=== PATIENT | male | born 1955 | race Caucasian/White ===

== ENCOUNTER 2016-11-04 12:14 | Inpatient (IN) | payer BC ==
[~2016-11-04] VITALS: Ht 152.4 cm; Wt 125.0 kg
[2016-11-04] VITALS (8 sets, daily range): BP systolic 96–108; BP diastolic 58–69; PULSE 78–89; RESP 14–18; TEMP 98.6–98.8; O2SAT 97–100
[2016-11-04] MEDS ORDERED: SODIUM CHLOR 0.9% 1000 ML INJ 1,000 ML IV SCH ×2 (14:54→18:30)
[2016-11-04] MEDS ORDERED: PANTOPRAZOLE SODIUM 40 MG VIAL IVP ONE (15:00)
[2016-11-04] MEDS ORDERED: SODIUM CHLORIDE 0.9% FLUSH 5 ML FLUSH IVF PRN (15:00)
[2016-11-04] MEDS ORDERED: PEPC10TA PO (15:04)
[2016-11-04] MEDS ORDERED: PROC10TA PO (15:04)
[2016-11-04] MEDS ORDERED: PANT40TA3 PO (15:04)
--- NOTE | 2016-11-04 15:06 | PD ---
HPI Chief Complaint: General Weakness Time Seen by Provider: 14:59 Travel History International Travel<30 days: No Contact w/Intl Traveler<30days: No Traveled to known affect area: No History of Present Illness HPI 61-year-old male presents to the emergency department for evaluation of spitting up/vomiting of blood as well as blood in the stools. He states this occurred Thursday night and Thursday. However, he was on vacation in the [place] and did not want to go the hospital. His is at bedside and states that he had approximate 4-5 syncopal episodes as well. He denies any vomiting or spitting up blood since. He does report dark stools. Patient has a history of esophageal cancer. He sees Dr. Del Angel. He has a feeding tube and pork. They called Dr. Del Angel instruction him to calm to the emergency department. The patient has generalized weakness. He reports chronic shortness of breath. Patient's primary care physician is Dr. Rosado. 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 Ortiz and he is currently on immunotherapy for his esophageal cancer. [facility] Social History Alcohol Use: No Tobacco Use: No Substance Use: No Allergies-Medications (Allergen,Severity, Reaction): Coded Allergies: Penicillin (Verified Allergy, Unknown, 11/04/16) reaction as an ; unsure of reaction Reported Meds & Prescriptions Reported Meds & Active Scripts Active Reported Pepcid AC (Famotidine) 10 Mg Tab 10 Mg PO BID Prochlorperazine Maleate 10 Mg Tab 10 Mg PO Q6H PRN Pantoprazole (Pantoprazole Sodium) 40 Mg Tab 40 Mg PO DAILY Review of Systems Except as stated in HPI: all other systems reviewed are Neg Physical Exam Narrative GENERAL: Well-developed well-nourished male patient, afebrile. SKIN: Warm and dry. HEAD: Normocephalic. Atraumatic. EYES: No scleral icterus. No injection or drainage. NECK: Supple, trachea midline. No JVD or lymphadenopathy. CARDIOVASCULAR: Regular rate and rhythm without murmurs, gallops, or rubs. RESPIRATORY: Breath sounds equal bilaterally. No accessory muscle use. Lungs sounds are clear to auscultation. GASTROINTESTINAL: Abdomen soft, non-tender, nondistended. Feeding tube noted. MUSCULOSKELETAL: No cyanosis, or edema. BACK: Nontender without obvious deformity. No CVA tenderness. RECTAL EXAM: No masses or tenderness, stool is dark red. Hemoccult is grossly positive. Rectal exam was done with the nurse at bedside. Data Data Last Documented VS Vital Signs Date Time Temp Pulse Resp B/P Pulse Ox O2 Delivery O2 Flow Rate FiO2 11/04/16 14:50 89 16 100 Room Air 11/04/16 12:16 98.8 108/66 Orders Complete Blood Count With Diff (11/04/16 14:54) Comprehensive Metabolic Panel (11/04/16 14:54) Lipase (11/04/16 14:54) Prothrombin Time / Inr (Pt) (11/04/16 14:54) Act Partial Throm Time (Ptt) (11/04/16 14:54) Urinalysis - C+S If Indicated (11/04/16 14:54) Ecg Monitoring (11/04/16 14:54) Iv Access Insert/Monitor (11/04/16 14:54) Oximetry (11/04/16 14:54) Pantoprazole Inj (Protonix Inj) (11/04/16 15:00) Sodium Chlor 0.9% 1000 Ml Inj (Ns 1000 M (11/04/16 14:54) Sodium Chloride 0.9% Flush (Ns Flush) (11/04/16 15:00) Type And Screen (11/04/16 14:54) Electrocardiogram (11/04/16 ) Red Blood Cells (Rbc) (11/04/16 16:20) Blood Product Administration .UPON TRANSFUSION (11/04/16 16:20) Sodium Chlor 0.9% 250 Ml Inj (Ns 250 Ml (11/04/16 16:30) Labs Laboratory Tests Test 11/04/16 15:10 White Blood Count 8.9 TH/MM3 Red Blood Count 2.59 MIL/MM3 Hemoglobin 7.0 GM/DL Hematocrit 21.7 % Mean Corpuscular Volume 83.8 FL Mean Corpuscular Hemoglobin 26.9 PG Mean Corpuscular Hemoglobin 32.1 % Concent Red Cell Distribution Width 15.1 % Platelet Count 255 TH/MM3 Mean Platelet Volume 7.4 FL Neutrophils (%) (Auto) 77.6 % Lymphocytes (%) (Auto) 10.4 % Monocytes (%) (Auto) 7.0 % Eosinophils (%) (Auto) 3.8 % Basophils (%) (Auto) 1.2 % Neutrophils # (Auto) 6.9 TH/MM3 Lymphocytes # (Auto) 0.9 TH/MM3 Monocytes # (Auto) 0.6 TH/MM3 Eosinophils # (Auto) 0.3 TH/MM3 Basophils # (Auto) 0.1 TH/MM3 CBC Comment DIFF FINAL Differential Comment Prothrombin Time 11.2 SEC Prothromb Time International 1.0 RATIO Ratio Activated Partial 27.5 SEC Thromboplast Time Sodium Level 138 MEQ/L Potassium Level 4.0 MEQ/L Chloride Level 101 MEQ/L Carbon Dioxide Level 26.6 MEQ/L Anion Gap 10 MEQ/L Blood Urea Nitrogen 30 MG/DL Creatinine 0.62 MG/DL Estimat Glomerular Filtration 131 ML/MIN Rate Random Glucose 85 MG/DL Calcium Level 8.7 MG/DL Total Bilirubin 0.3 MG/DL Aspartate Amino Transf 21 U/L (AST/SGOT) Alanine Aminotransferase 18 U/L (ALT/SGPT) Alkaline Phosphatase 115 U/L Total Protein 7.0 GM/DL Albumin 2.9 GM/DL Lipase 172 U/L Blood Type A POSITIVE Antibody Screen NEGATIVE Blood Bank Comment MDM Medical Decision Making Medical Screen Exam Complete: Yes Emergency Medical Condition: Yes Medical Record Reviewed: Yes Differential Diagnosis Upper GI bleed vs. lower GI bleed vs malignancy vs. ulcer vs. anemia vs. electrolyte abnormality vs. fistula Narrative Course 61-year-old male presents to the emergency department for evaluation of vomiting and spitting up blood as well as multiple syncopal episodes. He states the symptoms have resolved, but still has dark stools. Rectal exam shows maroon, dark red stools that are grossly Hemoccult positive. Patient complains of generalized weakness. EKG CBC, CMP, lipase, PTT, PT/INR, UA, type and screen are ordered and pending. EKG shows sinus rhythm, heart rate 82, no acute ST changes. CBC shows anemia with hemoglobin 7.0, hematocrit 21.7. CMP shows no acute abnormalities. Lipase is 172. Coags are unremarkable. 2 units packed red blood cells were ordered. [facility] is paged for admission. Dr. Raymond accepted admission. [facility] Point of Care Internal Pos. & Neg. Controls: Passed Fecal Specimen Occult Blood: Positive Diagnosis Primary Impression: GI bleed Qualified Code: K92.2 - Gastrointestinal hemorrhage, unspecified gastrointestinal hemorrhage type Additional Impressions: Anemia Qualified Code: D62 - Acute posthemorrhagic anemia Syncopal episodes Qualified Code: R55 - Syncope, unspecified syncope type Admitting Information Admitting Physician Requests: Debbie Coronado Nov 04, 2016 15:05
[2016-11-04 16:11] LABS: AUTOMATED NEUTROPHIL # 6.9 TH/MM3 (1.8-7.7); BASOPHIL # 0.1 TH/MM3 (0-0.2); BASOPHIL % 1.2 % (0.0-2.0); EOSINOPHIL # 0.3 TH/MM3 (0-0.4); EOSINOPHIL % 3.8 % (0.0-4.0); HEMATOCRIT 21.7 % (39.0-51.0); HEMO FLAGS DIFF FINAL; LYMPH % 10.4 % (9.0-44.0); LYMPHOCYTE # 0.9 TH/MM3 (1.0-4.8); MEAN CELL VOLUME 83.8 FL (80.0-100.0); MEAN CORPUSCULAR HEMOGLOBIN 26.9 PG (27.0-34.0); MEAN CORPUSCULAR HGB CONC 32.1 % (32.0-36.0); NEUT % 77.6 % (16.0-70.0); PLATELET COUNT 255 TH/MM3 (150-450); RED BLOOD COUNT 2.59 MIL/MM3 (4.50-5.90); RED CELL DISTRIBUTION WIDTH 15.1 % (11.6-17.2); WHITE BLOOD COUNT 8.9 TH/MM3 (4.0-11.0)
[2016-11-04 16:19] LABS: APTT (PATIENT) 27.5 SEC (24.3-30.1); PROTHROMBIN TIME - PATIENT 11.2 SEC (9.8-11.6)
[2016-11-04 16:30] LABS: ANION GAP 10 MEQ/L (5-15); AST (GOT) 21 U/L (15-37); BICARBONATE 26.6 MEQ/L (21.0-32.0); BLOOD UREA NITROGEN 30 MG/DL (7-18); CHLORIDE 101 MEQ/L (98-107); GLOMERULAR FILTRATION RATE 131 ML/MIN (>89); SODIUM (NA) 138 MEQ/L (136-145)
[2016-11-04] MEDS ORDERED: SODIUM CHLOR 0.9% 250 ML INJ 250 ML IV ONE (16:30)
[2016-11-04 16:33] LABS: ALKALINE PHOSPHATASE 115 U/L (45-117); ALT (GPT) 18 U/L (12-78); TOTAL BILIRUBIN ADULT 0.3 MG/DL (0.2-1.0)
[2016-11-04] MEDS ORDERED: SODIUM CHLORIDE 0.9% FLUSH 5 ML FLUSH IV PRN (18:15)
[2016-11-04] MEDS ORDERED: ONDANSETRON HCL 4 MG/2 ML VIAL IV PRN (18:15)
--- NOTE | 2016-11-04 18:20 | HHI.HP ---
Dr. Phill Rosado [facility] Primary [facility] Physician Shantanu Rosado MD Admission Diagnosis GI bleed, anemia, syncope Diagnoses: Chief Complaint: GI bleed Travel History International Travel<30 Days: No Contact w/Intl Traveler <30 Da: No Traveled to Known Affected Are: No History of Present Illness 61-year-old male with a past history of esophageal cancer and GERD who was sent in by his oncologist for GI bleeding and syncope. The patient was in the [place] last week on vacation for . On Thursday the patient had acute onset of nausea, with possible bloody emesis 1. He states that after that he began feeling lightheaded and dizzy. He states that he had 4 separate episodes of syncope after throwing up. His daughter heard him fall after the first episode. He states into the episodes he only lost consciousness for a few seconds. Because he remained lightheaded and dizzy afterwards he went to bed that night. On Thursday he had 3 episodes of bright red blood per rectum. He' s been feeling weak since that time, however no further symptoms. Today he called his oncologist, 's, office and they recommended he come to the ED. Since that time he denies any lightheadedness, dizziness, vomiting, rectal bleeding. He denies experiencing any chest pain, shortness of breath, abdominal pain. He gets occasional nausea. The patient is currently undergoing immunotherapy at [facility] [place]. He states he last had lab work done on 10/20, denies any past history of anemia. 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 He gets tube feedings with boost, and can tolerate some liquids by mouth. He was Hemoccult positive in the ED. The patient says he has not had any further episodes of hematemesis. He does say that the whole toilet bowl got red with blood. He said he had an endoscopy around Thanksgiving time. He said he had a colonoscopy a few years ago and believes they found diverticulosis. He says he does not take any pain medications at home. He says he was referred to the hospital by his oncologist. He currently continues to have episodes of lightheadedness. Review of Systems Other 10 point review of systems performed and was negative except as stated in history of present illness Past Family Social History Past Medical History Esophageal cancer on immunotherapy GERD Past Surgical History EGD/colonoscopy PEG placement Sep 17 Right chest port placement hernia repair vasectomy Reported Medications Pepcid AC (Famotidine) 10 Mg Tab 10 Mg PO BID Prochlorperazine Maleate 10 Mg Tab 10 Mg PO Q6H PRN Pantoprazole (Pantoprazole Sodium) 40 Mg Tab 40 Mg PO DAILY Allergies: Coded Allergies: Penicillin (Verified Allergy, Unknown, 11/04/16) reaction as an infant; unsure of reaction Active Ordered Medications Current Medications Medications (Trade) Dose Ordered Sig/Andrea Route Start Time Stop Time Status Last Admin IV Flush 2 ml 2 ml UNSCH PRN IVF 11/04/16 15:00 Sodium Chloride 250 ml @ 15 mls/hr ONCE ONCE IV 11/04/16 16:30 11/05/16 09:09 (NS 1000 ml Inj) 1,000 ml @ 125 mls/hr Q8H IV 11/04/16 18:09 UNV (NS Flush) 2 ml UNSCH PRN IV 11/04/16 18:15 UNV (NS Flush) 2 ml BID IV 11/04/16 21:00 UNV (Zofran Inj) 4 mg Q6H PRN IV 11/04/16 18:15 UNV (Protonix Inj) 40 mg DAILY IV 11/05/16 09:00 UNV Family History Father had Alzheimer's and at 73 Mother passed rate 96, no known medical problems Social History Former tobacco use, quit 15 years ago, [id number] history Occasional ocular use Denies any illegal drug use Physical Exam Vital Signs Vital Signs Date Time Temp Pulse Resp B/P Pulse Ox O2 Delivery O2 Flow Rate FiO2 11/04/16 16:00 78 14 96/58 99 Room Air 11/04/16 14:50 89 16 100 Room Air 11/04/16 12:16 98.8 89 14 108/66 100 Room Air Physical Exam GENERAL: Well-developed well-nourished. In no acute distress. SKIN: Warm and dry. Right chest port in place. HEENT: Normocephalic. Pupils equal and round. Mucous membranes pink and moist. CARDIOVASCULAR: Regular rate and rhythm. No murmur appreciated. RESPIRATORY: No accessory muscle use. Clear to auscultation. Breath sounds equal bilaterally. GASTROINTESTINAL: Abdomen soft, non-tender, nondistended. Bowel sounds x4. PEG tube in place in the lower abdomen. MUSCULOSKELETAL: No obvious deformities. No clubbing or cyanosis. No edema. NEUROLOGICAL: Awake and alert. No focal neurological deficits. Moves upper and lower extremities spontaneously. Normal speech. PSYCHIATRIC: Appropriate mood and affect; insight and judgment normal. Laboratory Laboratory Tests Test 11/04/16 11/04/16 15:10 16:20 White Blood Count 8.9 Red Blood Count 2.59 Hemoglobin 7.0 Hematocrit 21.7 Mean Corpuscular Volume 83.8 Mean Corpuscular Hemoglobin 26.9 Mean Corpuscular Hemoglobin 32.1 Concent Red Cell Distribution Width 15.1 Platelet Count 255 Mean Platelet Volume 7.4 Neutrophils (%) (Auto) 77.6 Lymphocytes (%) (Auto) 10.4 Monocytes (%) (Auto) 7.0 Eosinophils (%) (Auto) 3.8 Basophils (%) (Auto) 1.2 Neutrophils # (Auto) 6.9 Lymphocytes # (Auto) 0.9 Monocytes # (Auto) 0.6 Eosinophils # (Auto) 0.3 Basophils # (Auto) 0.1 CBC Comment DIFF FINAL Differential Comment Prothrombin Time 11.2 Prothromb Time International 1.0 Ratio Activated Partial 27.5 Thromboplast Time Sodium Level 138 Potassium Level 4.0 Chloride Level 101 Carbon Dioxide Level 26.6 Anion Gap 10 Blood Urea Nitrogen 30 Creatinine 0.62 Estimat Glomerular Filtration 131 Rate Random Glucose 85 Calcium Level 8.7 Total Bilirubin 0.3 Aspartate Amino Transf 21 (AST/SGOT) Alanine Aminotransferase 18 (ALT/SGPT) Alkaline Phosphatase 115 Total Protein 7.0 Albumin 2.9 Lipase 172 Blood Type A POSITIVE Antibody Screen NEGATIVE Blood Bank Comment Crossmatch Leukocyte-Reduced Red Blood Cells Result Diagram: 11/04/16 1510 11/04/16 1510 Assessment and Plan Problem List: (1) Anemia ICD Code: D64.9 Status: Acute (2) Syncopal episodes ICD Code: R55 Status: Acute (3) GI bleed ICD Code: K92.2 Status: Acute Assessment and Plan 61-year-old male with a past history of esophageal cancer and GERD who was sent in by his oncologist for GI bleeding and syncope GI bleeding: Episode of possible hematemesis 1 and rectal bleeding 3. IV PPI. IVF. Clear liquids. Consult gastroenterology. The patient does have a history of diverticulosis in the past. Also with esophageal cancer. IV PPI twice a day. 2 units of blood have been ordered. Follow-up CBC. Follow up with gastroenterology. IV fluids. Acute anemia: Hemoglobin 7.0, a previous last comparison, patient denies history of anemia. Likely secondary to acute blood loss as above vs immunotherapy. 2 units PRBCs ordered in the ED. Check serial H&H's. Consult patient's oncologist, Dr. Del Angel. Syncope: Secondary to acute blood loss anemia as above. Treatment as above. Esophageal cancer with associated dysphagia: On immunotherapy. Oncology consulted. Resume tube feeds when cleared by GI. Oncology consult pending. The patient believes he is next due for an immunotherapy injection on Thursday. DVT prophylaxis: SCDs Code Status Full Discussed Condition With Patient with at bedside, Dr. Raymond Attending Statement The exam, history, and the medical decision-making described in the above note were completed with the assistance of the mid-level provider. I reviewed and agree with the findings presented. I attest that I had a [id number] encounter with the patient on the same day, and personally performed and documented my assessment and findings in the medical record. Problem Qualifiers (1) Anemia: Qualified Code: D62 - Acute posthemorrhagic anemia (2) Syncopal episodes: Qualified Code: R55 - Syncope, unspecified syncope type (3) GI bleed: Qualified Code: K92.2 - Gastrointestinal hemorrhage, unspecified gastrointestinal hemorrhage type Artur Haynes Nov 04, 2016 18:20 Jairo Raymond DO Nov 04, 2016 19:08
[2016-11-04] MEDS: SODIUM CHLORIDE 0.9% FLUSH 5 ML FLUSH IV SCH (22:56)
[2016-11-04] MEDS: PANTOPRAZOLE SODIUM 40 MG VIAL IV SCH (22:56)
[2016-11-05] VITALS (9 sets, daily range): BP systolic 91–109; BP diastolic 58–63; PULSE 74–99; RESP 16–20; TEMP 96.3–98.6; O2SAT 95–100
[2016-11-05 05:23] LABS: AUTOMATED NEUTROPHIL # 5.6 TH/MM3 (1.8-7.7); BASOPHIL % 0.6 % (0.0-2.0); EOSINOPHIL # 0.2 TH/MM3 (0-0.4); EOSINOPHIL % 2.9 % (0.0-4.0); HEMATOCRIT 22.8 % (39.0-51.0); HEMO FLAGS DIFF FINAL; LYMPH % 20.4 % (9.0-44.0); LYMPHOCYTE # 1.7 TH/MM3 (1.0-4.8); MEAN CORPUSCULAR HEMOGLOBIN 27.6 PG (27.0-34.0); MEAN CORPUSCULAR HGB CONC 34.5 % (32.0-36.0); NEUT % 67.1 % (16.0-70.0); PLATELET COUNT 212 TH/MM3 (150-450); RED BLOOD COUNT 2.85 MIL/MM3 (4.50-5.90); RED CELL DISTRIBUTION WIDTH 16.6 % (11.6-17.2); WHITE BLOOD COUNT 8.3 TH/MM3 (4.0-11.0)
[2016-11-05 05:42] LABS: BICARBONATE 27.8 MEQ/L (21.0-32.0); POTASSIUM 4.2 MEQ/L (3.5-5.1)
[2016-11-05] MEDS: PANTOPRAZOLE SODIUM 40 MG VIAL IV SCH ×2 (08:34→19:30)
[2016-11-05] MEDS: SODIUM CHLORIDE 0.9% FLUSH 5 ML FLUSH IV SCH ×2 (08:34→19:30)
[2016-11-05] MEDS ORDERED: PANTOPRAZOLE SODIUM 40 MG VIAL IV SCH (09:00)
[2016-11-05] MEDS ORDERED: diphenhydrAMINE HCL 25 MG CAP PO PRN (09:15)
[2016-11-05] MEDS ORDERED: ACETAMINOPHEN 325 MG TAB PO PRN (09:15)
[2016-11-05] MEDS ORDERED: SODIUM CHLOR 0.9% 250 ML INJ 250 ML IV ONE (09:15)
--- NOTE | 2016-11-05 09:51 | MB ---
cc: KATHY DAVID M.D. DATE OF CONSULTATION 11/05/[address] Raymond REASON FOR CONSULTATION Oncology consulted to render opinion regarding patient with metastatic esophageal cancer presented with GI bleed. HISTORY OF PRESENT ILLNESS The patient is a very pleasant 61-year-old male with a history of metastatic esophageal cancer who presented with a complaint of hematemesis and bright red blood per rectum. He recently was found to have progression of metastatic esophageal cancer and he went to [facility] and was started on Keytruda. He had three cycles so far and the last cycle about two weeks ago. He went to [place] to spend his holiday and he was doing well and on Thursday he suddenly had nausea and he threw up bright red blood once. After that, he had become very dizzy and had a syncopal episode about three to four times. He then went to bed and the next morning he noticed bright red blood per rectum and he told me he had three episodes. He also had nausea on Thursday, but none since. He became very weak. He was told to come to the emergency room. He was found to have a hemoglobin of 7. He received two units of packed red blood cell transfusion and this morning hemoglobin is up to 7.8. He is feeling a little better. He denies any fever or chills. He denies any headache. Denies visual changes. Denies chest pain. He has chronic dyspnea on exertion. Denies significant cough. He still has dysphagia. He is able to drink fluid slowly. He denies abdominal pain. Denies dysuria or hematuria. Denies any bone pain. PAST MEDICAL HISTORY 1. Metastatic esophageal cancer. He had metastatic disease in the liver and lymph node. He is currently on Keytruda at [facility]. 2. Gastroesophageal reflux disease 3. Dysphagia PAST SURGICAL HISTORY 1. PEG tube placement 2. EGD and colonoscopy 3. Port placement 4. Hernia repair 5. Vasectomy FAMILY HISTORY Noncontributory SOCIAL HISTORY Quit tobacco 15 years ago. He had a 30 pack year smoking history and drinks occasionally. ALLERGIES PENICILLIN CURRENT MEDICATIONS 1. Protonix 2. Ondansetron REVIEW OF SYSTEMS CONSTITUTIONAL: Denies any fevers, chills, or night sweat. He has lost some weight. EYES: Denies any blurry vision or double vision. ENT: No mouth sores or voice changes. CARDIOVASCULAR: No chest pressure or palpitations. RESPIRATORY: No shortness of breath. He has chronic dyspnea on surgeon. GI: As above. : No dysuria or hematuria. MUSCULOSKELETAL: Bone pain, muscle pain. HEMATOLOGY: As above. ENDOCRINE: Negative. DERMATOLOGY: Negative. PSYCHIATRIC: Negative. NEUROLOGIC: Negative. PHYSICAL EXAM VITALS: Temperature 96.3, blood pressure 161, O2 saturation 99%. GENERAL: He is alert and oriented x3 in no acute distress. He is a little pale. HEENT: Atraumatic, normocephalic. Pupils equal, round and reactive to light. Extraocular muscles intact. No scleral icterus. Oropharynx, dry mucosa. No lesion. NECK: No thyromegaly. No palpable masses. LYMPHATICS: No palpable cervical, clavicular, axillary or inguinal lymph nodes. CARDIOVASCULAR: Regular S1-S2. No murmur. LUNGS: Clear to auscultation without wheezing or rhonchi. ABDOMEN: Soft and nontender. I could not palpate the liver or spleen. PEG tube noted. EXTREMITIES: No cyanosis, clubbing or edema. BACK: No paravertebral tenderness. SKIN: No rash or petechiae. NEUROLOGIC: Nonfocal. LABORATORY DATA Reviewed ASSESSMENT 1. Metastatic esophageal cancer. He was found to have adenocarcinoma involving the GE junction invaded the stomach fundus. He also was found to have liver metastasis. A PET scan showed para-aortic small adenopathy. He received three cycles of EOF chemotherapy and had a very good response. He, however, developed side effects and was switched to FOLFOX chemotherapy. He completed 11 cycle of chemotherapy, but unfortunately in September, he was found to have progression of disease in the liver and esophagus. He had upper endoscopy done September 24 which again showed a mass in the GE junction causing some obstruction. He went to [facility] and was started on Keytruda. He has completed three cycle, last cycle two weeks ago. He is supposed to go back to [facility] next Thursday for restaging scan and chemotherapy. 2. Upper GI bleed which I think is due to the esophageal cancer. His EGD at the end of September showed a mass involving about 50% of the esophagus circumferentially. He has had dysphagia, but states it seems to have improved. He started to have hematemesis last Thursday, but has not recurred since. He had bright red blood per rectum on Thursday that also has not recurred since. His hemoglobin was down to 7. He is going to need upper endoscopy for further evaluation. Gastroenterology has been consulted. 3. Anemia due to GI bleed. Hemoglobin trended up to 7.8 from 7 after two units of packed red blood cell transfusion. I am going to give him another unit and try to keep his hemoglobin above 8 due to GI bleeding. 4. Gastroesophageal reflux disease 5. Dysphagia due to esophageal mass. He will continue on tube feeding. RECOMMENDATIONS 1. Arrange for another unit of packed red blood cell transfusion. 2. Await GI evaluation. He needs repeat upper endoscopy. 3. If the GI bleeding has stopped, he can be discharged from the oncology standpoint. He has follow up at [facility] next Thursday for restaging scan and to continue Keytruda. Thank you, Dr. Raymond for asking us to see this patient. MD SHAHZAD Jeter/LUIGI /9:18 AM /9:34 AM SERGIO
--- NOTE | 2016-11-05 11:44 | EKG ---
Date Performed: 11/04/2016 Time Performed: 15:15:43 PTAGE: 61 years EKG: Sinus rhythm WITH SHORT MN INTERVAL BORDERLINE ECG NO PREVIOUS TRACING DOCTOR: Cornelio Morales Interpretating Date/Time 11/05/2016 11:42:22
--- NOTE | 2016-11-05 12:02 | PD.CONS ---
HPI History of Present Illness This is a 61 year old male patient with known metastatic esophageal cancer. He was originally diagnosed and October 2015. He was treated with chemotherapy up until August of this year. He was recently found to have progression of his disease and was started on Keytruda. He is currently being followed at [facility] and has appointment on Thursday for CT scan. Patient last had an upper endoscopy in September 2016 at which time he was found to have an obstructing esophageal mass. He has had some intermittent issues with dysphasia and has lost 60 pounds over the past year. He has a feeding tube in place and is currently taking boost 6 cans daily. He reports that he has been able to maintain his weight with this. He states that he was doing well up until last Thursday. He was actually in [place] for the holidays and states that Thursday night he was sipping on a boost when he had the sudden onset of nausea. He also had a syncopal episode. He went to bed and woke up with nausea and vomiting and brought up a small amount of bright red blood. He reports he then woke up around 1 AM with a sudden urge to move his bowels and passed a moderate amount of bright red blood per rectum. He reports that since that time he is only been taking his boost via his PEG tube and he returned home. He presented to the emergency room for further evaluation. His H&H on admission was 7.0/ 21.7. He received 2 units of packed red blood cells and this is currently 7.8/ 22.8. He is on Protonix IV twice a day. He has not had any further hematemesis. He is not currently having any nausea. He denies any abdominal pain and has not had any further episodes of hematochezia. GI has been consulted for further evaluation. (Fransisca Jeronimo) PFSH Past Medical History Metastatic esophageal cancer with progression of disease to the liver and lymph node, currently on Keytruda at [facility] GERD Dysphagia Past Surgical History EGD/colonoscopy PEG placement Sep 17 Right chest port placement Hernia repair Vasectomy (Fransisca Jeronimo) Coded Allergies: Penicillin (Verified Allergy, Unknown, 11/04/16) reaction as an ; unsure of reaction Medications Allergies Coded Allergies Type Severity Reaction Last Updated Verified Penicillin Allergy Unknown 11/04/16 Yes Active Scripts Medications Dose Route/Sig Days Date Category Pepcid AC (Famotidine) 10 Mg Tab 10 Mg PO BID 11/04/16 Reported Prochlorperazine Maleate 10 Mg Tab 10 Mg PO Q6H PRN 11/04/16 Reported Pantoprazole (Pantoprazole Sodium) 40 Mg Tab 40 Mg PO DAILY 11/04/16 Reported Family History Father had Alzheimer's and at 73 Mother passed at age 96, no known medical problems Social History Former tobacco use, quit 15 years ago, [id number] history Occasional alcohol use Denies any illegal drug use (Fransisca Jeronimo) Review of Systems Constitutional: COMPLAINS OF: Fatigue, Weight loss (60 pound weight loss over the past year), DENIES: Fever, Chills Respiratory: DENIES: Cough, Shortness of breath Cardiovascular: DENIES: Chest pain Gastrointestinal: COMPLAINS OF: Bloody stools, Nausea, Vomiting, Anorexia, Heartburn, Hematemesis, DENIES: Abdominal pain, Black stools, Constipation, Diarrhea, Swelling of Abdomen Musculoskeletal: DENIES: Back pain Integumentary: DENIES: Rash Hematologic/lymphatic: DENIES: Bruising Neurologic: DENIES: Headache Psychiatric: DENIES: Confusion (Fransisca Jeronimo) GI Exam Vitals I&O Vital Signs Date Time Temp Pulse Resp B/P Pulse Ox O2 Delivery O2 Flow Rate FiO2 11/05/16 08:00 96.3 74 17 100/61 99 11/05/16 04:00 98.6 77 18 100/62 96 11/04/16 23:54 98.6 85 18 105/69 99 11/04/16 20:35 98.6 82 16 99/58 97 Room Air 11/04/16 20:00 97 11/04/16 19:35 98.6 86 16 98/62 98 Room Air 11/04/16 19:20 98.7 88 16 97/63 98 Room Air 11/04/16 18:00 84 14 98/61 98 Room Air 11/04/16 16:00 78 14 96/58 99 Room Air 11/04/16 14:50 89 16 100 Room Air 11/04/16 12:16 98.8 89 14 108/66 100 Room Air I/O 1/3/17 1/3/17 11/04/16 11/05/16 11/05/16 11/05/16 07:00 15:00 23:00 07:00 15:00 23:00 Intake Total 240 ml 1357 ml Output Total 300 ml 250 ml Balance -60 ml 1107 ml Intake Oral 240 ml 125 ml IV Total 550 ml Packed Cells 682 ml Output Urine Total 300 ml 250 ml # Bowel Movements 0 0 Laboratory Test 11/04/16 11/04/16 11/04/16 11/05/16 15:10 16:20 18:15 04:45 White Blood Count 8.9 TH/MM3 8.3 TH/MM3 Red Blood Count 2.59 MIL/MM3 2.85 MIL/MM3 Hemoglobin 7.0 GM/DL 7.8 GM/DL Hematocrit 21.7 % 22.8 % Mean Corpuscular Volume 83.8 FL 80.0 FL Mean Corpuscular Hemoglobin 26.9 PG 27.6 PG Mean Corpuscular Hemoglobin 32.1 % 34.5 % Concent Red Cell Distribution Width 15.1 % 16.6 % Platelet Count 255 TH/MM3 212 TH/MM3 Mean Platelet Volume 7.4 FL 7.3 FL Neutrophils (%) (Auto) 77.6 % 67.1 % Lymphocytes (%) (Auto) 10.4 % 20.4 % Monocytes (%) (Auto) 7.0 % 9.0 % Eosinophils (%) (Auto) 3.8 % 2.9 % Basophils (%) (Auto) 1.2 % 0.6 % Neutrophils # (Auto) 6.9 TH/MM3 5.6 TH/MM3 Lymphocytes # (Auto) 0.9 TH/MM3 1.7 TH/MM3 Monocytes # (Auto) 0.6 TH/MM3 0.7 TH/MM3 Eosinophils # (Auto) 0.3 TH/MM3 0.2 TH/MM3 Basophils # (Auto) 0.1 TH/MM3 0.0 TH/MM3 CBC Comment DIFF FINAL DIFF FINAL Differential Comment Prothrombin Time 11.2 SEC Prothromb Time International 1.0 RATIO Ratio Activated Partial 27.5 SEC Thromboplast Time Sodium Level 138 MEQ/L 141 MEQ/L Potassium Level 4.0 MEQ/L 4.2 MEQ/L Chloride Level 101 MEQ/L 106 MEQ/L Carbon Dioxide Level 26.6 MEQ/L 27.8 MEQ/L Anion Gap 10 MEQ/L 7 MEQ/L Blood Urea Nitrogen 30 MG/DL 33 MG/DL Creatinine 0.62 MG/DL 0.75 MG/DL Estimat Glomerular Filtration 131 ML/MIN 105 ML/MIN Rate Random Glucose 85 MG/DL 90 MG/DL Calcium Level 8.7 MG/DL 8.2 MG/DL Total Bilirubin 0.3 MG/DL Aspartate Amino Transf 21 U/L (AST/SGOT) Alanine Aminotransferase 18 U/L (ALT/SGPT) Alkaline Phosphatase 115 U/L Total Protein 7.0 GM/DL Albumin 2.9 GM/DL Lipase 172 U/L Blood Type A POSITIVE A POSITIVE Antibody Screen NEGATIVE Blood Bank Comment Crossmatch Leukocyte-Reduced Red Blood Cells Test 11/05/16 09:19 Blood Type A POSITIVE Crossmatch Leukocyte-Reduced Red Blood Cells Blood Bank Comment Physical Examination HEENT: Normocephalic; atraumatic; no jaundice. CHEST: Chest is clear to auscultation and percussion. CARDIAC: Regular rate and rhythm with no murmur gallop or rubs. ABDOMEN: Soft, nondistended, nontender; no hepatosplenomegaly; bowel sounds are present in all four quadrants. PEG tube clamped EXTREMITIES: No clubbing, cyanosis, or edema. SKIN: Normal; no rash; no jaundice. [employer]: No focal deficits; alert and oriented times three. (Fransisca Jeronimo) Assessment and Plan Plan ASSESSMENT: - Upper GI bleed with hematemesis consisting of bright red blood and one episode of hematochezia with bright red blood. Currently not actively bleeding at this time. Patient with known metastatic esophageal cancer with obstructing mass, last endoscopy was around . He is currently being treated with Keytuda at [facility]. His H&H on admission was 7.0/21.7. He received 2 units of packed red blood cells and this is currently 7.8/22.8. He is on Protonix IV twice a day. Pt states he has not had anything to eat/drink since yesterday. Will schedule for egd today. - Anemia secondary to acute blood loss. Status post 2 units of packed red blood cells. H&H currently 7.8/22.8. PPI - Metastatic esophageal cancer with disease to his liver and lymph nodes. Diagnosed October 2015. Status post chemotherapy up until August. He was found to have progression And was started on Keytruda at [facility]. He has an upcoming appointment on Thursday and is scheduled for CT scan at that time. Oncology is following. - Dysphagia, abnormal weight loss. Patient reports a 60 pound weight loss over the past year or although more recently his weight has been stable. He has PEG tube and is taking boost supplements 6 cans per day. PLAN - Plan for EGD today - Obtain consents - Nothing by mouth - Continue PPI - Monitor H&H - Transfuse as necessary - Oncology following - Supportive care - Pt seen and examined by Dr. Luevano and myself and this note is written on his behalf (Fransisca Jeronimo) Physician Comments patient was seen and examined, agree with above note and plan, EGD today. ( Jimy Luevano MD) Fransisca Jeronimo Nov 05, 2016 12:02 Jimy Luevano MD Nov 05, 2016 17:41
[2016-11-05 12:11] LABS: HEMATOCRIT 22.3 % (39.0-51.0); REVIEW FLAG FINAL
[2016-11-05] MEDS ORDERED: EPINEPHrine HCL (1:10,000) 1 MG/10 ML SYRINGE OTHER ONE (12:47)
[2016-11-05] MEDS ORDERED: PROPOFOL 200 MG/20 ML AMP IV ONE (12:47)
--- NOTE | 2016-11-05 17:11 | HHI.PR ---
Subjective Remarks The patient and are wondering about the results from the endoscopy. The patient said that he felt a little soreness in his throat. He denied abdominal pain. No other acute complaints at this time. Objective Vitals Vital Signs Date Time Temp Pulse Resp B/P Pulse Ox O2 Delivery O2 Flow Rate FiO2 11/05/16 16:25 96.9 87 16 93/63 96 11/05/16 16:12 97.5 99 20 109/58 95 11/05/16 14:23 95 11/05/16 13:34 88 16 96/62 94 11/05/16 13:23 85 16 86/58 96 11/05/16 13:17 86 16 94/63 96 11/05/16 13:12 97.7 85 16 106/67 97 11/05/16 12:00 97.8 86 18 91/60 100 11/05/16 08:00 96.3 74 17 100/61 99 11/05/16 04:00 98.6 77 18 100/62 96 11/04/16 23:54 98.6 85 18 105/69 99 11/04/16 20:35 98.6 82 16 99/58 97 Room Air 11/04/16 20:00 97 11/04/16 19:35 98.6 86 16 98/62 98 Room Air 11/04/16 19:20 98.7 88 16 97/63 98 Room Air 11/04/16 18:00 84 14 98/61 98 Room Air I/O 11/04/16 11/04/16 11/04/16 11/05/16 11/05/16 11/05/16 06:59 14:59 22:59 06:59 14:59 22:59 Intake Total 240 ml 1357 ml 550 ml Output Total 300 ml 250 ml Balance -60 ml 1107 ml 550 ml Intake Oral 240 ml 125 ml IV Total 550 ml 550 ml Packed Cells 682 ml Output Urine Total 300 ml 250 ml # Bowel Movements 0 0 Result Diagram: 11/05/16 1130 11/05/16 0445 Objective Remarks GENERAL: Well-developed well-nourished. In no acute distress. SKIN: Warm and dry. Right chest port in place. HEENT: Normocephalic. Pupils equal and round. Mucous membranes pink and moist. CARDIOVASCULAR: Regular rate and rhythm. No murmur appreciated. RESPIRATORY: No accessory muscle use. Clear to auscultation. Breath sounds equal bilaterally. GASTROINTESTINAL: Abdomen soft, non-tender, nondistended. Bowel sounds x4. PEG tube in place in the lower abdomen. MUSCULOSKELETAL: No obvious deformities. No clubbing or cyanosis. No edema. NEUROLOGICAL: Awake and alert. No focal neurological deficits. Moves upper and lower extremities spontaneously. Normal speech. PSYCHIATRIC: Appropriate mood and affect; insight and judgment normal. Procedures EGD 11/05. Medications and IVs Current Medications Medications (Trade) Dose Ordered Sig/Andrea Route Start Time Stop Time Status Last Admin (NS Flush) 2 ml UNSCH PRN IV 11/04/16 18:15 (NS Flush) 2 ml BID IV 11/04/16 21:00 11/04/16 22:56 (Zofran Inj) 4 mg Q6H PRN IV 11/04/16 18:15 Pantoprazole Sodium 40 mg 40 mg BID IV 11/04/16 21:00 11/05/16 08:34 Sodium Chloride 250 ml @ 15 mls/hr ONCE ONCE IV 11/05/16 09:15 11/06/16 01:54 11/05/16 11:35 (D5W-11/03 NS 1000 ml Inj) 1,000 ml @ 100 mls/hr Q10H IV 11/05/16 17:00 A/P Problem List: (1) Anemia ICD Code: D64.9 Status: Acute (2) Syncopal episodes ICD Code: R55 Status: Acute (3) GI bleed ICD Code: K92.2 Status: Acute Assessment and Plan GI bleeding GI consult appreciated. S/p EGD which revealed bleeding mass at distal esophagus , injected with lidocaine, - transfusion per GI. - follow CBC. - IV PPI. - IVFs. Keep the pt NPO for now. - IR consult for embolization if continues to bleed. Hypotension S/t GIB. - treatment as above. Syncope Secondary to acute blood loss anemia as above. - Treatment as above. Esophageal cancer With associated dysphagia: On immunotherapy. Oncology consult appreciated - Resume tube feeds when cleared by GI. - follow up with oncology as an outpt. DVT prophylaxis: SCDs Discharge Planning Awaiting clinical improvement. Problem Qualifiers (1) Anemia: Qualified Code: D62 - Acute posthemorrhagic anemia (2) Syncopal episodes: Qualified Code: R55 - Syncope, unspecified syncope type (3) GI bleed: Qualified Code: K92.2 - Gastrointestinal hemorrhage, unspecified gastrointestinal hemorrhage type Jairo Raymond DO Nov 05, 2016 17:11
[2016-11-05] MEDS: DEXT 5%-NACL 0.45% 1000 ML INJ 1,000 ML IV SCH (19:32)
[2016-11-06] VITALS (13 sets, daily range): BP systolic 87–113; BP diastolic 57–69; PULSE 72–85; RESP 16–18; TEMP 97.3–98.8; O2SAT 96–99
[2016-11-06 01:13] LABS: HEMATOCRIT 18.6 % (39.0-51.0); REVIEW FLAG FINAL
[2016-11-06] MEDS ORDERED: SODIUM CHLOR 0.9% 250 ML INJ 250 ML IV ONE (02:00)
[2016-11-06] MEDS: DEXT 5%-NACL 0.45% 1000 ML INJ 1,000 ML IV SCH ×3 (03:00→22:24)
[2016-11-06] MEDS: PANTOPRAZOLE SODIUM 40 MG VIAL IV SCH ×2 (08:33→20:24)
[2016-11-06] MEDS: SODIUM CHLORIDE 0.9% FLUSH 5 ML FLUSH IV SCH ×2 (08:34→20:24)
--- NOTE | 2016-11-06 09:16 | PD.ONC.PN ---
Subjective Subjective Remarks Afebrile overnight. Patient denies any hematemesis or BRBPR today. He just completed blood transfusion and post transfusion labs are pending. Objective Data Date Time Temp Pulse Resp B/P Pulse Ox O2 Delivery O2 Flow Rate FiO2 11/06/16 08:24 98.5 73 16 102/63 11/06/16 08:00 98.2 85 16 87/60 98 11/06/16 08:00 98.5 73 16 102/65 98 11/06/16 06:00 98.2 80 18 106/66 98 11/06/16 05:45 97.6 79 18 113/68 99 11/06/16 05:30 97.6 79 18 113/68 99 11/06/16 04:00 97.8 79 18 97/64 97 11/06/16 02:55 98.8 80 18 100/57 98 11/06/16 02:40 98.6 81 17 99/58 98 11/06/16 00:00 98.6 85 18 101/61 96 11/05/16 20:00 98.4 89 18 104/63 96 11/05/16 19:32 98.4 89 18 104/63 96 11/05/16 18:42 21 11/05/16 16:25 96.9 87 16 93/63 96 11/05/16 16:12 97.5 99 20 109/58 95 11/05/16 16:00 97.5 99 20 109/58 95 11/05/16 14:23 95 11/05/16 13:34 88 16 96/62 94 11/05/16 13:23 85 16 86/58 96 11/05/16 13:17 86 16 94/63 96 11/05/16 13:12 97.7 85 16 106/67 97 11/05/16 12:00 97.8 86 18 91/60 100 11/06/16 11/06/16 11/06/16 07:00 15:00 23:00 Intake Total 1008 ml Output Total 1200 ml Balance -192 ml Result Diagram: 11/06/16 0055 11/05/16 0445 Laboratory Results Laboratory Tests Test 11/05/16 11/05/16 11/06/16 11/06/16 09:19 11:30 00:55 01:52 Blood Type A POSITIVE A POSITIVE Crossmatch Leukocyte-Reduced Leukocyte-Reduced Red Blood Red Blood Cells Cells Blood Bank Comment Hemoglobin 7.4 GM/DL 6.3 GM/DL Hematocrit 22.3 % 18.6 % Administered Medications Medications (Trade) Dose Ordered Sig/Andrea Route PRN Reason Start Time Stop Time Status Last Admin Dose Admin IV Flush (NS Flush) 2 ml BID IV 11/04/16 21:00 11/06/16 08:34 Pantoprazole Sodium 40 mg 40 mg BID IV 11/04/16 21:00 11/06/16 08:33 Dextrose/Sodium Chloride 1,000 ml @ 100 mls/hr Q10H IV 11/05/16 17:00 11/05/16 19:32 Sodium Chloride (NS 250 ml Inj) 250 ml @ 15 mls/hr ONCE ONCE IV 11/06/16 02:00 11/06/16 18:39 11/06/16 02:00 Objective Remarks GENERAL: Middle aged male, sitting up in bed in nad. SKIN: Warm and dry. HEAD: Normocephalic. EYES: No scleral icterus. No injection or drainage. NECK: Supple, trachea midline. CARDIOVASCULAR: Regular rate and rhythm RESPIRATORY: Breath sounds equal bilaterally. No accessory muscle use. GASTROINTESTINAL: Abdomen G-tube clamped. blood noted in G-tube EXTREMITIES: No cyanosis MUSCULOSKELETAL: Adequate muscle tone. NEUROLOGICAL: No obvious focal deficit. Awake, alert, and oriented x3. Assessment/Plan Problem List: (1) Primary cancer of esophagus with metastasis to other site Status: Acute Plan: --follow up at [facility] next Thursday for restaging scan and chemotherapy. History/Workup -- found to have adenocarcinoma involving the GE junction invaded the stomach fundus. --found to have liver metastasis. --PET scan showed para-aortic small adenopathy. --received three cycles of EOF chemotherapy and had a very good response. --developed side effects and was switched to FOLFOX chemotherapy. --completed 11 cycle of chemotherapy, but unfortunately in September, he was found to have progression of disease in the liver and esophagus. --upper endoscopy done September 24 which again showed a mass in the GE junction causing some obstruction. --went to [facility] and was started on Keytruda. has completed three cycles, last cycle two weeks ago. (2) GI bleed Status: Acute Plan: --monitor H/H. If continued bleeding s/p epi + cautery in GI lab will need embolization by IR. HistoryWorkup --due to the esophageal cancer. --EGD at he end of September showed a mass involving about 50% of the esophagus circumferentially. -- has had dysphagia, but states it seems to have improved. --started to have hematemesis last Thursday, but has not recurred since. --had bright red blood per rectum on Thursday that also has not recurred since. His hemoglobin was down to 7. --EGD, 11/05/16 showed ulcerated actively bleeding mass in the distal esophagus with multiple bleeding sites--was injected with epi and cauterized. + significant narrowing of the esophagus bc of the tumor. (3) Anemia due to blood loss Status: Acute Plan: 11/06/15: h/h dropped to 6.3 today. pRBC ordered (4) Dysphagia due to mass Status: Acute Plan: --continue tube feeds Assessment 61y/o male with h/o met. esophageal cancer, admitted with GIB Plan 1. agree with pRBC 2. monitor CBC Attending Statement The exam, history, and the medical decision-making described in the above note were completed with the assistance of the mid-level provider. I reviewed and agree with the findings presented. I attest that I had a [id number] encounter with the patient on the same day, and personally performed and documented my assessment and findings in the medical record. EGD showed actively bleeding mass s/p injection of epinephrine. Hgb trended lower and he is receiving transfusion. If the tumor continue to bleed, then he will need embolization per GI. Monitor H&H and transfuse to keep Hgb >8. Problem Qualifiers (1) GI bleed: Qualified Code: K92.2 - Gastrointestinal hemorrhage, unspecified gastrointestinal hemorrhage type Darcy Chatman Nov 06, 2016 09:16 Armando Del Angel MD Nov 06, 2016 13:43
[2016-11-06 09:44] LABS: HEMATOCRIT 25.1 % (39.0-51.0); MEAN CELL VOLUME 81.5 FL (80.0-100.0); MEAN CORPUSCULAR HEMOGLOBIN 28.2 PG (27.0-34.0); MEAN CORPUSCULAR HGB CONC 34.6 % (32.0-36.0); PLATELET COUNT 183 TH/MM3 (150-450); RED BLOOD COUNT 3.08 MIL/MM3 (4.50-5.90); RED CELL DISTRIBUTION WIDTH 15.9 % (11.6-17.2); REVIEW FLAG FINAL; WHITE BLOOD COUNT 9.4 TH/MM3 (4.0-11.0)
[2016-11-06 10:06] LABS: BICARBONATE 27.7 MEQ/L (21.0-32.0); POTASSIUM 3.8 MEQ/L (3.5-5.1)
--- NOTE | 2016-11-06 13:07 | HHI.PR ---
Subjective Remarks The patient did not notice any further bleeding. He mentions he has not had a bowel movement. He was curious as to what the next steps were and when he could be discharged home. Family at bedside. Objective Vitals Vital Signs Date Time Temp Pulse Resp B/P Pulse Ox O2 Delivery O2 Flow Rate FiO2 11/06/16 12:00 97.8 74 16 97/65 98 11/06/16 10:51 98 21 11/06/16 08:24 98.5 73 16 102/63 11/06/16 08:00 98.2 85 16 87/60 98 11/06/16 08:00 98.5 73 16 102/65 98 11/06/16 06:00 98.2 80 18 106/66 98 11/06/16 05:45 97.6 79 18 113/68 99 11/06/16 05:30 97.6 79 18 113/68 99 11/06/16 04:00 97.8 79 18 97/64 97 11/06/16 02:55 98.8 80 18 100/57 98 11/06/16 02:40 98.6 81 17 99/58 98 11/06/16 00:00 98.6 85 18 101/61 96 11/05/16 20:00 98.4 89 18 104/63 96 11/05/16 19:32 98.4 89 18 104/63 96 11/05/16 18:42 21 11/05/16 16:25 96.9 87 16 93/63 96 11/05/16 16:12 97.5 99 20 109/58 95 11/05/16 16:00 97.5 99 20 109/58 95 11/05/16 14:23 95 11/05/16 13:34 88 16 96/62 94 11/05/16 13:23 85 16 86/58 96 11/05/16 13:17 86 16 94/63 96 11/05/16 13:12 97.7 85 16 106/67 97 I/O 11/05/16 11/05/16 11/05/16 11/06/16 11/06/16 11/06/16 07:00 15:00 23:00 07:00 15:00 23:00 Intake Total 1357 ml 1025 ml 280 ml 1008 ml Output Total 250 ml 475 ml 400 ml 1200 ml Balance 1107 ml 550 ml -120 ml -192 ml Intake Oral 125 ml 475 ml 0 ml IV Total 550 ml 550 ml 708 ml Packed Cells 682 ml 280 ml 300 ml Output Urine Total 250 ml 475 ml 400 ml 1200 ml Stool Total 0 ml # Voids 2 # Bowel Movements 0 3 0 Result Diagram: 11/06/1691911/06/16919 Objective Remarks GENERAL: Well-developed well-nourished. In no acute distress. SKIN: Warm and dry. Right chest port in place. Color has returned. HEENT: Normocephalic. Pupils equal and round. Mucous membranes pink and moist. CARDIOVASCULAR: Regular rate and rhythm. No murmur appreciated. RESPIRATORY: No accessory muscle use. Clear to auscultation. Breath sounds equal bilaterally. GASTROINTESTINAL: Abdomen soft, non-tender, nondistended. Bowel sounds x4. PEG tube in place in the lower abdomen. MUSCULOSKELETAL: No obvious deformities. No clubbing or cyanosis. No edema. NEUROLOGICAL: Awake and alert. No focal neurological deficits. Moves upper and lower extremities spontaneously. Normal speech. PSYCHIATRIC: Appropriate mood and affect; insight and judgment normal. Procedures EGD 11/05. Medications and IVs Current Medications Medications (Trade) Dose Ordered Sig/Andrea Route Start Time Stop Time Status Last Admin (NS Flush) 2 ml UNSCH PRN IV 11/04/16 18:15 11/06/16 11:42 (NS Flush) 2 ml BID IV 11/04/16 21:00 11/06/16 08:34 (Zofran Inj) 4 mg Q6H PRN IV 11/04/16 18:15 Pantoprazole Sodium 40 mg 40 mg BID IV 11/04/16 21:00 11/06/16 08:33 Dextrose/Sodium Chloride 1,000 ml @ 100 mls/hr Q10H IV 11/05/16 17:00 11/06/16 11:41 (NS 250 ml Inj) 250 ml @ 15 mls/hr ONCE ONCE IV 11/06/16 02:00 11/06/16 18:39 11/06/16 02:00 A/P Problem List: (1) Anemia ICD Code: D64.9 Status: Acute (2) Syncopal episodes ICD Code: R55 Status: Acute (3) GI bleed ICD Code: K92.2 Status: Acute Assessment and Plan GI bleeding GI consult appreciated. S/p EGD which revealed bleeding mass at distal esophagus , injected with lidocaine. S/p two additional units of blood early 11/06. No further bleeding and with appropriate response. - transfuse as needed. - follow CBC this afternoon. - IV PPI. - IVFs. Keep the pt NPO for now. - IR consult for embolization if continues to bleed or if next hemoglobin check is substantially lower. - follow up with GI. Hypotension S/t GIB. Improved. - treatment as above. Syncope Secondary to acute blood loss anemia as above. - Treatment as above. Esophageal cancer With associated dysphagia: On immunotherapy. Oncology consult appreciated - Resume tube feeds when cleared by GI. - follow up with oncology as an outpt. DVT prophylaxis: SCDs Discharge Planning Awaiting clinical improvement. Problem Qualifiers (1) Anemia: Qualified Code: D62 - Acute posthemorrhagic anemia (2) Syncopal episodes: Qualified Code: R55 - Syncope, unspecified syncope type (3) GI bleed: Qualified Code: K92.2 - Gastrointestinal hemorrhage, unspecified gastrointestinal hemorrhage type Jairo Raymond DO Nov 06, 2016 13:07
--- NOTE | 2016-11-06 13:12 | HHI.GIFU ---
Subjective Remarks Resting in bed. No bleeding- no hematemesis or hematochezia. No n/v. Pt states he does not take po intake at this time, taking 6 cans of boost per day via peg. (Fransisca Jeronimo) Objective Vitals I&O Vital Signs Date Time Temp Pulse Resp B/P Pulse Ox O2 Delivery O2 Flow Rate FiO2 11/06/16 12:00 97.8 74 16 97/65 98 11/06/16 10:51 98 21 11/06/16 08:24 98.5 73 16 102/63 11/06/16 08:00 98.2 85 16 87/60 98 11/06/16 08:00 98.5 73 16 102/65 98 11/06/16 06:00 98.2 80 18 106/66 98 11/06/16 05:45 97.6 79 18 113/68 99 11/06/16 05:30 97.6 79 18 113/68 99 11/06/16 04:00 97.8 79 18 97/64 97 11/06/16 02:55 98.8 80 18 100/57 98 11/06/16 02:40 98.6 81 17 99/58 98 11/06/16 00:00 98.6 85 18 101/61 96 11/05/16 20:00 98.4 89 18 104/63 96 11/05/16 19:32 98.4 89 18 104/63 96 11/05/16 18:42 21 11/05/16 16:25 96.9 87 16 93/63 96 11/05/16 16:12 97.5 99 20 109/58 95 11/05/16 16:00 97.5 99 20 109/58 95 11/05/16 14:23 95 11/05/16 13:34 88 16 96/62 94 11/05/16 13:23 85 16 86/58 96 11/05/16 13:17 86 16 94/63 96 11/05/16 13:12 97.7 85 16 106/67 97 I/O 11/05/16 11/05/16 11/05/16 11/06/16 11/06/16 11/06/16 06:59 14:59 22:59 06:59 14:59 22:59 Intake Total 1357 ml 1025 ml 280 ml 1008 ml Output Total 250 ml 475 ml 400 ml 1200 ml Balance 1107 ml 550 ml -120 ml -192 ml Intake Oral 125 ml 475 ml 0 ml IV Total 550 ml 550 ml 708 ml Packed Cells 682 ml 280 ml 300 ml Output Urine Total 250 ml 475 ml 400 ml 1200 ml Stool Total 0 ml # Voids 2 # Bowel Movements 0 3 0 Laboratory Laboratory Tests Test 11/06/16 11/06/16 11/06/16 00:55 01:52 09:20 Hemoglobin 6.3 8.7 Hematocrit 18.6 25.1 Blood Type A POSITIVE Crossmatch Leukocyte-Reduced Red Blood Cells Blood Bank Comment White Blood Count 9.4 Red Blood Count 3.08 Mean Corpuscular Volume 81.5 Mean Corpuscular Hemoglobin 28.2 Mean Corpuscular Hemoglobin 34.6 Concent Red Cell Distribution Width 15.9 Platelet Count 183 Mean Platelet Volume 7.3 Sodium Level 139 Potassium Level 3.8 Chloride Level 105 Carbon Dioxide Level 27.7 Anion Gap 6 Blood Urea Nitrogen 34 Creatinine 0.68 Estimat Glomerular Filtration 118 Rate Random Glucose 99 Calcium Level 7.7 Magnesium Level 2.0 Physical Exam HEENT: Normocephalic; atraumatic; no jaundice. CHEST: CTA CARDIAC: RRR. ABDOMEN: Soft, nondistended, nontender; no hepatosplenomegaly; bowel sounds are present in all four quadrants. PEG tube EXTREMITIES: No clubbing, cyanosis, or edema. SKIN: Normal; no rash; no jaundice. SPRAYER INSECTICIDE: No focal deficits; alert and oriented times three. (Fransisca Jeronimo) Assessment and Plan Plan ASSESSMENT: - Upper GI bleed with hematemesis consisting of bright red blood and one episode of hematochezia with bright red blood. Currently not actively bleeding at this time. Patient with known metastatic esophageal cancer with obstructing mass, last endoscopy was around . He is currently being treated with Keytuda at [facility]. His H&H on admission was 7.0/21.7. S/P EGD (11/05/16)- --> ulcerated actively bleeding mass in the distal esophagus with multiple bleeding sites, this was injected with 10cc of 1/10,000 epi and cauterized by gold prep, significant narrowing of the esophagus because of the tumor, retroflexed views revealed no abnormalities, but blood clots. S/P 5 units PRBC. HH 8.7/.1. No obvious active bleeding at this time. On serial HH - Anemia secondary to acute blood loss. Status post 2 units of packed red blood cells. H&H currently 8.7.1. PPI - Metastatic esophageal cancer with disease to his liver and lymph nodes. Diagnosed October 2015. Status post chemotherapy up until August. He was found to have progression And was started on Keytruda at [facility]. He has an upcoming appointment on Thursday and is scheduled for CT scan at that time. Oncology is following. - Dysphagia, abnormal weight loss. Patient reports a 60 pound weight loss over the past year or although more recently his weight has been stable. He has PEG tube and is taking boost supplements 6 cans per day. PLAN - NPO- Does not take even clear liquids by mouth at this time. Will ask Dr. Luevano about starting boost via peg - Continue PPI - Monitor H&H - Transfuse as necessary - Oncology following - If he continues to bleed, he will need embolization by IR - [facility] at [facility] at discharge - Pt seen and examined by Dr. Luevano and myself and this note is written on his behalf (Fransisca Jeronimo) Physician Comments Patient was seen and examined, agree with above note and plan, HGB stable now, if stable in am, we can start PEG tube feeding, overall poor prognosis. ( Jimy Luevano MD) Fransisca Jeronimo Nov 06, 2016 13:12 Jimy Luevano MD Nov 06, 2016 20:28
[2016-11-06 14:31] LABS: HEMATOCRIT 24.1 % (39.0-51.0); REVIEW FLAG FINAL
[2016-11-06 23:06] LABS: HEMATOCRIT 23.8 % (39.0-51.0); MEAN CELL VOLUME 81.6 FL (80.0-100.0); MEAN CORPUSCULAR HEMOGLOBIN 28.1 PG (27.0-34.0); MEAN CORPUSCULAR HGB CONC 34.5 % (32.0-36.0); PLATELET COUNT 186 TH/MM3 (150-450); RED BLOOD COUNT 2.92 MIL/MM3 (4.50-5.90); RED CELL DISTRIBUTION WIDTH 15.9 % (11.6-17.2); REVIEW FLAG FINAL
[2016-11-07] VITALS: BP 108/69; PULSE 73; RESP 16; TEMP 97.9; O2SAT 97
[2016-11-07 07:02] LABS: HEMATOCRIT 24.1 % (39.0-51.0); MEAN CELL VOLUME 82.2 FL (80.0-100.0); MEAN CORPUSCULAR HEMOGLOBIN 28.3 PG (27.0-34.0); MEAN CORPUSCULAR HGB CONC 34.4 % (32.0-36.0); PLATELET COUNT 180 TH/MM3 (150-450); RED BLOOD COUNT 2.94 MIL/MM3 (4.50-5.90); RED CELL DISTRIBUTION WIDTH 15.6 % (11.6-17.2); REVIEW FLAG FINAL; WHITE BLOOD COUNT 7.2 TH/MM3 (4.0-11.0)
[2016-11-07 07:28] LABS: BICARBONATE 27.5 MEQ/L (21.0-32.0); MAGNESIUM 1.8 MG/DL (1.5-2.5); POTASSIUM 3.6 MEQ/L (3.5-5.1)
[2016-11-07] MEDS: DEXT 5%-NACL 0.45% 1000 ML INJ 1,000 ML IV SCH (07:35)
[2016-11-07] MEDS: SODIUM CHLORIDE 0.9% FLUSH 5 ML FLUSH IV SCH (07:37)
[2016-11-07] MEDS: PANTOPRAZOLE SODIUM 40 MG VIAL IV SCH (07:37)
--- NOTE | 2016-11-07 07:56 | PD.ONC.PN ---
Subjective Subjective Remarks Afebrile overnight. Patient resting comfortably without complaint. He denies any further bleeding, either BRBPR or hematemesis. He states he has not had a BM in several days. He is still NPO. Objective Data Date Time Temp Pulse Resp B/P Pulse Ox O2 Delivery O2 Flow Rate FiO2 11/07/16 00:00 97.9 73 16 108/69 97 11/06/16 20:00 101/64 11/06/16 20:00 97.3 80 18 101/58 98 11/06/16 16:00 98.1 72 16 101/69 97 11/06/16 12:00 97.8 74 16 97/65 98 11/06/16 10:51 98 21 11/06/16 08:24 98.5 73 16 102/63 11/06/16 08:00 98.2 85 16 87/60 98 11/06/16 08:00 98.5 73 16 102/65 98 Result Diagram: 11/07/16 0628 11/07/16627 Laboratory Results Laboratory Tests Test 11/06/16 11/06/16 11/06/16 11/07/16 09:20 14:00 22:40 06:28 White Blood Count 9.4 TH/MM3 8.0 TH/MM3 7.2 TH/MM3 Red Blood Count 3.08 MIL/MM3 2.92 MIL/MM3 2.94 MIL/MM3 Hemoglobin 8.7 GM/DL 8.4 GM/DL 8.2 GM/DL 8.3 GM/DL Hematocrit 25.1 % 24.1 % 23.8 % 24.1 % Mean Corpuscular Volume 81.5 FL 81.6 FL 82.2 FL Mean Corpuscular Hemoglobin 28.2 PG 28.1 PG 28.3 PG Mean Corpuscular Hemoglobin 34.6 % 34.5 % 34.4 % Concent Red Cell Distribution Width 15.9 % 15.9 % 15.6 % Platelet Count 183 TH/MM3 186 TH/MM3 180 TH/MM3 Mean Platelet Volume 7.3 FL 7.4 FL 7.1 FL Sodium Level 139 MEQ/L 139 MEQ/L Potassium Level 3.8 MEQ/L 3.6 MEQ/L Chloride Level 105 MEQ/L 104 MEQ/L Carbon Dioxide Level 27.7 MEQ/L 27.5 MEQ/L Anion Gap 6 MEQ/L 8 MEQ/L Blood Urea Nitrogen 34 MG/DL 18 MG/DL Creatinine 0.68 MG/DL 0.75 MG/DL Estimat Glomerular Filtration 118 ML/MIN 105 ML/MIN Rate Random Glucose 99 MG/DL 110 MG/DL Calcium Level 7.7 MG/DL 7.8 MG/DL Magnesium Level 2.0 MG/DL 1.8 MG/DL Administered Medications Medications (Trade) Dose Ordered Sig/Andrea Route PRN Reason Start Time Stop Time Status Last Admin Dose Admin IV Flush (NS Flush) 2 ml UNSCH PRN IV FLUSH AFTER USING IV ACCESS 11/04/16 18:15 11/06/16 11:42 IV Flush (NS Flush) 2 ml BID IV 11/04/16 21:00 11/07/16 07:37 Pantoprazole Sodium 40 mg 40 mg BID IV 11/04/16 21:00 11/07/16 07:37 Dextrose/Sodium Chloride (D5W-11/03 NS 1000 ml Inj) 1,000 ml @ 100 mls/hr Q10H IV 11/05/16 17:00 11/07/16 07:35 Objective Remarks GENERAL: Middle aged male, sitting up in bed in nad. SKIN: Warm and dry. HEAD: Normocephalic. EYES: No injection or drainage. NECK: Supple, trachea midline. CARDIOVASCULAR: Regular rate and rhythm RESPIRATORY: Breath sounds equal bilaterally. No accessory muscle use. GASTROINTESTINAL: Abdomen G-tube clamped with blood noted in G-tube EXTREMITIES: No cyanosis MUSCULOSKELETAL: Adequate muscle tone. NEUROLOGICAL: awake and alert, normal speech. Assessment/Plan Problem List: (1) Primary cancer of esophagus with metastasis to other site Status: Acute Plan: --follow up at [facility] next Thursday for restaging scan and chemotherapy. History/Workup -- found to have adenocarcinoma involving the GE junction invaded the stomach fundus. --found to have liver metastasis. --PET scan showed para-aortic small adenopathy. --received three cycles of EOF chemotherapy and had a very good response. --developed side effects and was switched to FOLFOX chemotherapy. --completed 11 cycle of chemotherapy, but unfortunately in September, he was found to have progression of disease in the liver and esophagus. --upper endoscopy done September 24 which again showed a mass in the GE junction causing some obstruction. --went to [facility] and was started on Keytruda. has completed three cycles, last cycle two weeks ago. (2) GI bleed Status: Acute Plan: --monitor H/H. If continued bleeding s/p epi + cautery in GI lab will need embolization by IR. HistoryWorkup --due to the esophageal cancer. --EGD at he end of September showed a mass involving about 50% of the esophagus circumferentially. -- has had dysphagia, but states it seems to have improved. --started to have hematemesis last Thursday, but has not recurred since. --had bright red blood per rectum on Thursday that also has not recurred since. His hemoglobin was down to 7. --EGD, 11/05/16 showed ulcerated actively bleeding mass in the distal esophagus with multiple bleeding sites--was injected with epi and cauterized. + significant narrowing of the esophagus bc of the tumor. (3) Anemia due to blood loss Status: Acute Plan: 11/07/15: h/h stable. (4) Dysphagia due to mass Status: Acute Plan: --continue tube feeds Assessment 61y/o male with h/o met. esophageal cancer, admitted with GIB Plan 1. continue supportive care 2. monitor H/H Attending Statement The exam, history, and the medical decision-making described in the above note were completed with the assistance of the mid-level provider. I reviewed and agree with the findings presented. I attest that I had a [id number] encounter with the patient on the same day, and personally performed and documented my assessment and findings in the medical record.(late entry) He is feeling better. No BM. Hgb stable after transfusion. Can be d/c once clear by GI. He has f/u appt at [facility] on Thursday for treatment and restaging CT. Problem Qualifiers (1) GI bleed: Qualified Code: K92.2 - Gastrointestinal hemorrhage, unspecified gastrointestinal hemorrhage type Darcy Chatman Nov 07, 2016 07:56 Armando Del Angel MD Nov 07, 2016 16:35
[2016-11-07 08:00] VITALS: BP 104/67; PULSE 72; RESP 17; TEMP 97.6; O2SAT 97
--- NOTE | 2016-11-07 08:57 | HHI.PR ---
Subjective Remarks The patient was resting comfortably in bed. He had no acute complaints. He was looking forward to going home soon. He said yesterday he noticed some dark stool but no bright red blood. Objective Vitals Vital Signs Date Time Temp Pulse Resp B/P Pulse Ox O2 Delivery O2 Flow Rate FiO2 11/07/16 08:00 97.6 72 17 104/67 97 11/07/16 00:00 97.9 73 16 108/69 97 11/06/16 20:00 101/64 11/06/16 20:00 97.3 80 18 101/58 98 11/06/16 16:00 98.1 72 16 101/69 97 11/06/16 12:00 97.8 74 16 97/65 98 11/06/16 10:51 98 21 I/O 11/06/16 11/06/16 11/06/16 11/07/16 11/07/16 11/07/16 07:00 15:00 23:00 07:00 15:00 23:00 Intake Total 1008 ml 712 ml 598 ml 797 ml Output Total 1200 ml 200 ml 900 ml Balance -192 ml 712 ml 398 ml -103 ml Intake Oral 0 ml IV Total 708 ml 712 ml 598 ml 797 ml Packed Cells 300 ml Output Urine Total 1200 ml 200 ml 900 ml # Voids 3 # Bowel Movements 0 0 0 0 Result Diagram: 11/07/1662711/07/16627 Objective Remarks GENERAL: Well-developed well-nourished. In no acute distress. SKIN: Warm and dry. Right chest port in place. Color has returned. HEENT: Normocephalic. Pupils equal and round. Mucous membranes pink and moist. CARDIOVASCULAR: Regular rate and rhythm. No murmur appreciated. RESPIRATORY: No accessory muscle use. Clear to auscultation. Breath sounds equal bilaterally. GASTROINTESTINAL: Abdomen soft, non-tender, nondistended. Bowel sounds x4. PEG tube in place in the lower abdomen. MUSCULOSKELETAL: No obvious deformities. No clubbing or cyanosis. No edema. NEUROLOGICAL: Awake and alert. No focal neurological deficits. Moves upper and lower extremities spontaneously. Normal speech. PSYCHIATRIC: Appropriate mood and affect; insight and judgment normal. Procedures EGD 11/05. Medications and IVs Current Medications Medications (Trade) Dose Ordered Sig/Andrea Route Start Time Stop Time Status Last Admin (NS Flush) 2 ml UNSCH PRN IV 11/04/16 18:15 11/06/16 11:42 (NS Flush) 2 ml BID IV 11/04/16 21:00 11/07/16 07:37 (Zofran Inj) 4 mg Q6H PRN IV 11/04/16 18:15 Pantoprazole Sodium 40 mg 40 mg BID IV 11/04/16 21:00 11/07/16 07:37 (D5W-11/03 NS 1000 ml Inj) 1,000 ml @ 100 mls/hr Q10H IV 11/05/16 17:00 11/07/16 07:35 (Free Water) 100 ml Q6HR G-TUBE 11/07/16 12:00 (KCl 40 Meq/30 ml Liq) 40 meq ONCE ONCE PEG 11/07/16 09:00 11/07/16 09:01 A/P Problem List: (1) Anemia ICD Code: D64.9 Status: Acute (2) Syncopal episodes ICD Code: R55 Status: Acute (3) GI bleed ICD Code: K92.2 Status: Acute Assessment and Plan GI bleeding GI consult appreciated. S/p EGD which revealed bleeding mass at distal esophagus , injected with lidocaine. S/p two additional units of blood early 11/06. No further bleeding and with appropriate response. Stable 11/07. - transfuse as needed. - follow CBC and transfuse as needed. - IV PPI. - Resume tube feeds and monitor. - IR consult for embolization if continues to bleed. - follow up with GI. Hypotension S/t GIB. Improved. - treatment as above. Syncope Secondary to acute blood loss anemia as above. - Treatment as above. Esophageal cancer With associated dysphagia: On immunotherapy. Oncology consult appreciated - Resume tube feeds 11/07. - follow up with oncology as an outpt. DVT prophylaxis: SCDs Discharge Planning D/c when cleared by GI. Problem Qualifiers (1) Anemia: Qualified Code: D62 - Acute posthemorrhagic anemia (2) Syncopal episodes: Qualified Code: R55 - Syncope, unspecified syncope type (3) GI bleed: Qualified Code: K92.2 - Gastrointestinal hemorrhage, unspecified gastrointestinal hemorrhage type Jairo Raymond DO Nov 07, 2016 08:57
[2016-11-07] MEDS ORDERED: POTASSIUM CL 40 MEQ/30 ML LIQ UDC PEG ONE (09:00)
--- NOTE | 2016-11-07 09:52 | HHI.DCPOC ---
Discharge Care Plan Diagnosis: (1) Anemia (2) Syncopal episodes (3) GI bleed (4) Primary cancer of esophagus with metastasis to other site (5) Dysphagia due to mass Your Health Problems Are: Bleeding Tendency Goals to Promote Your Health * To prevent worsening of your condition and complications * To maintain your health at the optimal level Directions to Meet Your Goals Take your medications as prescribed Follow your dietary instruction Follow activity as directed Keep your appointments as scheduled Take your immunizations and boosters as scheduled If your symptoms worsen call your PCP, if no PCP go to Urgent Care Center or Emergency Room Smoking is Dangerous to Your Health. Avoid second hand smoke Call the 24-hour hour crisis hotline for domestic abuse at Jairo Raymond DO Nov 07, 2016 09:52
--- NOTE | 2016-11-07 09:58 | HHI.DS ---
Discharge Summary Admission Date Nov 04, 2016 at 16:51 Discharge Date: Nov 07, 2016 Admitting Diagnosis GI bleed, anemia, syncope (1) Anemia ICD Code: D64.9 (2) Syncopal episodes ICD Code: R55 (3) GI bleed ICD Code: K92.2 Diagnosis: Principal (4) Primary cancer of esophagus with metastasis to other site ICD Code: C15.9 (5) Dysphagia due to mass Procedures EGD 11/05. Brief History - From Admission 61-year-old male with a past history of esophageal cancer and GERD who was sent in by his oncologist for GI bleeding and syncope. The patient was in the [place] last week on vacation for [place]. On Thursday the patient had acute onset of nausea, with possible bloody emesis 1. He states that after that he began feeling lightheaded and dizzy. He states that he had 4 separate episodes of syncope after throwing up. His daughter heard him fall after the first episode. He states into the episodes he only lost consciousness for a few seconds. Because he remained lightheaded and dizzy afterwards he went to bed that night. On Thursday he had 3 episodes of bright red blood per rectum. He' s been feeling weak since that time, however no further symptoms. Today he called his oncologist, 's, office and they recommended he come to the ED. Since that time he denies any lightheadedness, dizziness, vomiting, rectal bleeding. He denies experiencing any chest pain, shortness of breath, abdominal pain. He gets occasional nausea. The patient is currently undergoing immunotherapy at [facility]. He states he last had lab work done on 10/20, denies any past history of anemia. Due to the esophageal mass, he had an EGD with PEG tube placement 09/[address] Turner. He gets tube feedings with boost, and can tolerate some liquids by mouth. He was Hemoccult positive in the ED. The patient says he has not had any further episodes of hematemesis. He does say that the whole toilet bowl got red with blood. He said he had an endoscopy around Thanksgiving time. He said he had a colonoscopy a few years ago and believes they found diverticulosis. He says he does not take any pain medications at home. He says he was referred to the hospital by his oncologist. He currently continues to have episodes of lightheadedness. CBC/BMP: 11/07/16 0628 11/07/16 0628 Significant Findings Laboratory Tests Test 11/04/16 11/05/16 11/05/16 11/06/16 15:10 04:45 11:30 00:55 Red Blood Count 2.59 MIL/MM3 2.85 MIL/MM3 (4.50-5.90) (4.50-5.90) Hemoglobin 7.0 GM/DL 7.8 GM/DL 7.4 GM/DL 6.3 GM/DL (13.0-17.0) (13.0-17.0) (13.0-17.0) (13.0-17.0) Hematocrit 21.7 % 22.8 % 22.3 % 18.6 % (39.0-51.0) (39.0-51.0) (39.0-51.0) (39.0-51.0) Mean Corpuscular Hemoglobin 26.9 PG (27.0-34.0) Neutrophils (%) (Auto) 77.6 % (16.0-70.0) Lymphocytes # (Auto) 0.9 TH/MM3 (1.0-4.8) Blood Urea Nitrogen 30 MG/DL (7-18) 33 MG/DL (7-18) Albumin 2.9 GM/DL (3.4-5.0) Monocytes (%) (Auto) 9.0 % (0.0-8.0) Calcium Level 8.2 MG/DL (8.5-10.1) Test 11/06/16 11/06/16 11/06/16 11/07/16 09:20 14:00 22:40 06:28 Red Blood Count 3.08 MIL/MM3 2.92 MIL/MM3 2.94 MIL/MM3 (4.50-5.90) (4.50-5.90) (4.50-5.90) Hemoglobin 8.7 GM/DL 8.4 GM/DL 8.2 GM/DL 8.3 GM/DL (13.0-17.0) (13.0-17.0) (13.0-17.0) (13.0-17.0) Hematocrit 25.1 % 24.1 % 23.8 % 24.1 % (39.0-51.0) (39.0-51.0) (39.0-51.0) (39.0-51.0) Blood Urea Nitrogen 34 MG/DL (7-18) Calcium Level 7.7 MG/DL 7.8 MG/DL (8.5-10.1) (8.5-10.1) Random Glucose 110 MG/DL (74-106) PE at Discharge GENERAL: Well-developed well-nourished. In no acute distress. SKIN: Warm and dry. Right chest port in place. Color has returned. HEENT: Normocephalic. Pupils equal and round. Mucous membranes pink and moist. CARDIOVASCULAR: Regular rate and rhythm. No murmur appreciated. RESPIRATORY: No accessory muscle use. Clear to auscultation. Breath sounds equal bilaterally. GASTROINTESTINAL: Abdomen soft, non-tender, nondistended. Bowel sounds x4. PEG tube in place in the lower abdomen. MUSCULOSKELETAL: No obvious deformities. No clubbing or cyanosis. No edema. NEUROLOGICAL: Awake and alert. No focal neurological deficits. Moves upper and lower extremities spontaneously. Normal speech. PSYCHIATRIC: Appropriate mood and affect; insight and judgment normal. Hospital Course GI bleeding The pt presented with weakness, episodes of syncope, and BRBPR. The pt was found to have a hemoglobin of 7 and was relatively hypotensive. The pt received red blood cells. He was placed on IVFs, IV PPI and GI was consulted. S/p EGD which revealed bleeding mass at distal esophagus, injected with lidocaine. A biopsy was taken. S/p two additional units of blood early 11/06. No further bleeding noted. CBC remained stable. Tube feeds were resumed. The pt will follow up with GI as an outpt. Esophageal cancer With associated dysphagia: On immunotherapy. Oncology was consulted. He was made NPO for above reasons. Tube feeds were resumed 11/07 and he tolerated it well. He will follow up with GI and oncology as an outpt. Pt Condition on Discharge: Stable Discharge Disposition: Discharge Home Discharge Time: > 30 minutes Discharge Instructions DIET: Follow Instructions for: On Tube Feeding Activities you can perform: Weight Bearing as Anselmo Follow up Referrals: Appointment for Follow Up - 1 Week with Armando Del Angel MD Appointment for Follow Up - 2 Weeks with Jimy Luevano MD Gastroenterology - 2 Weeks Oncology - 1 Week PCP Follow-up - 1 Week New Medications: Pantoprazole (Pantoprazole) 40 Mg Tab 40 MG PO BID Reflux #30 Ref 0 TAB Continued Medications: Prochlorperazine Maleate (Prochlorperazine Maleate) 10 Mg Tab 10 MG PO Q6H PRN NAUSEA OR VOMITING Ref 0 TAB Discontinued Medications: Famotidine (Pepcid AC) 10 Mg Tab 10 MG PO BID TAB Pantoprazole (Pantoprazole) 40 Mg Tab 40 MG PO DAILY Reflux #30 Ref 0 TAB Jairo Raymond DO Nov 07, 2016 09:58
[2016-11-07] MEDS ORDERED: PANT40TA3 PO (10:00)
[2016-11-07 11:55] VITALS: BP 103/69; PULSE 79; RESP 17; TEMP 97.6; O2SAT 98
[2016-11-07] MEDS ORDERED: FREE WATER G-TUBE SCH (12:00)
== END 2016-11-07 15:03 | disposition home or self-care (01) | DRG 375 ==
LOC: NEPC 12:14 → NEDA 16:51 → N07B 21:02
PROVIDERS: ADMIT Hospitalist; ATTEND Hospitalist
PROC: 0W3P8ZZ Control Bleeding in Gastrointestinal Tract, Via Natural or Artificial Opening Endoscopic (ICD-10-PCS; 2016-11-05)
PROC: 30233N1 Transfusion of Nonautologous Red Blood Cells into Peripheral Vein, Percutaneous Approach (ICD-10-PCS; 2016-11-05)
PROC: 0DB38ZX Excision of Lower Esophagus, Via Natural or Artificial Opening Endoscopic, Diagnostic (ICD-10-PCS; principal; 2016-11-05 12:33)
DX: C16.0 Malignant neoplasm of cardia (principal); C77.2 Secondary and unspecified malignant neoplasm of intra-abdominal lymph nodes; K92.0 Hematemesis; I95.9 Hypotension, unspecified; D62 Acute posthemorrhagic anemia; C78.7 Secondary malignant neoplasm of liver and intrahepatic bile duct; Z68.43 Body mass index [BMI] 50.0-59.9, adult; R13.10 Dysphagia, unspecified; R55 Syncope and collapse; D63.0 Anemia in neoplastic disease; R59.9 Enlarged lymph nodes, unspecified; K21.9 Gastro-esophageal reflux disease without esophagitis; R13.19 Other dysphagia; R63.4 Abnormal weight loss; Z87.891 Personal history of nicotine dependence; Z88.0 Allergy status to penicillin; Z93.1 Gastrostomy status
CPT/HCPCS: 36430; 80048; 80053; 82948; 83690; 83735; 85014; 85018; 85025; 85027; 85610; 85730; 86850; 86900; 86901; 86920; 88305; 88312; 93005; 96361; 96374; C9113; J0171; J1642; J7030; J7050; P9016

== ENCOUNTER 2016-12-14 20:14 | Inpatient (IN) | payer BC ==
[~2016-12-14] VITALS: Ht 182.9 cm; Wt 77.8 kg
[~2016-12-14 20:14] MED LIST: PANT40TA3 PO; PROC10TA PO
[2016-12-14 20:16] VITALS: BP 122/64; PULSE 96; RESP 18; TEMP 99.9; O2SAT 97
[2016-12-14] MEDS ORDERED: SODIUM CHLOR 0.9% 1000 ML INJ 1,000 ML IV SCH ×2 (20:38)
--- NOTE | 2016-12-14 20:44 | PD ---
HPI Chief Complaint: Fever Time Seen by Provider: 20:30 Travel History International Travel<30 days: No Contact w/Intl Traveler<30days: No Traveled to known affect area: No History of Present Illness HPI 61-year-old male with history of esophageal cancer presents for evaluation of fever. The reports that he felt warm this afternoon and she checked his temperature orally was 101. She called the oncologist on-call for Dr. Moreno recommended coming to the emergency room for further evaluation. The patient last received chemotherapy 2 weeks ago. The patient otherwise feels healthy. He endorses a chronic cough. Denies any new cough or congestion, shortness of breath, chest pain, headache, sore throat, rash, flank pain, acute nausea or vomiting, abdominal pain, dysuria, pain in the extremities. He reports that he receives nutrition through a feeding tube. He has no other complaints. PFSH Past Medical History Cancer: Yes (ESOPHAGEAL ) Chemotherapy: Yes Diminished Hearing: No Implanted Vascular Access Dvce: Yes Past Surgical History Abdominal Surgery: Yes (FEEDING TUBE PLACED SEPTEMBER 2016 ) Other Surgery: Yes (IMPLANTED VAD, BILATERAL INGUINAL HERNIA REPAIR ) Social History Alcohol Use: No Tobacco Use: No Substance Use: No Allergies-Medications (Allergen,Severity, Reaction): Coded Allergies: Penicillin (Verified Allergy, Unknown, 12/14/16) reaction as an infant; unsure of reaction Reported Meds & Prescriptions Reported Meds & Active Scripts Active Pantoprazole (Pantoprazole Sodium) 40 Mg Tab 40 Mg PO BID Reported Prochlorperazine Maleate 10 Mg Tab 10 Mg PO Q6H PRN Review of Systems Except as stated in HPI: all other systems reviewed are Neg Physical Exam Narrative GENERAL: Well-developed well-nourished male in no acute distress SKIN: Warm and dry. HEAD: Atraumatic. Normocephalic. EYES: Pupils equal and round. No scleral icterus. No injection or drainage. ENT: No nasal bleeding or discharge. Mucous membranes pink and moist. NECK: Trachea midline. No JVD. CARDIOVASCULAR: Regular rate and rhythm. No murmur appreciated. RESPIRATORY: No accessory muscle use. Clear to auscultation. Breath sounds equal bilaterally. GASTROINTESTINAL: Abdomen soft, non-tender, nondistended. Hepatic and splenic margins not palpable. Feeding tube in place. MUSCULOSKELETAL: No obvious deformities. No edema. NEUROLOGICAL: Awake and alert. No obvious cranial nerve deficits. Motor grossly within normal limits. Normal speech. PSYCHIATRIC: Appropriate mood and affect; insight and judgment normal. Data Data Last Documented VS Vital Signs Date Time Temp Pulse Resp B/P Pulse Ox O2 Delivery O2 Flow Rate FiO2 12/14/16 20:16 99.9 96 18 122/64 97 Room Air Orders Complete Blood Count With Diff (12/14/16 20:38) Comprehensive Metabolic Panel (12/14/16 20:38) Lactic Acid Sepsis Protocol (12/14/16 20:38) Urinalysis - C+S If Indicated (12/14/16 20:38) Influenzae A/B Antigen (12/14/16 20:38) Blood Culture (12/14/16 20:38) Chest, Single Ap (12/14/16 20:38) Ecg Monitoring (12/14/16 20:38) Iv Access Insert/Monitor (12/14/16 20:38) Oximetry (12/14/16 20:38) Oxygen Administration (12/14/16 20:38) Sodium Chlor 0.9% 1000 Ml Inj (Ns 1000 M (12/14/16 20:38) Sodium Chlor 0.9% 1000 Ml Inj (Ns 1000 M (12/14/16 20:38) Acetaminophen (Tylenol) (12/14/16 20:45) Isolation 20 (12/14/16 21:58) Cefepime Inj (Maxipime Inj) (12/14/16 21:58) Vancomycin Inj (Vancomycin Inj) (12/14/16 22:00) Admit Order (Ed Use Only) (12/14/16 22:26) Labs Laboratory Tests Test 12/14/16 12/14/16 20:55 21:49 White Blood Count 1.9 TH/MM3 Red Blood Count 3.47 MIL/MM3 Hemoglobin 9.2 GM/DL Hematocrit 27.6 % Mean Corpuscular Volume 79.4 FL Mean Corpuscular Hemoglobin 26.6 PG Mean Corpuscular Hemoglobin 33.4 % Concent Red Cell Distribution Width 17.3 % Platelet Count 262 TH/MM3 Mean Platelet Volume 7.6 FL Neutrophils (%) (Auto) 19.9 % Lymphocytes (%) (Auto) 39.9 % Monocytes (%) (Auto) 36.1 % Eosinophils (%) (Auto) 3.2 % Basophils (%) (Auto) 0.9 % Neutrophils # (Auto) 0.4 TH/MM3 Lymphocytes # (Auto) 0.8 TH/MM3 Monocytes # (Auto) 0.7 TH/MM3 Eosinophils # (Auto) 0.1 TH/MM3 Basophils # (Auto) 0.0 TH/MM3 CBC Comment AUTO DIFF Differential Total Cells 100 Counted Neutrophils % (Manual) 10 % Band Neutrophils % 12 % Lymphocytes % 54 % Monocytes % 22 % Eosinophils % 1 % Basophils % 1 % Neutrophils # (Manual) 0.4 TH/MM3 Differential Comment FINAL DIFF MANUAL Platelet Morphology Comment NORMAL Sodium Level 132 MEQ/L Potassium Level 4.0 MEQ/L Chloride Level 97 MEQ/L Carbon Dioxide Level 28.5 MEQ/L Anion Gap 7 MEQ/L Blood Urea Nitrogen 24 MG/DL Creatinine 0.86 MG/DL Estimat Glomerular Filtration 90 ML/MIN Rate Random Glucose 75 MG/DL Lactic Acid Level 1.9 mmol/L Calcium Level 8.1 MG/DL Total Bilirubin 0.5 MG/DL Aspartate Amino Transf 19 U/L (AST/SGOT) Alanine Aminotransferase 19 U/L (ALT/SGPT) Alkaline Phosphatase 131 U/L Total Protein 6.7 GM/DL Albumin 2.7 GM/DL Urine Color YELLOW Urine Turbidity CLEAR Urine pH 6.5 Urine Specific [place] 1.021 Urine Protein TRACE mg/dL Urine Glucose (UA) NEG mg/dL Urine Ketones NEG mg/dL Urine Occult Blood NEG Urine Nitrite NEG Urine Bilirubin NEG Urine Urobilinogen 4.0 MG/DL Urine Leukocyte Esterase NEG Urine RBC 1 /hpf Urine WBC LESS THAN 1 /hpf Urine Mucus FEW /lpf Microscopic Urinalysis Comment CATH-CULT NOT IND MDM Medical Decision Making Medical Screen Exam Complete: Yes Emergency Medical Condition: Yes Medical Record Reviewed: Yes Interpretation(s) CBC WBC 1.9, hemoglobin 9.2, 0.4 neutrophils CMP calcium 8.1, BUN 24 Lactic acid 1.9 Differential Diagnosis Neutropenic fever, pneumonia, influenza, meningitis, urinary tract infection Narrative Course 61-year-old male with history of esophageal cancer with last chemotherapy 2 weeks ago presents with fever 101 this evening, otherwise feels well. Plan is for basic lab work, chest x-ray, blood cultures. The patient will be given Tylenol and 2 L normal saline bolus. The patient's lab work is notable for WBC of 1.9 with 0.4 neutrophils, consistent with neutropenic fever. The patient be given 2 g of cefepime, 1 g of vancomycin. Neutropenic precautions initiated. Will discuss with on-call oncologist. Discussed with Dr. Greene agrees with cefepime and admission with consultation to Dr. Moreno. Discussed with the patient and his who are agreeable. Diagnosis Primary Impression: Neutropenic fever Admitting Information Admitting Physician Requests: Admit Daryl Herron Dec 14, 2016 20:43
[2016-12-14] MEDS ORDERED: ACETAMINOPHEN 325 MG TAB PO ONE (20:45)
[2016-12-14 21:00] VITALS: BP 115/66; PULSE 86; RESP 18; O2SAT 97
[2016-12-14 21:47] LABS: ANION GAP 7 MEQ/L (5-15); AST (GOT) 19 U/L (15-37); BICARBONATE 28.5 MEQ/L (21.0-32.0); BLOOD UREA NITROGEN 24 MG/DL (7-18); CHLORIDE 97 MEQ/L (98-107); GLOMERULAR FILTRATION RATE 90 ML/MIN (>89); SODIUM (NA) 132 MEQ/L (136-145)
[2016-12-14 21:51] LABS: ALKALINE PHOSPHATASE 131 U/L (45-117); ALT (GPT) 19 U/L (12-78); TOTAL BILIRUBIN ADULT 0.5 MG/DL (0.2-1.0)
[2016-12-14 21:53] LABS: BASOPHIL % 0.9 % (0.0-2.0); EOSINOPHIL # 0.1 TH/MM3 (0-0.4); EOSINOPHIL % 3.2 % (0.0-4.0); HEMATOCRIT 27.6 % (39.0-51.0); LYMPH % 39.9 % (9.0-44.0); LYMPHOCYTE # 0.8 TH/MM3 (1.0-4.8); MEAN CELL VOLUME 79.4 FL (80.0-100.0); MEAN CORPUSCULAR HEMOGLOBIN 26.6 PG (27.0-34.0); MEAN CORPUSCULAR HGB CONC 33.4 % (32.0-36.0); MONO % 36.1 % (0.0-8.0); NEUT % 19.9 % (16.0-70.0); PLATELET COUNT 262 TH/MM3 (150-450); RED BLOOD COUNT 3.47 MIL/MM3 (4.50-5.90); RED CELL DISTRIBUTION WIDTH 17.3 % (11.6-17.2); WHITE BLOOD COUNT 1.9 TH/MM3 (4.0-11.0)
[2016-12-14 21:55] LABS: HEMO FLAGS AUTO DIFF
[2016-12-14 21:56] LABS: AUTOMATED NEUTROPHIL # 0.4 TH/MM3 (1.8-7.7)
[2016-12-14] MEDS ORDERED: CEFEPIME INJ 2,000 MG in SODIUM CHLORIDE 0.9% INJ 100 ML IV STA (21:58)
--- NOTE | 2016-12-14 21:59 | RADRPT ---
EXAM DATE/TIME: 12/14/2016 21:24 [place] COMPARISON: No previous studies available for comparison. INDICATIONS : Fever MEDICAL HISTORY : Carcinoma, esophageal. SURGICAL HISTORY : Infusaport ENCOUNTER: Initial ACUITY: 1 day PAIN SCORE: 0/10 LOCATION: Bilateral chest FINDINGS: A single view of the chest demonstrates [id number] in superior vena cava. Minimal basilar atelecta sis. No effusion. No pneumothorax. CONCLUSION: 1. Minimal basilar atelectasis. No focal consolidation or effusion. Zackary Abreu MD on December 14, 2016 at 21:56 Board Certified Radiologist. This report was verified electronically.
[2016-12-14] MEDS ORDERED: VANCOMYCIN INJ 1,000 MG in SODIUM CHLOR 0.9% 250 ML INJ 250 ML IV ONE (22:00)
--- NOTE | 2016-12-14 22:08 | PD ---
Data Data Last Documented VS Vital Signs Date Time Temp Pulse Resp B/P Pulse Ox O2 Delivery O2 Flow Rate FiO2 12/14/16 21:00 86 18 115/66 97 Room Air 12/14/16 20:16 99.9 Orders Complete Blood Count With Diff (12/14/16 20:38) Comprehensive Metabolic Panel (12/14/16 20:38) Lactic Acid Sepsis Protocol (12/14/16 20:38) Urinalysis - C+S If Indicated (12/14/16 20:38) Influenzae A/B Antigen (12/14/16 20:38) Blood Culture (12/14/16 20:38) Chest, Single Ap (12/14/16 20:38) Ecg Monitoring (12/14/16 20:38) Iv Access Insert/Monitor (12/14/16 20:38) Oximetry (12/14/16 20:38) Oxygen Administration (12/14/16 20:38) Sodium Chlor 0.9% 1000 Ml Inj (Ns 1000 M (12/14/16 20:38) Sodium Chlor 0.9% 1000 Ml Inj (Ns 1000 M (12/14/16 20:38) Acetaminophen (Tylenol) (12/14/16 20:45) Isolation 08,20 (12/14/16 21:58) Cefepime Inj (Maxipime Inj) (12/14/16 21:58) Vancomycin Inj (Vancomycin Inj) (12/14/16 22:00) Admit Order (Ed Use Only) (12/14/16 22:26) Labs Laboratory Tests Test 12/14/16 12/14/16 20:55 21:49 White Blood Count 1.9 TH/MM3 Red Blood Count 3.47 MIL/MM3 Hemoglobin 9.2 GM/DL Hematocrit 27.6 % Mean Corpuscular Volume 79.4 FL Mean Corpuscular Hemoglobin 26.6 PG Mean Corpuscular Hemoglobin 33.4 % Concent Red Cell Distribution Width 17.3 % Platelet Count 262 TH/MM3 Mean Platelet Volume 7.6 FL Neutrophils (%) (Auto) 19.9 % Lymphocytes (%) (Auto) 39.9 % Monocytes (%) (Auto) 36.1 % Eosinophils (%) (Auto) 3.2 % Basophils (%) (Auto) 0.9 % Neutrophils # (Auto) 0.4 TH/MM3 Lymphocytes # (Auto) 0.8 TH/MM3 Monocytes # (Auto) 0.7 TH/MM3 Eosinophils # (Auto) 0.1 TH/MM3 Basophils # (Auto) 0.0 TH/MM3 CBC Comment AUTO DIFF Differential Total Cells 100 Counted Neutrophils % (Manual) 10 % Band Neutrophils % 12 % Lymphocytes % 54 % Monocytes % 22 % Eosinophils % 1 % Basophils % 1 % Neutrophils # (Manual) 0.4 TH/MM3 Differential Comment FINAL DIFF MANUAL Platelet Morphology Comment NORMAL Sodium Level 132 MEQ/L Potassium Level 4.0 MEQ/L Chloride Level 97 MEQ/L Carbon Dioxide Level 28.5 MEQ/L Anion Gap 7 MEQ/L Blood Urea Nitrogen 24 MG/DL Creatinine 0.86 MG/DL Estimat Glomerular Filtration 90 ML/MIN Rate Random Glucose 75 MG/DL Lactic Acid Level 1.9 mmol/L Calcium Level 8.1 MG/DL Total Bilirubin 0.5 MG/DL Aspartate Amino Transf 19 U/L (AST/SGOT) Alanine Aminotransferase 19 U/L (ALT/SGPT) Alkaline Phosphatase 131 U/L Total Protein 6.7 GM/DL Albumin 2.7 GM/DL Urine Color YELLOW Urine Turbidity CLEAR Urine pH 6.5 Urine Specific [place] 1.021 Urine Protein TRACE mg/dL Urine Glucose (UA) NEG mg/dL Urine Ketones NEG mg/dL Urine Occult Blood NEG Urine Nitrite NEG Urine Bilirubin NEG Urine Urobilinogen 4.0 MG/DL Urine Leukocyte Esterase NEG Urine RBC 1 /hpf Urine WBC LESS THAN 1 /hpf Urine Mucus FEW /lpf Microscopic Urinalysis Comment CATH-CULT NOT IND MDM Supervised Visit with SAUD: Yes Narrative Course I, Dr. Renee, have reviewed the advance practice practitioner's documentation and am in agreement, met with the patient face to face, made the diagnosis, and the medical decision making was done by me. *My assessment and Findings: Patient seen and examined by me agree with documentation by Daryl IRAHETA. Is a 61 old male with a history of esophageal adenocarcinoma on chemotherapy presents emergency department for fever to 101 prior to arrival. Patient has not had any cough congestion rash abdominal pain nausea vomiting dysuria. No obvious source of his fevers been identified. Patient labs do show an absolute neutrophil count of 400. Patient was discussed with Dr. Greene by PA who recommends admission to the hospital. He is started on broad-spectrum antibiotics. Please see the PAs note for further documentation. Diagnosis Primary Impression: Neutropenic fever Admitting Information Admitting Physician Requests: Admit Condition: Stable Tino Renee MD Dec 14, 2016 22:08
[2016-12-14 22:18] LABS: BLOOD, URINE NEG (NEG); GLUCOSE,URINE NEG (NEG); KETONE, URINE NEG (NEG); MUCUS URINE FEW /lpf (OCC); NITRITE,URINE NEG (NEG); PH, URINE 6.5 (5.0-8.5); URINE COLOR YELLOW (YELLW/STRAW)
[2016-12-14 22:18] LABS: BANDS 12 % (0-6); BASOPHILS 1 % (0-2); EOSINOPHILS 1 % (0-4); POLYS (SEG NEUTROPHILS) 10 % (16-70); WBC DIFF SAMPLE 100
[2016-12-14 22:19] LABS: PLATELET MORPHOLOGY NORMAL (NORMAL); SCAN/DIFF FINAL DIFF MANUAL; SLIDE REVIEW N
[2016-12-14 22:19] LABS: COMMENT (UR) CATH-CULT NOT IND; CULTURE IF INDICATED CATH CULTURE NOT IND
[2016-12-14 22:20] LABS: NEUTROPHIL # MANUAL DIFF 0.4 TH/MM3 (1.8-7.7)
[2016-12-14] MEDS ORDERED: ACETAMINOPHEN/HYDROcodone 325 MG/5 MG TAB PO PRN (22:30)
[2016-12-14] MEDS ORDERED: Vancomycin Consult Pharmacy 1 EA OTHER SCH (22:30)
[2016-12-14] MEDS ORDERED: HYDROmorphone HCL PF 1 MG/ML VIAL IV PRN (22:30)
[2016-12-14] MEDS ORDERED: SODIUM CHLORIDE 0.9% FLUSH 5 ML FLUSH FLUSH PRN (22:30)
[2016-12-14] MEDS ORDERED: ACETAMINOPHEN 325 MG TAB PO PRN (22:30)
[2016-12-14] MEDS ORDERED: BISACODYL 10 MG SUPP PR PRN (22:30)
--- NOTE | 2016-12-14 22:35 | HHI.HP ---
HPI Service [facility] Primary Care Physician Shantanu Rosado MD Admission Diagnosis neutropenic fever Diagnoses: (1) Neutropenic fever Diagnosis: Principal (2) Sepsis Diagnosis: Principal (3) Esophageal cancer Diagnosis: Principal Travel History International Travel<30 Days: No Contact w/Intl Traveler <30 Da: No Traveled to Known Affected Are: No History of Present Illness This is a 61-year-old male with a PMH of Metastatic Esophageal CA on Chemotherapy, h/o GI Bleed and Dysphagia who was referred to the ER by his Oncologist, Dr. Del Angel for further evaluation of fever at home of 101. Per , last Chemo approx 2wks ago which he tolerated well. Today, states he felt warm, took temp and noted to be 101. Denies nausea, vomiting, diarrhea, SOB or chest pain. On arrival, BP 122/64, HR 96, O2 sat 97% on RA, Temp 99.9. WBC 1.9 , previously 7.2 on 11/07/16. Hgb 9.2. Platelets 262. Bands 12. U/a negative. CXR w/ minimal basilar atelectasis, no consolidation. S/p Blood Cultures, Vanc/Cefepime in ER. Review of Systems Except as stated in HPI: all other systems reviewed are Neg ROS: 14 point review of systems otherwise negative. Past Family Social History Past Medical History PMH: Metastatic Esophageal CA on Chemotherapy, h/o GI Bleed and Dysphagia Past Surgical History PAST SURGICAL HISTORY: PEG Tube, Bilateral Inguinal Hernia Repair Allergies: Coded Allergies: Penicillin (Verified Allergy, Unknown, 12/14/16) reaction as an ; unsure of reaction Family History PAST FAMILY HISTORY: Reviewed. No h/o DM or CAD Social History PAST SOCIAL HISTORY: Negative for alcohol, tobacco or drugs. Physical Exam Vital Signs Vital Signs Date Time Temp Pulse Resp B/P Pulse Ox O2 Delivery O2 Flow Rate FiO2 12/14/16 20:16 99.9 96 18 122/64 97 Room Air Physical Exam PE: GENERAL: Middle-aged white male in no acute distress. at bedside HEENT: PERRLA, EOMI. No scleral icterus or conjunctival pallor. No lid lag or facial droop. CARDIOVASCULAR: Regular rate and rhythm. No obvious murmurs to auscultation. No chest tenderness to palpation. RESPIRATORY: No obvious rhonchi or wheezing. Clear to auscultation. Breath sounds equal bilaterally. GASTROINTESTINAL: Abdomen soft, non-tender, nondistended. BS normal. PEG tube in place. MUSCULOSKELETAL: Extremities without clubbing, cyanosis, or edema. No obvious deformities. NEUROLOGICAL: Awake, alert and oriented x4. No focal neurologic deficits. Moving both upper and lower extremities spontaneously. Laboratory Laboratory Tests Test 12/14/16 12/14/16 20:55 21:49 White Blood Count 1.9 Red Blood Count 3.47 Hemoglobin 9.2 Hematocrit 27.6 Mean Corpuscular Volume 79.4 Mean Corpuscular Hemoglobin 26.6 Mean Corpuscular Hemoglobin 33.4 Concent Red Cell Distribution Width 17.3 Platelet Count 262 Mean Platelet Volume 7.6 Neutrophils (%) (Auto) 19.9 Lymphocytes (%) (Auto) 39.9 Monocytes (%) (Auto) 36.1 Eosinophils (%) (Auto) 3.2 Basophils (%) (Auto) 0.9 Neutrophils # (Auto) 0.4 Lymphocytes # (Auto) 0.8 Monocytes # (Auto) 0.7 Eosinophils # (Auto) 0.1 Basophils # (Auto) 0.0 CBC Comment AUTO DIFF Differential Total Cells 100 Counted Neutrophils % (Manual) 10 Band Neutrophils % 12 Lymphocytes % 54 Monocytes % 22 Eosinophils % 1 Basophils % 1 Neutrophils # (Manual) 0.4 Differential Comment FINAL DIFF MANUAL Platelet Morphology Comment NORMAL Sodium Level 132 Potassium Level 4.0 Chloride Level 97 Carbon Dioxide Level 28.5 Anion Gap 7 Blood Urea Nitrogen 24 Creatinine 0.86 Estimat Glomerular Filtration 90 Rate Random Glucose 75 Lactic Acid Level 1.9 Calcium Level 8.1 Total Bilirubin 0.5 Aspartate Amino Transf 19 (AST/SGOT) Alanine Aminotransferase 19 (ALT/SGPT) Alkaline Phosphatase 131 Total Protein 6.7 Albumin 2.7 Urine Color YELLOW Urine Turbidity CLEAR Urine pH 6.5 Urine Specific [place] 1.021 Urine Protein TRACE Urine Glucose (UA) NEG Urine Ketones NEG Urine Occult Blood NEG Urine Nitrite NEG Urine Bilirubin NEG Urine Urobilinogen 4.0 Urine Leukocyte Esterase NEG Urine RBC 1 Urine WBC LESS THAN 1 Urine Mucus FEW Microscopic Urinalysis Comment CATH-CULT NOT IND Date/Time Procedure Status Source Growth 12/14/16 21:05 Influenza Types A,B Antigen (NANY) - Final Complete Nasal Aspirate NEGATIVE FOR FLU A AND B ANTIGEN.... 12/14/16 21:05 Aerobic Blood Culture Received Blood Peripheral Pending 12/14/16 21:05 Anaerobic Blood Culture Received Blood Peripheral Pending Result Diagram: 12/14/16205412/14/162054 Assessment and Plan Problem List: (1) Neutropenic fever ICD Code: D70.9 Status: Acute (2) Sepsis ICD Code: A41.9 Status: Acute (3) Esophageal cancer ICD Code: C15.9 Status: Acute Assessment and Plan A/P: 1. Neutropenic Fever: Temp 101 at home, currently 99.9. WBC 1.9, previously 7.2 on 11/07/16. Source-unclear. S/p Blood Cultures, IV Vanc/Cefepime in ER, follow up cultures, continue IV Abx. 2. Sepsis: As above, Febrile, Leukopenia, Immunocompromised on Chemotherapy, Source-Unclear. CXR w/ no acute findings, images reviewed by me. U/a negative for UTI. Continue w/ IV Abx, follow up cultures. 3. Esophageal CA: Metastatic. Currently on Chemotherapy, last session 2wks ago, following w/ Dr. Del Angel, will consult for further evaluation. 4. DVT Prophylaxis: SCD/Teds. 5. Social work for d/c planning as needed 6. Case discussed w/ ER physician at length. Physician Certification 2 Midnight Certification Type: Admission for Inpatient Services Order for Inpatient Services The services are ordered in accordance with Medicare regulations or non- Medicare payer requirements, as applicable. In the case of services not specified as inpatient-only, they are appropriately provided as inpatient services in accordance with the 2-midnight benchmark. Estimated LOS (days): 2 days is the estimated time the patient will need to remain in the hospital, assuming treatment plan goals are met and no additional complications. Post-Hospital Plan: Not yet determined Joelle Vences MD Dec 14, 2016 22:35
[2016-12-14 23:00] VITALS: BP 109/71; PULSE 76; RESP 11; O2SAT 97
[2016-12-14] MEDS ORDERED: VANCOMYCIN 1,000 MG/NS 250 ML IV ONE ×2 (23:00)
[2016-12-14] MEDS: SODIUM CHLOR 0.9% 1000 ML INJ 1,000 ML IV SCH (23:11)
[2016-12-15] VITALS (8 sets, daily range): BP systolic 99–113; BP diastolic 64–72; PULSE 77–98; RESP 16–20; TEMP 97.7–100; O2SAT 95–98
[2016-12-15] MEDS ORDERED: ZOFR8TAB PO (00:22)
[2016-12-15] MEDS ORDERED: SODIUM CHLORIDE 0.9% FLUSH 5 ML FLUSH IVF PRN (01:45)
[2016-12-15 07:10] LABS: HEMATOCRIT 26.4 % (39.0-51.0); MEAN CELL VOLUME 78.7 FL (80.0-100.0); MEAN CORPUSCULAR HEMOGLOBIN 26.4 PG (27.0-34.0); MEAN CORPUSCULAR HGB CONC 33.5 % (32.0-36.0); PLATELET COUNT 232 TH/MM3 (150-450); RED BLOOD COUNT 3.35 MIL/MM3 (4.50-5.90); RED CELL DISTRIBUTION WIDTH 17.1 % (11.6-17.2); WHITE BLOOD COUNT 1.8 TH/MM3 (4.0-11.0)
[2016-12-15 07:17] LABS: HEMO FLAGS AUTO DIFF
[2016-12-15 07:36] LABS: ALKALINE PHOSPHATASE 118 U/L (45-117); ALT (GPT) 16 U/L (12-78); ANION GAP 5 MEQ/L (5-15); AST (GOT) 19 U/L (15-37); BICARBONATE 30.4 MEQ/L (21.0-32.0); BLOOD UREA NITROGEN 16 MG/DL (7-18); CHLORIDE 101 MEQ/L (98-107); GLOMERULAR FILTRATION RATE 99 ML/MIN (>89); POTASSIUM 4.2 MEQ/L (3.5-5.1); SODIUM (NA) 136 MEQ/L (136-145); TOTAL BILIRUBIN ADULT 0.5 MG/DL (0.2-1.0)
[2016-12-15] MEDS: SODIUM CHLORIDE 0.9% FLUSH 5 ML FLUSH FLUSH SCH ×2 (09:00→20:28)
[2016-12-15] MEDS: SODIUM CHLOR 0.9% 1000 ML INJ 1,000 ML IV SCH ×2 (09:00→19:00)
[2016-12-15] MEDS ORDERED: CEFEPIME INJ 2,000 MG in SODIUM CHLORIDE 0.9% INJ 100 ML IV SCH (09:00)
--- NOTE | 2016-12-15 09:25 | MB ---
cc: KATHY DAVID M.D., [place] MD DATE OF CONSULTATION [birth year], [address] Joelle Vences REASON FOR CONSULTATION Oncology consult to render opinion regarding patient with metastatic esophageal cancer, admitted with neutropenic fever. HISTORY OF PRESENT ILLNESS The patient is very pleasant 60-year-old male with metastatic esophageal cancer who presented to the hospital with fever up to 101. He was found to be neutropenic. He is currently receiving FOLFIRI chemotherapy. His last chemotherapy was two weeks ago. He was supposed to follow up in the clinic today to continue his chemotherapy. However, yesterday he felt warm and was found to have a temperature of 101 at home. His brought him into the hospital. He denies any chills. He denies any headache. Denies any visual changes. Denies any nausea, vomiting, abdominal pain. No chest pain. He has no shortness of breath. He still occasionally spit up some blood-tinged saliva. He still has dysphagia, unable to swallow some pills but he is getting his nutrition and fluid through a PEG tube mostly. He denies any melena or hematochezia. PAST MEDICAL HISTORY 1. Metastatic esophageal cancer. He has metastatic disease in the liver and lymph nodes. 2. Gastroesophageal reflux disease. 3. Recent GI bleed due to the esophageal cancer. 4. Dysphagia. PAST SURGICAL HISTORY 1. PEG tube placement. 2. Port placement. 3. EGD and colonoscopy. 4. Hernia repair. 5. Vasectomy. FAMILY HISTORY Noncontributory. SOCIAL HISTORY Quit tobacco 15 years ago. He had a 30-pack year smoking history. He does not drink alcohol anymore. ALLERGIES PENICILLIN. CURRENT MEDICATIONS 1. Cefepime. 2. Pantoprazole. REVIEW OF SYSTEMS CONSTITUTIONAL: He denies any further weight loss. EYES: Denies any blurry vision or double vision. ENT: No mouth sores or voice changes. CARDIOVASCULAR: No chest pressure, palpitation. RESPIRATORY: No shortness of breath, cough. GI: As above. : Denies dysuria, hematuria. MUSCULOSKELETAL: No bone pain, muscle pain. HEMATOLOGIC: Negative. ENDOCRINE: Negative. DERMATOLOGIC: Negative. PSYCHIATRIC: Negative. NEUROLOGIC: Negative. PHYSICAL EXAMINATION VITAL SIGNS: Temperature 98.1, blood pressure 113/72, O2 saturation 98% on 2 liters via nasal cannula. GENERAL: He is alert, oriented x 3, in no acute distress. HEENT: Atraumatic, normocephalic. Pupils equal, round and reactive to light. Extraocular muscles intact. No sclerae icterus. Oropharynx - Dry mucosa. No lesion or thrush. NECK: No thyromegaly. No palpable mass. LYMPHATICS: No palpable cervical, clavicular, axillary or inguinal lymph node. CARDIOVASCULAR: Regular S1, S2. Normal. LUNGS: Clear to auscultation bilaterally. No wheezing. ABDOMEN: Soft, nontender. PEG tube site - no erythema. EXTREMITIES: No cyanosis, no clubbing, no edema. BACK: No paravertebral tenderness. SKIN: No rash or petechiae. On the right chest port site - no erythema. NEUROLOGIC: Exam nonfocal. LABORATORY DATA Reviewed. ASSESSMENT 1. Neutropenic fever due to recent chemotherapy. He is currently receiving FOLFIRI for the metastatic esophageal cancer. His last dose of chemotherapy was two weeks ago. He noted temperature of 101 at home. When he came in neutrophil count was 400. He was started on cefepime. He also was given a dose of vancomycin in the emergency room. He has been afebrile since admission. This morning his white count was down to 1.8. Neutrophil count is still pending. I am going to start him on Neupogen. We will increase the cefepime to neutropenic fever dose of 2 grams every 12 hours. 2. Metastatic esophageal cancer. He was found to have adenocarcinoma involving the GE junction and invaded to the stomach fundus. He also had liver metastasis and adenopathy in the abdomen. He had good response to EOF but had poor tolerance. He was switched to FOLFOX and complete 11 cycles before he was found to have progression of disease. He was then started on Keytruda but had no clear response. He developed a GI bleed from the esophageal cancer. He was then switched to FOLFIRI. His last dose was two weeks ago. He has no new symptoms. He was supposed to have another cycle today but will hold the chemotherapy until resolution of the neutropenic fever. 3. Upper GI bleed due to esophageal cancer. Upper endoscopy showed a bleeding mass which was injected with epinephrine. He occasionally still brings up some blood-tinged saliva but no significant GI bleeding at this time. His hemoglobin is stable. 4. Anemia due to combination of chemotherapy, metastatic cancer and GI bleed. He has microcytosis and possibly has iron deficiency. I would check iron study. 5. Dysphagia due to esophageal mass. He will continue tube feeding. 6. Gastroesophageal reflux disease. PLAN 1. Start Neupogen. 2. Increase dose of cefepime. 3. Monitor CBC and blood culture. 4. Check iron study and will give him Venofer if he has iron deficiency. Thank you Dr. Vences for asking me to see this patient. MD SHAHZAD Jeter/GARO /8:02 AM /8:55 AM MT[facility]rendon
[2016-12-15 09:51] LABS: FERRITIN 171 NG/ML (26-388); TRANSFERRIN IRON PROFILE 225 MG/DL (200-360)
[2016-12-15] MEDS ORDERED: CEFEPIME INJ 1,000 MG in SODIUM CHLORIDE 0.9% INJ 100 ML IV SCH (10:00)
[2016-12-15] MEDS: ONDANSETRON HCL 4 MG/2 ML VIAL IVP PRN ×2 (10:33→21:36)
[2016-12-15] MEDS: PANTOPRAZOLE SOD 40 MG DELAYED RELEASE TAB PO SCH ×4 (10:33→21:00)
[2016-12-15 10:47] LABS: BANDS 7 % (0-6); EOSINOPHILS 6 % (0-4); PLATELET ESTIMATE SMEAR NORMAL (NORMAL); PLATELET MORPHOLOGY NORMAL (NORMAL); POLYS (SEG NEUTROPHILS) 8 % (16-70); WBC DIFF SAMPLE 100
[2016-12-15 10:48] LABS: SCAN/DIFF FINAL DIFF MANUAL
[2016-12-15 10:51] LABS: NEUTROPHIL # MANUAL DIFF 0.3 TH/MM3 (1.8-7.7)
[2016-12-15] MEDS: FILGRASTIM 480 MCG/1.6 ML VIAL SQ SCH (14:06)
--- NOTE | 2016-12-15 16:50 | HHI.PR ---
Subjective Remarks Follow-up for neutropenic fever Still having low-grade fever, no chest pain, no shortness breath, diarrhea or urinary symptoms. Objective Vitals Vital Signs Date Time Temp Pulse Resp B/P Pulse Ox O2 Delivery O2 Flow Rate FiO2 12/15/16 12:00 98.7 98 20 99/64 98 12/15/16 08:00 99.2 77 18 104/66 95 12/15/16 04:00 98.1 78 19 113/72 98 12/15/16 00:30 97.9 79 18 108/66 98 12/15/16 00:08 Nasal Cannula 2 12/15/16 00:00 98.3 12/14/16 23:00 76 11 109/71 97 Room Air 12/14/16 21:00 86 18 115/66 97 Room Air 12/14/16 20:45 16 12/14/16 20:16 99.9 96 18 122/64 97 Room Air I/O 12/14/16 12/14/16 12/14/16 12/15/16 12/15/16 12/15/16 07:00 15:00 23:00 07:00 15:00 23:00 Intake Total 0 ml 1140 ml Balance 0 ml 1140 ml Intake Oral 0 ml Tube Feeding 960 ml Other 180 ml # Voids 1 4 # Bowel Movements 0 Result Diagram: 12/15/1662412/15/16624 Objective Remarks GENERAL: Middle-aged white male in no acute distress. HEENT: PERRLA, EOMI. No scleral icterus or conjunctival pallor. No lid lag or facial droop. CARDIOVASCULAR: Regular rate and rhythm. No obvious murmurs to auscultation. No chest tenderness to palpation. RESPIRATORY: No obvious rhonchi or wheezing. Clear to auscultation. Breath sounds equal bilaterally. GASTROINTESTINAL: Abdomen soft, non-tender, nondistended. BS normal. PEG tube in place. MUSCULOSKELETAL: Extremities without clubbing, cyanosis, or edema. No obvious deformities. NEUROLOGICAL: Awake, alert and oriented x4. No focal neurologic deficits. Moving both upper and lower extremities spontaneously. A/P Problem List: (1) Neutropenic fever ICD Code: D70.9 Status: Acute (2) Sepsis ICD Code: A41.9 Status: Acute (3) Esophageal cancer ICD Code: C15.9 Status: Acute Assessment and Plan 1. Neutropenic Fever: Still having fever, continue cefepime and vancomycin, follow cultures, status post Neupogen, oncology following. 2. Sepsis: As above, Febrile, Leukopenia, Immunocompromised on Chemotherapy, Source-Unclear. CXR w/ no acute findings, images reviewed by me. U/a negative for UTI. Continue w/ IV Abx as above, follow-up cultures. 3. Esophageal CA: Metastatic. Currently on Chemotherapy, last session 2wks ago, following w/ Dr. Del Angel, will consult for further evaluation. 4. Anemia-could be secondary to iron deficiency versus anemia of chronic disease, check iron panel, might need Venofer. DVT Prophylaxis: SCD/Teds. Charity Paz MD Dec 15, 2016 16:50
[2016-12-15] MEDS: CEFEPIME INJ 2,000 MG in SODIUM CHLORIDE 0.9% INJ 100 ML IV SCH (17:11)
[2016-12-15] MEDS: VANCOMYCIN INJ 1,250 MG in SODIUM CHLOR 0.9% 250 ML INJ 250 ML IV SCH (18:33)
[2016-12-16] VITALS: BP 111/72; PULSE 81; RESP 16; TEMP 98.8; O2SAT 96
[2016-12-16 05:00] VITALS: BP 111/68; PULSE 77; RESP 16; TEMP 98.6; O2SAT 97
[2016-12-16] MEDS: CEFEPIME INJ 2,000 MG in SODIUM CHLORIDE 0.9% INJ 100 ML IV SCH (05:05)
[2016-12-16] MEDS: VANCOMYCIN INJ 1,250 MG in SODIUM CHLOR 0.9% 250 ML INJ 250 ML IV SCH (05:05)
[2016-12-16] MEDS: SODIUM CHLOR 0.9% 1000 ML INJ 1,000 ML IV SCH (05:07)
[2016-12-16 06:05] LABS: HEMATOCRIT 26.7 % (39.0-51.0); MEAN CELL VOLUME 78.9 FL (80.0-100.0); PLATELET COUNT 241 TH/MM3 (150-450); RED BLOOD COUNT 3.39 MIL/MM3 (4.50-5.90); RED CELL DISTRIBUTION WIDTH 17.5 % (11.6-17.2); WHITE BLOOD COUNT 3.1 TH/MM3 (4.0-11.0)
[2016-12-16 06:26] LABS: HEMO FLAGS AUTO DIFF
[2016-12-16 07:26] LABS: BANDS 8 % (0-6); EOSINOPHILS 7 % (0-4); METAMYELOCYTES 1 % (0-1); MYELOCYTES 1 % (0-0); POLYS (SEG NEUTROPHILS) 22 % (16-70); WBC DIFF SAMPLE 100
[2016-12-16 07:27] LABS: PLATELET ESTIMATE SMEAR NORMAL (NORMAL); PLATELET MORPHOLOGY NORMAL (NORMAL); SCAN/DIFF FINAL DIFF MANUAL
[2016-12-16] MEDS: SODIUM CHLORIDE 0.9% FLUSH 5 ML FLUSH FLUSH SCH (07:38)
[2016-12-16 08:00] VITALS: BP 107/68; PULSE 75; RESP 16; TEMP 98; O2SAT 99
[2016-12-16] MEDS: PANTOPRAZOLE SOD 40 MG DELAYED RELEASE TAB PO SCH (08:39)
[2016-12-16 09:00] VITALS: PULSE 89
[2016-12-16] MEDS: ONDANSETRON HCL 4 MG/2 ML VIAL IVP PRN (09:16)
[2016-12-16] MEDS ORDERED: IRON SUCROSE INJ 200 MG in SODIUM CHLORIDE 0.9% INJ 100 ML IV ONE (10:00)
[2016-12-16] MEDS ORDERED: PANTOPRAZOLE SODIUM 40 MG VIAL IV PUSH SCH (10:00)
--- NOTE | 2016-12-16 10:03 | PD.ONC.PN ---
Subjective Subjective Remarks Tmax 100F overnight. Patient feeling well. Eager to go home. Tolerated tube feeds this AM. Denies pain. Objective Data Date Time Temp Pulse Resp B/P Pulse Ox O2 Delivery O2 Flow Rate FiO2 12/16/16 08:00 98.0 75 16 107/68 99 12/16/16 05:00 98.6 77 16 111/68 97 12/16/16 00:00 98.8 81 16 111/72 96 12/15/16 22:11 81 12/15/16 21:30 100.0 85 16 108/64 98 12/15/16 16:00 97.7 80 16 106/69 97 12/15/16 12:00 98.7 98 20 99/64 98 Result Diagram: 12/16/1611 12/16/16 0511 Laboratory Results Laboratory Tests Test 12/16/16 05:11 White Blood Count 3.1 TH/MM3 Red Blood Count 3.39 MIL/MM3 Hemoglobin 8.8 GM/DL Hematocrit 26.7 % Mean Corpuscular Volume 78.9 FL Mean Corpuscular Hemoglobin 26.0 PG Mean Corpuscular Hemoglobin 33.0 % Concent Red Cell Distribution Width 17.5 % Platelet Count 241 TH/MM3 Mean Platelet Volume 7.7 FL Neutrophils (%) (Auto) % Lymphocytes (%) (Auto) % Monocytes (%) (Auto) % Eosinophils (%) (Auto) % Basophils (%) (Auto) % Neutrophils # (Auto) TH/MM3 Lymphocytes # (Auto) TH/MM3 Monocytes # (Auto) TH/MM3 Eosinophils # (Auto) TH/MM3 Basophils # (Auto) TH/MM3 CBC Comment AUTO DIFF Differential Total Cells 100 Counted Neutrophils % (Manual) 22 % Band Neutrophils % 8 % Lymphocytes % 33 % Monocytes % 28 % Eosinophils % 7 % Neutrophils # (Manual) 1.0 TH/MM3 Metamyelocytes 1 % Myelocytes 1 % Differential Comment FINAL DIFF MANUAL Platelet Estimate NORMAL Platelet Morphology Comment NORMAL Basophilic Stippling FAINT Creatinine 0.72 MG/DL Estimat Glomerular Filtration 110 ML/MIN Rate Culture Results Microbiology Date/Time Procedure Status Source Growth 12/14/16 20:55 Aerobic Blood Culture - Preliminary Resulted Blood Peripheral NO GROWTH IN 1 DAY 12/14/16 20:55 Anaerobic Blood Culture - Preliminary Resulted Blood Peripheral NO GROWTH IN 1 DAY 12/14/16 21:05 Aerobic Blood Culture - Preliminary Resulted Blood Peripheral NO GROWTH IN 1 DAY 12/14/16 21:05 Anaerobic Blood Culture Resulted Blood Peripheral Pending 12/14/16 21:05 Influenza Types A,B Antigen (NANY) - Final Complete Nasal Aspirate NEGATIVE FOR FLU A AND B ANTIGEN.... Administered Medications Medications (Trade) Dose Ordered Sig/Andrea Route PRN Reason Start Time Stop Time Status Last Admin Dose Admin Sodium Chloride (NS 1000 ml Inj) 1,000 ml @ 100 mls/hr Q10H IV 12/14/16 23:00 12/16/16 05:07 Ondansetron HCl (Zofran Inj) 4 mg Q6H PRN IVP NAUSEA OR VOMITING 12/14/16 22:30 12/16/16 09:16 Pantoprazole Sodium (Protonix) 40 mg BID PO 12/15/16 09:00 12/15/16 10:33 Filgrastim 480 mcg 480 mcg DAILY@14 SQ 12/15/16 14:00 12/15/16 14:06 Cefepime HCl 2000 mg/Sodium Chloride 100 ml @ 200 mls/hr Q12H IV 12/15/16 17:00 12/16/16 05:05 Vancomycin HCl 1250 mg/Sodium Chloride 262.5 ml @ 262.5 mls/ hr Q12H IV 12/15/16 18:00 12/16/16 05:05 Iron Sucrose/ Sodium Chloride (Venofer Inj/NS Inj) 110 ml @ 110 mls/hr ONCE ONCE IV 12/16/16 10:00 12/16/16 10:59 12/16/16 09:13 Objective Remarks GENERAL: Middle aged male, sitting up in bed, watching TV and receiving IV iron in NAD SKIN: Warm and dry. port in place, right chest wall HEAD: Normocephalic. EYES: No injection or drainage. NECK: Supple, trachea midline. CARDIOVASCULAR: Regular rate and rhythm RESPIRATORY: Breath sounds equal bilaterally. No accessory muscle use. GASTROINTESTINAL: Abdomen soft, non-tender, nondistended. EXTREMITIES: No cyanosis NEUROLOGICAL: No obvious focal deficit. Awake, alert, and oriented x3. Assessment/Plan Problem List: (1) Neutropenic fever Status: Acute Plan: --currently receiving FOLFIRI for the metastatic esophageal cancer. --last dose of chemotherapy was two weeks ago. --on Cefepime + Vanco --afebrile since admission. --on Neupogen (2) Esophageal cancer Status: Acute Plan: -->will hold the chemotherapy until resolution of the neutropenic fever. History: -found to have adenocarcinoma involving the GE junction and invaded to the stomach fundus. + liver metastasis and adenopathy in the abdomen. +good response to EOF but poor tolerance. was switched to FOLFOX and completed 11 cycles then progression of disease. --started on Keytruda but had no clear response. --developed a GI bleed from the esophageal cancer, then switched to FOLFIRI. last dose was two weeks ago. He has no new symptoms. (3) GI bleed Status: Acute Plan: Upper GI bleed due to esophageal cancer. --Upper endoscopy showed a bleeding mass which was injected with epinephrine. --occasionally still brings up some blood-tinged saliva but no significant GI bleeding at this time. --hemoglobin is stable. (4) Microcytic anemia Status: Acute Plan: --due to combination of chemotherapy, metastatic cancer and GI bleed. --will give iron sucrose 200mg x 1 bag (5) Dysphagia due to mass Status: Acute Plan: continue tube feeding. Assessment 61y/o with metastatic esophageal cancer, admitted with neutropenic fever. --Metastatic esophageal cancer. He has metastatic disease in the liver and lymph nodes. --Gastroesophageal reflux disease. --Recent GI bleed due to the esophageal cancer. --Dysphagia. Plan 1. give second dose Neupogen today 2. Venofer x 200mg x 1 dose today 3. clear for discharge after Venofer + Neupogen Attending Statement The exam, history, and the medical decision-making described in the above note were completed with the assistance of the mid-level provider. I reviewed and agree with the findings presented. I attest that I had a [id number] encounter with the patient on the same day, and personally performed and documented my assessment and findings in the medical record. Feeling better. No fever since admission. Culture negative to date. Neutropenia has resolved after neupogen. Will give venofer x1 for iron deficiency. He can then be d/c. Resume chemotherapy next week. Discussed with patient and his . Darcy Chatman Dec 16, 2016 10:03 Armando Del Angel MD Dec 16, 2016 16:00
[2016-12-16 12:00] VITALS: BP 101/65; PULSE 75; RESP 16; TEMP 99.1; O2SAT 96
[2016-12-16] MEDS: FILGRASTIM 480 MCG/1.6 ML VIAL SQ SCH (13:35)
[2016-12-16] MEDS ORDERED: LEVA750T PO (13:52)
--- NOTE | 2016-12-16 14:22 | HHI.PR ---
Subjective Remarks F/U neutropenic fever Afebrile, neutrophils no better, around 1000. Severe any cough, urinary symptoms or diarrhea. Objective Vitals Vital Signs Date Time Temp Pulse Resp B/P Pulse Ox O2 Delivery O2 Flow Rate FiO2 12/16/16 08:00 98.0 75 16 107/68 99 12/16/16 05:00 98.6 77 16 111/68 97 12/16/16 00:00 98.8 81 16 111/72 96 12/15/16 22:11 81 12/15/16 21:30 100.0 85 16 108/64 98 12/15/16 16:00 97.7 80 16 106/69 97 I/O 12/15/16 12/15/16 12/15/16 12/16/16 12/16/16 12/16/16 07:00 15:00 23:00 07:00 15:00 23:00 Intake Total 0 ml 1140 ml 300 ml 786 ml Output Total 600 ml Balance 0 ml 540 ml 300 ml 786 ml Intake Oral 0 ml IV Total 786 ml Tube Feeding 960 ml 240 ml Other 180 ml 60 ml Output Urine Total 600 ml # Voids 4 2 2 # Bowel Movements 0 Result Diagram: 12/16/16 0511 12/16/16 0511 Objective Remarks GENERAL: Middle-aged white male in no acute distress. HEENT: PERRLA, EOMI. No scleral icterus or conjunctival pallor. No lid lag or facial droop. CARDIOVASCULAR: Regular rate and rhythm. No obvious murmurs to auscultation. No chest tenderness to palpation. RESPIRATORY: No obvious rhonchi or wheezing. Clear to auscultation. Breath sounds equal bilaterally. GASTROINTESTINAL: Abdomen soft, non-tender, nondistended. BS normal. PEG tube in place. MUSCULOSKELETAL: Extremities without clubbing, cyanosis, or edema. No obvious deformities. NEUROLOGICAL: Awake, alert and oriented x4. No focal neurologic deficits. Moving both upper and lower extremities spontaneously. A/P Problem List: (1) Neutropenic fever ICD Code: D70.9 Status: Acute (2) Sepsis ICD Code: A41.9 Status: Acute (3) Esophageal cancer ICD Code: C15.9 Status: Acute Assessment and Plan 1. Neutropenic Fever: Still having fever, continue cefepime and vancomycin, follow cultures, neutrophils now 1000, cleared by oncology, switch antibiotics to Levaquin. 2. Sepsis: As above, Febrile, Leukopenia, Immunocompromised on Chemotherapy, Source-Unclear. CXR w/ no acute findings, images reviewed by me. U/a negative for UTI. Continue w/ IV Abx as above, follow-up cultures. 3. Esophageal CA: Metastatic. Currently on Chemotherapy, last session 2wks ago, following w/ Dr. Del Angel, will consult for further evaluation. 4. Anemia-could be secondary to iron deficiency versus anemia of chronic disease,s/p Venofer. DVT Prophylaxis: SCD/Teds. Charity Paz MD Dec 16, 2016 14:22
--- NOTE | 2016-12-16 14:24 | HHI.DS ---
Discharge Summary Admission Date Dec 14, 2016 at 22:28 Discharge Date: Dec 16, 2016 Admitting Diagnosis neutropenic fever (1) Neutropenic fever ICD Code: D70.9 (2) Sepsis ICD Code: A41.9 (3) Esophageal cancer ICD Code: C15.9 Procedures none Brief History - From Admission This is a 61-year-old male with a PMH of Metastatic Esophageal CA on Chemotherapy, h/o GI Bleed and Dysphagia who was referred to the ER by his Oncologist, Dr. Del Angel for further evaluation of fever at home of 101. Per , last Chemo approx 2wks ago which he tolerated well. Today, states he felt warm, took temp and noted to be 101. Denies nausea, vomiting, diarrhea, SOB or chest pain. On arrival, BP 122/64, HR 96, O2 sat 97% on RA, Temp 99.9. WBC 1.9 , previously 7.2 on 11/07/16. Hgb 9.2. Platelets 262. Bands 12. U/a negative. CXR w/ minimal basilar atelectasis, no consolidation. S/p Blood Cultures, Vanc/Cefepime in ER. CBC/BMP: 12/16/16 0511 12/16/16 0511 Significant Findings Laboratory Tests Test 12/14/16 12/14/16 12/15/16 12/16/16 20:55 21:49 06:25 05:11 White Blood Count 1.9 TH/MM3 1.8 TH/MM3 3.1 TH/MM3 (4.0-11.0) (4.0-11.0) (4.0-11.0) Red Blood Count 3.47 MIL/MM3 3.35 MIL/MM3 3.39 MIL/MM3 (4.50-5.90) (4.50-5.90) (4.50-5.90) Hemoglobin 9.2 GM/DL 8.8 GM/DL 8.8 GM/DL (13.0-17.0) (13.0-17.0) (13.0-17.0) Hematocrit 27.6 % 26.4 % 26.7 % (39.0-51.0) (39.0-51.0) (39.0-51.0) Mean Corpuscular Volume 79.4 FL 78.7 FL 78.9 FL (80.0-100.0) (80.0-100.0) (80.0-100.0) Mean Corpuscular Hemoglobin 26.6 PG 26.4 PG 26.0 PG (27.0-34.0) (27.0-34.0) (27.0-34.0) Red Cell Distribution Width 17.3 % 17.5 % (11.6-17.2) (11.6-17.2) Monocytes (%) (Auto) 36.1 % (0.0-8.0) Neutrophils # (Auto) 0.4 TH/MM3 (1.8-7.7) Lymphocytes # (Auto) 0.8 TH/MM3 (1.0-4.8) Neutrophils % (Manual) 10 % (16-70) 8 % (16-70) Band Neutrophils % 12 % (0-6) 7 % (0-6) 8 % (0-6) Lymphocytes % 54 % (9-44) 53 % (9-44) Monocytes % 22 % (0-8) 26 % (0-8) 28 % (0-8) Neutrophils # (Manual) 0.4 TH/MM3 0.3 TH/MM3 1.0 TH/MM3 (1.8-7.7) (1.8-7.7) (1.8-7.7) Sodium Level 132 MEQ/L (136-145) Chloride Level 97 MEQ/L (98-107) Blood Urea Nitrogen 24 MG/DL (7-18) Calcium Level 8.1 MG/DL 8.1 MG/DL (8.5-10.1) (8.5-10.1) Alkaline Phosphatase 131 U/L 118 U/L (45-117) (45-117) Albumin 2.7 GM/DL 2.4 GM/DL (3.4-5.0) (3.4-5.0) Urine Urobilinogen 4.0 MG/DL (LESS THAN 2.0) Urine Mucus FEW /lpf (OCC) Eosinophils % 6 % (0-4) 7 % (0-4) Iron Level 17 MCG/DL (65-175) Percent Iron Saturation 5.4 % (20-50) Total Protein 6.0 GM/DL (6.4-8.2) Myelocytes 1 % (0-0) Basophilic Stippling FAINT (NORMAL) PE at Discharge GENERAL: Middle-aged white male in no acute distress. HEENT: PERRLA, EOMI. No scleral icterus or conjunctival pallor. No lid lag or facial droop. CARDIOVASCULAR: Regular rate and rhythm. No obvious murmurs to auscultation. No chest tenderness to palpation. RESPIRATORY: No obvious rhonchi or wheezing. Clear to auscultation. Breath sounds equal bilaterally. GASTROINTESTINAL: Abdomen soft, non-tender, nondistended. BS normal. PEG tube in place. MUSCULOSKELETAL: Extremities without clubbing, cyanosis, or edema. No obvious deformities. NEUROLOGICAL: Awake, alert and oriented x4. No focal neurologic deficits. Moving both upper and lower extremities spontaneously. Hospital Course This is a 61-year-old male with a PMH of Metastatic Esophageal CA on Chemotherapy, h/o GI Bleed and Dysphagia who was referred to the ER by his Oncologist, Dr. Del Angel for further evaluation of fever at home of 101. Upon admission, the patient was placed on vancomycin and cefepime for fever. Workup was done and was negative for any obvious infectious source. Chest x-ray was negative, urinalysis negative for UTI. Patient was given Neupogen. After several days, neutrophils improved 1000. Patient was cleared for discharge and will be going home on Levaquin to finish 1 week of treatment. He was also given Venofer for his anemia. He will follow-up with his oncologist in one week. Pt Condition on Discharge: Good Discharge Disposition: Discharge Home Discharge Time: > 30 minutes Discharge Instructions DIET: Follow Instructions for: Heart Healthy Diet Activities you can perform: Regular-No Restrictions Follow up Referrals: Oncology - 1 Week New Medications: Levofloxacin (Levaquin) 750 Mg Tab 750 MG PO DAILY Infection #5 Ref 0 TAB Continued Medications: Ondansetron (Zofran) 8 Mg Tab 8 MG PO TID Nausea/Vomiting Ref 0 TAB Pantoprazole (Pantoprazole) 40 Mg Tab 40 MG PO BID Reflux #30 Ref 0 TAB Prochlorperazine Maleate (Prochlorperazine Maleate) 10 Mg Tab 10 MG PO Q6H PRN NAUSEA OR VOMITING Ref 0 TAB Brandi,Charity AGUILAR Dec 16, 2016 14:24
[2016-12-16] MEDS ORDERED: PHARMACY ORDERED LAB XX ONE (17:45)
== END 2016-12-16 15:31 | disposition home or self-care (01) | DRG 809 ==
LOC: NEPC 20:14 → NEDA 22:28 → N06B 12-15 00:30 → HOCA 12-15 21:22
PROVIDERS: ADMIT Hospitalist; ATTEND Hospitalist
DX: D70.1 Agranulocytosis secondary to cancer chemotherapy (principal); C78.7 Secondary malignant neoplasm of liver and intrahepatic bile duct; C15.9 Malignant neoplasm of esophagus, unspecified; D64.81 Anemia due to antineoplastic chemotherapy; C77.9 Secondary and unspecified malignant neoplasm of lymph node, unspecified; R13.19 Other dysphagia; K92.2 Gastrointestinal hemorrhage, unspecified; Z93.1 Gastrostomy status; R50.81 Fever presenting with conditions classified elsewhere; Z88.0 Allergy status to penicillin; K21.9 Gastro-esophageal reflux disease without esophagitis; Z87.891 Personal history of nicotine dependence; T45.1X5A Adverse effect of antineoplastic and immunosuppressive drugs, initial encounter; D50.9 Iron deficiency anemia, unspecified
CPT/HCPCS: 71010; 80053; 81001; 82565; 82728; 83540; 83550; 83605; 85007; 85027; 87040; 87804; 99284; C9113; J0692; J1442; J1756; J2405; J3370; J7030; J7050

== ENCOUNTER 2017-01-23 04:47 | Inpatient (IN) | payer BC ==
[~2017-01-23] VITALS: Ht 182.9 cm; Wt 93.2 kg
[2017-01-23] VITALS (13 sets, daily range): BP systolic 100–115; BP diastolic 55–92; PULSE 85–99; RESP 16–20; TEMP 97–98.5; O2SAT 97–100
[~2017-01-23 04:47] MED LIST changes: +LEVA750T PO; +ZOFR8TAB PO
[2017-01-23 05:45] LABS: AUTOMATED NEUTROPHIL # 5.3 TH/MM3 (1.8-7.7); BASOPHIL % 0.2 % (0.0-2.0); LYMPH % 9.7 % (9.0-44.0); LYMPHOCYTE # 0.6 TH/MM3 (1.0-4.8); MEAN CELL VOLUME 82.5 FL (80.0-100.0); MEAN CORPUSCULAR HEMOGLOBIN 27.3 PG (27.0-34.0); MEAN CORPUSCULAR HGB CONC 33.1 % (32.0-36.0); NEUT % 83.1 % (16.0-70.0); PLATELET COUNT 259 TH/MM3 (150-450); RED BLOOD COUNT 1.13 MIL/MM3 (4.50-5.90); RED CELL DISTRIBUTION WIDTH 22.7 % (11.6-17.2); WHITE BLOOD COUNT 6.4 TH/MM3 (4.0-11.0)
[2017-01-23 05:53] LABS: HEMO FLAGS AUTO DIFF
[2017-01-23 05:55] LABS: HEMATOCRIT 9.3 % (39.0-51.0)
[2017-01-23 05:59] LABS: APTT (PATIENT) 24.3 SEC (24.3-30.1); INTERNATIONAL NORMALIZED RATIO 1.2 RATIO; PROTHROMBIN TIME - PATIENT 13.4 SEC (9.8-11.6)
[2017-01-23 06:13] LABS: BICARBONATE 23.7 MEQ/L (21.0-32.0); CALCIUM-PROTEIN CORRECTED 8.8 MG/DL (8.5-10.1); POTASSIUM 4.3 MEQ/L (3.5-5.1); TOTAL BILIRUBIN ADULT 0.3 MG/DL (0.2-1.0)
--- NOTE | 2017-01-23 06:13 | PD ---
HPI Chief Complaint: Bleeding Time Seen by Provider: 05:59 Travel History International Travel<30 days: No Contact w/Intl Traveler<30days: No Traveled to known affect area: No History of Present Illness HPI The patient is a 61-year-old male with a history of stage IV metastatic esophageal cancer who began tonight vomiting blood and passing black stools. He does complain of weakness and lightheadedness. He is followed by Dr. Armando Del Angel for his esophageal adenocarcinoma. The patient is a full code. PFSH Past Medical History Cancer: Yes (ESOPHAGEAL ) Chemotherapy: Yes Diminished Hearing: No Implanted Vascular Access Dvce: Yes Immunizations Current: Yes Tetanus Vaccination: Unknown Influenza Vaccination: Yes Past Surgical History Abdominal Surgery: Yes (FEEDING TUBE PLACED SEPTEMBER 2016 ) Other Surgery: Yes (IMPLANTED VAD, BILATERAL INGUINAL HERNIA REPAIR ) Social History Alcohol Use: No Tobacco Use: No Substance Use: No Allergies-Medications (Allergen,Severity, Reaction): Coded Allergies: Penicillin (Verified Allergy, Unknown, 01/23/17) reaction as an infant; unsure of reaction Reported Meds & Prescriptions Reported Meds & Active Scripts Active Review of Systems Except as stated in HPI: all other systems reviewed are Neg Physical Exam Narrative GENERAL: The patient is alert, oriented 3 complaining of a minimal amount of nausea in minimal apparent distress with his abdominal discomfort. His vital signs show blood pressure 104/56 but otherwise normal. He does appear anemic. SKIN: Warm and dry. HEAD: Atraumatic. Normocephalic. EYES: Pupils equal and round. No scleral icterus. No injection or drainage. ENT: No nasal bleeding or discharge. Mucous membranes pink and moist. NECK: Trachea midline. No JVD. CARDIOVASCULAR: Regular rate and rhythm. No murmur appreciated. RESPIRATORY: No accessory muscle use. Clear to auscultation. Breath sounds equal bilaterally. GASTROINTESTINAL: Abdomen soft, non-tender, nondistended. Hepatic and splenic margins not palpable. MUSCULOSKELETAL: No obvious deformities. No clubbing. No cyanosis. No edema. NEUROLOGICAL: Awake and alert. No obvious cranial nerve deficits. Motor grossly within normal limits. Normal speech. PSYCHIATRIC: Appropriate mood and affect; insight and judgment normal. Rectal exam deferred-patient history is enough for this. Data Data Last Documented VS Vital Signs Date Time Temp Pulse Resp B/P Pulse Ox O2 Delivery O2 Flow Rate FiO2 01/23/17 06:07 97 16 103/57 100 Room Air 01/23/17 04:59 98.4 Orders Complete Blood Count With Diff (01/23/17 05:23) Comprehensive Metabolic Panel (01/23/17 05:23) Prothrombin Time / Inr (Pt) (01/23/17 05:23) Act Partial Throm Time (Ptt) (01/23/17 05:23) Ecg Monitoring (01/23/17 05:23) Oximetry (01/23/17 05:23) Oxygen Administration (01/23/17 05:23) Iv Access Insert/Monitor (01/23/17 05:23) Type And Screen (01/23/17 05:23) Sodium Chloride 0.9% Flush (Ns Flush) (01/23/17 06:15) Act Partial Throm Time (Ptt) (01/23/17 06:05) Red Blood Cells (Rbc) (01/23/17 05:30) Ondansetron Inj (Zofran Inj) (01/23/17 06:15) Labs Laboratory Tests Test 01/23/17 05:30 White Blood Count 6.4 TH/MM3 Red Blood Count 1.13 MIL/MM3 Hemoglobin 3.1 GM/DL Hematocrit 9.3 % Mean Corpuscular Volume 82.5 FL Mean Corpuscular Hemoglobin 27.3 PG Mean Corpuscular Hemoglobin 33.1 % Concent Red Cell Distribution Width 22.7 % Platelet Count 259 TH/MM3 Mean Platelet Volume 8.0 FL Neutrophils (%) (Auto) 83.1 % Lymphocytes (%) (Auto) 9.7 % Monocytes (%) (Auto) 7.0 % Eosinophils (%) (Auto) 0.0 % Basophils (%) (Auto) 0.2 % Neutrophils # (Auto) 5.3 TH/MM3 Lymphocytes # (Auto) 0.6 TH/MM3 Monocytes # (Auto) 0.5 TH/MM3 Eosinophils # (Auto) 0.0 TH/MM3 Basophils # (Auto) 0.0 TH/MM3 CBC Comment AUTO DIFF Prothrombin Time 13.4 SEC Prothromb Time International 1.2 RATIO Ratio Activated Partial 24.3 SEC Thromboplast Time Sodium Level 143 MEQ/L Potassium Level 4.3 MEQ/L Chloride Level 110 MEQ/L Carbon Dioxide Level 23.7 MEQ/L Anion Gap 9 MEQ/L Blood Urea Nitrogen 55 MG/DL Creatinine 0.96 MG/DL Estimat Glomerular Filtration 79 ML/MIN Rate Random Glucose 137 MG/DL Calcium Level 7.1 MG/DL Protein Corrected Calcium 8.8 MG/DL Total Bilirubin 0.3 MG/DL Aspartate Amino Transf 16 U/L (AST/SGOT) Alanine Aminotransferase 19 U/L (ALT/SGPT) Alkaline Phosphatase 67 U/L Total Protein 4.1 GM/DL Albumin 1.8 GM/DL Blood Type A POSITIVE Antibody Screen NEGATIVE Crossmatch Leukocyte-Reduced Red Blood Cells Blood Bank Comment MDM Medical Decision Making Medical Screen Exam Complete: Yes Emergency Medical Condition: Yes Medical Record Reviewed: Yes Differential Diagnosis Active upper GI bleed with anemia Narrative Course The patient has virtually no reserve with a hemoglobin of 3.1. He is starting to actively bleed again and starting to vomit here in the emergency department. His prognosis at this time appears poor. We are bringing blood down now for him at this time. I discussed the patient with Dr. Donnelly and Dr. Armando Del Angel will be here at approximately 0700 this morning. If the patient survives this bleed it is likely that Dr. Armando Del Angel in the family and the patient will get together and decide about hospice. Edwin Sharpe MD Jan 23, 2017 06:12
[2017-01-23] MEDS ORDERED: ONDANSETRON HCL 4 MG/2 ML VIAL IV PUSH ONE ×2 (06:15→12:00)
[2017-01-23] MEDS ORDERED: SODIUM CHLORIDE 0.9% FLUSH 10 ML FLUSH IVF PRN ×2 (06:15→07:15)
[2017-01-23 06:25] LABS: BANDS 3 % (0-6); CORRECTED NUCLEATED RBC 1 /100 WBC (0-0); NEUTROPHIL # MANUAL DIFF 5.6 TH/MM3 (1.8-7.7); POLYS (SEG NEUTROPHILS) 84 % (16-70); WBC DIFF SAMPLE 100
[2017-01-23 06:26] LABS: OVALOCYTES 1+ (NORMAL); PLATELET ESTIMATE SMEAR NORMAL (NORMAL); PLATELET MORPHOLOGY NORMAL (NORMAL); SCAN/DIFF FINAL DIFF MANUAL
[2017-01-23 06:27] LABS: POLYCHROMASIA 2.2 % (0.0-1.9)
[2017-01-23] MEDS ORDERED: METOCLOPRAMIDE HCL 10 MG/2 ML VIAL IV PUSH ONE (06:30)
--- NOTE | 2017-01-23 08:11 | HHI.HP ---
[facility] Service Critical Care Medicine Primary Care Physician Shantanu Rosado MD Admission Diagnosis active upper GI bleed with severe anemia Diagnosis: (1) Upper GI bleed Diagnosis: Principal (2) Bleeding from ulcerating esophageal cancer Diagnosis: Principal (3) Severe anemia requiring transfusion Diagnosis: Principal (4) Stage IV esophageal cancer Diagnosis: Secondary Chief Complaint: Upper GI bleed with severe anemia Travel History International Travel<30 Days: No Contact w/Intl Traveler <30 Da: No Traveled to Known Affected Are: No History of Present Illness 60-year-old male with history of stage IV metastatic esophageal cancer undergoing chemotherapy with Dr. del angel, history of upper GI bleed from ulcerating esophageal cancer, who presented with vomiting blood and passing black stools. He also complains of of weakness and lightheadedness. He is followed by Dr. Del Angel for his esophageal adenocarcinoma. His hemoglobin on presentation was 3 with a hematocrit of 9.1. Patient was borderline hypotensive and tachycardic 4 units of PRBC had been ordered by Dr. Sharpe. After discussion with Dr. del angel patient had decided to be a DNR, but is okay with the temporary intubation if needed for endoscopy. Patient had similar presentation on November 2016 where he was admitted with upper GI bleed and was seen by GI doctor Sharath. EGD 11/05/16 showed ulcerating bleeding mass in the distal esophagus, status post epi injection and cauterization. I evaluated the patient in the ED. He is in mild to moderate discomfort due to recurrent nausea, and hematemesis. He is receiving his fourth unit of blood. Remains tachycardic but blood pressure has improved. GI consult is pending. I have discussed with Dr. Del Angel Past Family Social History Allergies: Coded Allergies: Penicillin (Verified Allergy, Unknown, 01/23/17) reaction as an infant; unsure of reaction Past Medical History Stage IV esophageal cancer GERD Upper GI bleed status post EGD 11/05/16 showing ulcerating bleeding mass in the distal esophagus, status post epi injection and cauterization Past Surgical History EGD/colonoscopy PEG placement Right chest port placement hernia repair vasectomy Reported Medications Per D/C summary on 12/16/16 Continued Medications: Ondansetron 8 MG PO TID Nausea/Vomiting Pantoprazole 40 MG PO BID Prochlorperazine Maleate 10 MG PO Q6H PRN NAUSEA OR VOMITING Getting chemotherapy per Dr. chew Active Ordered Medications Reviewed Family History Reviewed Social History No alcohol or tobacco use Physical Exam Vital Signs Vital Signs Date Time Temp Pulse Resp B/P Pulse Ox O2 Delivery O2 Flow Rate FiO2 01/23/17 06:45 94 16 100/55 100 Room Air 01/23/17 06:41 98.4 94 16 104/56 100 Room Air 01/23/17 06:35 97 16 103/57 100 Room Air 01/23/17 06:30 98.5 98 16 102/56 100 Room Air 01/23/17 06:07 97 16 103/57 100 Room Air 01/23/17 05:25 100 Room Air 01/23/17 05:25 16 01/23/17 05:03 16 01/23/17 04:59 98.4 91 16 104/56 100 Physical Exam GENERAL: 60-year-old male who appears pale critically ill in moderate distress from nausea and vomiting SKIN: Warm and dry. HEAD: Atraumatic. Normocephalic. EYES: Pupils equal and round. No scleral icterus. Conjunctiva pale ENT: No nasal bleeding or discharge. Mucous membranes dry NECK: Trachea midline. No JVD. CARDIOVASCULAR: Tachycardic. No murmur appreciated. Right upper chest port in place RESPIRATORY: No accessory muscle use. Clear to auscultation. Breath sounds equal bilaterally. GASTROINTESTINAL: Abdomen soft, non-tender, nondistended. Hepatic and splenic margins not palpable. MUSCULOSKELETAL: No obvious deformities. No clubbing. No cyanosis. No edema. NEUROLOGICAL: Awake and alert. No obvious cranial nerve deficits. Motor grossly within normal limits. Normal speech. PSYCHIATRIC: Anxious, nauseous Rectal exam deferred-patient history is enough for this. Laboratory Laboratory Tests Test 01/23/17 01/23/17 05:30 07:21 White Blood Count 6.4 Red Blood Count 1.13 Hemoglobin 3.1 Hematocrit 9.3 Mean Corpuscular Volume 82.5 Mean Corpuscular Hemoglobin 27.3 Mean Corpuscular Hemoglobin 33.1 Concent Red Cell Distribution Width 22.7 Platelet Count 259 Mean Platelet Volume 8.0 Neutrophils (%) (Auto) 83.1 Lymphocytes (%) (Auto) 9.7 Monocytes (%) (Auto) 7.0 Eosinophils (%) (Auto) 0.0 Basophils (%) (Auto) 0.2 Neutrophils # (Auto) 5.3 Lymphocytes # (Auto) 0.6 Monocytes # (Auto) 0.5 Eosinophils # (Auto) 0.0 Basophils # (Auto) 0.0 CBC Comment AUTO DIFF Differential Total Cells 100 Counted Neutrophils % (Manual) 84 Band Neutrophils % 3 Lymphocytes % 9 Monocytes % 4 Neutrophils # (Manual) 5.6 Nucleated Red Blood Cells 1 Differential Comment FINAL DIFF MANUAL Platelet Estimate NORMAL Platelet Morphology Comment NORMAL Polychromasia 2.2 Ovalocytes 1+ Prothrombin Time 13.4 Prothromb Time International 1.2 Ratio Activated Partial 24.3 Thromboplast Time Sodium Level 143 Potassium Level 4.3 Chloride Level 110 Carbon Dioxide Level 23.7 Anion Gap 9 Blood Urea Nitrogen 55 Creatinine 0.96 Estimat Glomerular Filtration 79 Rate Random Glucose 137 Calcium Level 7.1 Protein Corrected Calcium 8.8 Total Bilirubin 0.3 Aspartate Amino Transf 16 (AST/SGOT) Alanine Aminotransferase 19 (ALT/SGPT) Alkaline Phosphatase 67 Total Protein 4.1 Albumin 1.8 Blood Type A POSITIVE A POSITIVE Antibody Screen NEGATIVE Crossmatch Leukocyte-Reduced Leukocyte-Reduced Red Blood Red Blood Cells Cells Blood Bank Comment Result Diagram: 01/23/17 0530 01/23/17 0530 Assessment and Plan Assessment and Plan NEURO: -Pain control with as needed morphine, Zofran for nausea vomiting RESP: -Nasal cannula oxygen -DuoNeb every 6 hours when necessary. Incentive spirometry -Patient is a DNR but okay with temporary intubation for EGD if needed CV: Sinus tachycardia Hypotension -Normal saline IV fluids at 125 ml per hour -Hemodynamically improving with blood transfusions GI/HEME: Upper GI bleed Stage IV his original cancer Anemia requiring transfusion -EGD 11/05/16 showed ulcerating bleeding mass in the distal esophagus, status post epi injection and cauterization. -Keep nothing by mouth, Protonix 80 mg IV 1 and 8 mg per hour infusion -GI consulted for EGD and possible cauterization -IR evaluation if unable to cauterize -Transfuse to keep hemoglobin more than 8, H&H every 8 hours : -Monitor renal function closely. IV fluids as above ID: -Monitor for infection. ENDO: -Electrolyte replacement per protocol PROPH: -Bilateral lower extremity SCDs. Avoid chemical DVT prophylaxis. Protonix infusion LINES: -Utilize peripheral IVs, access port if needed CC time 40 min Code Status DNR Discussed Condition With Drs. Del Angel and Citlali Multani MD Jan 23, 2017 08:11
[2017-01-23] MEDS ORDERED: MISCELLANEOUS NURSING INFORMATION XX SCH (08:15)
[2017-01-23] MEDS ORDERED: CHLORHEXIDINE GLUCONATE 2 % 1 PACK (2 CLOTHS) TOP PRN (08:15)
[2017-01-23] MEDS ORDERED: RESP: ALBUTEROL 2.5 MG/IPRATROPIUM 0.5 MG NEB (PRN) INH (08:15)
[2017-01-23] MEDS ORDERED: SODIUM PHOSPHATE INJ 30 MMOL in SODIUM CHLOR 0.9% 250 ML INJ 240 ML IV PRN (08:30)
[2017-01-23] MEDS ORDERED: POTASSIUM PHOSPHATE MONOBASIC 500 MG TAB PO/TUBE PRN (08:30)
[2017-01-23] MEDS ORDERED: POTASSIUM CHLOR 20 MEQ PREMIX 100 ML IV PRN ×2 (08:30)
[2017-01-23] MEDS ORDERED: MAGNESIUM OXIDE 400 MG TAB PO PRN (08:30)
[2017-01-23] MEDS ORDERED: POTASSIUM CHLOR 40 MEQ PREMIX 100 ML IV PRN (08:30)
[2017-01-23] MEDS ORDERED: POTASSIUM PHOSPHATE INJ 30 MMOL in SODIUM CHLOR 0.9% 250 ML INJ 250 ML IV PRN (08:30)
[2017-01-23] MEDS ORDERED: MAGNESIUM SULFATE INJ 2 GM in SODIUM CHLORIDE 0.9% INJ 96 ML IV PRN (08:30)
[2017-01-23] MEDS ORDERED: POTASSIUM PHOSPHATE MONOBASIC 500 MG TAB PO PRN (08:30)
[2017-01-23] MEDS ORDERED: MAGNESIUM SULFATE INJ 4 GM in SODIUM CHLORIDE 0.9% INJ 92 ML IV PRN (08:30)
[2017-01-23] MEDS: SODIUM CHLOR 0.9% 1000 ML INJ 1,000 ML IV SCH ×2 (08:56→21:31)
[2017-01-23] MEDS ORDERED: CALCIUM CHLORIDE INJ 2 GM in DEXTROSE 5% IN WATER 100ML INJ 100 ML IV ONE ×2 (09:00)
[2017-01-23] MEDS ORDERED: PANTOPRAZOLE INJ 80 MG in SODIUM CHLORIDE 0.9% INJ 35 ML IV ONE (09:00)
[2017-01-23] MEDS ORDERED: MORPHINE SULFATE 4 MG/ML INJ IV PUSH PRN (09:15)
--- NOTE | 2017-01-23 09:41 | PD.CONS ---
HPI History of Present Illness This is a 61 year old with known metastatic esophageal cancer, who came to the ER for evaluation of upper GI bleeding. He was diagnosed with esophageal cancer in October of 2015. He was treated with chemotherapy until August of 2016, when he was found to have progression of disease and this was changed to Keytruda. His reports that he received this for 3 months, but had no response and therefore it was changed to FOLFOX/FOLFIRI in November. She reports that he did not have a good response to this either and therefore was started on a new chemotherapy drug this month (Taxol and he does not recall the other one) and just received his third dose of this on Thursday. He has been spitting up/coughing up a small amount of blood. Yesterday, he started vomiting about a tablespoon or two at a time of red blood. This continued throughout the day and then today, he vomiting a larger amount of red blood. He does report that he has been having black tarry stools for several days. He has a PEG tube and gets his nutrition through this. They use Jevity, Isosource , or Boosts. They report that he has lost about 60 lbs since being diagnosed with cancer, but that he has been tolerating his tube feedings and recently gained back 10 lbs over the pst 2 months. He denies any abdominal pain. He does note that he has had fatigue and shortness of breath on exertion. He came to the ER and was found to have severe anemia with a H/H of 3.1/9.3. He has received 4 units of PRBC. He had a similar episode in November and was evaluated with EGD (11/05/16)---> ulcerated actively bleeding mass in the distal esophagus with multiple bleeding sites, this was injected with 10cc of 1/10,000 epi and cauterized by gold prep, significant narrowing of the esophagus because of the tumor, retroflexed views revealed no abnormalities, but blood clots. ( Fransisca Jeronimo) PFSH Past Medical History Stage IV Esophageal Cancer Hx Upper GI bleeding secondary to bleeding mass GERD Dysphagia Past Surgical History EGD/colonoscopy PEG placement Sep 17 Right chest port placement Hernia repair Vasectomy (Fransisca Jeronimo) Coded Allergies: Penicillin (Verified Allergy, Unknown, 01/23/17) reaction as an infant; unsure of reaction Medications Allergies Coded Allergies Type Severity Reaction Last Updated Verified Penicillin Allergy Unknown 01/23/17 Yes Active Scripts Medications Dose Route/Sig Days Date Category Family History Father had Alzheimer's and at 73 Mother passed at age 96, no known medical problems Social History Former tobacco use, quit 15 years ago, [id number] history Occasional alcohol use Denies any illegal drug use (Fransisca Jeronimo) Review of Systems Constitutional: COMPLAINS OF: Fatigue, Weight gain, Weight loss, DENIES: Change in appetite Respiratory: COMPLAINS OF: Shortness of breath, DENIES: Cough Cardiovascular: DENIES: Chest pain Gastrointestinal: COMPLAINS OF: Black stools, Bloody stools, Nausea, Vomiting, Hematemesis, DENIES: Abdominal pain, Constipation, Diarrhea Integumentary: DENIES: Abnormal pigmentation Hematologic/lymphatic: DENIES: Bruising Neurologic: DENIES: Headache Psychiatric: DENIES: Confusion (Fransisca Jeronimo) GI Exam Vitals I&O Vital Signs Date Time Temp Pulse Resp B/P Pulse Ox O2 Delivery O2 Flow Rate FiO2 01/23/17 08:33 99 20 115/74 100 Room Air 01/23/17 07:50 92 100/92 100 Room Air 01/23/17 06:45 94 16 100/55 100 Room Air 01/23/17 06:41 98.4 94 16 104/56 100 Room Air 01/23/17 06:35 97 16 103/57 100 Room Air 01/23/17 06:30 98.5 98 16 102/56 100 Room Air 01/23/17 06:07 97 16 103/57 100 Room Air 01/23/17 05:25 100 Room Air 01/23/17 05:25 16 01/23/17 05:03 16 01/23/17 04:59 98.4 91 16 104/56 100 Laboratory Test 01/23/17 01/23/17 05:30 07:21 White Blood Count 6.4 TH/MM3 Red Blood Count 1.13 MIL/MM3 Hemoglobin 3.1 GM/DL Hematocrit 9.3 % Mean Corpuscular Volume 82.5 FL Mean Corpuscular Hemoglobin 27.3 PG Mean Corpuscular Hemoglobin 33.1 % Concent Red Cell Distribution Width 22.7 % Platelet Count 259 TH/MM3 Mean Platelet Volume 8.0 FL Neutrophils (%) (Auto) 83.1 % Lymphocytes (%) (Auto) 9.7 % Monocytes (%) (Auto) 7.0 % Eosinophils (%) (Auto) 0.0 % Basophils (%) (Auto) 0.2 % Neutrophils # (Auto) 5.3 TH/MM3 Lymphocytes # (Auto) 0.6 TH/MM3 Monocytes # (Auto) 0.5 TH/MM3 Eosinophils # (Auto) 0.0 TH/MM3 Basophils # (Auto) 0.0 TH/MM3 CBC Comment AUTO DIFF Differential Total Cells 100 Counted Neutrophils % (Manual) 84 % Band Neutrophils % 3 % Lymphocytes % 9 % Monocytes % 4 % Neutrophils # (Manual) 5.6 TH/MM3 Nucleated Red Blood Cells 1 /100 WBC Differential Comment FINAL DIFF MANUAL Platelet Estimate NORMAL Platelet Morphology Comment NORMAL Polychromasia 2.2 % Ovalocytes 1+ Prothrombin Time 13.4 SEC Prothromb Time International 1.2 RATIO Ratio Activated Partial 24.3 SEC Thromboplast Time Sodium Level 143 MEQ/L Potassium Level 4.3 MEQ/L Chloride Level 110 MEQ/L Carbon Dioxide Level 23.7 MEQ/L Anion Gap 9 MEQ/L Blood Urea Nitrogen 55 MG/DL Creatinine 0.96 MG/DL Estimat Glomerular Filtration 79 ML/MIN Rate Random Glucose 137 MG/DL Calcium Level 7.1 MG/DL Protein Corrected Calcium 8.8 MG/DL Total Bilirubin 0.3 MG/DL Aspartate Amino Transf 16 U/L (AST/SGOT) Alanine Aminotransferase 19 U/L (ALT/SGPT) Alkaline Phosphatase 67 U/L Total Protein 4.1 GM/DL Albumin 1.8 GM/DL Blood Type A POSITIVE A POSITIVE Antibody Screen NEGATIVE Crossmatch Leukocyte-Reduced Leukocyte-Reduced Red Blood Red Blood Cells Cells Blood Bank Comment Physical Examination HEENT: Normocephalic; atraumatic; no jaundice CHEST: CTA CARDIAC: ST ABDOMEN: Soft, nondistended, nontender; no hepatosplenomegaly; bowel sounds are present in all four quadrants. EXTREMITIES: No clubbing, cyanosis, or edema. SKIN: Normal; no rash; no jaundice. CONTAINER REPAIRER: No focal deficits; lethargic and oriented times three. (Fransisca Jeronimo) Assessment and Plan Plan ASSESSMENT: - Upper GI bleed. Pt has stage IV esophageal cancer and has had GI bleeding secondary to bleeding mass in the past. He has been coughing up small amounts of blood and melena for several days and started having nausea/vomiting with red blood yesterday. Initially, this was small amounts, but he started vomiting larger amounts today. He was found to have severe anemia with a H/H of 3.1/9.3. He has received 4 units of PRBC. He had a similar episode in November and was evaluated with EGD (11/05/16)---> ulcerated actively bleeding mass in the distal esophagus with multiple bleeding sites, this was injected with 10cc of 1/10,000 epi and cauterized by gold prep, significant narrowing of the esophagus because of the tumor, retroflexed views revealed no abnormalities, but blood clots. S/P 4 units PRBC. Protonix Gtt. - Severe anemia secondary to acute blood loss. 3.1/9.3 on admission. S/P 4 units PRBC. - Stage IV metastatic esophageal cancer. S/P [facility] in past. Followed by Dr. Del Angel. He was diagnosed in October of 2015. He was treated with chemotherapy until August of 2016, when he was found to have progression of disease and this was changed to Keytruda. His reports that he received this for 3 months, but had no response and therefore it was changed to FOLFOX/FOLFIRI in November. She reports that he did not have a good response to this either and therefore was started on a new chemotherapy drug this month (Taxol and she does not recall the other one) and just received his third dose of this on Thursday. - FEN. Had PEG placed in September 2016. He uses this for nutrition. They use Jevity, Isosource, or Boosts. He lost about 60 lbs since being diagnosed with cancer, but that he has been tolerating his tube feedings and recently gained back 10 lbs over the past 2 months. PLAN: - Plan for egd - Obtain consents - NPO - Protonix Gtt - Add Octreotide - Monitor HH - Transfuse as necessary - Supportive care - Further recommendations to follow based on results of above - Pt seen and examined by Dr. German and myself and this note is written on her behalf (Fransisca Jeronimo) Physician Comments seen, examined agree with above (Catherine German MD) Fransisca Jeronimo 24, 2017 09:41 Catherine German MD Jan 23, 2017 16:44
[2017-01-23] MEDS ORDERED: SODIUM CHLORIDE 0.9% FLUSH 10 ML FLUSH IV FLUSH PRN (10:15)
[2017-01-23] MEDS ORDERED: PROPOFOL 200 MG/20 ML AMP IV ONE (12:19)
[2017-01-23] MEDS ORDERED: EPINEPHrine HCL (1:10,000) 1 MG/10 ML SYRINGE OTHER ONE (12:28)
[2017-01-23] MEDS ORDERED: DO NOT ADM ANY ANTICOAGULANT DRUGS XX PRN (12:49)
--- NOTE | 2017-01-23 13:03 | GIPROC ---
[facility] [address] [facility]. [facility], [id number] EGD PROCEDURE REPORT EXAM DATE: 01/23/2017 PATIENT NAME: Nikhil Crockett MR #: [id number] BIRTHDATE: 1955 ATTENDING: Catherine German MD ORDER #: [id number] STREETCAR DISPATCHER: Redd Frazier and Rey Reid STATUS: inpatient INDICATIONS: The patient is a 61 yr old male here for an EGD due to gi bleeding history of esophageal cancer PROCEDURE PERFORMED: EGD w/ directed submucosal injection(s), any substance EGD w/ control of bleeding egd with clips , APC treatment MEDICATIONS: None and Per Anesthesia. TOPICAL ANESTHETIC: CONSENT: The patient understands the risks and benefits of the procedure and understands that these risks include, but are not limited to: sedation, allergic reaction, infection, perforation and/or bleeding. Alternative means of evaluation and treatment include, among others: physical exam, x-rays, and/or surgical intervention. The patient elects to proceed with this endoscopic procedure. medical equipment was checked for proper function. Hand hygiene and appropriate measures for infection prevention was taken. After the risks, benefits and alternatives of the procedure were thoroughly explained, Informed consent was verified, confirmed and timeout was successfully executed by the treatment team. The patient was anesthetized with topical anesthesia and the Pentax [id number] and [id number] endoscope was introduced through the mouth and advanced to the second portion of the duodenum. Retroflexed views revealed a hiatal hernia The gastroscope was then slowly withdrawn and removed. Old blood in stomach peg in stomach ulcerated mass ge junction -visible vessel, large clots-this was treated with epi 1:10,000 6 cc , 3 clips applied, APC used to cauterize the area. ADVERSE EVENTS: There were no complications. IMPRESSIONS: 1. Old blood in stomach peg in stomach ulcerated mass ge junction -visible vessel, large clots-this was treated with epi 1:10,000 6 cc , 3 clips applied, APC used to cauterize the area 2. Retroflexed views revealed a hiatal hernia RECOMMENDATIONS: 1. Continue PPI 2. Cbc monitorind place peg to suction if further bleeding consider radiation, IR for angiogram with embolisation PATIENT CONDITION: stable DISPOSITION: Inpatient REPEAT EXAM: Return as needed for EGD Catherine German MD eSigned: Catherine German MD 01/23/2017 1:03 PM cc: PATIENT NAME: Nikhil Crockett MR#: [id number]
[2017-01-23 13:24] LABS: MEAN CELL VOLUME 83.9 FL (80.0-100.0); MEAN CORPUSCULAR HEMOGLOBIN 29.1 PG (27.0-34.0); MEAN CORPUSCULAR HGB CONC 34.7 % (32.0-36.0); PLATELET COUNT 217 TH/MM3 (150-450); RED BLOOD COUNT 2.45 MIL/MM3 (4.50-5.90); WHITE BLOOD COUNT 7.3 TH/MM3 (4.0-11.0)
[2017-01-23 13:26] LABS: REVIEW FLAG FINAL
[2017-01-23 13:37] LABS: HEMATOCRIT 20.5 % (39.0-51.0)
--- NOTE | 2017-01-23 17:52 | MB ---
cc: KATHY DAVID M.D., SINOJ K. MD DATE OF CONSULTATION: 01/23/[address] Fournier. REASON FOR CONSULTATION Oncology was consulted to render an opinion regarding a patient with metastatic esophageal cancer who presented with GI bleeding and symptomatic anemia. HISTORY OF PRESENT ILLNESS The patient is a very pleasant 61-year-old male with a history of metastatic esophageal cancer, metastasis to the liver and lymph node. He is receiving first-line chemotherapy with Cyramza and Taxol, the last cycle of chemotherapy was two days ago. Over the last few days, he has been spitting up a small amount of blood however two days ago he started noticing black stool, yesterday he threw-up about a tablespoon of blood. It happened about three to four times but yesterday afternoon he became very weak and dizzy. His said that he passed out a few times and by this morning he was less conscious. They called 911 and brought him to the hospital, his hemoglobin was 3.1. When I saw him he just received 2 units of packed red blood cells and he was feeling much better. He denies any fever or chills, he has no chest pain. He has shortness of breath and dyspnea on exertion. He denies any nausea at this time. He has no significant abdominal pain. Denies any dysuria or hematuria. Denies any bone pain. Denies any headache. Denies any focal numbness or weakness. PAST MEDICAL HISTORY 1. Metastatic esophageal cancer with metastasis to the liver and lymph node. 2. Gastroesophageal reflux disease. 3. GI bleed due to esophageal cancer. He was admitted to the hospital in November, with GI bleed and had cauterization. 4. Dysphagia. PAST SURGICAL HISTORY 1. PEG tube placement. 2. Port placement. 3. Multiple EGDs and colonoscopies. 4. Hernia repair. 5. Vasectomy. FAMILY HISTORY Noncontributory. SOCIAL HISTORY He quit tobacco 15 years ago. He has about a [id number] smoking history. He does not drink alcohol. ALLERGIES PENICILLIN. CURRENT MEDICATIONS Protonix. REVIEW OF SYSTEMS CONSTITUTIONAL: He has lost some weight. He has increased weakness and fatigue. EYES: Denies blurry vision or double vision. EARS, NOSE, THROAT: No mouth sores or voice changes. CARDIOVASCULAR: Denies chest pain or palpitations. RESPIRATORY: Increased dyspnea on exertion. Denies significant cough. GASTROINTESTINAL: As above. GENITOURINARY: Denies dysuria or hematuria. MUSCULOSKELETAL: Negative. HEMATOLOGIC: As above. ENDOCRINE: Negative. DERMATOLOGIC: Negative. PSYCHIATRIC: Negative. NEUROLOGIC: Negative. PHYSICAL EXAMINATION VITAL SIGNS: Temperature 98.4, blood pressure 100/55, O2 saturation 100% on room air. GENERAL: He is alert, oriented x3, no acute distress and looks very weak and pale. HEAD, EYES, EARS, NOSE, AND THROAT: Atraumatic, normocephalic. Pupils equal, round, reactive to light. Extraocular muscles intact. No scleral icterus. Oropharynx - moist mucosa, no lesion, no thrush, no mucositis. NECK: No thyromegaly. No palpable mass. LYMPHATICS: No palpable cervical, clavicular, axillary, or inguinal lymph nodes. CARDIOVASCULAR: Regular S1, S2. No murmur. LUNGS: Clear to auscultation bilaterally. ABDOMEN: Soft, PEG tube noted. No erythema noted on PEG tube site. No significant tenderness. No palpable mass. EXTREMITIES: No cyanosis, clubbing or edema. No calf tenderness. BACK: No paravertebral tenderness. SKIN: No rash or petechiae. Looks a little pale. NEUROLOGIC: Nonfocal. LABORATORY DATA WBC 6.4, hemoglobin 3.1, platelet count of 259. INR 1.2, PTT 24.3. Creatinine 0.96, liver transaminase within normal limit. ASSESSMENT 1. Acute GI bleed, likely from the esophageal cancer. He was admitted in November with a GI bleed, at that time EGD showed a bleeding mass, it was injected with epinephrine. He started spitting up blood again the last few days and is progressively getting worse. He started having melena for the last two days. He presented with a hemoglobin of 3.1. He is currently getting blood transfusion. Recommend continue transfusion to keep hemoglobin above 8. We will consult Gastroenterology to see if there is any bleeding lesion that they can cauterize or treat, if not may have to consider radiation or embolization if he continues to have active bleeding. 2. Metastatic esophageal cancer. He was found to have adenocarcinoma involving the GE junction invading into the stomach fundus, he also had liver metastasis and adenopathy in the abdomen. He had a good response to EOX chemotherapy but poor tolerance. He was then switched to FOLFOX chemotherapy but subsequently developed progression of disease. He was treated with Keytruda with no clear response. He was then switched to FOLFIRI but again developed progression of disease. He was just recently switched over to Cyramza and Taxol, he just received the third cycle two days ago. He started having increased GI bleeding again. I suspect he likely has progression of disease. We will have GI do endoscopy to see if he has progression of disease. I am also going to have him get a CT scan. I have talked to him about Hospice care. If he has progression of disease, I told him this is his fourth line of treatment and the chances of responding to a fifth line of treatment is miniscule. He has been to [facility] and there is no clinical trial available at this time. He is agreeable to consider Hospice care if he indeed has progression of disease. 3. Dysphagia, due to esophageal mass. He is getting nutrition through tube feeding. 4. Gastroesophageal reflux disease. He will continue PPI. PLAN 1. Monitor H&H and recommended transfusion to keep hemoglobin above 8. 2. Get CT scan for restaging. 3. Consult Gastroenterology. 4. THE PATIENT IS DNR. Discussed the case with Dr. Fournier. Thank you Dr. Fournier for asking me to see this patient. MD SHAHZAD Jeter/JAIR /8:14 AM /4:57 PM SERGIO
[2017-01-23] MEDS ORDERED: IOHEXOL 350 MG/ML 10 ML VIAL (for RAD DIAG) IV ONE (17:53)
--- NOTE | 2017-01-23 18:27 | RADRPT ---
EXAM DATE/TIME: 01/23/2017 17:37 [facility] COMPARISON: No previous studies available for comparison. INDICATIONS : Metastatic esophageal cancer with GI bleed. IV CONTRAST: 97 cc Omnipaque 350 (iohexol) IV ; Cumulative dose for multiple exams. ORAL CONTRAST: No oral contrast ingested. RADIATION DOSE: 5.23 CTDIvol (mGy) ; Combined studies - Thorax/Abdomen/Pelvis MEDICAL HISTORY : Carcinoma, esophageal. SURGICAL HISTORY : Inguinal hernia repair. ENCOUNTER: Initial ACUITY: 1 day PAIN SCALE: 5/10 LOCATION: Abdomen TECHNIQUE: Volumetric scanning of the abdomen and pelvis was performed. Using automated exposure control and ad justment of the mA and/or kV according to patient size, radiation dose was kept as low as reasonably achievable to obtain optimal diagnostic quality images. FINDINGS: LOWER LUNGS: Minimal posterior lung base atelectasis. LIVER: Multiple low density metastases present in the liver involving right and left lobes. No evidence of b iliary ductal dilatation. SPLEEN: Slightly greater than 4 cm qdensity lesion in the apex of the spleen which is nonspecific and may be metastatic disease or splenic infarct. Slightly less than 4 cm lesion in the medial aspect of the spl een which may be a cyst. PANCREAS: Within normal limits. KIDNEYS: Normal in size and shape. There is no mass, stone or hydronephrosis. ADRENAL GLANDS: Within normal limits. VASCULAR: There is no aortic aneurysm. BOWEL/MESENTERY: Gastrostomy tube is present and in good position. Metallic clip is seen in the distal esophagus. Esop hagus mildly dilated. The small collection of air or adjacent to the GE junction region including air intimately associated with the proximal aspect of the splenic artery medial to the gastric fundus. A ppearance is worrisome for possible perforation in this region. Mild nonspecific fluid and gaseous di stention of bowel elsewhere in the abdomen and pelvis. ABDOMINAL WALL: Gastrostomy tube in the left upper quadrant. RETROPERITONEUM: There is no lymphadenopathy. BLADDER: No wall thickening or mass. REPRODUCTIVE: Within normal limits. INGUINAL: There is no lymphadenopathy or hernia. MUSCULOSKELETAL: Within normal limits for patient age. CONCLUSION: Metastatic disease present throughout the liver. Nonspecific splenic lesions. Small collections of air are near the GE junction with appearance worrisome for a GI perforation in t his area. Shantanu Maxwell MD on January 23, 2017 at 18:19 Board Certified Radiologist. This report was verified electronically.
--- NOTE | 2017-01-23 18:29 | RADRPT ---
EXAM DATE/TIME: 01/23/2017 17:39 [facility] COMPARISON: No previous studies available for comparison. INDICATIONS : Metastatic esophageal cancer; shortness of breath. IV CONTRAST: 97 cc Omnipaque 350 (iohexol) IV ; Cumulative dose for multiple exams. RADIATION DOSE: 5.23 CTDIvol (mGy) ; Combined studies - Thorax/Abdomen/Pelvis MEDICAL HISTORY : Carcinoma, esophageal. SURGICAL HISTORY : Inguinal hernia repair. ENCOUNTER: Initial ACUITY: 1 day PAIN SCALE: 3/10 LOCATION: chest TECHNIQUE: Volumetric scanning of the chest was performed. Using automated exposure control and adjustment of t he mA and/or kV according to patient size, radiation dose was kept as low as reasonably achievable to obtain optimal diagnostic quality images. FINDINGS: LUNGS: Mild posterior lung base atelectasis. PLEURA: There is no pleural thickening or pleural effusion. MEDIASTINUM: Esophagus is abnormal throughout with mild distention with fluid and air. There appears to be mild di ffuse distal esophageal wall thickening. Abnormal appearance in the GE junction region where a clip i s identified. Air adjacent to the GE junction worrisome for possible perforation. See report of CT ab [facility] for further details AXILLAE: Within normal limits. No lymphadenopathy. SKELETAL: Within normal limits for patient age. CONCLUSION: Abnormal esophageal appearance and findings concerning for GI perforation in the GE junction region. Shantanu Maxwell MD on January 23, 2017 at 18:25 Board Certified Radiologist. This report was verified electronically.
[2017-01-23] MEDS: ONDANSETRON HCL 4 MG/2 ML VIAL IV PUSH PRN (18:44)
[2017-01-23] MEDS: PANTOPRAZOLE INJ 80 MG in SODIUM CHLORIDE 0.9% INJ 100 ML IV SCH ×2 (19:14→21:31)
[2017-01-23] MEDS: OCTREOTIDE INJ 500 MCG in SODIUM CHLORID 0.9% 500 ML INJ 499.5 ML IV SCH (19:14)
[2017-01-23 19:27] LABS: HEMATOCRIT 20.8 % (39.0-51.0)
[2017-01-23] MEDS: SODIUM CHLORIDE 0.9% FLUSH 10 ML FLUSH IV FLUSH SCH (21:00)
[2017-01-24] VITALS (23 sets, daily range): BP systolic 91–136; BP diastolic 64–97; PULSE 80–110; RESP 11–23; TEMP 97–98; O2SAT 96–100
[2017-01-24] MEDS: ONDANSETRON HCL 4 MG/2 ML VIAL IV PUSH PRN ×2 (00:15→05:56)
[2017-01-24 02:16] LABS: AUTOMATED NEUTROPHIL # 3.6 TH/MM3 (1.8-7.7); BASOPHIL % 0.3 % (0.0-2.0); LYMPH % 19.4 % (9.0-44.0); LYMPHOCYTE # 0.9 TH/MM3 (1.0-4.8); MEAN CELL VOLUME 87.2 FL (80.0-100.0); MEAN CORPUSCULAR HGB CONC 34.4 % (32.0-36.0); MONO % 4.4 % (0.0-8.0); NEUT % 75.9 % (16.0-70.0); PLATELET COUNT 182 TH/MM3 (150-450); RED BLOOD COUNT 2.64 MIL/MM3 (4.50-5.90); RED CELL DISTRIBUTION WIDTH 15.8 % (11.6-17.2); WHITE BLOOD COUNT 4.8 TH/MM3 (4.0-11.0)
[2017-01-24 02:24] LABS: HEMO FLAGS AUTO DIFF
[2017-01-24 02:49] LABS: BICARBONATE 20.7 MEQ/L (21.0-32.0); CALCIUM-PROTEIN CORRECTED 9.6 MG/DL (8.5-10.1); MAGNESIUM 2.1 MG/DL (1.5-2.5); POTASSIUM 5.3 MEQ/L (3.5-5.1); TOTAL BILIRUBIN ADULT 1.6 MG/DL (0.2-1.0)
[2017-01-24 02:53] LABS: BANDS 7 % (0-6); METAMYELOCYTES 3 % (0-1); NEUTROPHIL # MANUAL DIFF 4.2 TH/MM3 (1.8-7.7); POLYS (SEG NEUTROPHILS) 77 % (16-70); WBC DIFF SAMPLE 100
[2017-01-24 02:54] LABS: CORRECTED NUCLEATED RBC 6 /100 WBC (0-0); SCAN/DIFF FINAL DIFF MANUAL
[2017-01-24 02:56] LABS: KERATOCYTES OCC (NORMAL); PLATELET ESTIMATE SMEAR NORMAL (NORMAL); PLATELET MORPHOLOGY NORMAL (NORMAL)
[2017-01-24] MEDS: PANTOPRAZOLE INJ 80 MG in SODIUM CHLORIDE 0.9% INJ 100 ML IV SCH ×2 (03:00→15:42)
[2017-01-24] MEDS: CHLORHEXIDINE GLUCONATE 2 % 1 PACK (2 CLOTHS) TOP SCH (04:00)
[2017-01-24] MEDS ORDERED: MAGNESIUM SULFATE 1 GM PREMIX 100 ML ONE (05:50)
[2017-01-24] MEDS: OCTREOTIDE INJ 500 MCG in SODIUM CHLORID 0.9% 500 ML INJ 499.5 ML IV SCH ×2 (05:54→15:41)
--- NOTE | 2017-01-24 07:18 | HHI.CCPN ---
Subjective Remarks/Hospital Course 60-year-old male with history of stage IV metastatic esophageal cancer undergoing chemotherapy with Dr. del angel, history of upper GI bleed from ulcerating esophageal cancer, who presented with vomiting blood and passing black stools. He also complains of of weakness and lightheadedness. He is followed by Dr. Del Angel for his esophageal adenocarcinoma. His hemoglobin on presentation was 3 with a hematocrit of 9.1. Patient was borderline hypotensive and tachycardic 4 units of PRBC had been ordered by Dr. Sharpe. After discussion with Dr. del angel patient had decided to be a DNR, but is okay with the temporary intubation if needed for endoscopy. Patient had similar presentation on November 2016 where he was admitted with upper GI bleed and was seen by GI doctor Sharath. EGD 11/05/16 showed ulcerating bleeding mass in the distal esophagus, status post epi injection and cauterization. I evaluated the patient in the ED. He is in mild to moderate discomfort due to recurrent nausea, and hematemesis. He is receiving his fourth unit of blood. Remains tachycardic but blood pressure has improved. GI consult is pending. I have discussed with Dr. Del Angel SUBJ 01/24/17: Continues to have hematemesis. Completing total 4 units of PRBC. Last hemoglobin was 7.9. Sodium has increased to 146 BUN 61 creatinine 1.37. Remains critically ill, borderline hypotensive. CT of the chest abdomen pelvis done for restaging shows questionable perforation at GE junction. Patient does not want possible perforation further investigated or intervened. I have started him on Azactam and Flagyl. Patient is still okay with IR evaluation for possible embolization Objective Vital Signs Date Time Temp Pulse Resp B/P Pulse Ox O2 Delivery O2 Flow Rate FiO2 01/24/17 04:00 97.0 103 18 91/67 100 01/24/17 03:30 Nasal Cannula 1.00 Intake and Output 01/23/17 01/23/17 01/24/17 08:00 16:00 00:00 Intake Total 50 ml 795 ml Output Total 600 ml Balance 50 ml 195 ml Result Diagram: 01/24/1720401/24/17 020 Objective Remarks GENERAL: 60-year-old male who appears pale critically ill in moderate distress from nausea and vomiting SKIN: Warm and dry. HEAD: Atraumatic. Normocephalic. EYES: Pupils equal and round. No scleral icterus. Conjunctiva pale ENT: No nasal bleeding or discharge. Mucous membranes dry, oral mucosa has some dry blood NECK: Trachea midline. No JVD. CARDIOVASCULAR: Tachycardic. No murmur appreciated. Right upper chest port in place RESPIRATORY: No accessory muscle use. Clear to auscultation. Breath sounds equal bilaterally. GASTROINTESTINAL: Abdomen soft, non-tender, nondistended. MUSCULOSKELETAL: No obvious deformities. No clubbing. No cyanosis. No edema. NEUROLOGICAL: Awake and alert. No obvious cranial nerve deficits. Motor grossly within normal limits. Normal speech. PSYCHIATRIC: Anxious, nauseous Rectal exam deferred-patient history is enough for this. A/P Assessment and Plan NEURO: -Pain control with as needed morphine, Reglan for nausea vomiting RESP: -Nasal cannula oxygen -DuoNeb every 6 hours when necessary. Incentive spirometry -Patient is a DNR but okay with temporary intubation for EGD if needed CV: Sinus tachycardia Hypotension -Normal saline IV fluids at 84 ml per hour, change to 1/2 NS at 125 ml per hour -Continue resuscitation with fluid and blood products GI/HEME: Upper GI bleed Stage IV his original cancer Anemia requiring transfusion Possible esophageal perforation and GE junction -s/p EGD with ablation/epi injection and clipping x3 of bleeding esophageal mass by Dr. German on 01/23/17 -EGD 11/05/16 showed ulcerating bleeding mass in the distal esophagus, status post epi injection and cauterization. -IR consulted for continued hematemesis, possible embolization -Keep nothing by mouth, Protonix 80 mg IV 1 and 8 mg per hour infusion. Octreotide gtt also started by GI -Transfuse to keep hemoglobin more than 8, H&H every 8 hours -Patient does not want any diagnostic or therapeutic interventions performed for possible esophageal perforation : Acute kidney injury -DONNA secondary to ATN -Monitor renal function closely. IV fluids as above ID: -Monitor for infection. -Empiric Azactam and Flagyl for possible esophageal perforation ENDO: -Electrolyte replacement per protocol PROPH: -Bilateral lower extremity SCDs. Avoid chemical DVT prophylaxis. Protonix infusion LINES: -Utilize peripheral IVs, access port if needed CC time 50 min Citlali Fournier MD Jan 24, 2017 07:18
[2017-01-24] MEDS: METOCLOPRAMIDE HCL 10 MG/2 ML VIAL IV SCH ×3 (07:54→23:59)
[2017-01-24] MEDS: metroNIDAZOLE 500 MG INJ 100 ML IV SCH ×3 (08:06→23:59)
[2017-01-24] MEDS: SODIUM CHLOR 0.45% 1000 ML INJ 1,000 ML IV SCH ×2 (08:06→15:42)
[2017-01-24] MEDS: SODIUM CHLORIDE 0.9% FLUSH 10 ML FLUSH IV FLUSH SCH ×2 (09:00→21:00)
[2017-01-24] MEDS: AZTREONAM INJ 2,000 MG in SODIUM CHLORIDE 0.9% INJ 100 ML IV SCH ×3 (09:00→23:58)
[2017-01-24] MEDS ORDERED: MIDAZOLAM HCL 5 MG/5 ML VIAL ONE (09:48)
[2017-01-24] MEDS ORDERED: fentaNYL CITRATE 250 MCG/5 ML AMP ONE (09:49)
[2017-01-24] MEDS ORDERED: LEVOFLOXACIN 500 MG PREMIX INJ 100 ML IV ONE (11:18)
[2017-01-24] MEDS ORDERED: IODIXANOL 320 MG/ML 50 ML VIAL (for RAD SPEC) I-ARTERIAL ONE (11:32)
--- NOTE | 2017-01-24 11:33 | PD.RAD ---
Post Procedure Progress Note Pre Procedure Diagnosis: (1) Upper GI bleed (2) Stage IV esophageal cancer Post Procedure Diagnosis: (1) Bleeding from ulcerating esophageal cancer (2) Stage IV esophageal cancer (3) Upper GI bleed Procedure Date: Jan 24, 2017 Supervising Radiologist: Nahun Hussein Estimated blood loss: 10cc Anesthesia: Local, Conscious Sedation Plan of Activity Patient to Unit: Critical Care Patient Condition: Poor Additional Comments: Angiogram completed. No active GI bleed evident. Multiple attempts were made to prophylactically embolize the left gastric but not possible despite multiple catheter and wire combinations. Incidental small right renal artery aneurism. Full dictated report to follow in PACS See PACS Report for procedural detail/treatment Nahun Hussein MD Jan 24, 2017 11:33
[2017-01-24 13:09] LABS: AUTOMATED NEUTROPHIL # 3.4 TH/MM3 (1.8-7.7); BASOPHIL % 0.1 % (0.0-2.0); HEMATOCRIT 24.2 % (39.0-51.0); LYMPH % 15.9 % (9.0-44.0); LYMPHOCYTE # 0.7 TH/MM3 (1.0-4.8); MEAN CELL VOLUME 85.5 FL (80.0-100.0); MEAN CORPUSCULAR HEMOGLOBIN 29.5 PG (27.0-34.0); MEAN CORPUSCULAR HGB CONC 34.5 % (32.0-36.0); MONO % 6.8 % (0.0-8.0); NEUT % 77.2 % (16.0-70.0); PLATELET COUNT 101 TH/MM3 (150-450); RED BLOOD COUNT 2.83 MIL/MM3 (4.50-5.90); RED CELL DISTRIBUTION WIDTH 15.7 % (11.6-17.2); WHITE BLOOD COUNT 4.4 TH/MM3 (4.0-11.0)
[2017-01-24 13:23] LABS: HEMO FLAGS AUTO DIFF
[2017-01-24 13:26] LABS: BICARBONATE 23.5 MEQ/L (21.0-32.0); CALCIUM-PROTEIN CORRECTED 9.3 MG/DL (8.5-10.1); TOTAL BILIRUBIN ADULT 1.1 MG/DL (0.2-1.0)
[2017-01-24 14:23] LABS: SCAN/DIFF AUTO DIFF CONFIRMED
[2017-01-24] MEDS ORDERED: CALCIUM CHLORIDE INJ 2 GM in DEXTROSE 5% IN WATER 100ML INJ 100 ML IV ONE ×2 (15:00)
--- NOTE | 2017-01-24 15:48 | HHI.GIFU ---
GI Follow-up Note Consult Follow-up Subjective: Patient laying in bed comfortably, feeling better, had some bleeding over night, transfused 4 more units of blood, vomited some blood clots. He had angiogram earlier today , no active bleeding, embolization cannot be done due to anatomy .Family at bedside.CT abdomen/pelvis and ct chest reviewed, questionable small perforation at the ge junction-asymptomatic , does not want any surgery at this time . Objective: PHYSICAL EXAMINATION: Vitals signs stable No fever Vital Signs Date Time Temp Pulse Resp B/P Pulse Ox O2 Delivery O2 Flow Rate FiO2 01/24/17 07:50 99 Nasal Cannula 1.00 HEENT: Pupils round and reactive to light; normocephalic; atraumatic; no jaundice. Throat is clear. NECK: Neck is supple, no JVD, no lymphadenopathy. CHEST: Chest is clear to auscultation and percussion. CARDIAC: Regular rate and rhythm with no murmur gallop or rubs. ABDOMEN: Soft, nondistended, nontender; no hepatosplenomegaly; bowel sounds are present in all four quadrants, peg site in place, some bleeding around site EXTREMITIES: No clubbing, cyanosis, or edema. SKIN: Normal; no rash; no jaundice. TOY ASSEMBLER: No focal deficits; alert and oriented times three. Available Data (labs, X- Rays, Procedues) : Laboratory Tests Test 01/23/17 01/23/17 01/23/17 01/23/17 05:30 07:21 13:02 14:30 White Blood Count 6.4 TH/MM3 7.3 TH/MM3 Red Blood Count 1.13 MIL/MM3 2.45 MIL/MM3 Hemoglobin 3.1 GM/DL 7.1 GM/DL Hematocrit 9.3 % 20.5 % Mean Corpuscular Volume 82.5 FL 83.9 FL Mean Corpuscular Hemoglobin 27.3 PG 29.1 PG Mean Corpuscular Hemoglobin 33.1 % 34.7 % Concent Red Cell Distribution Width 22.7 % 16.0 % Platelet Count 259 TH/MM3 217 TH/MM3 Mean Platelet Volume 8.0 FL 8.3 FL Neutrophils (%) (Auto) 83.1 % Lymphocytes (%) (Auto) 9.7 % Monocytes (%) (Auto) 7.0 % Eosinophils (%) (Auto) 0.0 % Basophils (%) (Auto) 0.2 % Neutrophils # (Auto) 5.3 TH/MM3 Lymphocytes # (Auto) 0.6 TH/MM3 Monocytes # (Auto) 0.5 TH/MM3 Eosinophils # (Auto) 0.0 TH/MM3 Basophils # (Auto) 0.0 TH/MM3 CBC Comment AUTO DIFF Differential Total Cells 100 Counted Neutrophils % (Manual) 84 % Band Neutrophils % 3 % Lymphocytes % 9 % Monocytes % 4 % Neutrophils # (Manual) 5.6 TH/MM3 Nucleated Red Blood Cells 1 /100 WBC Differential Comment FINAL DIFF MANUAL Platelet Estimate NORMAL Platelet Morphology Comment NORMAL Polychromasia 2.2 % Ovalocytes 1+ Prothrombin Time 13.4 SEC Prothromb Time International 1.2 RATIO Ratio Activated Partial 24.3 SEC Thromboplast Time Sodium Level 143 MEQ/L Potassium Level 4.3 MEQ/L Chloride Level 110 MEQ/L Carbon Dioxide Level 23.7 MEQ/L Anion Gap 9 MEQ/L Blood Urea Nitrogen 55 MG/DL Creatinine 0.96 MG/DL Estimat Glomerular Filtration 79 ML/MIN Rate Random Glucose 137 MG/DL Calcium Level 7.1 MG/DL Protein Corrected Calcium 8.8 MG/DL Total Bilirubin 0.3 MG/DL Aspartate Amino Transf 16 U/L (AST/SGOT) Alanine Aminotransferase 19 U/L (ALT/SGPT) Alkaline Phosphatase 67 U/L Total Protein 4.1 GM/DL Albumin 1.8 GM/DL Blood Type A POSITIVE A POSITIVE Antibody Screen NEGATIVE Crossmatch Leukocyte-Reduced Leukocyte-Reduced Red Blood Red Blood Cells Cells Blood Bank Comment Phosphorus Level 4.2 MG/DL Nasal Screen MRSA (PCR) NEGATIVE Test 01/23/17 01/23/17 01/24/17 01/24/17 19:00 19:54 02:05 03:11 Hemoglobin 7.1 GM/DL 7.9 GM/DL Hematocrit 20.8 % 23.0 % Crossmatch Leukocyte-Reduced Leukocyte-Reduced Red Blood Red Blood Cells Cells Blood Bank Comment White Blood Count 4.8 TH/MM3 Red Blood Count 2.64 MIL/MM3 Mean Corpuscular Volume 87.2 FL Mean Corpuscular Hemoglobin 30.0 PG Mean Corpuscular Hemoglobin 34.4 % Concent Red Cell Distribution Width 15.8 % Platelet Count 182 TH/MM3 Mean Platelet Volume 8.4 FL Neutrophils (%) (Auto) 75.9 % Lymphocytes (%) (Auto) 19.4 % Monocytes (%) (Auto) 4.4 % Eosinophils (%) (Auto) 0.0 % Basophils (%) (Auto) 0.3 % Neutrophils # (Auto) 3.6 TH/MM3 Lymphocytes # (Auto) 0.9 TH/MM3 Monocytes # (Auto) 0.2 TH/MM3 Eosinophils # (Auto) 0.0 TH/MM3 Basophils # (Auto) 0.0 TH/MM3 CBC Comment AUTO DIFF Differential Total Cells 100 Counted Neutrophils % (Manual) 77 % Band Neutrophils % 7 % Lymphocytes % 11 % Monocytes % 2 % Neutrophils # (Manual) 4.2 TH/MM3 Metamyelocytes 3 % Nucleated Red Blood Cells 6 /100 WBC Differential Comment FINAL DIFF MANUAL Platelet Estimate NORMAL Platelet Morphology Comment NORMAL Keratocytes OCC Sodium Level 146 MEQ/L Potassium Level 5.3 MEQ/L Chloride Level 114 MEQ/L Carbon Dioxide Level 20.7 MEQ/L Anion Gap 11 MEQ/L Blood Urea Nitrogen 61 MG/DL Creatinine 1.37 MG/DL Estimat Glomerular Filtration 52 ML/MIN Rate Random Glucose 210 MG/DL Calcium Level 7.3 MG/DL Protein Corrected Calcium 9.6 MG/DL Magnesium Level 2.1 MG/DL Total Bilirubin 1.6 MG/DL Aspartate Amino Transf 11 U/L (AST/SGOT) Alanine Aminotransferase 15 U/L (ALT/SGPT) Alkaline Phosphatase 44 U/L Total Protein 3.4 GM/DL Albumin 1.5 GM/DL Blood Type A POSITIVE Test 01/24/17 12:45 White Blood Count 4.4 TH/MM3 Red Blood Count 2.83 MIL/MM3 Hemoglobin 8.3 GM/DL Hematocrit 24.2 % Mean Corpuscular Volume 85.5 FL Mean Corpuscular Hemoglobin 29.5 PG Mean Corpuscular Hemoglobin 34.5 % Concent Red Cell Distribution Width 15.7 % Platelet Count 101 TH/MM3 Mean Platelet Volume 8.2 FL Neutrophils (%) (Auto) 77.2 % Lymphocytes (%) (Auto) 15.9 % Monocytes (%) (Auto) 6.8 % Eosinophils (%) (Auto) 0.0 % Basophils (%) (Auto) 0.1 % Neutrophils # (Auto) 3.4 TH/MM3 Lymphocytes # (Auto) 0.7 TH/MM3 Monocytes # (Auto) 0.3 TH/MM3 Eosinophils # (Auto) 0.0 TH/MM3 Basophils # (Auto) 0.0 TH/MM3 CBC Comment AUTO DIFF Differential Comment AUTO DIFF CONFIRMED Sodium Level 146 MEQ/L Potassium Level 5.0 MEQ/L Chloride Level 115 MEQ/L Carbon Dioxide Level 23.5 MEQ/L Anion Gap 8 MEQ/L Blood Urea Nitrogen 68 MG/DL Creatinine 1.31 MG/DL Estimat Glomerular Filtration 55 ML/MIN Rate Random Glucose 130 MG/DL Calcium Level 7.0 MG/DL Protein Corrected Calcium 9.3 MG/DL Magnesium Level 2.0 MG/DL Total Bilirubin 1.1 MG/DL Aspartate Amino Transf 14 U/L (AST/SGOT) Alanine Aminotransferase 16 U/L (ALT/SGPT) Alkaline Phosphatase 41 U/L Total Protein 3.3 GM/DL Albumin 1.5 GM/DL ASSESSMENT/PLAN: metastatic esophageal cancer, recent chemotherapy significant upper gi bleeding, secondary the above -second episode for the last 2 month, s/p endoscopic therapy time 2, last done 01/23/2017-clips application/epinephrine injection and APC treatment of tumor, s/p failed embolization attempt large ulcerated mass at ge junction most likely cause pof recurrent bleeding , questionable small perforation severe anemia secondary gi bleeding from ge junction mass-s/p 8 units of prbc - stable Recommendations ok for ice chips transfuse prn continue Protonix supportive care consider palliative care consult consider palliative radiation therapy if ok with oncology not much to offer from gi point at this time discussed with family and patient It was a pleasure seeing Nikhil Crockett. Thank you for this consult. Entered by: Catherine Gaona MD Jan 24, 2017 15:48
--- NOTE | 2017-01-24 16:35 | PD.ONC.PN ---
Subjective Subjective Remarks Afebrile overnight. Pt asleep in bed in no distress with family at bedside. Per RN he has had no active bleeding. The family is questioning what GI was able to do with the bleeding. Objective Data Date Time Temp Pulse Resp B/P Pulse Ox O2 Delivery O2 Flow Rate FiO2 01/24/17 07:50 99 Nasal Cannula 1.00 01/24/17 06:00 90 01/24/17 04:00 97.0 103 18 91/67 100 01/24/17 04:00 103 01/24/17 03:30 100 Nasal Cannula 1.00 01/24/17 02:00 110 01/24/17 00:00 85 01/24/17 00:00 97.2 85 23 110/79 98 01/23/17 22:00 95 01/23/17 20:00 97.0 91 18 111/65 97 01/23/17 18:00 87 01/24/17 01/24/17 01/24/17 07:00 15:00 23:00 Intake Total 1745 ml Output Total 650 ml Balance 1095 ml Result Diagram: 01/24/17 1245 01/24/17 1245 Laboratory Results Laboratory Tests Test 01/23/17 01/23/17 01/24/17 01/24/17 19:00 19:54 02:05 03:11 Hemoglobin 7.1 GM/DL 7.9 GM/DL Hematocrit 20.8 % 23.0 % Crossmatch Leukocyte-Reduced Leukocyte-Reduced Red Blood Red Blood Cells Cells Blood Bank Comment White Blood Count 4.8 TH/MM3 Red Blood Count 2.64 MIL/MM3 Mean Corpuscular Volume 87.2 FL Mean Corpuscular Hemoglobin 30.0 PG Mean Corpuscular Hemoglobin 34.4 % Concent Red Cell Distribution Width 15.8 % Platelet Count 182 TH/MM3 Mean Platelet Volume 8.4 FL Neutrophils (%) (Auto) 75.9 % Lymphocytes (%) (Auto) 19.4 % Monocytes (%) (Auto) 4.4 % Eosinophils (%) (Auto) 0.0 % Basophils (%) (Auto) 0.3 % Neutrophils # (Auto) 3.6 TH/MM3 Lymphocytes # (Auto) 0.9 TH/MM3 Monocytes # (Auto) 0.2 TH/MM3 Eosinophils # (Auto) 0.0 TH/MM3 Basophils # (Auto) 0.0 TH/MM3 CBC Comment AUTO DIFF Differential Total Cells 100 Counted Neutrophils % (Manual) 77 % Band Neutrophils % 7 % Lymphocytes % 11 % Monocytes % 2 % Neutrophils # (Manual) 4.2 TH/MM3 Metamyelocytes 3 % Nucleated Red Blood Cells 6 /100 WBC Differential Comment FINAL DIFF MANUAL Platelet Estimate NORMAL Platelet Morphology Comment NORMAL Keratocytes OCC Sodium Level 146 MEQ/L Potassium Level 5.3 MEQ/L Chloride Level 114 MEQ/L Carbon Dioxide Level 20.7 MEQ/L Anion Gap 11 MEQ/L Blood Urea Nitrogen 61 MG/DL Creatinine 1.37 MG/DL Estimat Glomerular Filtration 52 ML/MIN Rate Random Glucose 210 MG/DL Calcium Level 7.3 MG/DL Protein Corrected Calcium 9.6 MG/DL Magnesium Level 2.1 MG/DL Total Bilirubin 1.6 MG/DL Aspartate Amino Transf 11 U/L (AST/SGOT) Alanine Aminotransferase 15 U/L (ALT/SGPT) Alkaline Phosphatase 44 U/L Total Protein 3.4 GM/DL Albumin 1.5 GM/DL Blood Type A POSITIVE Test 01/24/17 12:45 White Blood Count 4.4 TH/MM3 Red Blood Count 2.83 MIL/MM3 Hemoglobin 8.3 GM/DL Hematocrit 24.2 % Mean Corpuscular Volume 85.5 FL Mean Corpuscular Hemoglobin 29.5 PG Mean Corpuscular Hemoglobin 34.5 % Concent Red Cell Distribution Width 15.7 % Platelet Count 101 TH/MM3 Mean Platelet Volume 8.2 FL Neutrophils (%) (Auto) 77.2 % Lymphocytes (%) (Auto) 15.9 % Monocytes (%) (Auto) 6.8 % Eosinophils (%) (Auto) 0.0 % Basophils (%) (Auto) 0.1 % Neutrophils # (Auto) 3.4 TH/MM3 Lymphocytes # (Auto) 0.7 TH/MM3 Monocytes # (Auto) 0.3 TH/MM3 Eosinophils # (Auto) 0.0 TH/MM3 Basophils # (Auto) 0.0 TH/MM3 CBC Comment AUTO DIFF Differential Comment AUTO DIFF CONFIRMED Sodium Level 146 MEQ/L Potassium Level 5.0 MEQ/L Chloride Level 115 MEQ/L Carbon Dioxide Level 23.5 MEQ/L Anion Gap 8 MEQ/L Blood Urea Nitrogen 68 MG/DL Creatinine 1.31 MG/DL Estimat Glomerular Filtration 55 ML/MIN Rate Random Glucose 130 MG/DL Calcium Level 7.0 MG/DL Protein Corrected Calcium 9.3 MG/DL Magnesium Level 2.0 MG/DL Total Bilirubin 1.1 MG/DL Aspartate Amino Transf 14 U/L (AST/SGOT) Alanine Aminotransferase 16 U/L (ALT/SGPT) Alkaline Phosphatase 41 U/L Total Protein 3.3 GM/DL Albumin 1.5 GM/DL Imaging Studies Last [address] 01/23/17 1639 Signed Impressions: Service Date/Time: Monday, January 23, 2017 17:39 - CONCLUSION: Abnormal esophageal appearance and findings concerning for GI perforation in the GE junction region. Shantanu Maxwell MD Abdomen/Pelvis CT 01/23/17 1639 Signed Impressions: Service Date/Time: Monday, January 23, 2017 17:37 - CONCLUSION: Metastatic disease present throughout the liver. Nonspecific splenic lesions. Small collections of air are near the GE junction with appearance worrisome for a GI perforation in this area. Shantanu Maxwell MD Administered Medications Medications (Trade) Dose Ordered Sig/Andrea Route PRN Reason Start Time Stop Time Status Last Admin Dose Admin Pantoprazole Sodium/Sodium Chloride (Protonix Inj/NS Inj) 100 ml @ 10 mls/hr Q10H IV 01/23/17 09:00 01/24/17 15:42 Chlorhexidine Gluconate (Chlorhexidine 2% Cloth) 3 pack Taper DAILY@04 TOP 01/24/17 04:00 01/20/18 03:59 01/24/17 04:00 Sodium Chloride 2 ml 2 ml BID IV FLUSH 01/23/17 21:00 01/24/17 09:00 Octreotide Acetate 500 mcg/ Sodium Chloride 500.0 ml @ 25 mls/hr Q20H IV 01/23/17 11:15 01/28/17 11:14 01/24/17 15:41 Aztreonam 2000 mg/ Sodium Chloride 100 ml @ 200 mls/hr Q6H IV 01/24/17 09:00 01/24/17 15:44 Metronidazole (Flagyl 500 Mg Inj) 100 ml @ 100 mls/hr Q8H IV 01/24/17 08:00 01/24/17 15:41 Metoclopramide HCl 10 mg 10 mg Q8H IV 01/24/17 08:00 01/24/17 15:42 Sodium Chloride (1/2 NS 1000 ml Inj) 1,000 ml @ 125 mls/hr Q8H IV 01/24/17 07:15 01/24/17 15:42 Objective Remarks GENERAL: Chronically ill appearing male lying in bed in nad. SKIN: Warm and dry. HEAD: Normocephalic. EYES: No injection or drainage. NECK: Supple, trachea midline. CARDIOVASCULAR: Regular rate and rhythm without murmurs. RESPIRATORY: Breath sounds equal bilaterally. No accessory muscle use. GASTROINTESTINAL: Abdomen soft, non-tender, nondistended. EXTREMITIES: No cyanosis, or edema. SCD's to BLE. NEUROLOGICAL: No obvious focal deficit. Awake, alert, and oriented x3. Assessment/Plan Assessment 61 y/o male with history of metastatic esophageal cancer admitted for severe anemia with GI bleeding. Plan This patient is an unfortunate 61-year-old male with esophageal cancer with metastases to liver and lymph node. He is currently on fourth line chemotherapy Cyramza and Taxol. His last dose was on January 21. He developed a GI bleed and was admitted with hemoglobin of 3.1. A CT abdomen showed a possible perforation at the GE junction. Radiology attempted to embolize the bleeding but was unsuccessful despite multiple attempts. Patient does not wish to have surgery. He may benefit from palliative radiation. Unfortunately his prognosis is quite poor. We will consult radiation oncology. The pt and family is agreeable with this. Continue to monitor blood counts. Attending Statement The exam, history, and the medical decision-making described in the above note were completed with the assistance of the mid-level provider. I reviewed and agree with the findings presented. I attest that I had a [id number] encounter with the patient on the same day, and personally performed and documented my assessment and findings in the medical record. met with and patient and I feel that palliative radiation may give him the best chance of dealing with local tumor and bleeding. Chemotherapy at this point is of little value. The understand situation well and he is a no code. consult place for radiation oncology. Donna Topete Jan 24, 2017 16:35 Phoenix Greene MD Jan 24, 2017 18:20
[2017-01-24] MEDS ORDERED: PROCHLORPERAZINE INJ 10 MG/2 ML VIAL IVS ONE (23:15)
[2017-01-25] VITALS (11 sets, daily range): BP systolic 99–120; BP diastolic 61–79; PULSE 69–84; RESP 14–21; TEMP 97.8–98.6; O2SAT 96–100
[2017-01-25] MEDS: SODIUM CHLOR 0.45% 1000 ML INJ 1,000 ML IV SCH ×4 (00:02→23:19)
[2017-01-25] MEDS: AZTREONAM INJ 2,000 MG in SODIUM CHLORIDE 0.9% INJ 100 ML IV SCH ×4 (03:40→21:53)
[2017-01-25] MEDS: CHLORHEXIDINE GLUCONATE 2 % 1 PACK (2 CLOTHS) TOP SCH (03:43)
[2017-01-25] MEDS: METOCLOPRAMIDE HCL 10 MG/2 ML VIAL IV SCH ×2 (07:36→15:42)
[2017-01-25 07:48] LABS: AUTOMATED NEUTROPHIL # 1.4 TH/MM3 (1.8-7.7); BASOPHIL % 0.2 % (0.0-2.0); EOSINOPHIL % 0.2 % (0.0-4.0); HEMATOCRIT 25.4 % (39.0-51.0); LYMPH % 23.6 % (9.0-44.0); LYMPHOCYTE # 0.5 TH/MM3 (1.0-4.8); MEAN CELL VOLUME 84.2 FL (80.0-100.0); MEAN CORPUSCULAR HEMOGLOBIN 29.1 PG (27.0-34.0); MEAN CORPUSCULAR HGB CONC 34.6 % (32.0-36.0); MONO % 9.1 % (0.0-8.0); NEUT % 66.9 % (16.0-70.0); PLATELET COUNT 80 TH/MM3 (150-450); RED BLOOD COUNT 3.02 MIL/MM3 (4.50-5.90); RED CELL DISTRIBUTION WIDTH 16.8 % (11.6-17.2); WHITE BLOOD COUNT 2.1 TH/MM3 (4.0-11.0)
--- NOTE | 2017-01-25 07:48 | HHI.CCPN ---
Subjective Remarks/Hospital Course 60-year-old male with history of stage IV metastatic esophageal cancer undergoing chemotherapy with Dr. del angel, history of upper GI bleed from ulcerating esophageal cancer, who presented with vomiting blood and passing black stools. He also complains of of weakness and lightheadedness. He is followed by Dr. Del Angel for his esophageal adenocarcinoma. His hemoglobin on presentation was 3 with a hematocrit of 9.1. Patient was borderline hypotensive and tachycardic 4 units of PRBC had been ordered by Dr. Sharpe. After discussion with Dr. del angel patient had decided to be a DNR, but is okay with the temporary intubation if needed for endoscopy. Patient had similar presentation on November 2016 where he was admitted with upper GI bleed and was seen by GI doctor Sharath. EGD 11/05/16 showed ulcerating bleeding mass in the distal esophagus, status post epi injection and cauterization. I evaluated the patient in the ED. He is in mild to moderate discomfort due to recurrent nausea, and hematemesis. He is receiving his fourth unit of blood. Remains tachycardic but blood pressure has improved. GI consult is pending. I have discussed with Dr. Del Angel SUBJ 01/24/17: Continues to have hematemesis. Completing total 4 units of PRBC. Last hemoglobin was 7.9. Sodium has increased to 146 BUN 61 creatinine 1.37. Remains critically ill, borderline hypotensive. CT of the chest abdomen pelvis done for restaging shows questionable perforation at GE junction. Patient does not want possible perforation further investigated or intervened. I have started him on Azactam and Flagyl. Patient is still okay with IR evaluation for possible embolization 01/25/17: Patient had one episode of hematemesis and melena overnight. Hemoglobin stable at 9. Chemistry pending. Multiple attempts at embolization unsuccessful yesterday. Oncology planning on palliative radiation therapy Objective Vital Signs Date Time Temp Pulse Resp B/P Pulse Ox O2 Delivery O2 Flow Rate FiO2 01/25/17 06:00 82 01/25/17 04:00 98.0 16 114/68 96 01/24/17 07:50 Nasal Cannula 1.00 Intake and Output 01/24/17 01/24/17 01/25/17 08:00 16:00 00:00 Intake Total 1745 ml 2490 ml 3818 ml Output Total 650 ml 350 ml 1400 ml Balance 1095 ml 2140 ml 2418 ml Result Diagram: 01/25/17 0600 01/24/17 1245 Objective Remarks GENERAL: 60-year-old male who appears pale critically ill in mild distress from nausea and vomiting SKIN: Warm and dry. HEAD: Atraumatic. Normocephalic. EYES: Pupils equal and round. No scleral icterus. Conjunctiva pale ENT: No nasal bleeding or discharge. Mucous membranes dry, oral mucosa has some dry blood NECK: Trachea midline. No JVD. CARDIOVASCULAR: Tachycardic. No murmur appreciated. Right upper chest port in place RESPIRATORY: No accessory muscle use. Clear to auscultation. Breath sounds equal bilaterally. GASTROINTESTINAL: Abdomen soft, non-tender, nondistended. MUSCULOSKELETAL: No obvious deformities. No clubbing. No cyanosis. No edema. NEUROLOGICAL: Awake and alert. No obvious cranial nerve deficits. Motor grossly within normal limits. Normal speech. A/P Assessment and Plan NEURO: -Pain control with as needed morphine, Reglan for nausea vomiting. Compazine PRN RESP: -Nasal cannula oxygen -DuoNeb every 6 hours when necessary. Incentive spirometry -Patient is a DNR but okay with temporary intubation for EGD/procedures if needed CV: Sinus tachycardia Hypotension -1/2 NS at 125 ml per hour -Continue resuscitation with fluid and blood products GI/HEME: Upper GI bleed from esophageal cancer Stage IV his original cancer Anemia requiring transfusion Possible esophageal perforation and GE junction -s/p EGD with ablation/epi injection and clipping x3 of bleeding esophageal mass by Dr. German on 01/23/17 -EGD 11/05/16 showed ulcerating bleeding mass in the distal esophagus, status post epi injection and cauterization. -IR consulted for continued hematemesis, -unable to embolize 01/24/17 -Keep nothing by mouth, PEG to IWS. Protonix 8 mg per hour infusion, Octreotide gtt -Transfuse to keep hemoglobin more than 8, H&H every 8 hours -Patient does not want any diagnostic or therapeutic interventions performed for possible esophageal perforation -Palliative radiation planned per Oncology : Acute kidney injury -DONNA secondary to ATN -Monitor renal function closely. IV fluids as above ID: -Monitor for infection. -Empiric Azactam and Flagyl for possible esophageal perforation ENDO: -Electrolyte replacement per protocol PROPH: -Bilateral lower extremity SCDs. Avoid chemical DVT prophylaxis. Protonix infusion LINES: -Utilize peripheral IVs, access port if needed Level 3 Palliative care consulted Citlali Fournier MD Jan 25, 2017 07:48
[2017-01-25 08:07] LABS: CALCIUM-PROTEIN CORRECTED 9.5 MG/DL (8.5-10.1); MAGNESIUM 1.9 MG/DL (1.5-2.5); POTASSIUM 4.2 MEQ/L (3.5-5.1); TOTAL BILIRUBIN ADULT 0.6 MG/DL (0.2-1.0)
--- NOTE | 2017-01-25 08:40 | PD.ONC.PN ---
Subjective Subjective Remarks Afebrile overnight. Feels better today. He denies SOB or pain. Per RN he rec'd 2 units of blood last night after another bleeding episode. Objective Data Date Time Temp Pulse Resp B/P Pulse Ox O2 Delivery O2 Flow Rate FiO2 01/25/17 06:00 82 01/25/17 04:02 82 01/25/17 04:00 98.0 82 16 114/68 96 01/25/17 02:00 82 01/25/17 00:00 98.2 84 16 118/70 96 01/25/17 00:00 84 01/24/17 22:15 98.0 85 21 121/67 98 01/24/17 22:00 85 01/24/17 20:01 96 01/24/17 20:00 98.0 85 11 102/97 97 01/24/17 20:00 85 01/24/17 19:16 98.0 87 16 136/75 97 01/24/17 18:00 87 112/73 01/24/17 17:00 84 115/72 01/24/17 16:00 84 107/71 01/24/17 16:00 97.6 84 18 107/71 98 01/24/17 15:00 82 111/73 01/24/17 14:00 80 123/77 01/24/17 13:30 82 122/75 01/24/17 13:00 82 122/64 01/24/17 12:45 81 119/75 01/24/17 12:30 82 126/72 01/24/17 12:15 80 129/79 01/24/17 12:00 97.5 81 18 129/79 99 01/25/17 01/25/17 01/25/17 07:00 15:00 23:00 Intake Total 1239 ml Output Total 900 ml Balance 339 ml Result Diagram: 01/25/17 0600 01/25/17 0715 Laboratory Results Laboratory Tests Test 01/24/17 01/25/17 01/25/17 12:45 06:00 07:15 White Blood Count 4.4 TH/MM3 Red Blood Count 2.83 MIL/MM3 Hemoglobin 8.3 GM/DL 9.0 GM/DL Hematocrit 24.2 % Mean Corpuscular Volume 85.5 FL Mean Corpuscular Hemoglobin 29.5 PG Mean Corpuscular Hemoglobin 34.5 % Concent Red Cell Distribution Width 15.7 % Platelet Count 101 TH/MM3 Mean Platelet Volume 8.2 FL Neutrophils (%) (Auto) 77.2 % Lymphocytes (%) (Auto) 15.9 % Monocytes (%) (Auto) 6.8 % Eosinophils (%) (Auto) 0.0 % Basophils (%) (Auto) 0.1 % Neutrophils # (Auto) 3.4 TH/MM3 Lymphocytes # (Auto) 0.7 TH/MM3 Monocytes # (Auto) 0.3 TH/MM3 Eosinophils # (Auto) 0.0 TH/MM3 Basophils # (Auto) 0.0 TH/MM3 CBC Comment AUTO DIFF Differential Comment AUTO DIFF CONFIRMED Sodium Level 146 MEQ/L 144 MEQ/L Potassium Level 5.0 MEQ/L 4.2 MEQ/L Chloride Level 115 MEQ/L 113 MEQ/L Carbon Dioxide Level 23.5 MEQ/L 24.0 MEQ/L Anion Gap 8 MEQ/L 7 MEQ/L Blood Urea Nitrogen 68 MG/DL 51 MG/DL Creatinine 1.31 MG/DL 0.84 MG/DL Estimat Glomerular Filtration 55 ML/MIN 92 ML/MIN Rate Random Glucose 130 MG/DL 126 MG/DL Calcium Level 7.0 MG/DL 7.4 MG/DL Protein Corrected Calcium 9.3 MG/DL 9.5 MG/DL Magnesium Level 2.0 MG/DL 1.9 MG/DL Total Bilirubin 1.1 MG/DL 0.6 MG/DL Aspartate Amino Transf 14 U/L 13 U/L (AST/SGOT) Alanine Aminotransferase 16 U/L 14 U/L (ALT/SGPT) Alkaline Phosphatase 41 U/L 48 U/L Total Protein 3.3 GM/DL 3.7 GM/DL Albumin 1.5 GM/DL 1.8 GM/DL Administered Medications Medications (Trade) Dose Ordered Sig/Andrea Route PRN Reason Start Time Stop Time Status Last Admin Dose Admin Pantoprazole Sodium/Sodium Chloride (Protonix Inj/NS Inj) 100 ml @ 10 mls/hr Q10H IV 01/23/17 09:00 01/25/17 00:00 Chlorhexidine Gluconate (Chlorhexidine 2% Cloth) 3 pack Taper DAILY@04 TOP 01/24/17 04:00 01/20/18 03:59 01/25/17 03:43 Sodium Chloride 2 ml 2 ml BID IV FLUSH 01/23/17:00 01/24/17 21:00 Octreotide Acetate 500 mcg/ Sodium Chloride 500.0 ml @ 25 mls/hr Q20H IV 01/23/17 11:15 01/28/17 11:14 01/24/17 15:41 Aztreonam 2000 mg/ Sodium Chloride 100 ml @ 200 mls/hr Q6H IV 01/24/17 09:00 01/25/17 03:40 Metronidazole (Flagyl 500 Mg Inj) 100 ml @ 100 mls/hr Q8H IV 01/24/17 08:00 01/24/17 23:59 Metoclopramide HCl 10 mg 10 mg Q8H IV 01/24/17 08:00 01/25/17 07:36 Sodium Chloride (1/2 NS 1000 ml Inj) 1,000 ml @ 125 mls/hr Q8H IV 01/24/17 07:15 01/25/17 07:36 Objective Remarks GENERAL: Chronically ill appearing male lying in bed in [facility]. SKIN: Warm and dry. Color improved today. HEAD: Normocephalic. EYES: No injection or drainage. NECK: Supple, trachea midline. CARDIOVASCULAR: Regular rate and rhythm without murmurs. RESPIRATORY: Breath sounds equal bilaterally. No accessory muscle use. GASTROINTESTINAL: Abdomen soft, non-tender, nondistended. EXTREMITIES: No cyanosis, or edema. SCD's to BLE. NEUROLOGICAL: No obvious focal deficit. Awake, alert, and oriented x3. Assessment/Plan Assessment 61 y/o male with history of metastatic esophageal cancer admitted for severe anemia with GI bleeding. Plan He had one episode of bleeding last night and rec'd 2 units of PRBC's at that time. His Hgb is stable at this time. We have consulted radiation oncology and we are waiting for them to see him. Palliative radiation to the site of bleeding would be the best option for him at this time. He does not wish to have surgery. He is a DNR. Continue to monitor blood counts, supportive care. Attending Statement The exam, history, and the medical decision-making described in the above note were completed with the assistance of the mid-level provider. I reviewed and agree with the findings presented. I attest that I had a [id number] encounter with the patient on the same day, and personally performed and documented my assessment and findings in the medical record. remains fairly stable with minimal bleeding. will check pt and ptt tomorrow as he has received a significant amount of transfusions. Dr Starks took care of his 's father and they are hoping to see him. Donna Topete Jan 25, 2017 08:40 Phoenix Greene MD Jan 25, 2017 15:32
[2017-01-25 08:44] LABS: HEMO FLAGS AUTO DIFF
[2017-01-25] MEDS: PANTOPRAZOLE INJ 80 MG in SODIUM CHLORIDE 0.9% INJ 100 ML IV SCH ×4 (08:51→21:53)
[2017-01-25] MEDS: metroNIDAZOLE 500 MG INJ 100 ML IV SCH ×2 (08:52→15:42)
[2017-01-25] MEDS: SODIUM CHLORIDE 0.9% FLUSH 10 ML FLUSH IV FLUSH SCH ×2 (08:52→21:00)
[2017-01-25 08:53] LABS: BANDS 17 % (0-6); CORRECTED NUCLEATED RBC 1 /100 WBC (0-0); NEUTROPHIL # MANUAL DIFF 1.6 TH/MM3 (1.8-7.7); PLATELET ESTIMATE SMEAR LOW (NORMAL); PLATELET MORPHOLOGY NORMAL (NORMAL); POLYS (SEG NEUTROPHILS) 57 % (16-70); SCAN/DIFF FINAL DIFF MANUAL; WBC DIFF SAMPLE 100
--- NOTE | 2017-01-25 11:08 | HHI.GIFU ---
Subjective Remarks Pt had another episode of hematemesis and melena last night. Afebrile Pt received another 4 units of PRBCs yesterday for a total of 11 units of PRBCs since admission. Pt with PEG tube to LIWS with clots noted (Carmen Huff) Objective Vitals I&O Vital Signs Date Time Temp Pulse Resp B/P Pulse Ox O2 Delivery O2 Flow Rate FiO2 01/25/17 07:15 100 21 01/25/17 06:00 82 01/25/17 04:02 82 01/25/17 04:00 98.0 82 16 114/68 96 01/25/17 02:00 82 01/25/17 00:00 98.2 84 16 118/70 96 01/25/17 00:00 84 01/24/17 22:15 98.0 85 21 121/67 98 01/24/17 22:00 85 01/24/17 20:01 96 01/24/17 20:00 98.0 85 11 102/97 97 01/24/17 20:00 85 01/24/17 19:16 98.0 87 16 136/75 97 01/24/17 18:00 87 112/73 01/24/17 17:00 84 115/72 01/24/17 16:00 84 107/71 01/24/17 16:00 97.6 84 18 107/71 98 01/24/17 15:00 82 111/73 01/24/17 14:00 80 123/77 01/24/17 13:30 82 122/75 01/24/17 13:00 82 122/64 01/24/17 12:45 81 119/75 01/24/17 12:30 82 126/72 01/24/17 12:15 80 129/79 01/24/17 12:00 97.5 81 18 129/79 99 I/O 01/24/17 01/24/17 01/24/17 01/25/17 01/25/17 01/25/17 07:00 15:00 23:00 07:00 15:00 23:00 Intake Total 1745 ml 2490 ml 3818 ml 1239 ml Output Total 650 ml 350 ml 1400 ml 900 ml Balance 1095 ml 2140 ml 2418 ml 339 ml Intake Oral 0 ml 0 ml IV Total 1010 ml 2190 ml 3318 ml 1239 ml Packed Cells 735 ml 300 ml 500 ml Output Urine Total 400 ml 350 ml 900 ml 900 ml Stool Total 0 ml 0 ml Emesis 250 ml 500 ml # Bowel Movements 1 Laboratory Laboratory Tests Test 01/24/17 01/25/17 01/25/17 12:45 06:00 07:15 White Blood Count 4.4 2.1 Red Blood Count 2.83 3.02 Hemoglobin 8.3 9.0 8.8 Hematocrit 24.2 25.4 Mean Corpuscular Volume 85.5 84.2 Mean Corpuscular Hemoglobin 29.5 29.1 Mean Corpuscular Hemoglobin 34.5 34.6 Concent Red Cell Distribution Width 15.7 16.8 Platelet Count 101 80 Mean Platelet Volume 8.2 8.0 Neutrophils (%) (Auto) 77.2 66.9 Lymphocytes (%) (Auto) 15.9 23.6 Monocytes (%) (Auto) 6.8 9.1 Eosinophils (%) (Auto) 0.0 0.2 Basophils (%) (Auto) 0.1 0.2 Neutrophils # (Auto) 3.4 1.4 Lymphocytes # (Auto) 0.7 0.5 Monocytes # (Auto) 0.3 0.2 Eosinophils # (Auto) 0.0 0.0 Basophils # (Auto) 0.0 0.0 CBC Comment AUTO DIFF AUTO DIFF Differential Comment AUTO DIFF FINAL DIFF CONFIRMED MANUAL Sodium Level 146 144 Potassium Level 5.0 4.2 Chloride Level 115 113 Carbon Dioxide Level 23.5 24.0 Anion Gap 8 7 Blood Urea Nitrogen 68 51 Creatinine 1.31 0.84 Estimat Glomerular Filtration 55 92 Rate Random Glucose 130 126 Calcium Level 7.0 7.4 Protein Corrected Calcium 9.3 9.5 Magnesium Level 2.0 1.9 Total Bilirubin 1.1 0.6 Aspartate Amino Transf 14 13 (AST/SGOT) Alanine Aminotransferase 16 14 (ALT/SGPT) Alkaline Phosphatase 41 48 Total Protein 3.3 3.7 Albumin 1.5 1.8 Differential Total Cells 100 Counted Neutrophils % (Manual) 57 Band Neutrophils % 17 Lymphocytes % 23 Monocytes % 3 Neutrophils # (Manual) 1.6 Nucleated Red Blood Cells 1 Platelet Estimate LOW Platelet Morphology Comment NORMAL Imaging Last Impressions Chest CT 01/23/17 2189 Signed Impressions: Service Date/Time: Monday, January 23, 2017 17:39 - CONCLUSION: Abnormal esophageal appearance and findings concerning for GI perforation in the GE junction region. Shantanu Maxwell MD Abdomen/Pelvis CT 01/23/17 1639 Signed Impressions: Service Date/Time: Monday, January 23, 2017 17:37 - CONCLUSION: Metastatic disease present throughout the liver. Nonspecific splenic lesions. Small collections of air are near the GE junction with appearance worrisome for a GI perforation in this area. Shantanu Maxwell MD Physical Exam HEENT: Pupils round and reactive to light; normocephalic; atraumatic; no jaundice. Throat is clear. NECK: Neck is supple, no JVD, no lymphadenopathy. CHEST: CTA CARDIAC: Regular ABDOMEN: +Bs, soft, nondistended, nontender. PEG tube to LIWS with clots noted EXTREMITIES: No clubbing, cyanosis, or edema. SKIN: Normal; no rash; no jaundice. [employer]IC: No focal deficits; alert and oriented times three. (Carmen Huff) Assessment and Plan Plan ASSESSMENT: - Upper GI bleed. Pt has stage IV esophageal cancer and has had GI bleeding secondary to bleeding mass in the past. He has been coughing up small amounts of blood and melena for several days and started having nausea/vomiting with red blood on 01/22. Initially, this was small amounts, but he started vomiting larger amounts on 01/23. He was found to have severe anemia with a H/H of 3.1/9.3. He has received 11 units of PRBCs. He had a similar episode in November and was evaluated with EGD (11/05/16)---> ulcerated actively bleeding mass in the distal esophagus with multiple bleeding sites, this was injected with 10cc of 1/10,000 epi and cauterized by [place] co[place], significant narrowing of the esophagus because of the tumor, retroflexed views revealed no abnormalities, but blood clots. S/P 4 units PRBC. Pt s/p EGD on 01/23/2017 with clips application/epinephrine injection and APC treatment of tumor, s/p failed embolization attempt large ulcerated mass at GE junction most likely cause of recurrent bleeding. CT of the chest/abdomen/pelvis done for restaging shows questionable perforation at GE junction but pt does not this further investigated or intervened upon. Pt has been started on Azactam and Flagyl. Pt had multiple attempts at embolization unsuccessful yesterday. Patient had one episode of hematemesis and melena overnight. Hgb 8.8 today. Protonix gtt. - Severe anemia secondary to acute blood loss. 3.1/9.3 on admission. S/P 11 units PRBC since admission. Currently Hgb 8.8 - Stage IV metastatic esophageal cancer. S/P [facility] evaluation in past. Followed by Dr. Del Angel. He was diagnosed in October of 2015. He was treated with chemotherapy until August of 2016, when he was found to have progression of disease and this was changed to Keytruda. His reports that he received this for 3 months, but had no response and therefore it was changed to FOLFOX/FOLFIRI in November. He reports that he did not have a good response to this either and therefore was started on a new chemotherapy drug this month (Taxol and she does not recall the other one) and just received his third dose of this past Thursday. Radiation oncology has been consulted for possible palliative radiation to the site of bleeding. He does not wish to have surgery. He is a DNR. - FEN. Had PEG placed in September 2016. He uses this for nutrition. They use Jevity, Isosource, or Boosts. He lost about 60 lbs since being diagnosed with cancer, but that he has been tolerating his tube feedings and recently gained back 10 lbs over the past 2 months. PLAN: - Ok for ice chips - PEG to LIWS - Protonix Gtt - Octreotide - Monitor HH - Transfuse as necessary - Supportive care - Pt seen and examined by Dr. German and myself and this note is written on her behalf (Carmen Huff) Physician Comments seen, examined agree with above (Catherine German MD) Carmen Huff Jan 25, 2017 11:08 Catherine German MD Jan 25, 2017 16:59
[2017-01-26] VITALS (16 sets, daily range): BP systolic 92–114; BP diastolic 62–71; PULSE 62–72; RESP 8–17; TEMP 98.1–98.6; O2SAT 94–98
[2017-01-26] MEDS: OCTREOTIDE INJ 500 MCG in SODIUM CHLORID 0.9% 500 ML INJ 499.5 ML IV SCH ×2 (00:45→10:42)
[2017-01-26] MEDS: metroNIDAZOLE 500 MG INJ 100 ML IV SCH ×4 (00:45→23:56)
[2017-01-26] MEDS: METOCLOPRAMIDE HCL 10 MG/2 ML VIAL IV SCH ×4 (00:46→23:56)
[2017-01-26] MEDS: AZTREONAM INJ 2,000 MG in SODIUM CHLORIDE 0.9% INJ 100 ML IV SCH ×4 (03:02→19:59)
[2017-01-26] MEDS: CHLORHEXIDINE GLUCONATE 2 % 1 PACK (2 CLOTHS) TOP SCH (03:02)
[2017-01-26 05:13] LABS: APTT (PATIENT) 36.4 SEC (24.3-30.1); INTERNATIONAL NORMALIZED RATIO 1.1 RATIO
[2017-01-26 05:14] LABS: AUTOMATED NEUTROPHIL # 1.2 TH/MM3 (1.8-7.7); BASOPHIL % 0.3 % (0.0-2.0); HEMATOCRIT 22.2 % (39.0-51.0); LYMPH % 30.4 % (9.0-44.0); LYMPHOCYTE # 0.6 TH/MM3 (1.0-4.8); MEAN CELL VOLUME 85.7 FL (80.0-100.0); MEAN CORPUSCULAR HEMOGLOBIN 29.9 PG (27.0-34.0); MEAN CORPUSCULAR HGB CONC 34.9 % (32.0-36.0); MONO % 8.4 % (0.0-8.0); NEUT % 59.9 % (16.0-70.0); PLATELET COUNT 96 TH/MM3 (150-450); RED BLOOD COUNT 2.59 MIL/MM3 (4.50-5.90); RED CELL DISTRIBUTION WIDTH 16.7 % (11.6-17.2)
[2017-01-26 05:17] LABS: HEMO FLAGS AUTO DIFF
[2017-01-26 05:24] LABS: BICARBONATE 26.1 MEQ/L (21.0-32.0); POTASSIUM 3.5 MEQ/L (3.5-5.1)
[2017-01-26] MEDS: PANTOPRAZOLE INJ 80 MG in SODIUM CHLORIDE 0.9% INJ 100 ML IV SCH (05:48)
[2017-01-26 05:51] LABS: CALCIUM-PROTEIN CORRECTED 8.9 MG/DL (8.5-10.1)
[2017-01-26 06:57] LABS: BANDS 40 % (0-6); CORRECTED NUCLEATED RBC 1 /100 WBC (0-0); METAMYELOCYTES 10 % (0-1); NEUTROPHIL # MANUAL DIFF 1.6 TH/MM3 (1.8-7.7); PLATELET ESTIMATE SMEAR NORMAL (NORMAL); PLATELET MORPHOLOGY NORMAL (NORMAL); POLYS (SEG NEUTROPHILS) 28 % (16-70); WBC DIFF SAMPLE 100
[2017-01-26 06:58] LABS: SCAN/DIFF FINAL DIFF MANUAL
[2017-01-26] MEDS: SODIUM CHLOR 0.45% 1000 ML INJ 1,000 ML IV SCH ×2 (07:47→23:55)
[2017-01-26] MEDS: SODIUM CHLORIDE 0.9% FLUSH 10 ML FLUSH IV FLUSH SCH ×2 (07:47→20:00)
--- NOTE | 2017-01-26 09:07 | HHI.CCPN ---
Subjective Remarks/Hospital Course 60-year-old male with history of stage IV metastatic esophageal cancer undergoing chemotherapy with Dr. del angel, history of upper GI bleed from ulcerating esophageal cancer, who presented with vomiting blood and passing black stools. He also complains of of weakness and lightheadedness. He is followed by Dr. Del Angel for his esophageal adenocarcinoma. His hemoglobin on presentation was 3 with a hematocrit of 9.1. Patient was borderline hypotensive and tachycardic 4 units of PRBC had been ordered by Dr. Sharpe. After discussion with Dr. del angel patient had decided to be a DNR, but is okay with the temporary intubation if needed for endoscopy. Patient had similar presentation on November 2016 where he was admitted with upper GI bleed and was seen by GI doctor Sharath. EGD 11/05/16 showed ulcerating bleeding mass in the distal esophagus, status post epi injection and cauterization. I evaluated the patient in the ED. He is in mild to moderate discomfort due to recurrent nausea, and hematemesis. He is receiving his fourth unit of blood. Remains tachycardic but blood pressure has improved. GI consult is pending. I have discussed with Dr. Del Angel SUBJ 01/24/17: Continues to have hematemesis. Completing total 4 units of PRBC. Last hemoglobin was 7.9. Sodium has increased to 146 BUN 61 creatinine 1.37. Remains critically ill, borderline hypotensive. CT of the chest abdomen pelvis done for restaging shows questionable perforation at GE junction. Patient does not want possible perforation further investigated or intervened. I have started him on Azactam and Flagyl. Patient is still okay with IR evaluation for possible embolization 01/25/17: Patient had one episode of hematemesis and melena overnight. Hemoglobin stable at 9. Chemistry pending. Multiple attempts at embolization unsuccessful yesterday. Oncology planning on palliative radiation therapy 01/26/17: No further hematemesis overnight. Continues to have melanotic stools. Hemoglobin 7.8 platelet count 96 today. Getting radiation therapy to starting today Objective Vital Signs Date Time Temp Pulse Resp B/P Pulse Ox O2 Delivery O2 Flow Rate FiO2 01/26/17 07:43 96 01/26/17 06:00 63 01/26/17 04:00 98.4 14 92/64 01/25/17 07:15 21 01/24/17 07:50 Nasal Cannula 1.00 Intake and Output 3/26/17 3/26/17 3/27/17 08:00 16:00 00:00 Intake Total 1239 ml 1400 ml 1562 ml Output Total 900 ml 650 ml 1450 ml Balance 339 ml 750 ml 112 ml Result Diagram: 01/26/17 0320 01/26/17 0320 Objective Remarks GENERAL: 60-year-old male who appears pale, improved nausea SKIN: Warm and dry. HEAD: Atraumatic. Normocephalic. EYES: Pupils equal and round. No scleral icterus. Conjunctiva pale ENT: No nasal bleeding or discharge. Mucous membranes dry, oral mucosa has some dry blood NECK: Trachea midline. No JVD. CARDIOVASCULAR: No murmur appreciated. Right upper chest port in place RESPIRATORY: No accessory muscle use. Clear to auscultation. Breath sounds equal bilaterally. PEG tube with coffee ground output GASTROINTESTINAL: Abdomen soft, non-tender, nondistended. MUSCULOSKELETAL: No obvious deformities. No clubbing. No cyanosis. No edema. NEUROLOGICAL: Awake and alert. No obvious cranial nerve deficits. Motor grossly within normal limits. Normal speech. A/P Assessment and Plan NEURO: -Pain control with as needed morphine, Reglan for nausea vomiting. Compazine PRN RESP: -Nasal cannula oxygen -DuoNeb every 6 hours when necessary. Incentive spirometry -Patient is a DNR but okay with temporary intubation for EGD/procedures if needed CV: Sinus tachycardia -1/2 NS at 125 ml per hour, reduce to 75 ml per hour -Continue resuscitation with fluid and blood products GI/HEME: Upper GI bleed from esophageal cancer Stage IV his original cancer Anemia requiring transfusion Possible esophageal perforation and GE junction -s/p EGD with ablation/epi injection and clipping x3 of bleeding esophageal mass by Dr. German on 01/23/17 -EGD 11/05/16 showed ulcerating bleeding mass in the distal esophagus, status post epi injection and cauterization. -IR consulted for continued hematemesis, -unable to embolize 01/24/17 -Palliative radiation to start today 01/26/17 -Keep nothing by mouth, PEG to IWS. Protonix 8 mg per hour infusion, Octreotide gtt -Transfuse to keep hemoglobin more than 8, H&H every 8 hours -Patient does not want any diagnostic or therapeutic interventions performed for possible esophageal perforation -Palliative radiation planned per Oncology : Acute kidney injury -DONNA secondary to ATN -resolved -Monitor renal function closely. IV fluids as above ID: -Monitor for infection. -Empiric Azactam and Flagyl for possible esophageal perforation ENDO: -Electrolyte replacement per protocol PROPH: -Bilateral lower extremity SCDs. Avoid chemical DVT prophylaxis. Protonix infusion LINES: -Utilize peripheral IVs, access port if needed Level 3 Palliative care consulted Citlali Fournier MD Jan 26, 2017 09:07
[2017-01-26] MEDS: POTASSIUM CHLOR 40 MEQ PREMIX 100 ML IV PRN (09:29)
--- NOTE | 2017-01-26 10:25 | PD.CONS ---
Consult Service Palliative Care Consult Requested By Dr. Fournier Primary Care Physician Unknown Reason for Consultation a. To assist with evaluation and management of symptoms including: Fatigue, malnutrition b. To assist medical decision maker(s) with: better understanding of current medical conditions; weighing benefits/burdens of medical treatment options; making medical treatment decisions. HPI History of Present Illness This 61-year-old man presented to the ED on 01/23/17--with symptoms of vomiting blood, black stools, with weakness and lightheadedness. He has known history of stage IV metastatic esophageal cancer, follows outpatient with Dr. leonard. * ED course: Hemoglobin noted to be 3.1. Noted to be actively bleeding with emesis at time of ED arrival. ED physician notes prognosis poor. ED physician notes discussion with oncologist, plan for discussion regarding hospice. * Plan for transfusion 4 units of RBCs, hypotensive, tachycardic. Patient did elect DNR after discussion with Dr. leonard however also indicated would proceed with temporary intubation if needed for endoscopy. He did have EGD 11/05/16 for similar circumstances which indicated ulcerating bleeding mass in distal esophagus. GI consulted, critical care consulted. admitted to ICU. * CT findings concerning for perforated viscus--chuck splitter discuss possible surgical exploration, patient understands severe disease and imaging results did not wish to proceed with surgery due to underlying stage IV cancer. * GI evaluated 01/23--notes patient has seen at [facility][1] in the past, original diagnosis October 2015. Had been treated with chemotherapy until August 2016 when was noted to have progression of disease. At that point changed to FOLFOX in November. Apparently did not have good response to that either, started on additional chemotherapy( his 4th LINE Cyramza and Taxol ) Just this month. PEG was placed September/2016 for nutrition. Lost about a total of 60 pounds since original diagnoses. Tolerating tube feeding, slight weight gain of 10 pounds over the past 2 months.*Plan for EGD * Patient to IR 01/24: Angiogram done. No active GI bleed evident.Multiple attempts were made to prophylactically embolize the left gastric but not possible despite multiple catheter and wire combinations.Incidental small right renal artery aneurism * Oncology notes plan for GI to complete EGD, continue supportive transfusions, CT scan for restaging, further discusses with patient on fourth line treatment transit is of responding to a fifth line is minimal there is some discussion regarding transition to hospice if there has been progression of disease. ------ ----->> Multiple attempts at embolization unsuccessful. Patient also with ATI secondary to ATN. Radiation oncology has been consulted-- plan for radiation to being Friday 01/26 * 01/25continues to have episode of hematemesis, melena, continues to receive supportive transfusions. Total so far 11 units PRBCs. * 01/26plan for radiation therapy to start today. Hemoglobin stable, 9. Palliative care consulted to assist with clarification of goals of treatment. Review of Systems Constitutional: COMPLAINS OF: Fatigue, Weight gain (recent 10 pounds), Weight loss (total 5060 pounds) Ears, nose, mouth, throat: DENIES: Oral lesions, Throat pain Respiratory: COMPLAINS OF: Shortness of breath (mild), DENIES: Cough, Hemoptysis Cardiovascular: COMPLAINS OF: Dyspnea on Exertion, DENIES: Chest pain, Lower Extremity Edema Gastrointestinal: COMPLAINS OF: Black stools, Bloody stools, Vomiting, Difficulty Swallowing, DENIES: Constipation, Diarrhea Integumentary: DENIES: Rash Neurologic: DENIES: Abnormal gait, Headache, Localized weakness Psychiatric: DENIES: Anxiety, Confusion, Depression Past Family Social History Coded Allergies: Penicillin (Verified Allergy, Unknown, 01/23/17) reaction as an infant; unsure of reaction Past Medical History Stage IV Esophageal Cancer Hx Upper GI bleeding secondary to bleeding mass; endoscopy 11/2016 GERD Dysphagia . Past Surgical History EGD/colonoscopy PEG placement Sep 17 Right chest port placement Hernia repair Vasectomy Reported Medications Ondansetron 8 MG PO TID Nausea/Vomiting Pantoprazole 40 MG PO BID Prochlorperazine Maleate 10 MG PO Q6H PRN NAUSEA OR VOMITING chemotherapy per Dr. leonard . Current Medications Medications (Trade) Dose Ordered Sig/Andrea Route Start Time Stop Time Status Last Admin (NS Flush) 2 ml UNSCH PRN IVF 01/23/17 06:15 Sodium Chloride 2 ml 2 ml UNSCH PRN IVF 01/23/17 07:15 (Protonix Inj/NS Inj) 100 ml @ 10 mls/hr Q10H IV 01/23/17 09:00 01/26/17 05:48 Miscellaneous Information 1 Q361D XX 01/23/17 08:15 (Chlorhexidine 2% Cloth) 3 pack Taper DAILY@04 TOP 01/24/17 04:00 01/20/18 03:59 01/26/17 03:02 Chlorhexidine Gluconate 3 pack 3 pack UNSCH PRN TOP 01/23/17 08:15 Potassium Chloride 100 ml @ 50 mls/hr Q2H PRN IV 01/23/17 08:30 Potassium Chloride 100 ml @ 50 mls/hr Q2H PRN IV 01/23/17 08:30 Potassium Chloride 100 ml @ 25 mls/hr UNSCH PRN IV 01/23/17 08:30 01/26/17 09:29 Potassium Chloride 100 ml @ 50 mls/hr Q2H PRN IV 01/23/17 08:30 (Magnesium Sulfate Inj/NS Inj) 100 ml @ 50 mls/hr UNSCH PRN IV 01/23/17 08:30 Magnesium Oxide 800 mg 800 mg UNSCH PRN PO 01/23/17 08:30 (Magnesium Sulfate Inj/NS Inj) 100 ml @ 50 mls/hr UNSCH PRN IV 01/23/17 08:30 Potassium Phosphate 2000 mg 2,000 mg Q4H PRN PO 01/23/17 08:30 (Sodium Phosphate Inj/NS 250 ml Inj) 250 ml @ 42 mls/hr UNSCH PRN IV 01/23/17 08:30 Potassium Phosphate 2000 mg 2,000 mg UNSCH PRN PO/TUBE 01/23/17 08:30 (Potassium Phosphate Inj/NS 250 ml Inj) 260 ml @ 42 mls/hr UNSCH PRN IV 01/23/17 08:30 (Morphine Inj) 2 mg Q3H PRN IV PUSH 01/23/17 09:15 (NS Flush) 2 ml UNSCH PRN IV FLUSH 01/23/17 10:15 Sodium Chloride 2 ml 2 ml BID IV FLUSH 01/23/17 21:00 01/26/17 07:47 Octreotide Acetate 500 mcg/ Sodium Chloride 500.0 ml @ 25 mls/hr Q20H IV 01/23/17 11:15 01/28/17 11:14 01/26/17 00:45 Aztreonam 2000 mg/ Sodium Chloride 100 ml @ 200 mls/hr Q6H IV 01/24/17 09:00 01/26/17 07:47 (Flagyl 500 Mg Inj) 100 ml @ 100 mls/hr Q8H IV 01/24/17 08:00 01/26/17 07:46 Metoclopramide HCl 10 mg 10 mg Q8H IV 01/24/17 08:00 01/26/17 07:47 (1/2 NS 1000 ml Inj) 1,000 ml @ 125 mls/hr Q8H IV 01/24/17 07:15 01/26/17 07:47 Family History Father had Alzheimer's and at 73 Mother passed at age 96, no known medical problems Substance Use Tobacco: Warmer tobacco use, quit 15 years ago, [id number] history Alcohol: Occasional alcohol use Prescription med abuse: None Illicits: None Psychosocial History . Originally from [place] though has lived in [place] for the past 20 + years. 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 Supported by , brother, 2 adult daughters. Also has a 12yr old pit bull at home. . Spiritual/Cultural Factors Does not desire automobile travel club counselor support Living Will: Completed, but not made available Health Care Surrogate: Completed, but not made available Ethical and Legal Issues Patient is able to make his own decisions. He indicates his is designated on his living will as HCS. Requested they bring copies of this documentation. In absence of this document his would be legal decision maker per statutes. Physical Exam Vital Signs Date Time Temp Pulse Resp B/P Pulse Ox O2 Delivery O2 Flow Rate FiO2 01/26/17 07:43 96 01/26/17 06:00 63 01/26/17 04:00 98.4 66 14 92/64 94 01/26/17 04:00 66 01/26/17 02:00 62 01/26/17 00:00 98.6 71 8 101/64 95 01/26/17 00:00 71 01/25/17 22:00 69 01/25/17 20:00 72 01/25/17 20:00 98.6 72 15 101/65 97 01/25/17 16:00 98.4 74 16 99/61 96 01/25/17 12:00 97.8 79 14 109/68 96 01/25/17 01/26/17 19:00 07:00 Intake Total 1400 ml 2940 ml Output Total 650 ml 2000 ml Balance 750 ml 940 ml Intake Oral 0 ml IV Total 1400 ml 2940 ml Output Urine Total 450 ml 1800 ml Stool Total 200 ml 200 ml # Bowel Movements 1 2 Exam CONSTITUTIONAL/GENERAL: This is an adequately nourished patient, pleasant, in no distress TUBES/LINES/DRAINS: PIV upper extremity, right subclavian port, PEG tube SKIN: No jaundice, rashes, or lesions. Well-healed scar left biceps. Large area ecchymosis right upper extremity AC area. No wounds seen anteriorly. Skin temperature appropriate. HEAD: Atraumatic. Normocephalic. EYES: Pupils equal and round and reactive. Extraocular motions intact. No scleral icterus. No injection or drainage. Fundi not examined. ENT: Hearing grossly normal. Nose without bleeding or purulent drainage. Throat without visible erythema, exudates, masses, or lesions. NECK: Trachea midline. Supple, nontender. No palpable thyroid enlargement or nodularity. CARDIOVASCULAR: Regular rate and rhythm, no murmurs. No JVD. Peripheral pulses symmetric. Trace peripheral edema to upper extremities. RESPIRATORY/CHEST: Symmetric, unlabored respirations. Clear to auscultation. On Room air. Breath sounds equal bilaterally.Lungs clear. GASTROINTESTINAL: Abdomen soft, non-tender, nondistended. No guarding. No palpable masses. Bowel sounds present.+ G tube clamped, dressing clean/dry. GENITOURINARY: Without palpable bladder distension. MUSCULOSKELETAL: Extremities without clubbing, cyanosis. Trace edema upper extremities. No joint tenderness or effusion noted. No calf tenderness. No mottling or clubbing. LYMPHATICS: No palpable cervical or supraclavicular adenopathy. NEUROLOGICAL: Awake and alert. Oriented 3 insight is good. And talkative. Motor and sensory grossly within normal limits. Follows commands. Cognitively sharp. Moves all 4 extremities. PSYCHIATRIC: No obvious anxiety/depression. no apparent hallucinations or other psychotic thought process. Diagnostic Tests Laboratory Laboratory Tests Test 01/23/17 01/23/17 01/23/17 01/23/17 13:02 14:30 19:00 19:54 White Blood Count 7.3 TH/MM3 (4.0-11.0) Red Blood Count 2.45 MIL/MM3 (4.50-5.90) Hemoglobin 7.1 GM/DL 7.1 GM/DL (13.0-17.0) (13.0-17.0) Hematocrit 20.5 % 20.8 % (39.0-51.0) (39.0-51.0) Mean Corpuscular Volume 83.9 FL (80.0-100.0) Mean Corpuscular Hemoglobin 29.1 PG (27.0-34.0) Mean Corpuscular Hemoglobin 34.7 % Concent (32.0-36.0) Red Cell Distribution Width 16.0 % (11.6-17.2) Platelet Count 217 TH/MM3 (150-450) Mean Platelet Volume 8.3 FL (7.0-11.0) Phosphorus Level 4.2 MG/DL (2.5-4.9) Nasal Screen MRSA (PCR) NEGATIVE (NEGATIVE) Crossmatch Leukocyte-Reduced Red Blood Cells Blood Bank Comment Test 01/24/17 01/24/17 01/24/17 01/25/17 02:05 03:11 12:45 06:00 White Blood Count 4.8 TH/MM3 4.4 TH/MM3 (4.0-11.0) (4.0-11.0) Red Blood Count 2.64 MIL/MM3 2.83 MIL/MM3 (4.50-5.90) (4.50-5.90) Hemoglobin 7.9 GM/DL 8.3 GM/DL 9.0 GM/DL (13.0-17.0) (13.0-17.0) (13.0-17.0) Hematocrit 23.0 % 24.2 % (39.0-51.0) (39.0-51.0) Mean Corpuscular Volume 87.2 FL 85.5 FL (80.0-100.0) (80.0-100.0) Mean Corpuscular Hemoglobin 30.0 PG 29.5 PG (27.0-34.0) (27.0-34.0) Mean Corpuscular Hemoglobin 34.4 % 34.5 % Concent (32.0-36.0) (32.0-36.0) Red Cell Distribution Width 15.8 % 15.7 % (11.6-17.2) (11.6-17.2) Platelet Count 182 TH/MM3 101 TH/MM3 (150-450) (150-450) Mean Platelet Volume 8.4 FL 8.2 FL (7.0-11.0) (7.0-11.0) Neutrophils (%) (Auto) 75.9 % 77.2 % (16.0-70.0) (16.0-70.0) Lymphocytes (%) (Auto) 19.4 % 15.9 % (9.0-44.0) (9.0-44.0) Monocytes (%) (Auto) 4.4 % (0.0-8.0) 6.8 % (0.0-8.0) Eosinophils (%) (Auto) 0.0 % (0.0-4.0) 0.0 % (0.0-4.0) Basophils (%) (Auto) 0.3 % (0.0-2.0) 0.1 % (0.0-2.0) Neutrophils # (Auto) 3.6 TH/MM3 3.4 TH/MM3 (1.8-7.7) (1.8-7.7) Lymphocytes # (Auto) 0.9 TH/MM3 0.7 TH/MM3 (1.0-4.8) (1.0-4.8) Monocytes # (Auto) 0.2 TH/MM3 0.3 TH/MM3 (0-0.9) (0-0.9) Eosinophils # (Auto) 0.0 TH/MM3 0.0 TH/MM3 (0-0.4) (0-0.4) Basophils # (Auto) 0.0 TH/MM3 0.0 TH/MM3 (0-0.2) (0-0.2) CBC Comment AUTO DIFF AUTO DIFF Differential Total Cells 100 Counted Neutrophils % (Manual) 77 % (16-70) Band Neutrophils % 7 % (0-6) Lymphocytes % 11 % (9-44) Monocytes % 2 % (0-8) Neutrophils # (Manual) 4.2 TH/MM3 (1.8-7.7) Metamyelocytes 3 % (0-1) Nucleated Red Blood Cells 6 /100 WBC (0-0) Differential Comment FINAL DIFF AUTO DIFF MANUAL CONFIRMED Platelet Estimate NORMAL (NORMAL) Platelet Morphology Comment NORMAL (NORMAL) Keratocytes OCC (NORMAL) Sodium Level 146 MEQ/L 146 MEQ/L (136-145) (136-145) Potassium Level 5.3 MEQ/L 5.0 MEQ/L (3.5-5.1) (3.5-5.1) Chloride Level 114 MEQ/L 115 MEQ/L (98-107) (98-107) Carbon Dioxide Level 20.7 MEQ/L 23.5 MEQ/L (21.0-32.0) (21.0-32.0) Anion Gap 11 MEQ/L (5-15) 8 MEQ/L (5-15) Blood Urea Nitrogen 61 MG/DL (7-18) 68 MG/DL (7-18) Creatinine 1.37 MG/DL 1.31 MG/DL (0.60-1.30) (0.60-1.30) Estimat Glomerular Filtration 52 ML/MIN (>89) 55 ML/MIN (>89) Rate Random Glucose 210 MG/DL 130 MG/DL (74-106) (74-106) Calcium Level 7.3 MG/DL 7.0 MG/DL (8.5-10.1) (8.5-10.1) Protein Corrected Calcium 9.6 MG/DL 9.3 MG/DL (8.5-10.1) (8.5-10.1) Magnesium Level 2.1 MG/DL 2.0 MG/DL (1.5-2.5) (1.5-2.5) Total Bilirubin 1.6 MG/DL 1.1 MG/DL (0.2-1.0) (0.2-1.0) Aspartate Amino Transf 11 U/L (15-37) 14 U/L (15-37) (AST/SGOT) Alanine Aminotransferase 15 U/L (12-78) 16 U/L (12-78) (ALT/SGPT) Alkaline Phosphatase 44 U/L (45-117) 41 U/L (45-117) Total Protein 3.4 GM/DL 3.3 GM/DL (6.4-8.2) (6.4-8.2) Albumin 1.5 GM/DL 1.5 GM/DL (3.4-5.0) (3.4-5.0) Blood Type A POSITIVE Crossmatch Leukocyte-Reduced Red Blood Cells Blood Bank Comment Test 01/25/17 01/26/17 07:15 03:20 White Blood Count 2.1 TH/MM3 2.0 TH/MM3 (4.0-11.0) (4.0-11.0) Red Blood Count 3.02 MIL/MM3 2.59 MIL/MM3 (4.50-5.90) (4.50-5.90) Hemoglobin 8.8 GM/DL 7.8 GM/DL (13.0-17.0) (13.0-17.0) Hematocrit 25.4 % 22.2 % (39.0-51.0) (39.0-51.0) Mean Corpuscular Volume 84.2 FL 85.7 FL (80.0-100.0) (80.0-100.0) Mean Corpuscular Hemoglobin 29.1 PG 29.9 PG (27.0-34.0) (27.0-34.0) Mean Corpuscular Hemoglobin 34.6 % 34.9 % Concent (32.0-36.0) (32.0-36.0) Red Cell Distribution Width 16.8 % 16.7 % (11.6-17.2) (11.6-17.2) Platelet Count 80 TH/MM3 96 TH/MM3 (150-450) (150-450) Mean Platelet Volume 8.0 FL 8.2 FL (7.0-11.0) (7.0-11.0) Neutrophils (%) (Auto) 66.9 % 59.9 % (16.0-70.0) (16.0-70.0) Lymphocytes (%) (Auto) 23.6 % 30.4 % (9.0-44.0) (9.0-44.0) Monocytes (%) (Auto) 9.1 % (0.0-8.0) 8.4 % (0.0-8.0) Eosinophils (%) (Auto) 0.2 % (0.0-4.0) 1.0 % (0.0-4.0) Basophils (%) (Auto) 0.2 % (0.0-2.0) 0.3 % (0.0-2.0) Neutrophils # (Auto) 1.4 TH/MM3 1.2 TH/MM3 (1.8-7.7) (1.8-7.7) Lymphocytes # (Auto) 0.5 TH/MM3 0.6 TH/MM3 (1.0-4.8) (1.0-4.8) Monocytes # (Auto) 0.2 TH/MM3 0.2 TH/MM3 (0-0.9) (0-0.9) Eosinophils # (Auto) 0.0 TH/MM3 0.0 TH/MM3 (0-0.4) (0-0.4) Basophils # (Auto) 0.0 TH/MM3 0.0 TH/MM3 (0-0.2) (0-0.2) CBC Comment AUTO DIFF AUTO DIFF Differential Total Cells 100 100 Counted Neutrophils % (Manual) 57 % (16-70) 28 % (16-70) Band Neutrophils % 17 % (0-6) 40 % (0-6) Lymphocytes % 23 % (9-44) 19 % (9-44) Monocytes % 3 % (0-8) 3 % (0-8) Neutrophils # (Manual) 1.6 TH/MM3 1.6 TH/MM3 (1.8-7.7) (1.8-7.7) Nucleated Red Blood Cells 1 /100 WBC 1 /100 WBC (0-0) (0-0) Differential Comment FINAL DIFF FINAL DIFF MANUAL MANUAL Platelet Estimate LOW (NORMAL) NORMAL (NORMAL) Platelet Morphology Comment NORMAL NORMAL (NORMAL) (NORMAL) Sodium Level 144 MEQ/L 142 MEQ/L (136-145) (136-145) Potassium Level 4.2 MEQ/L 3.5 MEQ/L (3.5-5.1) (3.5-5.1) Chloride Level 113 MEQ/L 108 MEQ/L (98-107) (98-107) Carbon Dioxide Level 24.0 MEQ/L 26.1 MEQ/L (21.0-32.0) (21.0-32.0) Anion Gap 7 MEQ/L (5-15) 8 MEQ/L (5-15) Blood Urea Nitrogen 51 MG/DL (7-18) 33 MG/DL (7-18) Creatinine 0.84 MG/DL 0.69 MG/DL (0.60-1.30) (0.60-1.30) Estimat Glomerular Filtration 92 ML/MIN (>89) 116 ML/MIN Rate (>89) Random Glucose 126 MG/DL 104 MG/DL (74-106) (74-106) Calcium Level 7.4 MG/DL 6.8 MG/DL (8.5-10.1) (8.5-10.1) Protein Corrected Calcium 9.5 MG/DL 8.9 MG/DL (8.5-10.1) (8.5-10.1) Magnesium Level 1.9 MG/DL (1.5-2.5) Total Bilirubin 0.6 MG/DL (0.2-1.0) Aspartate Amino Transf 13 U/L (15-37) (AST/SGOT) Alanine Aminotransferase 14 U/L (12-78) (ALT/SGPT) Alkaline Phosphatase 48 U/L (45-117) Total Protein 3.7 GM/DL 3.4 GM/DL (6.4-8.2) (6.4-8.2) Albumin 1.8 GM/DL (3.4-5.0) Metamyelocytes 10 % (0-1) Basophilic Stippling FAINT (NORMAL) Prothrombin Time 12.0 SEC (9.8-11.6) Prothromb Time International 1.1 RATIO Ratio Activated Partial 36.4 SEC Thromboplast Time (24.3-30.1) Result Diagram: 01/26/17 0320 01/26/17 0320 Imaging Last Impressions Chest CT 01/23/171638 Signed Impressions: Service Date/Time: Monday, January 23, 2017 17:39 - CONCLUSION: Abnormal esophageal appearance and findings concerning for GI perforation in the GE junction region. Shantanu Maxwell MD Abdomen/Pelvis CT 01/23/17 Signed Impressions: Service Date/Time: Monday, January 23, 2017 17:37 - CONCLUSION: Metastatic disease present throughout the liver. Nonspecific splenic lesions. Small collections of air are near the GE junction with appearance worrisome for a GI perforation in this area. Shantanu Maxwell MD Patient/Family Conference Present at Family Conference: Patient, , and brother Family Conference Time (mins): 45 Family Conference Location: Bedside Issues Discussed: Met with patient and his family at length. Discussion included the following: * Palliative care role, purpose, approach * Additional medical, psychosocial, and spiritual history * Patients general health, functional status, and cognitive status in the months leading up to the current hospitalization * Patient/family understanding of the current medical problems * Patient/family understanding of prognosis * Patients goals of care * Current medical treatment options and benefits/burdens of those options; review of potential complications/setbacks that may arise including but not limited to: Infections, DVT, worsening deconditioning etc. * Review of advanced directiveshe indicates he has a living will designated his as HCS, they will provide copies when able * CODE STATUSto remain DNR * Questions answered to the best of my ability * Palliative care contact information provided Met with patient and family at length. They have good understanding of conditions and prognosis. Goals are to continue whatever aggressive treatments are available (radiation, additional chemotherapy )to stabilize/slow disease progression. They understand that he will not achieve cure from underlying disease process. Patient desires DNR. Open to revisiting goals should significant complications or setbacks occur. Assessment and Plan Disease Oriented Problem List: (1) Primary cancer of esophagus with metastasis to other site (2) Anemia due to blood loss (3) Dysphagia due to mass (4) Stage IV esophageal cancer (5) Bleeding from ulcerating esophageal cancer (6) Severe anemia requiring transfusion (7) DONNA (acute kidney injury) Symptom Scale: (1) Fatigue (2) Dysphagia (3) Malnutrition Pertinent Non-Medical Issues ==Psychosocial:. Originally from [place] though has lived in [place] for the past 20+ years. 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 Supported by , brother, 2 adult daughters. Also has a 12yr old pit bull at home. ==Spiritual: Does not desire automobile travel club counselor support ==Legal:Legal decision maker: Patient is able to make his own decisions. He indicates his is designated on his living will as HCS. Requested they bring copies of this documentation. In absence of this document his would be legal decision maker per statutes. . Important Contacts Chary Crockett [phone] . Prognosis This patient has stage IV esophageal carcinoma. He had just recently started fourth line chemotherapy, and has had disease progression up until this point. May be able to take 5th chemo if current acute condition stabilizes. Currently suffering from complications of ongoing bleeding unable to be embolized. Plan for radiation. Overall prognosis for survival beyond 6 months appears poor given disease progression thus far, and recurrent complications. Appropriate for hospice-if goals compatible. Code Status: No Code Plan * Legal decision maker: Patient is able to make his own decisions. He indicates his is designated on his living will as HCS. Requested they bring copies of this documentation. In absence of this document his would be legal decision maker per statutes. * Goals: Met with patient and family at length. They have good understanding of conditions and prognosis. Goals are to continue whatever aggressive treatments are available (radiation, additional chemotherapy )to stabilize/slow disease progression. They understand that he will not achieve cure from underlying disease process. Patient desires DNR. Open to revisiting goals should significant complications or setbacks occur. * CODE STATUS: DNR * SYMPTOMS: --Patient denies pain, dyspnea, anxiety; will continue to evaluate --Fatiguegeneral. Has been ongoing for months especially after chemotherapy completion. -- Recommend PT evaluation/treatment to continue to maintain patient strength/mobility-discussed with oncology --Malnutritionongoing, weight loss of 50-60lbs total since diagnoses however has recently gained back about 10 pounds; nutrition via G-tube. Possible patient may be able to begin some oral feeding again for pleasure post radiation; so will probably require ongoing use of feeding tube to maintain caloric needs --Dysphagiasecondary to mass; Possible patient may be able to begin some oral feeding again for pleasure post radiation; so will probably require ongoing use of feeding tube to maintain caloric needs * Palliative care will continue to follow during hospital course as condition evolves, to assist patient/decision-maker with understanding of medical conditions, weighing benefits/burdens of treatment options, for clarification of goals of treatment. Additionally will assist with any symptoms of palliative concern Time Spent Total Floor Time (mins): 70 >50% Counseling/Coord of Care: Yes (discussed with RN, oncology PA) Thank you for the opportunity to participate in the care of Mr. Crockett. Attestation To help prompt me to consider important information that might be impacting today's encounter and assessment, information from prior notes written by myself or my colleagues may have been "brought forward" into today's note. My signature on this note, however, is an attestation that I personally performed the exam, history, and/or decision-making noted today, and, unless otherwise indicated, the interactions with patient, family, and staff as well as the review of records all occurred today. I also attest that the listed assessment and stated plan reflect my best clinical judgment today based on the combination of historical information, prior notes, and today's exam/ interactions. When time spent is documented, it refers only to time spent today by the signer, or if indicated, combined time spent today by collaborating physician/nurse practitioner. Sabine Al Jan 26, 2017 10:25
--- NOTE | 2017-01-26 12:19 | PD.ONC.PN ---
Subjective Subjective Remarks Afebrile overnight. Patient states "I am feeling better today." Still with some bloody stools. Starting XRT this evening. Objective Data Date Time Temp Pulse Resp B/P Pulse Ox O2 Delivery O2 Flow Rate FiO2 01/26/17 10:00 66 01/26/17 08:00 64 01/26/17 08:00 98.3 64 12 104/66 96 01/26/17 07:43 96 01/26/17 06:00 63 01/26/17 04:00 98.4 66 14 92/64 94 01/26/17 04:00 66 01/26/17 02:00 62 01/26/17 00:00 98.6 71 8 101/64 95 01/26/17 00:00 71 01/25/17 22:00 69 01/25/17 20:00 72 01/25/17 20:00 98.6 72 15 101/65 97 01/25/17 16:00 98.4 74 16 99/61 96 01/26/17 01/26/17 01/26/17 07:00 15:00 23:00 Intake Total 1378 ml Output Total 550 ml Balance 828 ml Result Diagram: 01/26/17 0320 01/26/17 0320 Laboratory Results Laboratory Tests Test 01/26/17 03:20 White Blood Count 2.0 TH/MM3 Red Blood Count 2.59 MIL/MM3 Hemoglobin 7.8 GM/DL Hematocrit 22.2 % Mean Corpuscular Volume 85.7 FL Mean Corpuscular Hemoglobin 29.9 PG Mean Corpuscular Hemoglobin 34.9 % Concent Red Cell Distribution Width 16.7 % Platelet Count 96 TH/MM3 Mean Platelet Volume 8.2 FL Neutrophils (%) (Auto) 59.9 % Lymphocytes (%) (Auto) 30.4 % Monocytes (%) (Auto) 8.4 % Eosinophils (%) (Auto) 1.0 % Basophils (%) (Auto) 0.3 % Neutrophils # (Auto) 1.2 TH/MM3 Lymphocytes # (Auto) 0.6 TH/MM3 Monocytes # (Auto) 0.2 TH/MM3 Eosinophils # (Auto) 0.0 TH/MM3 Basophils # (Auto) 0.0 TH/MM3 CBC Comment AUTO DIFF Differential Total Cells 100 Counted Neutrophils % (Manual) 28 % Band Neutrophils % 40 % Lymphocytes % 19 % Monocytes % 3 % Neutrophils # (Manual) 1.6 TH/MM3 Metamyelocytes 10 % Nucleated Red Blood Cells 1 /100 WBC Differential Comment FINAL DIFF MANUAL Platelet Estimate NORMAL Platelet Morphology Comment NORMAL Basophilic Stippling FAINT Prothrombin Time 12.0 SEC Prothromb Time International 1.1 RATIO Ratio Activated Partial 36.4 SEC Thromboplast Time Sodium Level 142 MEQ/L Potassium Level 3.5 MEQ/L Chloride Level 108 MEQ/L Carbon Dioxide Level 26.1 MEQ/L Anion Gap 8 MEQ/L Blood Urea Nitrogen 33 MG/DL Creatinine 0.69 MG/DL Estimat Glomerular Filtration 116 ML/MIN Rate Random Glucose 104 MG/DL Calcium Level 6.8 MG/DL Protein Corrected Calcium 8.9 MG/DL Total Protein 3.4 GM/DL Administered Medications Medications (Trade) Dose Ordered Sig/Andrea Route PRN Reason Start Time Stop Time Status Last Admin Dose Admin Pantoprazole Sodium/Sodium Chloride (Protonix Inj/NS Inj) 100 ml @ 10 mls/hr Q10H IV 01/23/17 09:00 01/26/17 05:48 Chlorhexidine Gluconate 3 pack 3 pack Taper DAILY@04 TOP 01/24/17 04:00 01/20/18 03:59 01/26/17 03:02 Potassium Chloride (KCl 40 Meq Premix Inj) 100 ml @ 25 mls/hr UNSCH PRN IV For Potassium 3.3 - 3.5 mEq/L 01/23/17 08:30 01/26/17 09:29 Sodium Chloride 2 ml 2 ml BID IV FLUSH 01/23/17 21:00 01/26/17 07:47 Octreotide Acetate 500 mcg/ Sodium Chloride 500.0 ml @ 25 mls/hr Q20H IV 01/23/17 11:15 01/28/17 11:14 01/26/17 10:42 Aztreonam 2000 mg/ Sodium Chloride 100 ml @ 200 mls/hr Q6H IV 01/24/17 09:00 01/26/17 07:47 Metronidazole (Flagyl 500 Mg Inj) 100 ml @ 100 mls/hr Q8H IV 01/24/17 08:00 01/26/17 07:46 Metoclopramide HCl 10 mg 10 mg Q8H IV 01/24/17 08:00 01/26/17 07:47 Sodium Chloride (1/2 NS 1000 ml Inj) 1,000 ml @ 125 mls/hr Q8H IV 01/24/17 07:15 01/26/17 07:47 Objective Remarks GENERAL: Chronically ill appearing male, sitting up in bed in nad. SKIN: Warm and dry. HEAD: Normocephalic. EYES: No injection or drainage. NECK: Supple, trachea midline. CARDIOVASCULAR: Regular rate and rhythm RESPIRATORY: Breath sounds equal bilaterally. No accessory muscle use. GASTROINTESTINAL: Abdomen soft, non-tender, nondistended. EXTREMITIES: No cyanosis NEUROLOGICAL: No obvious focal deficit. Awake, alert, and oriented x3. Assessment/Plan Problem List: (1) GI bleed Status: Acute Plan: --s/p EGD with cauterization --due to bleeding gastric mass (2) Stage IV esophageal cancer Status: Acute Plan: --XRT to start 01/26. may resume chemotherapy outpatient once discharged --metastatic esophageal cancer, metastasis to the liver and lymph node. --was receiving first-line chemotherapy with Cyramza and Taxol, the last cycle ( third cycle) of chemotherapy was two days prior to admission. History: --initially diagosed with adenocarcinoma involving the GE junction invading into the stomach fundus, he also had liver metastasis and adenopathy in the abdomen. --good response to EOX chemotherapy but poor tolerance--> switched to FOLFOX chemotherapy, developed progression of disease. --was treated with Keytruda with no clear response. switched to FOLFIRI but again developed progression of disease-->recently switched over to Cyramza and Taxol, Assessment 61 y/o male with history of metastatic esophageal cancer admitted for severe anemia with GI bleeding. h/o PEG tube placement. Port placement. Plan 1. start XRT today 2. give 1 unit pRBC 3. supportive care Attending Statement The exam, history, and the medical decision-making described in the above note were completed with the assistance of the mid-level provider. I reviewed and agree with the findings presented. I attest that I had a [id number] encounter with the patient on the same day, and personally performed and documented my assessment and findings in the medical record. Feeling better. No abdominal pain. Still has blood in G tube suction. Continue to transfuse prn. No obvious coagulopathy. To start XRT. Discussed with . CT did not show clear evidence of progression when compare to CT from 01/01, the live lesions seems slightly smaller. Darcy Chatman Jan 26, 2017 12:19 Armando Del Angel MD Jan 26, 2017 14:51
[2017-01-26] MEDS ORDERED: SODIUM CHLOR 0.9% 250 ML INJ 250 ML IV ONE (12:30)
[2017-01-26] MEDS ORDERED: ACETAMINOPHEN 325 MG TAB PO PRN (12:30)
[2017-01-26] MEDS ORDERED: diphenhydrAMINE HCL 25 MG CAP PO PRN (12:30)
--- NOTE | 2017-01-26 14:30 | HHI.GIFU ---
Subjective Remarks Resting in bed. No active bleeding. 300cc gastric drainage out today- last 200cc since canister has been changed has been clear liquid. No vomiting. One black tarry stool. Tolerating ice chips. Pt does not take more than ice chips po. He takes all nutrition via peg tube. (Fransisca Jeronimo) Objective Vitals I&O Vital Signs Date Time Temp Pulse Resp B/P Pulse Ox O2 Delivery O2 Flow Rate FiO2 01/26/17 12:00 71 01/26/17 12:00 98.1 71 14 112/65 96 01/26/17 10:00 66 01/26/17 08:00 64 01/26/17 08:00 98.3 64 12 104/66 96 01/26/17 07:43 96 01/26/17 06:00 63 01/26/17 04:00 98.4 66 14 92/64 94 01/26/17 04:00 66 01/26/17 02:00 62 01/26/17 00:00 98.6 71 8 101/64 95 01/26/17 00:00 71 01/25/17 22:00 69 01/25/17 20:00 72 01/25/17 20:00 98.6 72 15 101/65 97 01/25/17 16:00 98.4 74 16 99/61 96 I/O 01/25/17 01/25/17 01/25/17 01/26/17 01/26/17 01/26/17 07:00 15:00 23:00 07:00 15:00 23:00 Intake Total 1239 ml 1400 ml 1562 ml 1378 ml Output Total 900 ml 650 ml 1450 ml 550 ml Balance 339 ml 750 ml 112 ml 828 ml Intake Oral 0 ml 0 ml 0 ml IV Total 1239 ml 1400 ml 1562 ml 1378 ml Output Urine Total 900 ml 450 ml 1350 ml 450 ml Stool Total 200 ml 100 ml 100 ml # Bowel Movements 1 1 1 1 Laboratory Laboratory Tests Test 01/26/17 03:20 White Blood Count 2.0 Red Blood Count 2.59 Hemoglobin 7.8 Hematocrit 22.2 Mean Corpuscular Volume 85.7 Mean Corpuscular Hemoglobin 29.9 Mean Corpuscular Hemoglobin 34.9 Concent Red Cell Distribution Width 16.7 Platelet Count 96 Mean Platelet Volume 8.2 Neutrophils (%) (Auto) 59.9 Lymphocytes (%) (Auto) 30.4 Monocytes (%) (Auto) 8.4 Eosinophils (%) (Auto) 1.0 Basophils (%) (Auto) 0.3 Neutrophils # (Auto) 1.2 Lymphocytes # (Auto) 0.6 Monocytes # (Auto) 0.2 Eosinophils # (Auto) 0.0 Basophils # (Auto) 0.0 CBC Comment AUTO DIFF Differential Total Cells 100 Counted Neutrophils % (Manual) 28 Band Neutrophils % 40 Lymphocytes % 19 Monocytes % 3 Neutrophils # (Manual) 1.6 Metamyelocytes 10 Nucleated Red Blood Cells 1 Differential Comment FINAL DIFF MANUAL Platelet Estimate NORMAL Platelet Morphology Comment NORMAL Basophilic Stippling FAINT Prothrombin Time 12.0 Prothromb Time International 1.1 Ratio Activated Partial 36.4 Thromboplast Time Sodium Level 142 Potassium Level 3.5 Chloride Level 108 Carbon Dioxide Level 26.1 Anion Gap 8 Blood Urea Nitrogen 33 Creatinine 0.69 Estimat Glomerular Filtration 116 Rate Random Glucose 104 Calcium Level 6.8 Protein Corrected Calcium 8.9 Total Protein 3.4 Imaging Last Impressions Chest CT 01/23/17 0669 Signed Impressions: Service Date/Time: Monday, January 23, 2017 17:39 - CONCLUSION: Abnormal esophageal appearance and findings concerning for GI perforation in the GE junction region. Shantanu Maxwell MD Abdomen/Pelvis CT 01/23/17 9021 Signed Impressions: Service Date/Time: Monday, January 23, 2017 17:37 - CONCLUSION: Metastatic disease present throughout the liver. Nonspecific splenic lesions. Small collections of air are near the GE junction with appearance worrisome for a GI perforation in this area. Shantanu Maxwell MD Physical Exam HEENT: Normocephalic; atraumatic; no jaundice. CHEST: CTA CARDIAC: Regular ABDOMEN: +Bs, soft, nondistended, nontender. PEG tube to LIWS with clear gastric secretions. EXTREMITIES: No clubbing, cyanosis, or edema. SKIN: Normal; no rash; no jaundice. [employer]: No focal deficits; alert and oriented times three. (Fransisca Jeronimo) Assessment and Plan Plan ASSESSMENT: - Upper GI bleed. Pt has stage IV esophageal cancer and has had GI bleeding secondary to bleeding mass in the past. He has been coughing up small amounts of blood and melena for several days and started having nausea/vomiting with red blood on 01/22. Initially, this was small amounts, but he started vomiting larger amounts on 01/23. He was found to have severe anemia with a H/H of 3.1/9.3. He has received 11 units of PRBCs. He had a similar episode in November and was evaluated with EGD (11/05/16)---> ulcerated actively bleeding mass in the distal esophagus with multiple bleeding sites, this was injected with 10cc of 1/10,000 epi and cauterized by tone coates, significant narrowing of the esophagus because of the tumor, retroflexed views revealed no abnormalities, but blood clots. Pt s/p EGD on 01/23/2017 with clips application/epinephrine injection and APC treatment of tumor, s/p failed embolization attempt large ulcerated mass at GE junction most likely cause of recurrent bleeding. CT of the chest/abdomen/pelvis done for restaging shows questionable perforation at GE junction but pt does not this further investigated or intervened upon. Pt has been started on Azactam and Flagyl. Pt had multiple attempts at embolization unsuccessful 01/24. Patient had one episode of melena today. PEG tube to LIWS with clear secretions. Hgb 7.8/22.2. S/P 11 units PRBC. Going for radiation tonight. Okay for ice chips. Will d/c octreotide and change protonix gtt to BID dosing. Will keep PEG to LIWS overnight to see exactly how much output he is having. - Severe anemia secondary to acute blood loss. 3.1/9.3 on admission. S/P 11 units PRBC since admission. Currently Hgb 7.8 - Stage IV metastatic esophageal cancer. S/P [facility] evaluation in past. Followed by Dr. Del Angel. He was diagnosed in October of 2015. He was treated with chemotherapy until August of 2016, when he was found to have progression of disease and this was changed to Keytruda. His reports that he received this for 3 months, but had no response and therefore it was changed to FOLFOX/FOLFIRI in November. He reports that he did not have a good response to this either and therefore was started on a new chemotherapy drug this month (Taxol and she does not recall the other one) and just received his third dose of this past Thursday. Radiation oncology has been consulted for possible palliative radiation to the site of bleeding. He does not wish to have surgery. He is a DNR. - FEN. Had PEG placed in September 2016. He uses this for nutrition. They use Jevity, Isosource, or Boosts. He lost about 60 lbs since being diagnosed with cancer, but that he has been tolerating his tube feedings and recently gained back 10 lbs over the past 2 months. PLAN: - Ice chips/Water. Pt only takes this po. - D/C Octreotide gtt - Change protonix to 40mg IV BID - Will keep PEG to LIWS overnight to see exactly how much output he is having, as this just increased again. - Monitor HH - Transfuse as necessary - Supportive care - Pt seen and examined by Dr. Li and myself and this note is written on his behalf (Fransisac Jeronimo) Physician Comments Patient seen and examined Agree with above Continue with current supportive care Monitor labs No active bleeding at this point and patient started his radiation therapy today Hopefully no further bleeding Okay to advance to a liquid diet at this point orally as tolerated Not much to add from a GI standpoint we will sign off (Richard Li MD ) Fransisca Jeronimo Jan 26, 2017 14:30 Richard Li MD Jan 26, 2017 22:16
[2017-01-26] MEDS: PANTOPRAZOLE SODIUM 40 MG VIAL IV PUSH SCH (18:14)
[2017-01-27] VITALS (13 sets, daily range): BP systolic 100–129; BP diastolic 58–80; PULSE 64–70; RESP 14–17; TEMP 98.1–99.1; O2SAT 95–97
[2017-01-27] MEDS: CHLORHEXIDINE GLUCONATE 2 % 1 PACK (2 CLOTHS) TOP SCH (02:11)
[2017-01-27] MEDS: AZTREONAM INJ 2,000 MG in SODIUM CHLORIDE 0.9% INJ 100 ML IV SCH ×4 (02:11→20:17)
[2017-01-27 05:41] LABS: AUTOMATED NEUTROPHIL # 2.1 TH/MM3 (1.8-7.7); BASOPHIL % 0.6 % (0.0-2.0); HEMATOCRIT 27.7 % (39.0-51.0); LYMPH % 17.8 % (9.0-44.0); LYMPHOCYTE # 0.5 TH/MM3 (1.0-4.8); MEAN CELL VOLUME 85.5 FL (80.0-100.0); MEAN CORPUSCULAR HEMOGLOBIN 29.4 PG (27.0-34.0); MEAN CORPUSCULAR HGB CONC 34.4 % (32.0-36.0); MONO % 8.4 % (0.0-8.0); NEUT % 72.2 % (16.0-70.0); PLATELET COUNT 119 TH/MM3 (150-450); RED BLOOD COUNT 3.23 MIL/MM3 (4.50-5.90); WHITE BLOOD COUNT 2.9 TH/MM3 (4.0-11.0)
[2017-01-27] MEDS: SODIUM CHLOR 0.45% 1000 ML INJ 1,000 ML IV SCH ×3 (06:04→22:55)
[2017-01-27] MEDS: PANTOPRAZOLE SODIUM 40 MG VIAL IV PUSH SCH ×2 (06:04→17:19)
[2017-01-27 06:08] LABS: HEMO FLAGS AUTO DIFF
[2017-01-27 06:26] LABS: BICARBONATE 23.8 MEQ/L (21.0-32.0); CALCIUM-PROTEIN CORRECTED 8.9 MG/DL (8.5-10.1); MAGNESIUM 1.9 MG/DL (1.5-2.5); POTASSIUM 3.5 MEQ/L (3.5-5.1); TOTAL BILIRUBIN ADULT 0.6 MG/DL (0.2-1.0)
[2017-01-27] MEDS: METOCLOPRAMIDE HCL 10 MG/2 ML VIAL IV SCH ×3 (07:58→22:55)
[2017-01-27] MEDS: SODIUM CHLORIDE 0.9% FLUSH 10 ML FLUSH IV FLUSH SCH ×2 (07:58→20:17)
[2017-01-27] MEDS: metroNIDAZOLE 500 MG INJ 100 ML IV SCH ×3 (07:58→22:55)
[2017-01-27 08:27] LABS: BANDS 25 % (0-6); METAMYELOCYTES 2 % (0-1); MYELOCYTES 3 % (0-0); NEUTROPHIL # MANUAL DIFF 2.6 TH/MM3 (1.8-7.7); POLYS (SEG NEUTROPHILS) 60 % (16-70); WBC DIFF SAMPLE 100
[2017-01-27 08:28] LABS: PLATELET ESTIMATE SMEAR LOW (NORMAL); PLATELET MORPHOLOGY NORMAL (NORMAL); SCAN/DIFF FINAL DIFF MANUAL
--- NOTE | 2017-01-27 09:18 | PD.TRANSFR ---
Transfer Summary Admission Date Jan 23, 2017 at 06:26 Admitting Diagnosis active upper GI bleed with severe anemia Diagnoses: (1) Upper GI bleed Diagnosis: Principal (2) Bleeding from ulcerating esophageal cancer Diagnosis: Principal (3) Severe anemia requiring transfusion Diagnosis: Principal (4) Stage IV esophageal cancer Diagnosis: Secondary Transfer Summary/Subjective 60-year-old male with history of stage IV metastatic esophageal cancer undergoing chemotherapy with Dr. del angel, history of upper GI bleed from ulcerating esophageal cancer, who presented with vomiting blood and passing black stools. He also complains of of weakness and lightheadedness. He is followed by Dr. Del Angel for his esophageal adenocarcinoma. His hemoglobin on presentation was 3 with a hematocrit of 9.1. Patient was borderline hypotensive and tachycardic 4 units of PRBC had been ordered by Dr. Sharpe. After discussion with Dr. del angel patient had decided to be a DNR, but is okay with the temporary intubation if needed for endoscopy. Patient had similar presentation on November 2016 where he was admitted with upper GI bleed and was seen by GI doctor Sharath. EGD 11/05/16 showed ulcerating bleeding mass in the distal esophagus, status post epi injection and cauterization. I evaluated the patient in the ED. He is in mild to moderate discomfort due to recurrent nausea , and hematemesis. He is receiving his fourth unit of blood. Remains tachycardic but blood pressure has improved. SUBJ 01/24/17: s/p EGD with ablation/epi injection and clipping x3 of bleeding esophageal mass by Dr. German on 01/23/17. Continues to have hematemesis. Completing total 4 units of PRBC. Last hemoglobin was 7.9. Sodium has increased to 146 BUN 61 creatinine 1.37. Remains critically ill, borderline hypotensive. CT of the chest abdomen pelvis done for restaging shows questionable perforation at GE junction. Patient does not want possible perforation further investigated or intervened. I have started him on Azactam and Flagyl. Patient is still okay with IR evaluation for possible embolization. 01/25/17: Patient had one episode of hematemesis and melena overnight. Hemoglobin stable at 9. Chemistry pending. Multiple attempts at embolization unsuccessful yesterday. Oncology planning on palliative radiation therapy 01/26/17: No further hematemesis overnight. Continues to have melanotic stools. Hemoglobin 7.8 platelet count 96 today. Getting radiation therapy to starting today 01/27/17: Start on radiation therapy yesterday. Last 24 hours no hematemesis. No coffee-ground material from PEG tube. Hemoglobin stable at 9.5. Discussed with GI about starting PEG tube feeding Objective Vital Signs Date Time Temp Pulse Resp B/P Pulse Ox O2 Delivery O2 Flow Rate FiO2 01/27/17 08:00 98.1 67 14 120/74 95 01/26/17 19:05 21 01/24/17 07:50 Nasal Cannula 1.00 Intake and Output 01/26/17 01/26/17 01/27/17 08:00 16:00 00:00 Intake Total 1378 ml 1759 ml 1324 ml Output Total 550 ml 775 ml 1150 ml Balance 828 ml 984 ml 174 ml Result Diagram: 01/27/17 0400 01/27/17 0400 Objective Remarks GENERAL: 60-year-old male who appears pale, improved nausea SKIN: Warm and dry. HEAD: Atraumatic. Normocephalic. EYES: Pupils equal and round. No scleral icterus. Conjunctiva pale ENT: No nasal bleeding or discharge. Mucous membranes dry NECK: Trachea midline. No JVD. CARDIOVASCULAR: No murmur appreciated. Right upper chest port in place RESPIRATORY: No accessory muscle use. Clear to auscultation. Breath sounds equal bilaterally. PEG tube with coffee ground output GASTROINTESTINAL: Abdomen soft, non-tender, nondistended. MUSCULOSKELETAL: No obvious deformities. No clubbing. No cyanosis. No edema. LUE swelling NEUROLOGICAL: Awake and alert. No obvious cranial nerve deficits. Motor grossly within normal limits. Normal speech. A/P Assessment and Plan NEURO: -Pain control with as needed morphine, Reglan for nausea vomiting. Compazine PRN RESP: -Nasal cannula oxygen -DuoNeb every 6 hours when necessary. Incentive spirometry -Patient is a DNR but okay with temporary intubation for EGD/procedures if needed CV: Sinus tachycardia -D5W at 100 ml pe hour until tube feeds can be started GI/HEME: Upper GI bleed from esophageal cancer Stage IV his original cancer Anemia requiring transfusion Possible esophageal perforation and GE junction -s/p EGD with ablation/epi injection and clipping x3 of bleeding esophageal mass by Dr. German on 01/23/17 -EGD 11/05/16 showed ulcerating bleeding mass in the distal esophagus, status post epi injection and cauterization. -IR unable to embolize 01/24/17 -Palliative radiation to started 01/26/17 -Keep nothing by mouth, PEG to IWS. DCd both Protonix 8 mg per hour infusion, Octreotide gtt 01/26. On Protonix 40 mg IV q12 -Transfuse to keep hemoglobin more than 8, H&H every 8 hours -Patient does not want any diagnostic or therapeutic interventions performed for possible esophageal perforation -Palliative radiation planned per Oncology : Acute kidney injury -DONNA secondary to ATN -resolved -Monitor renal function closely. IV fluids as above ID: -Monitor for infection. -Empiric Azactam and Flagyl for possible esophageal perforation ENDO: -Electrolyte replacement per protocol MSK: LUE swollen. I will explained to the family that even he does DVT we are unable to treat due to life-threatening upper GI bleed PROPH: -Bilateral lower extremity SCDs. Avoid chemical DVT prophylaxis. Protonix 40 mg IV q12 LINES: -Utilize peripheral IVs, access port if needed Level 3 Palliative care following Consult hospitalist to assume care from am 01/28/17 Citlali Fournier MD Jan 27, 2017 09:18
[2017-01-27] MEDS: POTASSIUM CHLOR 40 MEQ PREMIX 100 ML IV PRN (10:38)
[2017-01-27] MEDS: DEXTROSE 5% IN WATE 1000ML INJ 1,000 ML IV SCH (11:00)
--- NOTE | 2017-01-27 11:01 | HHI.HCPN ---
Reason for visit a. To assist with evaluation and management of symptoms including: Fatigue, malnutrition b. To assist medical decision maker(s) with: better understanding of current medical conditions; weighing benefits/burdens of medical treatment options; making medical treatment decisions. Subjective/Interval History Pt seen today to follow up on comfort following 1st radiation tx . S/p 1 of 25 planned XRT treatments yesterday. Tolerated well. PEG was to sx overnight to monitor drainage per GI [825ml output 24hr total] Taking ice/ water PO. H&H stable today at 9.5/27.7 , s/p transfusion 1 uRBC yesterday per oncology. Pt seen w no family present. Has been OOB to chair at bedside. ROS essentially negative, indicates is feeling well overall. No pain. Did well w PT OOB, will likely be able to continue activity without need for aggressive PT. . Advance Directives Living Will: Completed, but not made available Health Care Surrogate: Completed, but not made available Objective Vital Signs Date Time Temp Pulse Resp B/P Pulse Ox O2 Delivery O2 Flow Rate FiO2 01/27/17 10:00 70 01/27/17 08:00 98.1 67 14 120/74 95 01/27/17 08:00 67 01/27/17 06:00 66 01/27/17 04:00 98.4 66 16 129/80 95 01/27/17 04:00 66 01/27/17 02:00 65 01/27/17 00:00 67 01/27/17 00:00 98.8 67 17 122/75 97 01/26/17 22:35 98.6 69 17 96/62 96 01/26/17 22:20 98.6 69 14 110/69 96 01/26/17 22:05 98.6 68 17 111/71 97 01/26/17 22:00 69 01/26/17 20:00 68 01/26/17 20:00 98.6 68 12 114/67 96 01/26/17 19:05 98 21 01/26/17 18:00 72 01/26/17 14:00 67 01/26/17 12:00 71 01/26/17 12:00 98.1 71 14 112/65 96 Intake & Output 01/27/17 01/27/17 07:00 19:00 Intake Total 2577 ml Output Total 1900 ml Balance 677 ml Intake Oral 120 ml IV Total 2133 ml Packed Cells 324 ml Output Urine Total 1200 ml Gastric Drainage Total 700 ml Physical Exam CONSTITUTIONAL/GENERAL: This is an adequately nourished patient, pleasant, in no distress TUBES/LINES/DRAINS: PIV upper extremity, right subclavian port, PEG tube CARDIOVASCULAR: Regular rate and rhythm, no murmurs. Trace peripheral edema to upper extremities. RESPIRATORY/CHEST: Symmetric, unlabored respirations. Clear to auscultation. On Room air. Breath sounds equal bilaterally.Lungs clear. GASTROINTESTINAL: Abdomen soft, non-tender, nondistended. No guarding. No palpable masses. Bowel sounds present.+ G tube clamped, dressing clean/dry. NEUROLOGICAL: Awake and alert. Oriented 3 insight is good. pleasant. Motor and sensory grossly within normal limits. Follows commands. Cognitively sharp. Moves all 4 extremities. PSYCHIATRIC: No obvious anxiety/depression. no apparent hallucinations or other psychotic thought process. Diagnostic Tests Laboratory Laboratory Tests Test 01/24/17 01/25/17 01/25/17 01/26/17 12:45 06:00 07:15 03:20 White Blood Count 4.4 TH/MM3 2.1 TH/MM3 2.0 TH/MM3 (4.0-11.0) (4.0-11.0) (4.0-11.0) Red Blood Count 2.83 MIL/MM3 3.02 MIL/MM3 2.59 MIL/MM3 (4.50-5.90) (4.50-5.90) (4.50-5.90) Hemoglobin 8.3 GM/DL 9.0 GM/DL 8.8 GM/DL 7.8 GM/DL (13.0-17.0) (13.0-17.0) (13.0-17.0) (13.0-17.0) Hematocrit 24.2 % 25.4 % 22.2 % (39.0-51.0) (39.0-51.0) (39.0-51.0) Mean Corpuscular Volume 85.5 FL 84.2 FL 85.7 FL (80.0-100.0) (80.0-100.0) (80.0-100.0) Mean Corpuscular Hemoglobin 29.5 PG 29.1 PG 29.9 PG (27.0-34.0) (27.0-34.0) (27.0-34.0) Mean Corpuscular Hemoglobin 34.5 % 34.6 % 34.9 % Concent (32.0-36.0) (32.0-36.0) (32.0-36.0) Red Cell Distribution Width 15.7 % 16.8 % 16.7 % (11.6-17.2) (11.6-17.2) (11.6-17.2) Platelet Count 101 TH/MM3 80 TH/MM3 96 TH/MM3 (150-450) (150-450) (150-450) Mean Platelet Volume 8.2 FL 8.0 FL 8.2 FL (7.0-11.0) (7.0-11.0) (7.0-11.0) Neutrophils (%) (Auto) 77.2 % 66.9 % 59.9 % (16.0-70.0) (16.0-70.0) (16.0-70.0) Lymphocytes (%) (Auto) 15.9 % 23.6 % 30.4 % (9.0-44.0) (9.0-44.0) (9.0-44.0) Monocytes (%) (Auto) 6.8 % (0.0-8.0) 9.1 % (0.0-8.0) 8.4 % (0.0-8.0) Eosinophils (%) (Auto) 0.0 % (0.0-4.0) 0.2 % (0.0-4.0) 1.0 % (0.0-4.0) Basophils (%) (Auto) 0.1 % (0.0-2.0) 0.2 % (0.0-2.0) 0.3 % (0.0-2.0) Neutrophils # (Auto) 3.4 TH/MM3 1.4 TH/MM3 1.2 TH/MM3 (1.8-7.7) (1.8-7.7) (1.8-7.7) Lymphocytes # (Auto) 0.7 TH/MM3 0.5 TH/MM3 0.6 TH/MM3 (1.0-4.8) (1.0-4.8) (1.0-4.8) Monocytes # (Auto) 0.3 TH/MM3 0.2 TH/MM3 0.2 TH/MM3 (0-0.9) (0-0.9) (0-0.9) Eosinophils # (Auto) 0.0 TH/MM3 0.0 TH/MM3 0.0 TH/MM3 (0-0.4) (0-0.4) (0-0.4) Basophils # (Auto) 0.0 TH/MM3 0.0 TH/MM3 0.0 TH/MM3 (0-0.2) (0-0.2) (0-0.2) CBC Comment AUTO DIFF AUTO DIFF AUTO DIFF Differential Comment AUTO DIFF FINAL DIFF FINAL DIFF CONFIRMED MANUAL MANUAL Sodium Level 146 MEQ/L 144 MEQ/L 142 MEQ/L (136-145) (136-145) (136-145) Potassium Level 5.0 MEQ/L 4.2 MEQ/L 3.5 MEQ/L (3.5-5.1) (3.5-5.1) (3.5-5.1) Chloride Level 115 MEQ/L 113 MEQ/L 108 MEQ/L (98-107) (98-107) (98-107) Carbon Dioxide Level 23.5 MEQ/L 24.0 MEQ/L 26.1 MEQ/L (21.0-32.0) (21.0-32.0) (21.0-32.0) Anion Gap 8 MEQ/L (5-15) 7 MEQ/L (5-15) 8 MEQ/L (5-15) Blood Urea Nitrogen 68 MG/DL (7-18) 51 MG/DL (7-18) 33 MG/DL (7-18) Creatinine 1.31 MG/DL 0.84 MG/DL 0.69 MG/DL (0.60-1.30) (0.60-1.30) (0.60-1.30) Estimat Glomerular Filtration 55 ML/MIN (>89) 92 ML/MIN (>89) 116 ML/MIN Rate (>89) Random Glucose 130 MG/DL 126 MG/DL 104 MG/DL (74-106) (74-106) (74-106) Calcium Level 7.0 MG/DL 7.4 MG/DL 6.8 MG/DL (8.5-10.1) (8.5-10.1) (8.5-10.1) Protein Corrected Calcium 9.3 MG/DL 9.5 MG/DL 8.9 MG/DL (8.5-10.1) (8.5-10.1) (8.5-10.1) Magnesium Level 2.0 MG/DL 1.9 MG/DL (1.5-2.5) (1.5-2.5) Total Bilirubin 1.1 MG/DL 0.6 MG/DL (0.2-1.0) (0.2-1.0) Aspartate Amino Transf 14 U/L (15-37) 13 U/L (15-37) (AST/SGOT) Alanine Aminotransferase 16 U/L (12-78) 14 U/L (12-78) (ALT/SGPT) Alkaline Phosphatase 41 U/L (45-117) 48 U/L (45-117) Total Protein 3.3 GM/DL 3.7 GM/DL 3.4 GM/DL (6.4-8.2) (6.4-8.2) (6.4-8.2) Albumin 1.5 GM/DL 1.8 GM/DL (3.4-5.0) (3.4-5.0) Differential Total Cells 100 100 Counted Neutrophils % (Manual) 57 % (16-70) 28 % (16-70) Band Neutrophils % 17 % (0-6) 40 % (0-6) Lymphocytes % 23 % (9-44) 19 % (9-44) Monocytes % 3 % (0-8) 3 % (0-8) Neutrophils # (Manual) 1.6 TH/MM3 1.6 TH/MM3 (1.8-7.7) (1.8-7.7) Nucleated Red Blood Cells 1 /100 WBC 1 /100 WBC (0-0) (0-0) Platelet Estimate LOW (NORMAL) NORMAL (NORMAL) Platelet Morphology Comment NORMAL NORMAL (NORMAL) (NORMAL) Metamyelocytes 10 % (0-1) Basophilic Stippling FAINT (NORMAL) Prothrombin Time 12.0 SEC (9.8-11.6) Prothromb Time International 1.1 RATIO Ratio Activated Partial 36.4 SEC Thromboplast Time (24.3-30.1) Test 01/26/17 01/27/17 17:30 04:00 Blood Type A POSITIVE Antibody Screen NEGATIVE Crossmatch Leukocyte-Reduced Red Blood Cells Blood Bank Comment White Blood Count 2.9 TH/MM3 (4.0-11.0) Red Blood Count 3.23 MIL/MM3 (4.50-5.90) Hemoglobin 9.5 GM/DL (13.0-17.0) Hematocrit 27.7 % (39.0-51.0) Mean Corpuscular Volume 85.5 FL (80.0-100.0) Mean Corpuscular Hemoglobin 29.4 PG (27.0-34.0) Mean Corpuscular Hemoglobin 34.4 % Concent (32.0-36.0) Red Cell Distribution Width 16.0 % (11.6-17.2) Platelet Count 119 TH/MM3 (150-450) Mean Platelet Volume 8.2 FL (7.0-11.0) Neutrophils (%) (Auto) 72.2 % (16.0-70.0) Lymphocytes (%) (Auto) 17.8 % (9.0-44.0) Monocytes (%) (Auto) 8.4 % (0.0-8.0) Eosinophils (%) (Auto) 1.0 % (0.0-4.0) Basophils (%) (Auto) 0.6 % (0.0-2.0) Neutrophils # (Auto) 2.1 TH/MM3 (1.8-7.7) Lymphocytes # (Auto) 0.5 TH/MM3 (1.0-4.8) Monocytes # (Auto) 0.2 TH/MM3 (0-0.9) Eosinophils # (Auto) 0.0 TH/MM3 (0-0.4) Basophils # (Auto) 0.0 TH/MM3 (0-0.2) CBC Comment AUTO DIFF Differential Total Cells 100 Counted Neutrophils % (Manual) 60 % (16-70) Band Neutrophils % 25 % (0-6) Lymphocytes % 5 % (9-44) Monocytes % 5 % (0-8) Neutrophils # (Manual) 2.6 TH/MM3 (1.8-7.7) Metamyelocytes 2 % (0-1) Myelocytes 3 % (0-0) Differential Comment FINAL DIFF MANUAL Platelet Estimate LOW (NORMAL) Platelet Morphology Comment NORMAL (NORMAL) Sodium Level 140 MEQ/L (136-145) Potassium Level 3.5 MEQ/L (3.5-5.1) Chloride Level 108 MEQ/L (98-107) Carbon Dioxide Level 23.8 MEQ/L (21.0-32.0) Anion Gap 8 MEQ/L (5-15) Blood Urea Nitrogen 23 MG/DL (7-18) Creatinine 0.55 MG/DL (0.60-1.30) Estimat Glomerular Filtration 150 ML/MIN Rate (>89) Random Glucose 66 MG/DL (74-106) Calcium Level 7.1 MG/DL (8.5-10.1) Protein Corrected Calcium 8.9 MG/DL (8.5-10.1) Magnesium Level 1.9 MG/DL (1.5-2.5) Total Bilirubin 0.6 MG/DL (0.2-1.0) Aspartate Amino Transf 21 U/L (15-37) (AST/SGOT) Alanine Aminotransferase 16 U/L (12-78) (ALT/SGPT) Alkaline Phosphatase 69 U/L (45-117) Total Protein 3.9 GM/DL (6.4-8.2) Albumin 1.7 GM/DL (3.4-5.0) Result Diagram: 01/27/1739901/27/17399 Imaging Last Impressions Chest CT 01/23/171638 Signed Impressions: Service Date/Time: Monday, January 23, 2017 17:39 - CONCLUSION: Abnormal esophageal appearance and findings concerning for GI perforation in the GE junction region. Shantanu Maxwell MD Abdomen/Pelvis CT 01/23/171638 Signed Impressions: Service Date/Time: Monday, January 23, 2017 17:37 - CONCLUSION: Metastatic disease present throughout the liver. Nonspecific splenic lesions. Small collections of air are near the GE junction with appearance worrisome for a GI perforation in this area. 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 Originally from [place] though has lived in [place] for the past 20+ years. 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 Supported by , brother, 2 adult daughters. Also has a 12yr old pit bull at home. 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 He indicates his is designated on his living will as HCS. Requested they bring copies of this documentation. In absence of this document his would be legal decision maker per statutes. . Important Contacts Chary Crockett [phone] . Prognosis This patient has stage IV esophageal carcinoma. He had just recently started fourth line chemotherapy, and has had disease progression up until this point. May be able to take 5th chemo if current acute condition stabilizes. Currently suffering from complications of ongoing bleeding unable to be embolized. Plan for radiation. Overall prognosis for survival beyond 6 months appears poor given disease progression thus far, and recurrent complications. Appropriate for hospice-if goals compatible. Code Status: No Code Plan * Legal decision maker: Patient is able to make his own decisions. He indicates his is designated on his living will as HCS. Requested they bring copies of this documentation. In absence of this document his would be legal decision maker per [place] statutes. * Goals: Met with patient and family at length 01/26/17. They have good understanding of conditions and prognosis. Goals are to continue whatever aggressive treatments are available (radiation, additional chemotherapy )to stabilize/slow disease progression. They understand that he will not achieve cure from underlying disease process. Patient desires DNR.[plan to offer COMMUNITY DNR] Open to revisiting goals should significant complications or setbacks occur. * CODE STATUS: DNR * SYMPTOMS: --Patient denies pain, dyspnea, anxiety; will continue to evaluate --Fatiguegeneral. Has been ongoing for months especially after chemotherapy completion. -- PT has evaluated/tx, pt able to ambulate well, minimal to no assist, cont OOB activity --Malnutritionongoing, weight loss of 50-60lbs total since diagnoses however has recently gained back about 10 pounds; nutrition via G-tube. Possible patient may be able to begin some oral feeding again for pleasure post radiation; will probably require ongoing use of feeding tube to maintain caloric needs --Dysphagiasecondary to mass; Possible patient may be able to begin some oral feeding again for pleasure post radiation; will probably require ongoing use of feeding tube to maintain caloric needs * Palliative care will continue to follow during hospital course as condition evolves, to assist patient/decision-maker with understanding of medical conditions, weighing benefits/burdens of treatment options, for clarification of goals of treatment. Additionally will assist with any symptoms of palliative concern Time Spent Total Floor Time (mins): 15 Attestation To help prompt me to consider important information that might be impacting today's encounter and assessment, information from prior notes written by myself or my colleagues may have been "brought forward" into today's note. My signature on this note, however, is an attestation that I personally performed the exam, history, and/or decision-making noted today, and, unless otherwise indicated, the interactions with patient, family, and staff as well as the review of records all occurred today. I also attest that the listed assessment and stated plan reflect my best clinical judgment today based on the combination of historical information, prior notes, and today's exam/ interactions. When time spent is documented, it refers only to time spent today by the signer, or if indicated, combined time spent today by collaborating physician/nurse practitioner. Sabine Al Jan 27, 2017 11:00
--- NOTE | 2017-01-27 14:01 | PD.ONC.PN ---
Subjective Subjective Remarks Afebrile overnight. Patient on stretcher about to go down for radiation. at bedside states patient was able to get out of bed for a short time today. Objective Data Date Time Temp Pulse Resp B/P Pulse Ox O2 Delivery O2 Flow Rate FiO2 01/27/17 12:26 95 21 01/27/17 12:00 65 01/27/17 12:00 98.5 65 17 118/73 97 01/27/17 10:00 70 01/27/17 08:00 98.1 67 14 120/74 95 01/27/17 08:00 67 01/27/17 06:00 66 01/27/17 04:00 98.4 66 16 129/80 95 01/27/17 04:00 66 01/27/17 02:00 65 01/27/17 00:00 67 01/27/17 00:00 98.8 67 17 122/75 97 01/26/17 22:35 98.6 69 17 96/62 96 01/26/17 22:20 98.6 69 14 110/69 96 01/26/17 22:05 98.6 68 17 111/71 97 01/26/17 22:00 69 01/26/17 20:00 68 01/26/17 20:00 98.6 68 12 114/67 96 01/26/17 19:05 98 21 01/26/17 18:00 72 01/26/17 14:00 67 01/27/17 01/27/17 01/27/17 07:00 15:00 23:00 Intake Total 1253 ml Output Total 750 ml Balance 503 ml Result Diagram: 01/27/17 0400 01/27/17 0400 Laboratory Results Laboratory Tests Test 01/26/17 01/27/17 17:30 04:00 Blood Type A POSITIVE Antibody Screen NEGATIVE Crossmatch Leukocyte-Reduced Red Blood Cells Blood Bank Comment White Blood Count 2.9 TH/MM3 Red Blood Count 3.23 MIL/MM3 Hemoglobin 9.5 GM/DL Hematocrit 27.7 % Mean Corpuscular Volume 85.5 FL Mean Corpuscular Hemoglobin 29.4 PG Mean Corpuscular Hemoglobin 34.4 % Concent Red Cell Distribution Width 16.0 % Platelet Count 119 TH/MM3 Mean Platelet Volume 8.2 FL Neutrophils (%) (Auto) 72.2 % Lymphocytes (%) (Auto) 17.8 % Monocytes (%) (Auto) 8.4 % Eosinophils (%) (Auto) 1.0 % Basophils (%) (Auto) 0.6 % Neutrophils # (Auto) 2.1 TH/MM3 Lymphocytes # (Auto) 0.5 TH/MM3 Monocytes # (Auto) 0.2 TH/MM3 Eosinophils # (Auto) 0.0 TH/MM3 Basophils # (Auto) 0.0 TH/MM3 CBC Comment AUTO DIFF Differential Total Cells 100 Counted Neutrophils % (Manual) 60 % Band Neutrophils % 25 % Lymphocytes % 5 % Monocytes % 5 % Neutrophils # (Manual) 2.6 TH/MM3 Metamyelocytes 2 % Myelocytes 3 % Differential Comment FINAL DIFF MANUAL Platelet Estimate LOW Platelet Morphology Comment NORMAL Sodium Level 140 MEQ/L Potassium Level 3.5 MEQ/L Chloride Level 108 MEQ/L Carbon Dioxide Level 23.8 MEQ/L Anion Gap 8 MEQ/L Blood Urea Nitrogen 23 MG/DL Creatinine 0.55 MG/DL Estimat Glomerular Filtration 150 ML/MIN Rate Random Glucose 66 MG/DL Calcium Level 7.1 MG/DL Protein Corrected Calcium 8.9 MG/DL Magnesium Level 1.9 MG/DL Total Bilirubin 0.6 MG/DL Aspartate Amino Transf 21 U/L (AST/SGOT) Alanine Aminotransferase 16 U/L (ALT/SGPT) Alkaline Phosphatase 69 U/L Total Protein 3.9 GM/DL Albumin 1.7 GM/DL Administered Medications Medications (Trade) Dose Ordered Sig/Andrea Route PRN Reason Start Time Stop Time Status Last Admin Dose Admin Chlorhexidine Gluconate 3 pack 3 pack Taper DAILY@04 TOP 01/24/17 04:00 01/20/18 03:59 01/27/17 02:11 Potassium Chloride (KCl 40 Meq Premix Inj) 100 ml @ 25 mls/hr UNSCH PRN IV For Potassium 3.3 - 3.5 mEq/L 01/23/17 08:30 01/27/17 10:38 Sodium Chloride 2 ml 2 ml BID IV FLUSH 01/23/17 21:00 01/27/17 07:58 Aztreonam 2000 mg/ Sodium Chloride 100 ml @ 200 mls/hr Q6H IV 01/24/17 09:00 01/27/17 07:58 Metronidazole (Flagyl 500 Mg Inj) 100 ml @ 100 mls/hr Q8H IV 01/24/17 08:00 01/27/17 07:58 Metoclopramide HCl 10 mg 10 mg Q8H IV 01/24/17 08:00 01/27/17 07:58 Sodium Chloride (1/2 NS 1000 ml Inj) 1,000 ml @ 125 mls/hr Q8H IV 01/24/17 07:15 01/27/17 06:04 Pantoprazole Sodium 40 mg 40 mg Q12H IV PUSH 01/26/17 18:00 01/27/17 06:04 Dextrose (D5W 1000 ml Inj) 1,000 ml @ 50 mls/hr Q20H IV 01/27/17 11:00 01/27/17 11:00 Objective Remarks GENERAL: Chronically ill male, lying supine on stretcher in nad. SKIN: Warm and dry. HEAD: Normocephalic. EYES: No injection or drainage. NECK: Supple, trachea midline. GASTROINTESTINAL: Abdomen soft, mildly tender, nondistended. PEG tube clamped. NEUROLOGICAL: awake and alert, normal speech. Assessment/Plan Problem List: (1) GI bleed Status: Acute Plan: --s/p EGD with cauterization --due to bleeding gastric mass (2) Stage IV esophageal cancer Status: Acute Plan: --XRT started 01/26. may resume chemotherapy outpatient once discharged --metastatic esophageal cancer, metastasis to the liver and lymph node. --was receiving first-line chemotherapy with Cyramza and Taxol, the last cycle ( third cycle) of chemotherapy was two days prior to admission. History: --initially diagosed with adenocarcinoma involving the GE junction invading into the stomach fundus, he also had liver metastasis and adenopathy in the abdomen. --good response to EOX chemotherapy but poor tolerance--> switched to FOLFOX chemotherapy, developed progression of disease. --was treated with Keytruda with no clear response. switched to FOLFIRI but again developed progression of disease-->recently switched over to Cyramza and Taxol, Assessment 61 y/o male with history of metastatic esophageal cancer admitted for severe anemia with GI bleeding. h/o PEG tube placement. Port placement. Plan 1. continue XRT 2. monitor CBC 3. start tube feedings per GI Attending Statement The exam, history, and the medical decision-making described in the above note were completed with the assistance of the mid-level provider. I reviewed and agree with the findings presented. I attest that I had a [id number] encounter with the patient on the same day, and personally performed and documented my assessment and findings in the medical record. Feeling better. Hgb trended up to 9.5 after transfusion. No further hemetemesis or melena. Day 2 of XRT today. Continue supportive care. Darcy Chatman Jan 27, 2017 14:01 Armando Del Angel MD Jan 27, 2017 18:09
[2017-01-28] VITALS (14 sets, daily range): BP systolic 107–116; BP diastolic 56–76; PULSE 66–81; RESP 15–20; TEMP 98–98.9; O2SAT 95–98
[2017-01-28] MEDS: AZTREONAM INJ 2,000 MG in SODIUM CHLORIDE 0.9% INJ 100 ML IV SCH ×4 (03:55→20:02)
[2017-01-28] MEDS: CHLORHEXIDINE GLUCONATE 2 % 1 PACK (2 CLOTHS) TOP SCH (03:55)
[2017-01-28 04:43] LABS: BASOPHIL % 0.4 % (0.0-2.0); HEMATOCRIT 26.9 % (39.0-51.0); LYMPH % 18.1 % (9.0-44.0); LYMPHOCYTE # 0.5 TH/MM3 (1.0-4.8); MEAN CELL VOLUME 84.6 FL (80.0-100.0); MEAN CORPUSCULAR HEMOGLOBIN 29.4 PG (27.0-34.0); MEAN CORPUSCULAR HGB CONC 34.8 % (32.0-36.0); MONO % 11.6 % (0.0-8.0); NEUT % 68.9 % (16.0-70.0); PLATELET COUNT 141 TH/MM3 (150-450); RED BLOOD COUNT 3.18 MIL/MM3 (4.50-5.90); RED CELL DISTRIBUTION WIDTH 16.2 % (11.6-17.2); WHITE BLOOD COUNT 2.9 TH/MM3 (4.0-11.0)
[2017-01-28 04:46] LABS: HEMO FLAGS AUTO DIFF
[2017-01-28 05:47] LABS: OVALOCYTES 1+ (NORMAL)
[2017-01-28 05:48] LABS: SCAN/DIFF AUTO DIFF CONFIRMED
[2017-01-28] MEDS: POTASSIUM CHLOR 40 MEQ PREMIX 100 ML IV PRN (06:00)
[2017-01-28] MEDS: SODIUM CHLOR 0.45% 1000 ML INJ 1,000 ML IV SCH ×3 (06:00→20:02)
[2017-01-28] MEDS: DEXTROSE 5% IN WATE 1000ML INJ 1,000 ML IV SCH (06:00)
[2017-01-28] MEDS: PANTOPRAZOLE SODIUM 40 MG VIAL IV PUSH SCH ×2 (06:00→17:35)
[2017-01-28] MEDS: PROCHLORPERAZINE INJ 10 MG/2 ML VIAL IV PUSH PRN ×3 (06:00→20:01)
[2017-01-28] MEDS: METOCLOPRAMIDE HCL 10 MG/2 ML VIAL IV SCH ×2 (07:50→15:20)
--- NOTE | 2017-01-28 07:50 | PD.ONC.PN ---
Subjective Subjective Remarks Had a good night rest. Stool was still black. No abdominal pain. Tolerating tube feeding. Objective Data Date Time Temp Pulse Resp B/P Pulse Ox O2 Delivery O2 Flow Rate FiO2 01/28/17 06:00 68 01/28/17 04:00 69 01/28/17 04:00 98.0 69 15 116/76 96 01/28/17 02:00 71 01/28/17 00:00 66 01/28/17 00:00 98.8 66 18 115/73 97 01/27/17 22:00 68 01/27/17 20:00 99.1 68 14 100/58 96 01/27/17 20:00 68 01/27/17 19:22 95 21 01/27/17 18:00 64 01/27/17 16:00 98.6 66 17 115/74 97 01/27/17 16:00 66 01/27/17 12:26 95 21 01/27/17 12:00 65 01/27/17 12:00 98.5 65 17 118/73 97 01/27/17 10:00 70 01/27/17 08:00 98.1 67 14 120/74 95 01/27/17 08:00 67 01/28/17 01/28/17 01/28/17 07:00 15:00 23:00 Intake Total 912 ml Output Total 400 ml Balance 512 ml Result Diagram: 01/28/17 0400 01/28/17 0400 Laboratory Results Laboratory Tests Test 01/28/17 04:00 White Blood Count 2.9 TH/MM3 Red Blood Count 3.18 MIL/MM3 Hemoglobin 9.4 GM/DL Hematocrit 26.9 % Mean Corpuscular Volume 84.6 FL Mean Corpuscular Hemoglobin 29.4 PG Mean Corpuscular Hemoglobin 34.8 % Concent Red Cell Distribution Width 16.2 % Platelet Count 141 TH/MM3 Mean Platelet Volume 7.9 FL Neutrophils (%) (Auto) 68.9 % Lymphocytes (%) (Auto) 18.1 % Monocytes (%) (Auto) 11.6 % Eosinophils (%) (Auto) 1.0 % Basophils (%) (Auto) 0.4 % Neutrophils # (Auto) 2.0 TH/MM3 Lymphocytes # (Auto) 0.5 TH/MM3 Monocytes # (Auto) 0.3 TH/MM3 Eosinophils # (Auto) 0.0 TH/MM3 Basophils # (Auto) 0.0 TH/MM3 CBC Comment AUTO DIFF Differential Comment AUTO DIFF CONFIRMED Ovalocytes 1+ Potassium Level 3.4 MEQ/L Administered Medications Medications (Trade) Dose Ordered Sig/Andrea Route PRN Reason Start Time Stop Time Status Last Admin Dose Admin Chlorhexidine Gluconate 3 pack 3 pack Taper DAILY@04 TOP 01/24/17 04:00 01/20/18 03:59 01/28/17 03:55 Potassium Chloride (KCl 40 Meq Premix Inj) 100 ml @ 25 mls/hr UNSCH PRN IV For Potassium 3.3 - 3.5 mEq/L 01/23/17 08:30 01/28/17 06:00 Sodium Chloride 2 ml 2 ml BID IV FLUSH 01/23/17 21:00 01/27/17 07:58 Aztreonam 2000 mg/ Sodium Chloride 100 ml @ 200 mls/hr Q6H IV 01/24/17 09:00 01/28/17 03:55 Metronidazole (Flagyl 500 Mg Inj) 100 ml @ 100 mls/hr Q8H IV 01/24/17 08:00 01/27/17 22:55 Metoclopramide HCl 10 mg 10 mg Q8H IV 01/24/17 08:00 01/27/17 22:55 Sodium Chloride (1/2 NS 1000 ml Inj) 1,000 ml @ 125 mls/hr Q8H IV 01/24/17 07:15 01/28/17 06:00 Pantoprazole Sodium 40 mg 40 mg Q12H IV PUSH 01/26/17 18:00 01/28/17 06:00 Dextrose (D5W 1000 ml Inj) 1,000 ml @ 50 mls/hr Q20H IV 01/27/17 11:00 01/28/17 06:00 Prochlorperazine Edisylate (Compazine Inj) 5 mg Q6H PRN IV PUSH nausea vomiting 01/27/17 17:30 01/28/17 06:00 Objective Remarks GENERAL: Well-nourished, well-developed patient. Weak. SKIN: Warm and dry. Less pale. HEAD: Normocephalic. EYES: No scleral icterus. No injection or drainage. NECK: Supple, trachea midline. No JVD or lymphadenopathy. LYMPHATIC: No adenopathy. CARDIOVASCULAR: Regular rate and rhythm without murmurs. RESPIRATORY: Breath sounds equal bilaterally. No accessory muscle use. GASTROINTESTINAL: Abdomen soft, non-tender, nondistended. PEG tube in place. EXTREMITIES: No cyanosis, trace edema. MUSCULOSKELETAL: Adequate muscle tone. NEUROLOGICAL: No obvious focal deficit. Awake, alert, and oriented x3. PSYCHIATRIC: Appropriate mood and affect; insight and judgment normal. Assessment/Plan Problem List: (1) GI bleed Status: Acute Plan: --Bleeding seems to have stopped after starting XRT. Hgb is stable this am. --s/p EGD with cauterization --due to bleeding gastric mass (2) Stage IV esophageal cancer Status: Acute Plan: --XRT started 01/26. may resume chemotherapy outpatient once discharged --metastatic esophageal cancer, metastasis to the liver and lymph node. --was receiving first-line chemotherapy with Cyramza and Taxol, the last cycle ( third cycle) of chemotherapy was two days prior to admission. History: --initially diagosed with adenocarcinoma involving the GE junction invading into the stomach fundus, he also had liver metastasis and adenopathy in the abdomen. --good response to EOX chemotherapy but poor tolerance--> switched to FOLFOX chemotherapy, developed progression of disease. --was treated with Keytruda with no clear response. switched to FOLFIRI but again developed progression of disease-->recently switched over to Cyramza and Taxol, Assessment 61 y/o male with history of metastatic esophageal cancer admitted for severe anemia with GI bleeding. h/o PEG tube placement. Port placement. Plan 1. continue XRT 2. monitor CBC 3. Continue tube feedings per GI 4. Can be transfer to floor if Hgb remains stable. Armando Del Angel MD Jan 28, 2017 07:50
[2017-01-28] MEDS: SODIUM CHLORIDE 0.9% FLUSH 10 ML FLUSH IV FLUSH SCH ×2 (07:51→20:02)
[2017-01-28] MEDS: metroNIDAZOLE 500 MG INJ 100 ML IV SCH ×2 (07:52→15:21)
--- NOTE | 2017-01-28 09:11 | RC ---
cc: MELA SANCHEZ M.D., RICHARD ALVAREZ-FARINETTI, ALVARO MD SINOJ,MD FRANKIE ARCE BOON Y. M.D. DATE OF SERVICE 01/25/2017 DATE OF 1955 DIAGNOSIS Metastatic esophageal carcinoma with GI bleed uncontrolled, failure after embolization. STAGE Stage IV REASON FOR VISIT The patient is being evaluated for palliative radiotherapy to stop the bleeding. HISTORY OF PRESENT ILLNESS This is a 61-year white male with a history of esophageal carcinoma with metastasis to the liver and lymph nodes. The patient is currently receiving first line chemotherapy with Cyramza and taxol. The last cycle of chemotherapy was last Thursday. It appears that the patient in the last week or so has had an increase in hematemesis and also melena. As a result of this, the patient became weak and passed out. As a result of this, he was brought to the hospital and was admitted for further evaluation. On initial evaluation, his hemoglobin was 3.1 and receive two packs of red blood cells. Per the records, the patient has continued to have episodes of melena. His hemoglobin appears to be stable at 9.0 as of 01/25/2017. The patient had multiple attempts at embolization yesterday which were unsuccessful. The patient's last episode of bleeding was sometime in October of 2016 and that was controlled. Now, a consult has been placed for radiation oncology evaluation for palliation of the bleeding. PAST MEDICAL HISTORY As above, also a history of 1. GERD 2. Dysphasia 3. PEG tube placement 4. Multiple EGD's and colonoscopies 5. Hernia repair 6. Vasectomy MEDICATIONS Include: 1. Aztreonam 2. Metronidazole 3. Metoclopramide 5. Pantoprazole 6. Morphine sulfate 7. Albuterol ALLERGIES PENICILLIN FAMILY HISTORY No history present In the family. SOCIAL HISTORY The patient denies any alcohol intake. He used to be a past smoker, quit about 15 years ago. He has a 30 pack year history of smoking. REVIEW OF SYSTEMS CONSTITUTIONAL: The patient has fatigue. When asked if he has loss of appetite and loss of weight, he denies any. He says he may have increased in weight. ALLERGIES: Has not had allergic reaction recently. EYES: Unremarkable. ENT: Unremarkable. NECK: Unremarkable. INTEGUMENTARY: Unremarkable. CARDIOVASCULAR: Denies any chest pain or clinical signs of RI. RESPIRATORY: At the time of the evaluation, the patient denies any hemoptysis or cough. No major shortness of breath. GASTROINTESTINAL: The patient admits to melena, some nausea and vomiting. Also admits to hematemesis. GENITOURINARY: Unremarkable. Denies any painful urination or hematuria. MUSCULOSKELETAL: Unremarkable. NEUROLOGIC: Unremarkable. Denies any clinical signs or symptoms of stroke. No memory loss. PSYCHIATRIC: Unremarkable. HEMATOLOGIC: Low hemoglobin. PATHOLOGIC: Unremarkable. PHYSICAL EXAMINATION The patient is oriented x3 in no acute distress or discomfort. VITAL SIGNS: Pulse 74, respiratory rate 16, blood pressure 99/61, pulse ox 96%. LUNGS: To auscultation, bilateral lungs were clear to auscultation with appropriate ventilatory respiratory effort. HEART: Regular in rate and rhythm without murmurs. NECK: Palpation of the neck and supraclavicular areas are free. ABDOMEN: Palpation of the abdominal cavity, no hepatosplenomegaly was palpated. There was slight induration of the left abdomen with no pain. A PEG tube in place. No periumbilical masses. Bilateral inguinal areas are clear. EXTREMITIES: No lower extremity edema detected. NEUROLOGIC: No neurological deficits were detected. Cognitive functions are preserved. No other positive findings. LABORATORY DATA Hemoglobin 8.8, WBCs 2.1, platelet count 168. PATHOLOGY As previously recorded in the records. RADIOLOGY A CT of the abdomen and pelvis 01/24/2016. Impression. Metastatic disease present throughout the liver, nonspecific splenic lesions. Focal edges of air near the GE junction appearance significant for GI perforation in this area. CT of the chest 01/23/2017. Impression. Abnormal esophageal appearance and findings concerning cardiac perforation in the GE junction region. ASSESSMENT A 61-year white male with a diagnosis of metastatic esophageal carcinoma. The patient with GI bleed. The patient is being evaluated for palliative radiotherapy treatment options for palliation of bleeding. PLAN I had an extensive discussion with the patient and his and his two daughters and brother. I have also discussed this case with Dr. Greene. At this point, since there has been failure of embolization to stop the bleeding, I would recommend the patient consider radiation therapy for bleeding control. Of concern is the fact that the patient might have a perforation and with radiation therapy and with the fact that he had recent chemotherapy, it may increase this risk which can cause infection and of the patient. The patient understands that he is bleeding right now and if we cannot control the bleeding, he will . The attempts at stopping the bleeding via embolization have failed. I discussed the purpose of radiation which is to stop the bleeding. I discussed the side effects and complications of radiation, including further increase in the perforation area, also bleeding, infection, bowel damage and perforation which could lead to , stomach damage and perforation. We discussed bone damage and fracture, spinal cord damage, liver damage, bowel adhesions, pain in the treated area, erythema of the skin, decreased blood counts, diarrhea, nausea, and vomiting. Esophageal strictures. After a thorough discussion, the patient wanted to move forward with palliative radiotherapy. Our plan is to simulate today, treat tomorrow. The patient understands he also may have some difficulty in swallowing. After a thorough discussion, the patient agreed to move forward. He was advised if I could be of any further assistance, to please let me know, otherwise we will proceed as above. ADDENDUM: 01/26/17, Case was discussed with Dr. Del Angel and due to the fact that he recently received Cryamza, I have concerns that it may increase the risk of perforation and therefore I have decided to tx with normal fractionation, as supposed to palliative fractionation and give him a break of a week half way through the treatments. This was discussed with the patient and his and they agreed. Lokesh Cabrales MD Radiation Oncologist ANNY DEAN/LUIGI /4:33 PM /8:39 AM MTD
--- NOTE | 2017-01-28 15:26 | HHI.PR ---
Subjective Remarks Critical Care Notes: 60-year-old male with history of stage IV metastatic esophageal cancer undergoing chemotherapy with Dr. del angel, history of upper GI bleed from ulcerating esophageal cancer, who presented with vomiting blood and passing black stools. He also complains of of weakness and lightheadedness. He is followed by Dr. Del Angel for his esophageal adenocarcinoma. His hemoglobin on presentation was 3 with a hematocrit of 9.1. Patient was borderline hypotensive and tachycardic 4 units of PRBC had been ordered by Dr. Sharpe. After discussion with Dr. del angel patient had decided to be a DNR, but is okay with the temporary intubation if needed for endoscopy. Patient had similar presentation on November 2016 where he was admitted with upper GI bleed and was seen by GI doctor Sharath. EGD 11/05/16 showed ulcerating bleeding mass in the distal esophagus, status post epi injection and cauterization. I evaluated the patient in the ED. He is in mild to moderate discomfort due to recurrent nausea, and hematemesis. He is receiving his fourth unit of blood. Remains tachycardic but blood pressure has improved. GI consult is pending. I have discussed with Dr. Del Angel SUBJ 01/24/17: Continues to have hematemesis. Completing total 4 units of PRBC. Last hemoglobin was 7.9. Sodium has increased to 146 BUN 61 creatinine 1.37. Remains critically ill, borderline hypotensive. CT of the chest abdomen pelvis done for restaging shows questionable perforation at GE junction. Patient does not want possible perforation further investigated or intervened. I have started him on Azactam and Flagyl. Patient is still okay with IR evaluation for possible embolization 01/25/17: Patient had one episode of hematemesis and melena overnight. Hemoglobin stable at 9. Chemistry pending. Multiple attempts at embolization unsuccessful yesterday. Oncology planning on palliative radiation therapy 01/26/17: No further hematemesis overnight. Continues to have melanotic stools. Hemoglobin 7.8 platelet count 96 today. Getting radiation therapy to starting today 01/28/17: Transferred to Hospitalist group and asked me to see the patient today , seen in the room in the presence of nurse Brent Fer and his he is stable not taking ice chips, but has feeding tubes. no bleeding. Objective Vital Signs Date Time Temp Pulse Resp B/P Pulse Ox O2 Delivery O2 Flow Rate FiO2 01/28/17 14:00 69 01/28/17 12:00 98.6 70 16 112/75 97 01/28/17 12:00 70 01/28/17 10:00 69 01/28/17 08:20 96 01/28/17 08:00 71 01/28/17 08:00 98.0 71 18 109/68 97 01/28/17 06:00 68 01/28/17 04:00 69 01/28/17 04:00 98.0 69 15 116/76 96 01/28/17 02:00 71 01/28/17 00:00 66 01/28/17 00:00 98.8 66 18 115/73 97 01/27/17 22:00 68 01/27/17 20:00 99.1 68 14 100/58 96 01/27/17 20:00 68 01/27/17 19:22 95 21 01/27/17 18:00 64 01/27/17 16:00 98.6 66 17 115/74 97 01/27/17 16:00 66 I/O 01/27/17 01/27/17 01/27/17 01/28/17 01/28/17 01/28/17 07:00 15:00 23:00 07:00 15:00 23:00 Intake Total 1253 ml 1532 ml 1278 ml 912 ml 1621 ml Output Total 750 ml 875 ml 450 ml 400 ml 800 ml Balance 503 ml 657 ml 828 ml 512 ml 821 ml IV Total 929 ml 1192 ml 874 ml 682 ml 1033 ml Tube Feeding 374 ml 200 ml 588 ml Packed Cells 324 ml 340 ml Other 30 ml 30 ml Output Urine Total 750 ml 575 ml 450 ml 400 ml 800 ml Gastric Drainage Total 300 ml # Bowel Movements 1 1 Result Diagram: 01/28/17 0400 01/28/17 0400 Imaging Last Impressions Chest CT 01/23/171638 Signed Impressions: Service Date/Time: Monday, January 23, 2017 17:39 - CONCLUSION: Abnormal esophageal appearance and findings concerning for GI perforation in the GE junction region. Shantanu Maxwell MD Abdomen/Pelvis CT 01/23/171638 Signed Impressions: Service Date/Time: Monday, January 23, 2017 17:37 - CONCLUSION: Metastatic disease present throughout the liver. Nonspecific splenic lesions. Small collections of air are near the GE junction with appearance worrisome for a GI perforation in this area. Shantanu Maxwell MD Procedures EGD 11/05/16 showed ulcerating bleeding mass in the distal esophagus, status post epi injection and cauterization. Other Results Laboratory Tests Test 01/24/17 01/26/17 01/26/17 01/27/17 02:05 03:20 17:30 04:00 Keratocytes OCC Nucleated Red Blood Cells 1 /100 WBC Basophilic Stippling FAINT Prothrombin Time 12.0 SEC Prothromb Time International 1.1 RATIO Ratio Activated Partial 36.4 SEC Thromboplast Time Blood Type A POSITIVE Antibody Screen NEGATIVE Crossmatch Leukocyte-Reduced Red Blood Cells Blood Bank Comment Differential Total Cells 100 Counted Neutrophils % (Manual) 60 % Band Neutrophils % 25 % Lymphocytes % 5 % Monocytes % 5 % Neutrophils # (Manual) 2.6 TH/MM3 Metamyelocytes 2 % Myelocytes 3 % Platelet Estimate LOW Platelet Morphology Comment NORMAL Sodium Level 140 MEQ/L Chloride Level 108 MEQ/L Carbon Dioxide Level 23.8 MEQ/L Anion Gap 8 MEQ/L Blood Urea Nitrogen 23 MG/DL Creatinine 0.55 MG/DL Estimat Glomerular Filtration 150 ML/MIN Rate Random Glucose 66 MG/DL Calcium Level 7.1 MG/DL Protein Corrected Calcium 8.9 MG/DL Magnesium Level 1.9 MG/DL Total Bilirubin 0.6 MG/DL Aspartate Amino Transf 21 U/L (AST/SGOT) Alanine Aminotransferase 16 U/L (ALT/SGPT) Alkaline Phosphatase 69 U/L Total Protein 3.9 GM/DL Albumin 1.7 GM/DL Test 01/28/17 04:00 White Blood Count 2.9 TH/MM3 Red Blood Count 3.18 MIL/MM3 Hemoglobin 9.4 GM/DL Hematocrit 26.9 % Mean Corpuscular Volume 84.6 FL Mean Corpuscular Hemoglobin 29.4 PG Mean Corpuscular Hemoglobin 34.8 % Concent Red Cell Distribution Width 16.2 % Platelet Count 141 TH/MM3 Mean Platelet Volume 7.9 FL Neutrophils (%) (Auto) 68.9 % Lymphocytes (%) (Auto) 18.1 % Monocytes (%) (Auto) 11.6 % Eosinophils (%) (Auto) 1.0 % Basophils (%) (Auto) 0.4 % Neutrophils # (Auto) 2.0 TH/MM3 Lymphocytes # (Auto) 0.5 TH/MM3 Monocytes # (Auto) 0.3 TH/MM3 Eosinophils # (Auto) 0.0 TH/MM3 Basophils # (Auto) 0.0 TH/MM3 CBC Comment AUTO DIFF Differential Comment AUTO DIFF CONFIRMED Ovalocytes 1+ Potassium Level 3.4 MEQ/L Objective Remarks GENERAL: no acute distress. SKIN: Warm and dry. HEAD: Atraumatic. Normocephalic. EYES: Pupils equal and round. No scleral icterus. Conjunctiva pale ENT: No nasal bleeding or discharge. Mucous membranes dry, oral mucosa has some dry blood NECK: Trachea midline. No JVD. CARDIOVASCULAR: No murmur appreciated. Right upper chest port in place RESPIRATORY: No accessory muscle use. Clear to auscultation. Breath sounds equal bilaterally. PEG tube in place GASTROINTESTINAL: Abdomen soft, non-tender, nondistended. MUSCULOSKELETAL: No obvious deformities. No clubbing. No cyanosis. No edema. NEUROLOGICAL: Awake and alert. No obvious cranial nerve deficits. Motor grossly within normal limits. Normal speech. Medications and IVs Current Medications Medications (Trade) Dose Ordered Sig/Andrea Route Start Time Stop Time Status Last Admin (NS Flush) 2 ml UNSCH PRN IVF 01/23/17 06:15 (NS Flush) 2 ml UNSCH PRN IVF 01/23/17 07:15 Miscellaneous Information 1 [id number] XX 01/23/17 08:15 (Chlorhexidine 2% Cloth) 3 pack Taper DAILY@04 TOP 01/24/17 04:00 01/20/18 03:59 01/28/17 03:55 Chlorhexidine Gluconate 3 pack 3 pack UNSCH PRN TOP 01/23/17 08:15 Potassium Chloride 100 ml @ 50 mls/hr Q2H PRN IV 01/23/17 08:30 Potassium Chloride 100 ml @ 50 mls/hr Q2H PRN IV 01/23/17 08:30 Potassium Chloride 100 ml @ 25 mls/hr UNSCH PRN IV 01/23/17 08:30 01/28/17 06:00 Potassium Chloride 100 ml @ 50 mls/hr Q2H PRN IV 01/23/17 08:30 (Magnesium Sulfate Inj/NS Inj) 100 ml @ 50 mls/hr UNSCH PRN IV 01/23/17 08:30 Magnesium Oxide 800 mg 800 mg UNSCH PRN PO 3/24/17 08:30 (Magnesium Sulfate Inj/NS Inj) 100 ml @ 50 mls/hr UNSCH PRN IV 01/23/17 08:30 Potassium Phosphate 2000 mg 2,000 mg Q4H PRN PO 01/23/17 08:30 (Sodium Phosphate Inj/NS 250 ml Inj) 250 ml @ 42 mls/hr UNSCH PRN IV 01/23/17 08:30 Potassium Phosphate 2000 mg 2,000 mg UNSCH PRN PO/TUBE 01/23/17 08:30 (Potassium Phosphate Inj/NS 250 ml Inj) 260 ml @ 42 mls/hr UNSCH PRN IV 01/23/17 08:30 (Morphine Inj) 2 mg Q3H PRN IV PUSH 01/23/17 09:15 (NS Flush) 2 ml UNSCH PRN IV FLUSH 01/23/17 10:15 Sodium Chloride 2 ml 2 ml BID IV FLUSH 01/23/17 21:00 01/28/17 07:51 Aztreonam 2000 mg/ Sodium Chloride 100 ml @ 200 mls/hr Q6H IV 01/24/17 09:00 01/28/17 07:51 (Flagyl 500 Mg Inj) 100 ml @ 100 mls/hr Q8H IV 01/24/17 08:00 01/28/17 07:52 Metoclopramide HCl 10 mg 10 mg Q8H IV 01/24/17 08:00 01/28/17 07:50 (1/2 NS 1000 ml Inj) 1,000 ml @ 125 mls/hr Q8H IV 01/24/17 07:15 01/28/17 06:00 Pantoprazole Sodium 40 mg 40 mg Q12H IV PUSH 01/26/17 18:00 01/28/17 06:00 (D5W 1000 ml Inj) 1,000 ml @ 50 mls/hr Q20H IV 01/27/17 11:00 01/28/17 06:00 (Compazine Inj) 5 mg Q6H PRN IV PUSH 01/27/17 17:30 01/28/17 12:38 A/P Assessment and Plan 1. Upper GI bleed from Esophageal Cancer, status post EGD with ablation/epi injection and clipping x 3 of bleeding esophageal mass by Doctor Monserrat 01/23/17, EGD 11/05/16 showed ulcerating bleeding mass in the distal esophagus, status post epi injection and cauterization was consulted to Interventional Radiology unable to embolize on 01/24/17, started on Palliative Radiation 01/26/17, PEG in place, continue Octreotide, Transfuse as needed. the patient refused Diagnostic or therapeutic Interventions performed for possible esophageal perforation Pt s/p EGD on 01/23/2017 with clips application/epinephrine injection and APC treatment of tumor, s/p failed embolization attempt large ulcerated mass at GE junction most likely cause of recurrent bleeding. CT of the chest/abdomen/pelvis done for restaging shows questionable perforation at GE junction but pt does not this further investigated or intervened upon. Pt has been started on Azactam and Flagyl. Pt had multiple attempts at embolization unsuccessful 01/24. Continue Palliative Radiation as per Oncology will re start Chemotherapy as outpatient. 2. Stage IV Esophageal Cancer. 3. Acute Blood loss anemia Hemoglobin today 9.4 and following. 4. Possible esophageal perforation and GE junction 5. Respiratory insufficiency on Bronchodilator, Mucolytic incentive spirometry, the patient is DNR but okay with temporary intubation for EGD/procedures if needed 6. Empiric Azactam and Flagyl for possible esophageal perforation PROPH: -Bilateral lower extremity SCDs. Avoid chemical DVT prophylaxis. Protonix every 12 hours. Discharge Planning once cleared by GI specialist and dairy equipment specialist. Elliot Gillis MD Jan 28, 2017 15:26
[2017-01-29] VITALS (11 sets, daily range): BP systolic 99–116; BP diastolic 58–89; PULSE 66–79; RESP 14–19; TEMP 97.6–98.6; O2SAT 95–99
[2017-01-29] MEDS: METOCLOPRAMIDE HCL 10 MG/2 ML VIAL IV SCH ×4 (00:31→23:34)
[2017-01-29] MEDS: metroNIDAZOLE 500 MG INJ 100 ML IV SCH ×4 (00:31→23:36)
[2017-01-29] MEDS: DEXTROSE 5% IN WATE 1000ML INJ 1,000 ML IV SCH ×2 (00:38→23:31)
[2017-01-29] MEDS: CHLORHEXIDINE GLUCONATE 2 % 1 PACK (2 CLOTHS) TOP SCH (03:08)
[2017-01-29] MEDS: AZTREONAM INJ 2,000 MG in SODIUM CHLORIDE 0.9% INJ 100 ML IV SCH ×4 (03:08→21:22)
[2017-01-29] MEDS: PANTOPRAZOLE SODIUM 40 MG VIAL IV PUSH SCH ×2 (05:01→17:01)
[2017-01-29] MEDS: PROCHLORPERAZINE INJ 10 MG/2 ML VIAL IV PUSH PRN ×2 (05:08→21:42)
[2017-01-29 05:32] LABS: HEMATOCRIT 28.4 % (39.0-51.0)
[2017-01-29] MEDS: SODIUM CHLORIDE 0.9% FLUSH 10 ML FLUSH IV FLUSH SCH ×2 (08:45→21:22)
[2017-01-29] MEDS: SODIUM CHLOR 0.45% 1000 ML INJ 1,000 ML IV SCH ×3 (08:45→23:15)
--- NOTE | 2017-01-29 10:16 | HHI.PR ---
Subjective Remarks Critical Care Notes: 60-year-old male with history of stage IV metastatic esophageal cancer undergoing chemotherapy with Dr. del angel, history of upper GI bleed from ulcerating esophageal cancer, who presented with vomiting blood and passing black stools. He also complains of of weakness and lightheadedness. He is followed by Dr. Del Angel for his esophageal adenocarcinoma. His hemoglobin on presentation was 3 with a hematocrit of 9.1. Patient was borderline hypotensive and tachycardic 4 units of PRBC had been ordered by Dr. Sharpe. After discussion with Dr. del angel patient had decided to be a DNR, but is okay with the temporary intubation if needed for endoscopy. Patient had similar presentation on November 2016 where he was admitted with upper GI bleed and was seen by GI doctor Sharath. EGD 11/05/16 showed ulcerating bleeding mass in the distal esophagus, status post epi injection and cauterization. I evaluated the patient in the ED. He is in mild to moderate discomfort due to recurrent nausea, and hematemesis. He is receiving his fourth unit of blood. Remains tachycardic but blood pressure has improved. GI consult is pending. I have discussed with Dr. Del Angel SUBJ 01/24/17: Continues to have hematemesis. Completing total 4 units of PRBC. Last hemoglobin was 7.9. Sodium has increased to 146 BUN 61 creatinine 1.37. Remains critically ill, borderline hypotensive. CT of the chest abdomen pelvis done for restaging shows questionable perforation at GE junction. Patient does not want possible perforation further investigated or intervened. I have started him on Azactam and Flagyl. Patient is still okay with IR evaluation for possible embolization 01/25/17: Patient had one episode of hematemesis and melena overnight. Hemoglobin stable at 9. Chemistry pending. Multiple attempts at embolization unsuccessful yesterday. Oncology planning on palliative radiation therapy 01/26/17: No further hematemesis overnight. Continues to have melanotic stools. Hemoglobin 7.8 platelet count 96 today. Getting radiation therapy to starting today Hospitalist Notes: 01/28/17: Transferred to Hospitalist group and asked me to see the patient today , seen in the room in the presence of nurse Mr. Monroe and his he is stable not taking ice chips, but has feeding tubes. no bleeding. 01/29/17: Patient seen in his bedroom in the presence of his Mrs. Padilla appreciated, also discussed with Nurse Miss Bain appreciated, his feeding tube rate is been decreased due to abdominal discomfort. no Vomit or diarrhea but yes Nausea and Dyspepsia. Objective Vital Signs Date Time Temp Pulse Resp B/P Pulse Ox O2 Delivery O2 Flow Rate FiO2 01/29/17 06:00 66 01/29/17 04:00 74 01/29/17 04:00 98.1 74 19 106/70 95 01/29/17 02:00 67 01/29/17 00:00 71 01/29/17 00:00 98.5 71 19 112/70 96 01/28/17 22:00 68 01/28/17 20:58 95 21 01/28/17 20:00 98.9 69 20 114/72 98 01/28/17 20:00 69 01/28/17 18:00 66 01/28/17 16:00 81 01/28/17 16:00 98.5 81 18 107/56 95 01/28/17 14:00 69 01/28/17 12:00 98.6 70 16 112/75 97 01/28/17 12:00 70 I/O 01/28/17 01/28/17 01/28/17 01/29/17 01/29/17 01/29/17 07:00 15:00 23:00 07:00 15:00 23:00 Intake Total 912 ml 1621 ml 1456 ml 1757 ml Output Total 400 ml 800 ml 800 ml 200 ml Balance 512 ml 821 ml 656 ml 1557 ml IV Total 682 ml 1033 ml 1009 ml 1281 ml Tube Feeding 200 ml 588 ml 447 ml 476 ml Other 30 ml Output Urine Total 400 ml 800 ml 800 ml 200 ml # Bowel Movements 1 0 Result Diagram: 01/29/17 0430 01/28/17 0400 Imaging Last Impressions Chest CT 01/23/17 1639 Signed Impressions: Service Date/Time: Monday, January 23, 2017 17:39 - CONCLUSION: Abnormal esophageal appearance and findings concerning for GI perforation in the GE junction region. Shantanu Maxwell MD Abdomen/Pelvis CT 01/23/17 1639 Signed Impressions: Service Date/Time: Monday, January 23, 2017 17:37 - CONCLUSION: Metastatic disease present throughout the liver. Nonspecific splenic lesions. Small collections of air are near the GE junction with appearance worrisome for a GI perforation in this area. Shantanu Maxwell MD Procedures EGD 11/05/16 showed ulcerating bleeding mass in the distal esophagus, status post epi injection and cauterization. Other Results Laboratory Tests Test 01/26/17 01/26/17 01/27/17 01/28/17 03:20 17:30 04:00 04:00 Nucleated Red Blood Cells 1 /100 WBC Basophilic Stippling FAINT Prothrombin Time 12.0 SEC Prothromb Time International 1.1 RATIO Ratio Activated Partial 36.4 SEC Thromboplast Time Blood Type A POSITIVE Antibody Screen NEGATIVE Crossmatch Leukocyte-Reduced Red Blood Cells Blood Bank Comment Differential Total Cells 100 Counted Neutrophils % (Manual) 60 % Band Neutrophils % 25 % Lymphocytes % 5 % Monocytes % 5 % Neutrophils # (Manual) 2.6 TH/MM3 Metamyelocytes 2 % Myelocytes 3 % Platelet Estimate LOW Platelet Morphology Comment NORMAL Sodium Level 140 MEQ/L Chloride Level 108 MEQ/L Carbon Dioxide Level 23.8 MEQ/L Anion Gap 8 MEQ/L Blood Urea Nitrogen 23 MG/DL Creatinine 0.55 MG/DL Estimat Glomerular Filtration 150 ML/MIN Rate Random Glucose 66 MG/DL Calcium Level 7.1 MG/DL Protein Corrected Calcium 8.9 MG/DL Magnesium Level 1.9 MG/DL Total Bilirubin 0.6 MG/DL Aspartate Amino Transf 21 U/L (AST/SGOT) Alanine Aminotransferase 16 U/L (ALT/SGPT) Alkaline Phosphatase 69 U/L Total Protein 3.9 GM/DL Albumin 1.7 GM/DL White Blood Count 2.9 TH/MM3 Red Blood Count 3.18 MIL/MM3 Mean Corpuscular Volume 84.6 FL Mean Corpuscular Hemoglobin 29.4 PG Mean Corpuscular Hemoglobin 34.8 % Concent Red Cell Distribution Width 16.2 % Platelet Count 141 TH/MM3 Mean Platelet Volume 7.9 FL Neutrophils (%) (Auto) 68.9 % Lymphocytes (%) (Auto) 18.1 % Monocytes (%) (Auto) 11.6 % Eosinophils (%) (Auto) 1.0 % Basophils (%) (Auto) 0.4 % Neutrophils # (Auto) 2.0 TH/MM3 Lymphocytes # (Auto) 0.5 TH/MM3 Monocytes # (Auto) 0.3 TH/MM3 Eosinophils # (Auto) 0.0 TH/MM3 Basophils # (Auto) 0.0 TH/MM3 CBC Comment AUTO DIFF Differential Comment AUTO DIFF CONFIRMED Ovalocytes 1+ Potassium Level 3.4 MEQ/L Test 01/29/17 04:30 Hemoglobin 9.7 GM/DL Hematocrit 28.4 % Objective Remarks GENERAL: no acute distress. SKIN: Warm and dry. HEAD: Atraumatic. Normocephalic. EYES: Pupils equal and round. No scleral icterus. Conjunctiva pale ENT: No nasal bleeding or discharge. Mucous membranes dry, oral mucosa has some dry blood NECK: Trachea midline. No JVD. CARDIOVASCULAR: No murmur appreciated. Right upper chest port in place RESPIRATORY: No accessory muscle use. Clear to auscultation. Breath sounds equal bilaterally. PEG tube in place GASTROINTESTINAL: Abdomen soft, non-tender, nondistended. MUSCULOSKELETAL: Left upper extremity edema. NEUROLOGICAL: Awake and alert. No obvious cranial nerve deficits. Motor grossly within normal limits. Normal speech. Medications and IVs Current Medications Medications (Trade) Dose Ordered Sig/Andrea Route Start Time Stop Time Status Last Admin (NS Flush) 2 ml UNSCH PRN IVF 01/23/17 06:15 (NS Flush) 2 ml UNSCH PRN IVF 01/23/17 07:15 Miscellaneous Information 1 [id number] XX 01/23/17 08:15 (Chlorhexidine 2% Cloth) Taper DAILY@04 TOP 01/24/17 04:00 01/20/18 03:59 01/29/17 03:08 Chlorhexidine Gluconate 3 pack 3 pack UNSCH PRN TOP 01/23/17 08:15 Potassium Chloride 100 ml @ 50 mls/hr Q2H PRN IV 01/23/17 08:30 Potassium Chloride 100 ml @ 50 mls/hr Q2H PRN IV 01/23/17 08:30 Potassium Chloride 100 ml @ 25 mls/hr UNSCH PRN IV 01/23/17 08:30 01/28/17 06:00 Potassium Chloride 100 ml @ 50 mls/hr Q2H PRN IV 01/23/17 08:30 (Magnesium Sulfate Inj/NS Inj) 100 ml @ 50 mls/hr UNSCH PRN IV 01/23/17 08:30 Magnesium Oxide 800 mg 800 mg UNSCH PRN PO 01/23/17 08:30 (Magnesium Sulfate Inj/NS Inj) 100 ml @ 50 mls/hr UNSCH PRN IV 01/23/17 08:30 Potassium Phosphate 2000 mg 2,000 mg Q4H PRN PO 01/23/17 08:30 (Sodium Phosphate Inj/NS 250 ml Inj) 250 ml @ 42 mls/hr UNSCH PRN IV 01/23/17 08:30 Potassium Phosphate 2000 mg 2,000 mg UNSCH PRN PO/TUBE 01/23/17 08:30 (Potassium Phosphate Inj/NS 250 ml Inj) 260 ml @ 42 mls/hr UNSCH PRN IV 01/23/17 08:30 (Morphine Inj) 2 mg Q3H PRN IV PUSH 01/23/17 09:15 (NS Flush) 2 ml UNSCH PRN IV FLUSH 01/23/17 10:15 Sodium Chloride 2 ml 2 ml BID IV FLUSH 01/23/17 21:00 01/29/17 08:45 Aztreonam 2000 mg/ Sodium Chloride 100 ml @ 200 mls/hr Q6H IV 01/24/17 09:00 01/29/17 08:44 (Flagyl 500 Mg Inj) 100 ml @ 100 mls/hr Q8H IV 01/24/17 08:00 01/29/17 08:44 Metoclopramide HCl 10 mg 10 mg Q8H IV 01/24/17 08:00 01/29/17 08:44 (1/2 NS 1000 ml Inj) 1,000 ml @ 125 mls/hr Q8H IV 01/24/17 07:15 01/29/17 08:45 Pantoprazole Sodium 40 mg 40 mg Q12H IV PUSH 01/26/17 18:00 01/29/17 05:01 (D5W 1000 ml Inj) 1,000 ml @ 50 mls/hr Q20H IV 01/27/17 11:00 01/29/17 00:38 (Compazine Inj) 5 mg Q6H PRN IV PUSH 01/27/17 17:30 01/29/17 05:08 A/P Assessment and Plan 1. Upper GI bleed from Esophageal Cancer, status post EGD with ablation/epi injection and clipping x 3 of bleeding esophageal mass by Doctor Monserrat 01/23/17, EGD 11/05/16 showed ulcerating bleeding mass in the distal esophagus, status post epi injection and cauterization was consulted to Interventional Radiology unable to embolize on 01/24/17, started on Palliative Radiation 01/26/17, PEG in place, continue Octreotide, Transfuse as needed. the patient refused Diagnostic or therapeutic Interventions performed for possible esophageal perforation Pt s/p EGD on 01/23/2017 with clips application/epinephrine injection and APC treatment of tumor, s/p failed embolization attempt large ulcerated mass at GE junction most likely cause of recurrent bleeding. CT of the chest/abdomen/pelvis done for restaging shows questionable perforation at GE junction but pt does not this further investigated or intervened upon. Pt has been started on Azactam and Flagyl. Pt had multiple attempts at embolization unsuccessful 01/24. Continue Palliative Radiation as per Oncology will re start Chemotherapy as outpatient. Has metastatic Esophageal Cancer to the Liver and Lymph node. 2. Stage IV Esophageal Cancer. 3. Acute Blood loss anemia Hemoglobin today 9.4 and following. 4. Possible esophageal perforation and GE junction 5. Respiratory insufficiency on Bronchodilator, Mucolytic incentive spirometry, the patient is DNR but okay with temporary intubation for EGD/procedures if needed 6. Empiric Azactam and Flagyl for possible esophageal perforation 7. Left upper extremity Edema as per developmental specialist not taken any test due to that if we know he has a DVT on the left arm we are not able to give any treatment due to his Hemorrhagic pathology. PROPH: -Bilateral lower extremity SCDs. Avoid chemical DVT prophylaxis. Protonix every 12 hours. Discussed in the Patient, his and nurse, all questions answered to the best of my abilities Decreased feeding tube rate. Transfer to Medical Floor Discharge Planning once cleared by GI specialist and data review specialist. Elliot Gillis MD Jan 29, 2017 10:16
--- NOTE | 2017-01-29 14:56 | PD.ONC.PN ---
Subjective Subjective Remarks Afebrile overnight. Pt sitting up in chair at bedside in no distress. His color is significantly improved since I last saw him over the weekend. He has no complaints. He states he is going to radiation soon. at bedside. Objective Data Date Time Temp Pulse Resp B/P Pulse Ox O2 Delivery O2 Flow Rate FiO2 01/29/17 10:20 96 21 01/29/17 08:00 97.6 70 18 99/58 96 01/29/17 08:00 67 01/29/17 06:00 66 01/29/17 04:00 74 01/29/17 04:00 98.1 74 19 106/70 95 01/29/17 02:00 67 01/29/17 00:00 71 01/29/17 00:00 98.5 71 19 112/70 96 01/28/17 22:00 68 01/28/17 20:58 95 21 01/28/17 20:00 98.9 69 20 114/72 98 01/28/17 20:00 69 01/28/17 18:00 66 01/28/17 16:00 81 01/28/17 16:00 98.5 81 18 107/56 95 01/29/17 01/29/17 01/29/17 07:00 15:00 23:00 Intake Total 1757 ml Output Total 200 ml Balance 1557 ml Result Diagram: 01/29/17 0430 01/28/17 0400 Laboratory Results Laboratory Tests Test 01/29/17 04:30 Hemoglobin 9.7 GM/DL Hematocrit 28.4 % Administered Medications Medications (Trade) Dose Ordered Sig/Andrea Route PRN Reason Start Time Stop Time Status Last Admin Dose Admin Chlorhexidine Gluconate Taper DAILY@04 TOP 01/24/17 04:00 01/20/18 03:59 01/29/17 03:08 Potassium Chloride (KCl 40 Meq Premix Inj) 100 ml @ 25 mls/hr UNSCH PRN IV For Potassium 3.3 - 3.5 mEq/L 01/23/17 08:30 01/28/17 06:00 Sodium Chloride 2 ml 2 ml BID IV FLUSH 01/23/17 21:00 01/29/17 08:45 Aztreonam 2000 mg/ Sodium Chloride 100 ml @ 200 mls/hr Q6H IV 01/24/17 09:00 01/29/17 08:44 Metronidazole (Flagyl 500 Mg Inj) 100 ml @ 100 mls/hr Q8H IV 01/24/17 08:00 01/29/17 08:44 Metoclopramide HCl 10 mg 10 mg Q8H IV 01/24/17 08:00 01/29/17 08:44 Sodium Chloride (1/2 NS 1000 ml Inj) 1,000 ml @ 125 mls/hr Q8H IV 01/24/17 07:15 01/29/17 08:45 Pantoprazole Sodium 40 mg 40 mg Q12H IV PUSH 01/26/17 18:00 01/29/17 05:01 Dextrose (D5W 1000 ml Inj) 1,000 ml @ 50 mls/hr Q20H IV 01/27/17 11:00 01/29/17 00:38 Prochlorperazine Edisylate (Compazine Inj) 5 mg Q6H PRN IV PUSH nausea vomiting 01/27/17 17:30 01/29/17 05:08 Objective Remarks GENERAL: Middle-aged male in chair at beside in no distress. SKIN: Warm and dry. HEAD: Normocephalic. EYES: No scleral icterus. No injection or drainage. NECK: Supple, trachea midline. No JVD or lymphadenopathy. CARDIOVASCULAR: +S1/S2. RESPIRATORY: Breath sounds equal bilaterally. No accessory muscle use. GASTROINTESTINAL: Abdomen soft, non-tender, nondistended. EXTREMITIES: Generalized edema bilateral upper extremities. NEUROLOGICAL: No obvious focal deficit. Awake, alert, and oriented x3. Assessment/Plan Problem List: (1) GI bleed Status: Acute Plan: --On palliative radiation. Hemoglobin has remained stable. --s/p EGD with cauterization --due to bleeding gastric mass (2) Stage IV esophageal cancer Status: Acute Plan: --XRT started 01/26. may resume chemotherapy outpatient once discharged --metastatic esophageal cancer, metastasis to the liver and lymph node. --was receiving fourth-line chemotherapy with Cyramza and Taxol, the last cycle (third cycle) of chemotherapy was two days prior to admission. History: --initially diagosed with adenocarcinoma involving the GE junction invading into the stomach fundus, he also had liver metastasis and adenopathy in the abdomen. --good response to EOX chemotherapy but poor tolerance--> switched to FOLFOX chemotherapy, developed progression of disease. --was treated with Keytruda with no clear response. switched to FOLFIRI but again developed progression of disease-->recently switched over to Cyramza and Taxol, Assessment 61 y/o male with history of metastatic esophageal cancer admitted for severe anemia with GI bleeding. h/o PEG tube placement. Port placement. Plan 1. Monitor for bleeding. 2. TF rate reduced. Nausea improved. 3. Continue palliative radiation. 4. Okay for transfer from oncology standpoint Attending Statement The exam, history, and the medical decision-making described in the above note were completed with the assistance of the mid-level provider. I reviewed and agree with the findings presented. I attest that I had a [id number] encounter with the patient on the same day, and personally performed and documented my assessment and findings in the medical record. No abdominal pain. Hgb is stable. GI bleeding appear to have stopped. Continue palliative XRT. Can be transfer to floor from oncology standpoint. Donna Topete Jan 29, 2017 14:56 Armando Del Angel MD Jan 29, 2017 16:40
--- NOTE | 2017-01-29 15:58 | HHI.HCPN ---
Reason for visit a. To assist with evaluation and management of symptoms including: Fatigue, malnutrition b. To assist medical decision maker(s) with: better understanding of current medical conditions; weighing benefits/burdens of medical treatment options; making medical treatment decisions. Subjective/Interval History Pt seen today to follow up on comfort , goals. Continues to receive XRT . Tolerating well, indicates feels increased fatigue after. Getting OOB daily. TF via PEG-- some nausea this am, TF rate decreased. Having bowel movements. H&H remain stable-- 9.7/28.4. No reported active bleeding. Transfer to regular floor pending. Pt seen in in chair at bedside w at bedside. He is alert, pleasant, feeling well. Does endorse mild nausea this am, improved now. No pain. No dyspnea. Feels well ambulating. Explore with pt and current condition and aggressive goals short of resuscitation. Review option of community DNR. He wishes to talk about it with his other Drs, does not want to sign one at this time. . Advance Directives Living Will: Completed, but not made available Health Care Surrogate: Completed, but not made available Objective Vital Signs Date Time Temp Pulse Resp B/P Pulse Ox O2 Delivery O2 Flow Rate FiO2 01/29/17 10:20 96 21 01/29/17 08:00 97.6 70 18 99/58 96 01/29/17 08:00 67 01/29/17 06:00 66 01/29/17 04:00 74 01/29/17 04:00 98.1 74 19 106/70 95 01/29/17 02:00 67 01/29/17 00:00 71 01/29/17 00:00 98.5 71 19 112/70 96 01/28/17 22:00 68 01/28/17 20:58 95 21 01/28/17 20:00 98.9 69 20 114/72 98 01/28/17 20:00 69 01/28/17 18:00 66 01/28/17 16:00 81 01/28/17 16:00 98.5 81 18 107/56 95 Intake & Output 01/29/17 01/29/17 07:00 19:00 Intake Total 3213 ml Output Total 1000 ml Balance 2213 ml IV Total 2290 ml Tube Feeding 923 ml Output Urine Total 1000 ml # Bowel Movements 1 Physical Exam CONSTITUTIONAL/GENERAL: This is an adequately nourished patient, pleasant, in no distress TUBES/LINES/DRAINS: PIV upper extremity, right subclavian port, PEG tube CARDIOVASCULAR: Regular rate and rhythm, SR via bedside monitor. Trace peripheral edema to upper extremities, L > Rt. RESPIRATORY/CHEST: Symmetric, unlabored respirations. Clear to auscultation. On Room air. Breath sounds equal bilaterally.Lungs clear. GASTROINTESTINAL: Abdomen soft, non-tender, nondistended. Bowel sounds present. + G tube w TF infusing. NEUROLOGICAL: Awake and alert. Oriented 3 insight is good. pleasant. Motor and sensory grossly within normal limits. Follows commands. Cognitively sharp. Moves all 4 extremities. PSYCHIATRIC: No obvious anxiety/depression. no apparent hallucinations or other psychotic thought process. Diagnostic Tests Laboratory Laboratory Tests Test 01/26/17 01/27/17 01/28/17 01/29/17 17:30 04:00 04:00 04:30 Blood Type A POSITIVE Antibody Screen NEGATIVE Crossmatch Leukocyte-Reduced Red Blood Cells Blood Bank Comment White Blood Count 2.9 TH/MM3 2.9 TH/MM3 (4.0-11.0) (4.0-11.0) Red Blood Count 3.23 MIL/MM3 3.18 MIL/MM3 (4.50-5.90) (4.50-5.90) Hemoglobin 9.5 GM/DL 9.4 GM/DL 9.7 GM/DL (13.0-17.0) (13.0-17.0) (13.0-17.0) Hematocrit 27.7 % 26.9 % 28.4 % (39.0-51.0) (39.0-51.0) (39.0-51.0) Mean Corpuscular Volume 85.5 FL 84.6 FL (80.0-100.0) (80.0-100.0) Mean Corpuscular Hemoglobin 29.4 PG 29.4 PG (27.0-34.0) (27.0-34.0) Mean Corpuscular Hemoglobin 34.4 % 34.8 % Concent (32.0-36.0) (32.0-36.0) Red Cell Distribution Width 16.0 % 16.2 % (11.6-17.2) (11.6-17.2) Platelet Count 119 TH/MM3 141 TH/MM3 (150-450) (150-450) Mean Platelet Volume 8.2 FL 7.9 FL (7.0-11.0) (7.0-11.0) Neutrophils (%) (Auto) 72.2 % 68.9 % (16.0-70.0) (16.0-70.0) Lymphocytes (%) (Auto) 17.8 % 18.1 % (9.0-44.0) (9.0-44.0) Monocytes (%) (Auto) 8.4 % (0.0-8.0) 11.6 % (0.0-8.0) Eosinophils (%) (Auto) 1.0 % (0.0-4.0) 1.0 % (0.0-4.0) Basophils (%) (Auto) 0.6 % (0.0-2.0) 0.4 % (0.0-2.0) Neutrophils # (Auto) 2.1 TH/MM3 2.0 TH/MM3 (1.8-7.7) (1.8-7.7) Lymphocytes # (Auto) 0.5 TH/MM3 0.5 TH/MM3 (1.0-4.8) (1.0-4.8) Monocytes # (Auto) 0.2 TH/MM3 0.3 TH/MM3 (0-0.9) (0-0.9) Eosinophils # (Auto) 0.0 TH/MM3 0.0 TH/MM3 (0-0.4) (0-0.4) Basophils # (Auto) 0.0 TH/MM3 0.0 TH/MM3 (0-0.2) (0-0.2) CBC Comment AUTO DIFF AUTO DIFF Differential Total Cells 100 Counted Neutrophils % (Manual) 60 % (16-70) Band Neutrophils % 25 % (0-6) Lymphocytes % 5 % (9-44) Monocytes % 5 % (0-8) Neutrophils # (Manual) 2.6 TH/MM3 (1.8-7.7) Metamyelocytes 2 % (0-1) Myelocytes 3 % (0-0) Differential Comment FINAL DIFF AUTO DIFF MANUAL CONFIRMED Platelet Estimate LOW (NORMAL) Platelet Morphology Comment NORMAL (NORMAL) Sodium Level 140 MEQ/L (136-145) Potassium Level 3.5 MEQ/L 3.4 MEQ/L (3.5-5.1) (3.5-5.1) Chloride Level 108 MEQ/L (98-107) Carbon Dioxide Level 23.8 MEQ/L (21.0-32.0) Anion Gap 8 MEQ/L (5-15) Blood Urea Nitrogen 23 MG/DL (7-18) Creatinine 0.55 MG/DL (0.60-1.30) Estimat Glomerular Filtration 150 ML/MIN Rate (>89) Random Glucose 66 MG/DL (74-106) Calcium Level 7.1 MG/DL (8.5-10.1) Protein Corrected Calcium 8.9 MG/DL (8.5-10.1) Magnesium Level 1.9 MG/DL (1.5-2.5) Total Bilirubin 0.6 MG/DL (0.2-1.0) Aspartate Amino Transf 21 U/L (15-37) (AST/SGOT) Alanine Aminotransferase 16 U/L (12-78) (ALT/SGPT) Alkaline Phosphatase 69 U/L (45-117) Total Protein 3.9 GM/DL (6.4-8.2) Albumin 1.7 GM/DL (3.4-5.0) Ovalocytes 1+ (NORMAL) Result Diagram: 01/29/17 0430 01/28/17 0400 Imaging Last Impressions Chest CT 01/23/171638 Signed Impressions: Service Date/Time: Monday, January 23, 2017 17:39 - CONCLUSION: Abnormal esophageal appearance and findings concerning for GI perforation in the GE junction region. Shantanu Maxwell MD Abdomen/Pelvis CT 01/23/171638 Signed Impressions: Service Date/Time: Monday, January 23, 2017 17:37 - CONCLUSION: Metastatic disease present throughout the liver. Nonspecific splenic lesions. Small collections of air are near the GE junction with appearance worrisome for a GI perforation in this area. 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 Originally from [place] though has lived in [place] for the past 20+ years. 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 Supported by , brother, 2 adult daughters. Also has a 12yr old pit bull at home. ==Spiritual: Does not desire trim setter helper support ==Legal:Legal decision maker: Patient is able to make his own decisions. He indicates his is designated on his living will as HCS. Requested they bring copies of this documentation. In absence of this document his would be legal decision maker per statutes. . Important Contacts Chary Crockett [phone] . Prognosis This patient has stage IV esophageal carcinoma. He had just recently started fourth line chemotherapy, and has had disease progression up until this point. May be able to take 5th chemo if current acute condition stabilizes. Currently suffering from complications of ongoing bleeding unable to be embolized. Plan for radiation. Overall prognosis for survival beyond 6 months appears poor given disease progression thus far, and recurrent complications. Appropriate for hospice-if goals compatible. Code Status: No Code Plan * Legal decision maker: Patient is able to make his own decisions. He indicates his is designated on his living will as HCS. Requested they bring copies of this documentation. In absence of this document his would be legal decision maker per [place] statutes. * Goals: Met with patient and family at length 01/26/17. They have good understanding of conditions and prognosis. Goals are to continue whatever aggressive treatments are available (radiation, additional chemotherapy )to stabilize/slow disease progression. They understand that he will not achieve cure from underlying disease process. Patient desires DNR.[offered community DNR 01/29 wishes to discuss further with his family, before signing] Open to revisiting goals should significant complications or setbacks occur. * CODE STATUS: DNR * SYMPTOMS: --Patient denies pain, dyspnea, anxiety; will continue to evaluate --Fatiguegeneral. Has been ongoing for months especially after chemotherapy completion. -- PT has evaluated/tx, pt able to ambulate well, minimal to no assist, cont OOB activity --Malnutritionongoing, weight loss of 50-60lbs total since diagnoses however has recently gained back about 10 pounds; nutrition via G-tube. Possible patient may be able to begin some oral feeding again for pleasure post radiation; will probably require ongoing use of feeding tube to maintain caloric needs --Dysphagiasecondary to mass; Possible patient may be able to begin some oral feeding again for pleasure post radiation; will probably require ongoing use of feeding tube to maintain caloric needs -- mild nausea-- resolved. on reglan. may be r/t TF residual. Cont to monitor TF tolerance. * Palliative care will continue to follow during hospital course as condition evolves, to assist patient/decision-maker with understanding of medical conditions, weighing benefits/burdens of treatment options, for clarification of goals of treatment. Additionally will assist with any symptoms of palliative concern Attestation To help prompt me to consider important information that might be impacting today's encounter and assessment, information from prior notes written by myself or my colleagues may have been "brought forward" into today's note. My signature on this note, however, is an attestation that I personally performed the exam, history, and/or decision-making noted today, and, unless otherwise indicated, the interactions with patient, family, and staff as well as the review of records all occurred today. I also attest that the listed assessment and stated plan reflect my best clinical judgment today based on the combination of historical information, prior notes, and today's exam/ interactions. When time spent is documented, it refers only to time spent today by the signer, or if indicated, combined time spent today by collaborating physician/nurse practitioner. Sabine Al Jan 29, 2017 15:58
[2017-01-29] MEDS ORDERED: guaiFENesin E.R. 600 MG TAB PO SCH (21:00)
[2017-01-29] MEDS: guaiFENesin SOLUTION 200 MG/10 ML CUP PO SCH (21:33)
[2017-01-30] VITALS: BP 115/83; PULSE 60; RESP 16; TEMP 96.9; O2SAT 93
[2017-01-30] MEDS: CHLORHEXIDINE GLUCONATE 2 % 1 PACK (2 CLOTHS) TOP SCH (03:17)
[2017-01-30] MEDS: AZTREONAM INJ 2,000 MG in SODIUM CHLORIDE 0.9% INJ 100 ML IV SCH ×4 (03:18→22:34)
[2017-01-30 04:00] VITALS: BP 102/75; PULSE 75; RESP 17; TEMP 96.3; O2SAT 96
[2017-01-30] MEDS: PANTOPRAZOLE SODIUM 40 MG VIAL IV PUSH SCH ×2 (04:57→17:46)
[2017-01-30] MEDS: SODIUM CHLOR 0.45% 1000 ML INJ 1,000 ML IV SCH ×2 (04:57→22:52)
[2017-01-30] MEDS: guaiFENesin SOLUTION 200 MG/10 ML CUP PO SCH ×3 (04:57→22:33)
[2017-01-30 06:07] LABS: AUTOMATED NEUTROPHIL # 2.7 TH/MM3 (1.8-7.7); BASOPHIL % 0.4 % (0.0-2.0); EOSINOPHIL % 1.1 % (0.0-4.0); HEMATOCRIT 29.2 % (39.0-51.0); HEMO FLAGS DIFF FINAL; LYMPH % 11.3 % (9.0-44.0); LYMPHOCYTE # 0.4 TH/MM3 (1.0-4.8); MEAN CELL VOLUME 86.5 FL (80.0-100.0); MEAN CORPUSCULAR HEMOGLOBIN 29.8 PG (27.0-34.0); MEAN CORPUSCULAR HGB CONC 34.5 % (32.0-36.0); MONO % 11.6 % (0.0-8.0); NEUT % 75.6 % (16.0-70.0); PLATELET COUNT 181 TH/MM3 (150-450); RED BLOOD COUNT 3.38 MIL/MM3 (4.50-5.90); RED CELL DISTRIBUTION WIDTH 16.4 % (11.6-17.2); WHITE BLOOD COUNT 3.6 TH/MM3 (4.0-11.0)
[2017-01-30 08:00] VITALS: BP 111/72; PULSE 74; RESP 12; TEMP 97.5; O2SAT 97
--- NOTE | 2017-01-30 08:34 | HHI.PR ---
Subjective Remarks Critical Care Notes: 60-year-old male with history of stage IV metastatic esophageal cancer undergoing chemotherapy with Dr. del angel, history of upper GI bleed from ulcerating esophageal cancer, who presented with vomiting blood and passing black stools. He also complains of of weakness and lightheadedness. He is followed by Dr. Del Angel for his esophageal adenocarcinoma. His hemoglobin on presentation was 3 with a hematocrit of 9.1. Patient was borderline hypotensive and tachycardic 4 units of PRBC had been ordered by Dr. Sharpe. After discussion with Dr. del angel patient had decided to be a DNR, but is okay with the temporary intubation if needed for endoscopy. Patient had similar presentation on November 2016 where he was admitted with upper GI bleed and was seen by GI doctor Sharath. EGD 11/05/16 showed ulcerating bleeding mass in the distal esophagus, status post epi injection and cauterization. I evaluated the patient in the ED. He is in mild to moderate discomfort due to recurrent nausea, and hematemesis. He is receiving his fourth unit of blood. Remains tachycardic but blood pressure has improved. GI consult is pending. I have discussed with Dr. Del Angel SUBJ 01/24/17: Continues to have hematemesis. Completing total 4 units of PRBC. Last hemoglobin was 7.9. Sodium has increased to 146 BUN 61 creatinine 1.37. Remains critically ill, borderline hypotensive. CT of the chest abdomen pelvis done for restaging shows questionable perforation at GE junction. Patient does not want possible perforation further investigated or intervened. I have started him on Azactam and Flagyl. Patient is still okay with IR evaluation for possible embolization 01/25/17: Patient had one episode of hematemesis and melena overnight. Hemoglobin stable at 9. Chemistry pending. Multiple attempts at embolization unsuccessful yesterday. Oncology planning on palliative radiation therapy 01/26/17: No further hematemesis overnight. Continues to have melanotic stools. Hemoglobin 7.8 platelet count 96 today. Getting radiation therapy to starting today Hospitalist Notes: 01/28/17: Transferred to Hospitalist group and asked me to see the patient today , seen in the room in the presence of nurse Mr. Monroe and his he is stable not taking ice chips, but has feeding tubes. no bleeding. 01/29/17: Patient seen in his bedroom in the presence of his Mrs. Padilla appreciated, also discussed with Nurse Miss Bain mega, his feeding tube rate is been decreased due to abdominal discomfort. no Vomit or diarrhea but yes Nausea and Dyspepsia. 01/30/17: Seen in his bedroom in the presence of his , Mrs. Padilla no new complaints encourage activity, some lower extremity edema present, No nausea, no vomit or diarrhea, had Radiation therapy. replaced electrolytes today Objective Vital Signs Date Time Temp Pulse Resp B/P Pulse Ox O2 Delivery O2 Flow Rate FiO2 01/30/17 04:00 96.3 75 17 102/75 96 01/30/17 00:00 96.9 60 16 115/83 93 01/29/17 22:20 97.7 79 18 116/89 98 01/29/17 20:00 75 01/29/17 20:00 98.3 75 14 112/77 97 01/29/17 16:00 98.6 74 16 112/77 99 01/29/17 16:00 74 01/29/17 12:00 98.1 73 16 114/72 97 01/29/17 12:00 70 01/29/17 10:20 96 21 01/29/17 10:00 68 I/O 01/29/17 01/29/17 01/29/17 01/30/17 01/30/17 01/30/17 07:00 15:00 23:00 07:00 15:00 23:00 Intake Total 1757 ml 2175 ml 1170 ml 1420 ml Output Total 200 ml 2100 ml 850 ml Balance 1557 ml 75 ml 320 ml 1420 ml Intake Oral 0 ml IV Total 1281 ml 1601 ml 940 ml 1125 ml Tube Feeding 476 ml 454 ml 170 ml 175 ml Other 120 ml 60 ml 120 ml Output Urine Total 200 ml 2100 ml 450 ml Stool Total 400 ml # Voids 1 # Bowel Movements 0 1 1 Result Diagram: 01/30/17 0500 01/28/17 0400 Imaging Last Impressions Chest CT 01/23/171638 Signed Impressions: Service Date/Time: Monday, January 23, 2017 17:39 - CONCLUSION: Abnormal esophageal appearance and findings concerning for GI perforation in the GE junction region. Shantanu Maxwell MD Abdomen/Pelvis CT 01/23/17 163 Signed Impressions: Service Date/Time: Monday, January 23, 2017 17:37 - CONCLUSION: Metastatic disease present throughout the liver. Nonspecific splenic lesions. Small collections of air are near the GE junction with appearance worrisome for a GI perforation in this area. Shantanu Maxwell MD Procedures EGD 11/05/16 showed ulcerating bleeding mass in the distal esophagus, status post epi injection and cauterization. Other Results Laboratory Tests Test 01/26/17 01/26/17 01/27/17 01/28/17 03:20 17:30 04:00 04:00 Nucleated Red Blood Cells 1 /100 WBC Basophilic Stippling FAINT Prothrombin Time 12.0 SEC Prothromb Time International 1.1 RATIO Ratio Activated Partial 36.4 SEC Thromboplast Time Blood Type A POSITIVE Antibody Screen NEGATIVE Crossmatch Leukocyte-Reduced Red Blood Cells Blood Bank Comment Differential Total Cells 100 Counted Neutrophils % (Manual) 60 % Band Neutrophils % 25 % Lymphocytes % 5 % Monocytes % 5 % Neutrophils # (Manual) 2.6 TH/MM3 Metamyelocytes 2 % Myelocytes 3 % Platelet Estimate LOW Platelet Morphology Comment NORMAL Sodium Level 140 MEQ/L Chloride Level 108 MEQ/L Carbon Dioxide Level 23.8 MEQ/L Anion Gap 8 MEQ/L Blood Urea Nitrogen 23 MG/DL Creatinine 0.55 MG/DL Estimat Glomerular Filtration 150 ML/MIN Rate Random Glucose 66 MG/DL Calcium Level 7.1 MG/DL Protein Corrected Calcium 8.9 MG/DL Magnesium Level 1.9 MG/DL Total Bilirubin 0.6 MG/DL Aspartate Amino Transf 21 U/L (AST/SGOT) Alanine Aminotransferase 16 U/L (ALT/SGPT) Alkaline Phosphatase 69 U/L Total Protein 3.9 GM/DL Albumin 1.7 GM/DL Ovalocytes 1+ Potassium Level 3.4 MEQ/L Test 01/30/17 05:00 White Blood Count 3.6 TH/MM3 Red Blood Count 3.38 MIL/MM3 Hemoglobin 10.1 GM/DL Hematocrit 29.2 % Mean Corpuscular Volume 86.5 FL Mean Corpuscular Hemoglobin 29.8 PG Mean Corpuscular Hemoglobin 34.5 % Concent Red Cell Distribution Width 16.4 % Platelet Count 181 TH/MM3 Mean Platelet Volume 7.8 FL Neutrophils (%) (Auto) 75.6 % Lymphocytes (%) (Auto) 11.3 % Monocytes (%) (Auto) 11.6 % Eosinophils (%) (Auto) 1.1 % Basophils (%) (Auto) 0.4 % Neutrophils # (Auto) 2.7 TH/MM3 Lymphocytes # (Auto) 0.4 TH/MM3 Monocytes # (Auto) 0.4 TH/MM3 Eosinophils # (Auto) 0.0 TH/MM3 Basophils # (Auto) 0.0 TH/MM3 CBC Comment DIFF FINAL Differential Comment Objective Remarks GENERAL: no acute distress. SKIN: Warm and dry. HEAD: Atraumatic. Normocephalic. EYES: Pupils equal and round. No scleral icterus. Conjunctiva pale ENT: No nasal bleeding or discharge. Mucous membranes dry, oral mucosa has some dry blood NECK: Trachea midline. No JVD. CARDIOVASCULAR: No murmur appreciated. Right upper chest port in place RESPIRATORY: No accessory muscle use. Clear to auscultation. Breath sounds equal bilaterally. PEG tube in place GASTROINTESTINAL: Abdomen soft, non-tender, nondistended. MUSCULOSKELETAL: Left upper extremity edema. NEUROLOGICAL: Awake and alert. No obvious cranial nerve deficits. Motor grossly within normal limits. Normal speech. Medications and IVs Current Medications Medications (Trade) Dose Ordered Sig/Andrea Route Start Time Stop Time Status Last Admin (NS Flush) 2 ml UNSCH PRN IVF 01/23/17 06:15 (NS Flush) 2 ml UNSCH PRN IVF 01/23/17 07:15 Miscellaneous Information 1 [id number] XX 01/23/17 08:15 (Chlorhexidine 2% Cloth) Taper DAILY@04 TOP 01/24/17 04:00 01/20/18 03:59 01/29/17 03:08 Chlorhexidine Gluconate 3 pack 3 pack UNSCH PRN TOP 01/23/17 08:15 Potassium Chloride 100 ml @ 50 mls/hr Q2H PRN IV 01/23/17 08:30 Potassium Chloride 100 ml @ 50 mls/hr Q2H PRN IV 01/23/17 08:30 Potassium Chloride 100 ml @ 25 mls/hr UNSCH PRN IV 01/23/17 08:30 01/28/17 06:00 Potassium Chloride 100 ml @ 50 mls/hr Q2H PRN IV 01/23/17 08:30 (Magnesium Sulfate Inj/NS Inj) 100 ml @ 50 mls/hr UNSCH PRN IV 01/23/17 08:30 Magnesium Oxide 800 mg 800 mg UNSCH PRN PO 01/23/17 08:30 (Magnesium Sulfate Inj/NS Inj) 100 ml @ 50 mls/hr UNSCH PRN IV 01/23/17 08:30 Potassium Phosphate 2000 mg 2,000 mg Q4H PRN PO 01/23/17 08:30 (Sodium Phosphate Inj/NS 250 ml Inj) 250 ml @ 42 mls/hr UNSCH PRN IV 01/23/17 08:30 Potassium Phosphate 2000 mg 2,000 mg UNSCH PRN PO/TUBE 01/23/17 08:30 (Potassium Phosphate Inj/NS 250 ml Inj) 260 ml @ 42 mls/hr UNSCH PRN IV 01/23/17 08:30 (Morphine Inj) 2 mg Q3H PRN IV PUSH 01/23/17 09:15 (NS Flush) 2 ml UNSCH PRN IV FLUSH 01/23/17 10:15 Sodium Chloride 2 ml 2 ml BID IV FLUSH 01/23/17 21:00 01/29/17 21:22 Aztreonam 2000 mg/ Sodium Chloride 100 ml @ 200 mls/hr Q6H IV 01/24/17 09:00 01/30/17 03:18 (Flagyl 500 Mg Inj) 100 ml @ 100 mls/hr Q8H IV 01/24/17 08:00 01/29/17 23:36 Metoclopramide HCl 10 mg 10 mg Q8H IV 01/24/17 08:00 01/29/17 23:34 (1/2 NS 1000 ml Inj) 1,000 ml @ 125 mls/hr Q8H IV 01/24/17 07:15 01/30/17 04:57 Pantoprazole Sodium 40 mg 40 mg Q12H IV PUSH 01/26/17 18:00 01/30/17 04:57 (D5W 1000 ml Inj) 1,000 ml @ 50 mls/hr Q20H IV 01/27/17 11:00 01/29/17 00:38 (Compazine Inj) 5 mg Q6H PRN IV PUSH 01/27/17 17:30 01/29/17 21:42 (Robitussin Liq) 400 mg Q8HR PO 01/29/17 22:00 01/30/17 04:57 A/P Assessment and Plan 1. Upper GI bleed from Esophageal Cancer, status post EGD with ablation/epi injection and clipping x 3 of bleeding esophageal mass by Doctor Monserrat 01/23/17, EGD 11/05/16 showed ulcerating bleeding mass in the distal esophagus, status post epi injection and cauterization was consulted to Interventional Radiology unable to embolize on 01/24/17, started on Palliative Radiation 01/26/17, PEG in place, continue Octreotide, Transfuse as needed. the patient refused Diagnostic or therapeutic Interventions performed for possible esophageal perforation Pt s/p EGD on 01/23/2017 with clips application/epinephrine injection and APC treatment of tumor, s/p failed embolization attempt large ulcerated mass at GE junction most likely cause of recurrent bleeding. CT of the chest/abdomen/pelvis done for restaging shows questionable perforation at GE junction but pt does not this further investigated or intervened upon. Pt has been started on Azactam and Flagyl. Pt had multiple attempts at embolization unsuccessful 01/24. Continue Palliative Radiation as per Oncology will re start Chemotherapy as outpatient. Has metastatic Esophageal Cancer to the Liver and Lymph node. 2. Stage IV Esophageal Cancer. 3. Acute Blood loss anemia Hemoglobin today 10.1 and following. 4. Possible esophageal perforation and GE junction 5. Respiratory insufficiency on Bronchodilator, Mucolytic incentive spirometry, the patient is DNR but okay with temporary intubation for EGD/procedures if needed 6. Empiric Azactam and Flagyl for possible esophageal perforation 7. Left upper extremity Edema as per art specialist not taken any test due to that if we know he has a DVT on the left arm we are not able to give any treatment due to his Hemorrhagic pathology. 8. Electrolyte derangement replaced. PROPH: -Bilateral lower extremity SCDs. Avoid chemical DVT prophylaxis. Protonix every 12 hours. Discussed in the Patient, his and nurse, all questions answered to the best of my abilities Discharge Planning once cleared by GI specialist and engineering specialist technician. Elliot Gillis MD Jan 30, 2017 08:34 Elliot Gillis MD Jan 30, 2017 08:34
[2017-01-30] MEDS: metroNIDAZOLE 500 MG INJ 100 ML IV SCH ×3 (08:57→23:54)
[2017-01-30] MEDS: METOCLOPRAMIDE HCL 10 MG/2 ML VIAL IV SCH ×3 (08:57→23:53)
[2017-01-30] MEDS: SODIUM CHLORIDE 0.9% FLUSH 10 ML FLUSH IV FLUSH SCH ×2 (09:12→21:00)
[2017-01-30 11:09] LABS: BICARBONATE 26.5 MEQ/L (21.0-32.0); MAGNESIUM 2.1 MG/DL (1.5-2.5); POTASSIUM 3.6 MEQ/L (3.5-5.1)
[2017-01-30 11:36] LABS: CALCIUM-PROTEIN CORRECTED 8.9 MG/DL (8.5-10.1)
[2017-01-30 12:00] VITALS: BP 116/72; PULSE 77; RESP 16; TEMP 97.2; O2SAT 98
[2017-01-30] MEDS: PROCHLORPERAZINE INJ 10 MG/2 ML VIAL IV PUSH PRN (12:03)
--- NOTE | 2017-01-30 14:21 | PD.ONC.PN ---
Subjective Subjective Remarks Afebrile overnight. Patient tolerating radiation. No complaints. Objective Data Date Time Temp Pulse Resp B/P Pulse Ox O2 Delivery O2 Flow Rate FiO2 01/30/17 12:00 97.2 77 16 116/72 98 01/30/17 08:00 97.5 74 12 111/72 97 01/30/17 04:00 96.3 75 17 102/75 96 01/30/17 00:00 96.9 60 16 115/83 93 01/29/17 22:20 97.7 79 18 116/89 98 01/29/17 20:00 75 01/29/17 20:00 98.3 75 14 112/77 97 01/29/17 16:00 98.6 74 16 112/77 99 01/29/17 16:00 74 Result Diagram: 01/30/17 0500 01/30/17 0913 Laboratory Results Laboratory Tests Test 01/30/17 01/30/17 05:00 09:13 White Blood Count 3.6 TH/MM3 Red Blood Count 3.38 MIL/MM3 Hemoglobin 10.1 GM/DL Hematocrit 29.2 % Mean Corpuscular Volume 86.5 FL Mean Corpuscular Hemoglobin 29.8 PG Mean Corpuscular Hemoglobin 34.5 % Concent Red Cell Distribution Width 16.4 % Platelet Count 181 TH/MM3 Mean Platelet Volume 7.8 FL Neutrophils (%) (Auto) 75.6 % Lymphocytes (%) (Auto) 11.3 % Monocytes (%) (Auto) 11.6 % Eosinophils (%) (Auto) 1.1 % Basophils (%) (Auto) 0.4 % Neutrophils # (Auto) 2.7 TH/MM3 Lymphocytes # (Auto) 0.4 TH/MM3 Monocytes # (Auto) 0.4 TH/MM3 Eosinophils # (Auto) 0.0 TH/MM3 Basophils # (Auto) 0.0 TH/MM3 CBC Comment DIFF FINAL Differential Comment Sodium Level 139 MEQ/L Potassium Level 3.6 MEQ/L Chloride Level 106 MEQ/L Carbon Dioxide Level 26.5 MEQ/L Anion Gap 7 MEQ/L Blood Urea Nitrogen 9 MG/DL Creatinine 0.36 MG/DL Estimat Glomerular Filtration 245 ML/MIN Rate Random Glucose 103 MG/DL Calcium Level 7.0 MG/DL Protein Corrected Calcium 8.9 MG/DL Phosphorus Level 1.8 MG/DL Magnesium Level 2.1 MG/DL Total Protein 3.8 GM/DL Administered Medications Medications (Trade) Dose Ordered Sig/Andrea Route PRN Reason Start Time Stop Time Status Last Admin Dose Admin Chlorhexidine Gluconate Taper DAILY@04 TOP 01/24/17 04:00 01/20/18 03:59 01/29/17 03:08 Potassium Chloride (KCl 40 Meq Premix Inj) 100 ml @ 25 mls/hr UNSCH PRN IV For Potassium 3.3 - 3.5 mEq/L 01/23/17 08:30 01/28/17 06:00 Sodium Chloride 2 ml 2 ml BID IV FLUSH 01/23/17 21:00 01/29/17 21:22 Aztreonam 2000 mg/ Sodium Chloride 100 ml @ 200 mls/hr Q6H IV 01/24/17 09:00 01/30/17 12:03 Metronidazole (Flagyl 500 Mg Inj) 100 ml @ 100 mls/hr Q8H IV 01/24/17 08:00 01/30/17 08:57 Metoclopramide HCl 10 mg 10 mg Q8H IV 01/24/17 08:00 01/30/17 08:57 Sodium Chloride (1/2 NS 1000 ml Inj) 1,000 ml @ 50 mls/hr Q20H IV 01/24/17 07:15 01/30/17 04:57 Pantoprazole Sodium (Protonix Inj) 40 mg Q12H IV PUSH 01/26/17 18:00 01/30/17 04:57 Prochlorperazine Edisylate (Compazine Inj) 5 mg Q6H PRN IV PUSH nausea vomiting 01/27/17 17:30 01/30/17 12:03 Guaifenesin (Robitussin Liq) 400 mg Q8HR PO 01/29/17 22:00 01/30/17 04:57 Objective Remarks GENERAL: Middle aged male, lying supine in bed. SKIN: Warm and dry. HEAD: Normocephalic. EYES: No injection or drainage. NECK: Supple, trachea midline. CARDIOVASCULAR: Regular rate and rhythm RESPIRATORY: Breath sounds equal bilaterally. No accessory muscle use. GASTROINTESTINAL: Abdomen soft, non-tender, nondistended. EXTREMITIES: No cyanosis NEUROLOGICAL: No obvious focal deficit. Awake, alert, and oriented x3. Assessment/Plan Problem List: (1) GI bleed Status: Acute Plan: --On palliative radiation. Hemoglobin has remained stable. --s/p EGD with cauterization --due to bleeding gastric mass (2) Stage IV esophageal cancer Status: Acute Plan: --XRT started 01/26. may resume chemotherapy outpatient once discharged --metastatic esophageal cancer, metastasis to the liver and lymph node. --was receiving fourth-line chemotherapy with Cyramza and Taxol, the last cycle (third cycle) of chemotherapy was two days prior to admission. History: --initially diagosed with adenocarcinoma involving the GE junction invading into the stomach fundus, he also had liver metastasis and adenopathy in the abdomen. --good response to EOX chemotherapy but poor tolerance--> switched to FOLFOX chemotherapy, developed progression of disease. --was treated with Keytruda with no clear response. switched to FOLFIRI but again developed progression of disease-->recently switched over to Cyramza and Taxol, Assessment 61 y/o male with history of metastatic esophageal cancer admitted for severe anemia with GI bleeding. h/o PEG tube placement. Port placement. Plan 1. continue palliative radiation 2. monitor hgb 3. hopefully will be able to d/c home in a few days if hgb remains stable. Attending Statement The exam, history, and the medical decision-making described in the above note were completed with the assistance of the mid-level provider. I reviewed and agree with the findings presented. I attest that I had a [id number] encounter with the patient on the same day, and personally performed and documented my assessment and findings in the medical record. Feels better. Still very weak. No more melena. Hgb trending up. Nausea better with decreased tube feeding. Anticipate d/c in 1 -2 days. Darcy Chatman Jan 30, 2017 14:21 Armando Del Angel MD Jan 30, 2017 19:16
[2017-01-30 16:00] VITALS: BP 121/83; PULSE 77; RESP 16; TEMP 96.5; O2SAT 99
[2017-01-30] MEDS ORDERED: POTASSIUM CHLORIDE 20 MEQ PWD PACKET PO ONE (18:00)
[2017-01-30] MEDS ORDERED: POTASSIUM PHOSPHATE INJ 15 MMOL in SODIUM CHLORIDE 0.9% INJ 150 ML IV ONE (18:00)
[2017-01-30 20:00] VITALS: BP 117/82; PULSE 76; RESP 18; TEMP 96.2; O2SAT 100
[2017-01-31] VITALS: BP 119/82; PULSE 78; RESP 18; TEMP 96.3; O2SAT 99
[2017-01-31] MEDS: AZTREONAM INJ 2,000 MG in SODIUM CHLORIDE 0.9% INJ 100 ML IV SCH ×4 (03:59→21:28)
[2017-01-31 04:00] VITALS: BP 115/80; PULSE 87; RESP 18; TEMP 96.6; O2SAT 96
[2017-01-31] MEDS: CHLORHEXIDINE GLUCONATE 2 % 1 PACK (2 CLOTHS) TOP SCH (04:00)
[2017-01-31] MEDS: PROCHLORPERAZINE INJ 10 MG/2 ML VIAL IV PUSH PRN ×3 (05:51→18:09)
[2017-01-31] MEDS: PANTOPRAZOLE SODIUM 40 MG VIAL IV PUSH SCH ×2 (05:55→18:08)
[2017-01-31] MEDS: guaiFENesin SOLUTION 200 MG/10 ML CUP PO SCH ×3 (05:55→21:27)
[2017-01-31 07:31] LABS: BICARBONATE 25.2 MEQ/L (21.0-32.0); POTASSIUM 3.8 MEQ/L (3.5-5.1)
[2017-01-31 07:47] LABS: CALCIUM-PROTEIN CORRECTED 9.1 MG/DL (8.5-10.1)
[2017-01-31 08:00] VITALS: BP 103/69; PULSE 74; RESP 20; TEMP 96.6; O2SAT 97
[2017-01-31] MEDS: metroNIDAZOLE 500 MG INJ 100 ML IV SCH ×2 (08:57→16:30)
[2017-01-31] MEDS: METOCLOPRAMIDE HCL 10 MG/2 ML VIAL IV SCH ×2 (08:57→16:00)
[2017-01-31] MEDS: SODIUM CHLORIDE 0.9% FLUSH 10 ML FLUSH IV FLUSH SCH ×2 (08:58→21:00)
--- NOTE | 2017-01-31 09:29 | HHI.PR ---
Subjective Remarks Critical Care Notes: 60-year-old male with history of stage IV metastatic esophageal cancer undergoing chemotherapy with Dr. del angel, history of upper GI bleed from ulcerating esophageal cancer, who presented with vomiting blood and passing black stools. He also complains of of weakness and lightheadedness. He is followed by Dr. Del Angel for his esophageal adenocarcinoma. His hemoglobin on presentation was 3 with a hematocrit of 9.1. Patient was borderline hypotensive and tachycardic 4 units of PRBC had been ordered by Dr. Sharpe. After discussion with Dr. del angel patient had decided to be a DNR, but is okay with the temporary intubation if needed for endoscopy. Patient had similar presentation on November 2016 where he was admitted with upper GI bleed and was seen by GI doctor Sharath. EGD 11/05/16 showed ulcerating bleeding mass in the distal esophagus, status post epi injection and cauterization. I evaluated the patient in the ED. He is in mild to moderate discomfort due to recurrent nausea, and hematemesis. He is receiving his fourth unit of blood. Remains tachycardic but blood pressure has improved. GI consult is pending. I have discussed with Dr. Del Angel SUBJ 01/24/17: Continues to have hematemesis. Completing total 4 units of PRBC. Last hemoglobin was 7.9. Sodium has increased to 146 BUN 61 creatinine 1.37. Remains critically ill, borderline hypotensive. CT of the chest abdomen pelvis done for restaging shows questionable perforation at GE junction. Patient does not want possible perforation further investigated or intervened. I have started him on Azactam and Flagyl. Patient is still okay with IR evaluation for possible embolization 01/25/17: Patient had one episode of hematemesis and melena overnight. Hemoglobin stable at 9. Chemistry pending. Multiple attempts at embolization unsuccessful yesterday. Oncology planning on palliative radiation therapy 01/26/17: No further hematemesis overnight. Continues to have melanotic stools. Hemoglobin 7.8 platelet count 96 today. Getting radiation therapy to starting today Hospitalist Notes: 01/28/17: Transferred to Hospitalist group and asked me to see the patient today , seen in the room in the presence of nurse Mr. Monroe and his he is stable not taking ice chips, but has feeding tubes. no bleeding. 01/29/17: Patient seen in his bedroom in the presence of his Mrs. Padilla appreciated, also discussed with Nurse Miss Bain appreciated, his feeding tube rate is been decreased due to abdominal discomfort. no Vomit or diarrhea but yes Nausea and Dyspepsia. 01/30/17: Seen in his bedroom in the presence of his , Mrs. Padilla no new complaints encourage activity, some lower extremity edema present, No nausea, no vomit or diarrhea, had Radiation therapy. replaced electrolytes today 01/31/17: Seen in his bedroom in the presence of his Daughter, he is asking to go home, I asked the nurse to call me if client care specialist decides to let him go home, at the moment stable No complaint encourage activity, NO Nausea, vomit or diarrhea. Objective Vital Signs Date Time Temp Pulse Resp B/P Pulse Ox O2 Delivery O2 Flow Rate FiO2 01/31/17 04:00 96.6 87 18 115/80 96 01/31/17 00:00 96.3 78 18 119/82 99 01/30/17 20:00 96.2 76 18 117/82 100 01/30/17 16:00 96.5 77 16 121/83 99 01/30/17 12:00 97.2 77 16 116/72 98 I/O 01/30/17 01/30/17 01/30/17 01/31/17 01/31/17 01/31/17 07:00 15:00 23:00 07:00 15:00 23:00 Intake Total 1420 ml 0 ml Output Total 100 ml 200 ml Balance 1420 ml -100 ml -200 ml Intake Oral 0 ml IV Total 1125 ml Tube Feeding 175 ml Other 120 ml Output Urine Total 100 ml 200 ml # Voids 1 3 # Bowel Movements 1 Result Diagram: 01/30/17 0500 01/31/17 0606 Imaging Last Impressions Chest CT 01/23/17 1639 Signed Impressions: Service Date/Time: Monday, January 23, 2017 17:39 - CONCLUSION: Abnormal esophageal appearance and findings concerning for GI perforation in the GE junction region. Shantanu Maxwell MD Abdomen/Pelvis CT 01/23/17 1639 Signed Impressions: Service Date/Time: Monday, January 23, 2017 17:37 - CONCLUSION: Metastatic disease present throughout the liver. Nonspecific splenic lesions. Small collections of air are near the GE junction with appearance worrisome for a GI perforation in this area. Shantanu Maxwell MD Procedures EGD 11/05/16 showed ulcerating bleeding mass in the distal esophagus, status post epi injection and cauterization. Other Results Laboratory Tests Test 01/26/17 01/27/17 01/28/17 01/30/17 17:30 04:00 04:00 05:00 Blood Type A POSITIVE Antibody Screen NEGATIVE Crossmatch Leukocyte-Reduced Red Blood Cells Blood Bank Comment Differential Total Cells 100 Counted Neutrophils % (Manual) 60 % Band Neutrophils % 25 % Lymphocytes % 5 % Monocytes % 5 % Neutrophils # (Manual) 2.6 TH/MM3 Metamyelocytes 2 % Myelocytes 3 % Platelet Estimate LOW Platelet Morphology Comment NORMAL Total Bilirubin 0.6 MG/DL Aspartate Amino Transf 21 U/L (AST/SGOT) Alanine Aminotransferase 16 U/L (ALT/SGPT) Alkaline Phosphatase 69 U/L Albumin 1.7 GM/DL Ovalocytes 1+ White Blood Count 3.6 TH/MM3 Red Blood Count 3.38 MIL/MM3 Hemoglobin 10.1 GM/DL Hematocrit 29.2 % Mean Corpuscular Volume 86.5 FL Mean Corpuscular Hemoglobin 29.8 PG Mean Corpuscular Hemoglobin 34.5 % Concent Red Cell Distribution Width 16.4 % Platelet Count 181 TH/MM3 Mean Platelet Volume 7.8 FL Neutrophils (%) (Auto) 75.6 % Lymphocytes (%) (Auto) 11.3 % Monocytes (%) (Auto) 11.6 % Eosinophils (%) (Auto) 1.1 % Basophils (%) (Auto) 0.4 % Neutrophils # (Auto) 2.7 TH/MM3 Lymphocytes # (Auto) 0.4 TH/MM3 Monocytes # (Auto) 0.4 TH/MM3 Eosinophils # (Auto) 0.0 TH/MM3 Basophils # (Auto) 0.0 TH/MM3 CBC Comment DIFF FINAL Differential Comment Test 01/30/17 01/31/17 09:13 06:06 Phosphorus Level 1.8 MG/DL Magnesium Level 2.1 MG/DL Sodium Level 142 MEQ/L Potassium Level 3.8 MEQ/L Chloride Level 111 MEQ/L Carbon Dioxide Level 25.2 MEQ/L Anion Gap 6 MEQ/L Blood Urea Nitrogen 9 MG/DL Creatinine 0.36 MG/DL Estimat Glomerular Filtration 245 ML/MIN Rate Random Glucose 96 MG/DL Calcium Level 7.2 MG/DL Protein Corrected Calcium 9.1 MG/DL Total Protein 3.8 GM/DL Objective Remarks GENERAL: no acute distress. SKIN: Warm and dry. HEAD: Atraumatic. Normocephalic. EYES: Pupils equal and round. No scleral icterus. Conjunctiva pale ENT: No nasal bleeding or discharge. Mucous membranes dry, oral mucosa has some dry blood NECK: Trachea midline. No JVD. CARDIOVASCULAR: No murmur appreciated. Right upper chest port in place RESPIRATORY: No accessory muscle use. Clear to auscultation. Breath sounds equal bilaterally. PEG tube in place GASTROINTESTINAL: Abdomen soft, non-tender, nondistended. MUSCULOSKELETAL: Left upper extremity edema. NEUROLOGICAL: Awake and alert. No obvious cranial nerve deficits. Motor grossly within normal limits. Normal speech. Medications and IVs Current Medications Medications (Trade) Dose Ordered Sig/Andrea Route Start Time Stop Time Status Last Admin (NS Flush) 2 ml UNSCH PRN IVF 01/23/17 06:15 (NS Flush) 2 ml UNSCH PRN IVF 01/23/17 07:15 Miscellaneous Information 1 [id number] XX 01/23/17 08:15 (Chlorhexidine 2% Cloth) Taper DAILY@04 TOP 01/24/17 04:00 01/20/18 03:59 01/29/17 03:08 Chlorhexidine Gluconate 3 pack 3 pack UNSCH PRN TOP 01/23/17 08:15 Potassium Chloride 100 ml @ 50 mls/hr Q2H PRN IV 01/23/17 08:30 Potassium Chloride 100 ml @ 50 mls/hr Q2H PRN IV 01/23/17 08:30 Potassium Chloride 100 ml @ 25 mls/hr UNSCH PRN IV 01/23/17 08:30 01/28/17 06:00 Potassium Chloride 100 ml @ 50 mls/hr Q2H PRN IV 01/23/17 08:30 (Magnesium Sulfate Inj/NS Inj) 100 ml @ 50 mls/hr UNSCH PRN IV 01/23/17 08:30 Magnesium Oxide 800 mg 800 mg UNSCH PRN PO 01/23/17 08:30 (Magnesium Sulfate Inj/NS Inj) 100 ml @ 50 mls/hr UNSCH PRN IV 01/23/17 08:30 Potassium Phosphate 2000 mg 2,000 mg Q4H PRN PO 01/23/17 08:30 (Sodium Phosphate Inj/NS 250 ml Inj) 250 ml @ 42 mls/hr UNSCH PRN IV 01/23/17 08:30 Potassium Phosphate 2000 mg 2,000 mg UNSCH PRN PO/TUBE 01/23/17 08:30 (Potassium Phosphate Inj/NS 250 ml Inj) 260 ml @ 42 mls/hr UNSCH PRN IV 01/23/17 08:30 (Morphine Inj) 2 mg Q3H PRN IV PUSH 01/23/17 09:15 (NS Flush) 2 ml UNSCH PRN IV FLUSH 01/23/17 10:15 Sodium Chloride 2 ml 2 ml BID IV FLUSH 01/23/17 21:00 01/31/17 08:58 Aztreonam 2000 mg/ Sodium Chloride 100 ml @ 200 mls/hr Q6H IV 01/24/17 09:00 01/31/17 08:57 (Flagyl 500 Mg Inj) 100 ml @ 100 mls/hr Q8H IV 01/24/17 08:00 01/31/17 08:57 Metoclopramide HCl 10 mg 10 mg Q8H IV 01/24/17 08:00 01/31/17 08:57 (1/2 NS 1000 ml Inj) 1,000 ml @ 50 mls/hr Q20H IV 01/24/17 07:15 01/30/17 22:52 (Protonix Inj) 40 mg Q12H IV PUSH 01/26/17 18:00 01/31/17 05:55 (Compazine Inj) 5 mg Q6H PRN IV PUSH 01/27/17 17:30 01/31/17 05:51 (Robitussin Liq) 400 mg Q8HR PO 01/29/17 22:00 01/31/17 05:55 A/P Assessment and Plan 1. Upper GI bleed from Esophageal Cancer, status post EGD with ablation/epi injection and clipping x 3 of bleeding esophageal mass by Doctor Monserrat 01/23/17, EGD 11/05/16 showed ulcerating bleeding mass in the distal esophagus, status post epi injection and cauterization was consulted to Interventional Radiology unable to embolize on 01/24/17, started on Palliative Radiation 01/26/17, PEG in place, continue Octreotide, Transfuse as needed. the patient refused Diagnostic or therapeutic Interventions performed for possible esophageal perforation Pt s/p EGD on 01/23/2017 with clips application/epinephrine injection and APC treatment of tumor, s/p failed embolization attempt large ulcerated mass at GE junction most likely cause of recurrent bleeding. CT of the chest/abdomen/pelvis done for restaging shows questionable perforation at GE junction but pt does not this further investigated or intervened upon. Pt has been started on Azactam and Flagyl. Pt had multiple attempts at embolization unsuccessful 01/24. Continue Palliative Radiation as per Oncology will re start Chemotherapy as outpatient. Has metastatic Esophageal Cancer to the Liver and Lymph node. 2. Stage IV Esophageal Cancer. 3. Acute Blood loss anemia Hemoglobin today 10.1 and following. 4. Possible esophageal perforation and GE junction 5. Respiratory insufficiency on Bronchodilator, Mucolytic incentive spirometry, the patient is DNR but okay with temporary intubation for EGD/procedures if needed 6. Empiric Azactam and Flagyl for possible esophageal perforation 7. Left upper extremity Edema as per phone specialist not taken any test due to that if we know he has a DVT on the left arm we are not able to give any treatment due to his Hemorrhagic pathology. 8. Electrolyte derangement replaced. PROPH: -Bilateral lower extremity SCDs. Avoid chemical DVT prophylaxis. Protonix every 12 hours. Discussed in the Patient, his Daughter and nurse Mr. Steel, all questions answered to the best of my abilities Discharge Planning once cleared by GI specialist and client care specialist. Elliot Gillis MD Jan 31, 2017 09:29
--- NOTE | 2017-01-31 09:57 | PD.ONC.PN ---
Subjective Subjective Remarks Afebrile overnight. Patient resting comfortably without complaint. No reported overnight events. Objective Data Date Time Temp Pulse Resp B/P Pulse Ox O2 Delivery O2 Flow Rate FiO2 01/31/17 04:00 96.6 87 18 115/80 96 01/31/17 00:00 96.3 78 18 119/82 99 01/30/17 20:00 96.2 76 18 117/82 100 01/30/17 16:00 96.5 77 16 121/83 99 01/30/17 12:00 97.2 77 16 116/72 98 01/31/17 01/31/17 01/31/17 07:00 15:00 23:00 Intake Total 0 ml Output Total 200 ml Balance -200 ml Result Diagram: 01/30/17 0500 01/31/17 0606 Laboratory Results Laboratory Tests Test 01/31/17 06:06 Sodium Level 142 MEQ/L Potassium Level 3.8 MEQ/L Chloride Level 111 MEQ/L Carbon Dioxide Level 25.2 MEQ/L Anion Gap 6 MEQ/L Blood Urea Nitrogen 9 MG/DL Creatinine 0.36 MG/DL Estimat Glomerular Filtration 245 ML/MIN Rate Random Glucose 96 MG/DL Calcium Level 7.2 MG/DL Protein Corrected Calcium 9.1 MG/DL Total Protein 3.8 GM/DL Administered Medications Medications (Trade) Dose Ordered Sig/Andrea Route PRN Reason Start Time Stop Time Status Last Admin Dose Admin Chlorhexidine Gluconate Taper DAILY@04 TOP 01/24/17 04:00 01/20/18 03:59 01/29/17 03:08 Potassium Chloride (KCl 40 Meq Premix Inj) 100 ml @ 25 mls/hr UNSCH PRN IV For Potassium 3.3 - 3.5 mEq/L 01/23/17 08:30 01/28/17 06:00 Sodium Chloride 2 ml 2 ml BID IV FLUSH 01/23/17 21:00 01/31/17 08:58 Aztreonam 2000 mg/ Sodium Chloride 100 ml @ 200 mls/hr Q6H IV 01/24/17 09:00 01/31/17 08:57 Metronidazole (Flagyl 500 Mg Inj) 100 ml @ 100 mls/hr Q8H IV 01/24/17 08:00 01/31/17 08:57 Metoclopramide HCl 10 mg 10 mg Q8H IV 01/24/17 08:00 01/31/17 08:57 Sodium Chloride (1/2 NS 1000 ml Inj) 1,000 ml @ 50 mls/hr Q20H IV 01/24/17 07:15 01/30/17 22:52 Pantoprazole Sodium (Protonix Inj) 40 mg Q12H IV PUSH 01/26/17 18:00 01/31/17 05:55 Prochlorperazine Edisylate (Compazine Inj) 5 mg Q6H PRN IV PUSH nausea vomiting 01/27/17 17:30 01/31/17 05:51 Guaifenesin (Robitussin Liq) 400 mg Q8HR PO 01/29/17 22:00 01/31/17 05:55 Objective Remarks GENERAL: Middle aged male, supine in bed sleeping on approach. SKIN: Warm and dry. HEAD: Normocephalic. EYES: No injection or drainage. NECK: Supple, trachea midline. CARDIOVASCULAR: Regular rate and rhythm RESPIRATORY: anterior estrada clear GASTROINTESTINAL: Abdomen soft, non-tender, nondistended. receiving TF via G- tube EXTREMITIES: No cyanosis NEUROLOGICAL: No obvious focal deficit. Awake, alert, and oriented x3. Assessment/Plan Problem List: (1) GI bleed Status: Acute Plan: --On palliative radiation. Hemoglobin has remained stable. --s/p EGD with cauterization --due to bleeding gastric mass (2) Stage IV esophageal cancer Status: Acute Plan: --XRT started 01/26. may resume chemotherapy outpatient once discharged --metastatic esophageal cancer, metastasis to the liver and lymph node. --was receiving fourth-line chemotherapy with Cyramza and Taxol, the last cycle (third cycle) of chemotherapy was two days prior to admission. History: --initially diagosed with adenocarcinoma involving the GE junction invading into the stomach fundus, he also had liver metastasis and adenopathy in the abdomen. --good response to EOX chemotherapy but poor tolerance--> switched to FOLFOX chemotherapy, developed progression of disease. --was treated with Keytruda with no clear response. switched to FOLFIRI but again developed progression of disease-->recently switched over to Cyramza and Taxol, Assessment 61 y/o male with history of metastatic esophageal cancer admitted for severe anemia with GI bleeding. h/o PEG tube placement. Port placement. Plan 1. XRT on hold over the weekend 2. monitor H/H 3. supportive care Attending Statement The exam, history, and the medical decision-making described in the above note were completed with the assistance of the mid-level provider. I reviewed and agree with the findings presented. I attest that I had a [id number] encounter with the patient on the same day, and personally performed and documented my assessment and findings in the medical record. Able to ambulate around the hallway this am. Nausea improved. Continue supportive care. Anticipate d/c tomorrow if continue to improve. Continue XRT. Darcy Chatman Jan 31, 2017 09:57 Armando Del Angel MD Jan 31, 2017 11:44
[2017-01-31 12:00] VITALS: BP 110/74; PULSE 80; RESP 20; TEMP 97; O2SAT 99
[2017-01-31 13:08] LABS: HEMATOCRIT 28.6 % (39.0-51.0); REVIEW FLAG FINAL
[2017-01-31] MEDS: SODIUM CHLOR 0.45% 1000 ML INJ 1,000 ML IV SCH (15:46)
[2017-01-31 16:00] VITALS: BP 108/76; PULSE 69; RESP 20; TEMP 97.3; O2SAT 99
[2017-01-31 20:00] VITALS: BP 112/75; PULSE 76; RESP 18; TEMP 96.7; O2SAT 98
[2017-02-01] VITALS: BP 119/76; PULSE 76; RESP 17; TEMP 97.1; O2SAT 97
[2017-02-01] MEDS: metroNIDAZOLE 500 MG INJ 100 ML IV SCH ×2 (00:06→08:20)
[2017-02-01] MEDS: METOCLOPRAMIDE HCL 10 MG/2 ML VIAL IV SCH ×3 (00:06→13:49)
[2017-02-01] MEDS: AZTREONAM INJ 2,000 MG in SODIUM CHLORIDE 0.9% INJ 100 ML IV SCH ×2 (03:24→08:20)
[2017-02-01] MEDS: PROCHLORPERAZINE INJ 10 MG/2 ML VIAL IV PUSH PRN ×2 (03:24→09:34)
[2017-02-01] MEDS: CHLORHEXIDINE GLUCONATE 2 % 1 PACK (2 CLOTHS) TOP SCH (03:31)
[2017-02-01 04:00] VITALS: BP 115/66; PULSE 76; RESP 18; TEMP 97.8; O2SAT 97
[2017-02-01 04:35] LABS: AUTOMATED NEUTROPHIL # 2.3 TH/MM3 (1.8-7.7); BASOPHIL % 0.8 % (0.0-2.0); EOSINOPHIL % 1.3 % (0.0-4.0); HEMO FLAGS DIFF FINAL; LYMPH % 12.3 % (9.0-44.0); LYMPHOCYTE # 0.4 TH/MM3 (1.0-4.8); MEAN CELL VOLUME 87.4 FL (80.0-100.0); MEAN CORPUSCULAR HEMOGLOBIN 28.9 PG (27.0-34.0); MONO % 15.4 % (0.0-8.0); NEUT % 70.2 % (16.0-70.0); PLATELET COUNT 214 TH/MM3 (150-450); RED BLOOD COUNT 3.32 MIL/MM3 (4.50-5.90); RED CELL DISTRIBUTION WIDTH 16.5 % (11.6-17.2); WHITE BLOOD COUNT 3.2 TH/MM3 (4.0-11.0)
[2017-02-01] MEDS: guaiFENesin SOLUTION 200 MG/10 ML CUP PO SCH ×2 (06:00→14:00)
[2017-02-01] MEDS: PANTOPRAZOLE SODIUM 40 MG VIAL IV PUSH SCH (06:02)
[2017-02-01 08:00] VITALS: BP 106/72; PULSE 75; RESP 16; TEMP 97.3; O2SAT 96
[2017-02-01] MEDS: SODIUM CHLORIDE 0.9% FLUSH 10 ML FLUSH IV FLUSH SCH (08:21)
--- NOTE | 2017-02-01 08:44 | HHI.PR ---
Subjective Remarks Critical Care Notes: 60-year-old male with history of stage IV metastatic esophageal cancer undergoing chemotherapy with Dr. del angel, history of upper GI bleed from ulcerating esophageal cancer, who presented with vomiting blood and passing black stools. He also complains of of weakness and lightheadedness. He is followed by Dr. Del Angel for his esophageal adenocarcinoma. His hemoglobin on presentation was 3 with a hematocrit of 9.1. Patient was borderline hypotensive and tachycardic 4 units of PRBC had been ordered by Dr. Sharpe. After discussion with Dr. del angel patient had decided to be a DNR, but is okay with the temporary intubation if needed for endoscopy. Patient had similar presentation on November 2016 where he was admitted with upper GI bleed and was seen by GI doctor Sharath. EGD 11/05/16 showed ulcerating bleeding mass in the distal esophagus, status post epi injection and cauterization. I evaluated the patient in the ED. He is in mild to moderate discomfort due to recurrent nausea, and hematemesis. He is receiving his fourth unit of blood. Remains tachycardic but blood pressure has improved. GI consult is pending. I have discussed with Dr. Del Angel SUBJ 01/24/17: Continues to have hematemesis. Completing total 4 units of PRBC. Last hemoglobin was 7.9. Sodium has increased to 146 BUN 61 creatinine 1.37. Remains critically ill, borderline hypotensive. CT of the chest abdomen pelvis done for restaging shows questionable perforation at GE junction. Patient does not want possible perforation further investigated or intervened. I have started him on Azactam and Flagyl. Patient is still okay with IR evaluation for possible embolization 01/25/17: Patient had one episode of hematemesis and melena overnight. Hemoglobin stable at 9. Chemistry pending. Multiple attempts at embolization unsuccessful yesterday. Oncology planning on palliative radiation therapy 01/26/17: No further hematemesis overnight. Continues to have melanotic stools. Hemoglobin 7.8 platelet count 96 today. Getting radiation therapy to starting today Hospitalist Notes: 01/28/17: Transferred to Hospitalist group and asked me to see the patient today , seen in the room in the presence of nurse Mr. Monroe and his he is stable not taking ice chips, but has feeding tubes. no bleeding. 01/29/17: Patient seen in his bedroom in the presence of his Mrs. Padilla appreciated, also discussed with Nurse Miss Bain mega, his feeding tube rate is been decreased due to abdominal discomfort. no Vomit or diarrhea but yes Nausea and Dyspepsia. 01/30/17: Seen in his bedroom in the presence of his , Mrs. Padilla no new complaints encourage activity, some lower extremity edema present, No nausea, no vomit or diarrhea, had Radiation therapy. replaced electrolytes today 01/31/17: Seen in his bedroom in the presence of his Daughter, he is asking to go home, I asked the nurse to call me if lan specialist decides to let him go home, at the moment stable No complaint encourage activity. 02/01/17: Patient seen in the room in the presence of her Mrs. Padilla and discussed with lan specialist Doctor Del Angel, seen in the room with lan specialist MELISSA Miss Darcy Chatman and discussed with nurse Mr. Steel okay to discharge and he will need to call in am tomorrow to continue Radiation Oncology in am tomorrow to continue his schedule. Objective Vital Signs Date Time Temp Pulse Resp B/P Pulse Ox O2 Delivery O2 Flow Rate FiO2 02/01/17 04:00 97.8 76 18 115/66 97 02/01/17 00:00 97.1 76 17 119/76 97 01/31/17 20:00 96.7 76 18 112/75 98 01/31/17 16:00 97.3 69 20 108/76 99 01/31/17 12:00 97.0 80 20 110/74 99 I/O 01/31/17 01/31/17 01/31/17 02/01/17 02/01/17 02/01/17 07:00 15:00 23:00 07:00 15:00 23:00 Intake Total 0 ml 0 ml 1002 ml 569 ml Output Total 200 ml 650 ml 400 ml Balance -200 ml -650 ml 1002 ml 169 ml Intake Oral 0 ml 0 ml IV Total 1002 ml 569 ml Output Urine Total 200 ml 650 ml 400 ml # Voids 1 1 # Bowel Movements 1 1 Result Diagram: 02/01/17 0326 01/31/17 0606 Imaging Last Impressions Chest CT 01/23/17 1639 Signed Impressions: Service Date/Time: Monday, January 23, 2017 17:39 - CONCLUSION: Abnormal esophageal appearance and findings concerning for GI perforation in the GE junction region. Shantanu Maxwell MD Abdomen/Pelvis CT 01/23/17 1633 Signed Impressions: Service Date/Time: Monday, January 23, 2017 17:37 - CONCLUSION: Metastatic disease present throughout the liver. Nonspecific splenic lesions. Small collections of air are near the GE junction with appearance worrisome for a GI perforation in this area. Shantanu Maxwell MD Procedures EGD 11/05/16 showed ulcerating bleeding mass in the distal esophagus, status post epi injection and cauterization. Other Results Laboratory Tests Test 01/26/17 01/28/17 01/30/17 01/31/17 17:30 04:00 09:13 06:06 Blood Type A POSITIVE Antibody Screen NEGATIVE Crossmatch Leukocyte-Reduced Red Blood Cells Blood Bank Comment Ovalocytes 1+ Phosphorus Level 1.8 MG/DL Magnesium Level 2.1 MG/DL Sodium Level 142 MEQ/L Potassium Level 3.8 MEQ/L Chloride Level 111 MEQ/L Carbon Dioxide Level 25.2 MEQ/L Anion Gap 6 MEQ/L Blood Urea Nitrogen 9 MG/DL Creatinine 0.36 MG/DL Estimat Glomerular Filtration 245 ML/MIN Rate Random Glucose 96 MG/DL Calcium Level 7.2 MG/DL Protein Corrected Calcium 9.1 MG/DL Total Protein 3.8 GM/DL Test 02/01/17 03:26 White Blood Count 3.2 TH/MM3 Red Blood Count 3.32 MIL/MM3 Hemoglobin 9.6 GM/DL Hematocrit 29.0 % Mean Corpuscular Volume 87.4 FL Mean Corpuscular Hemoglobin 28.9 PG Mean Corpuscular Hemoglobin 33.0 % Concent Red Cell Distribution Width 16.5 % Platelet Count 214 TH/MM3 Mean Platelet Volume 7.4 FL Neutrophils (%) (Auto) 70.2 % Lymphocytes (%) (Auto) 12.3 % Monocytes (%) (Auto) 15.4 % Eosinophils (%) (Auto) 1.3 % Basophils (%) (Auto) 0.8 % Neutrophils # (Auto) 2.3 TH/MM3 Lymphocytes # (Auto) 0.4 TH/MM3 Monocytes # (Auto) 0.5 TH/MM3 Eosinophils # (Auto) 0.0 TH/MM3 Basophils # (Auto) 0.0 TH/MM3 CBC Comment DIFF FINAL Differential Comment Objective Remarks GENERAL: no acute distress. SKIN: Warm and dry. HEAD: Atraumatic. Normocephalic. EYES: Pupils equal and round. No scleral icterus. Conjunctiva pale ENT: No nasal bleeding or discharge. Mucous membranes dry, oral mucosa has some dry blood NECK: Trachea midline. No JVD. CARDIOVASCULAR: No murmur appreciated. Right upper chest port in place RESPIRATORY: No accessory muscle use. Clear to auscultation. Breath sounds equal bilaterally. PEG tube in place GASTROINTESTINAL: Abdomen soft, non-tender, nondistended. MUSCULOSKELETAL: Left upper extremity edema. NEUROLOGICAL: Awake and alert. No obvious cranial nerve deficits. Motor grossly within normal limits. Normal speech. Medications and IVs Current Medications Medications (Trade) Dose Ordered Sig/Andrea Route Start Time Stop Time Status Last Admin (NS Flush) 2 ml UNSCH PRN IVF 01/23/17 06:15 (NS Flush) 2 ml UNSCH PRN IVF 01/23/17 07:15 Miscellaneous Information 1 [id number] XX 01/23/17 08:15 (Chlorhexidine 2% Cloth) Taper DAILY@04 TOP 01/24/17 04:00 01/20/18 03:59 01/29/17 03:08 (Chlorhexidine 2% Cloth) 3 pack UNSCH PRN TOP 01/23/17 08:15 (Morphine Inj) 2 mg Q3H PRN IV PUSH 01/23/17 09:15 (NS Flush) 2 ml UNSCH PRN IV FLUSH 01/23/17 10:15 Sodium Chloride 2 ml 2 ml BID IV FLUSH 01/23/17 21:00 02/01/17 08:21 Aztreonam 2000 mg/ Sodium Chloride 100 ml @ 200 mls/hr Q6H IV 01/24/17 09:00 02/01/17 08:20 (Flagyl 500 Mg Inj) 100 ml @ 100 mls/hr Q8H IV 01/24/17 08:00 02/01/17 08:20 Metoclopramide HCl 10 mg 10 mg Q8H IV 01/24/17 08:00 02/01/17 08:21 (1/2 NS 1000 ml Inj) 1,000 ml @ 50 mls/hr Q20H IV 01/24/17 07:15 01/30/17 22:52 (Protonix Inj) 40 mg Q12H IV PUSH 01/26/17 18:00 02/01/17 06:02 (Compazine Inj) 5 mg Q6H PRN IV PUSH 01/27/17 17:30 02/01/17 03:24 (Robitussin Liq) 400 mg Q8HR PO 01/29/17 22:00 01/31/17 16:30 A/P Assessment and Plan 1. Upper GI bleed from Esophageal Cancer, status post EGD with ablation/epi injection and clipping x 3 of bleeding esophageal mass by Doctor Monserrat 01/23/17, EGD 11/05/16 showed ulcerating bleeding mass in the distal esophagus, status post epi injection and cauterization was consulted to Interventional Radiology unable to embolize on 01/24/17, started on Palliative Radiation 01/26/17, PEG in place, continue Octreotide, Transfuse as needed. the patient refused Diagnostic or therapeutic Interventions performed for possible esophageal perforation Pt s/p EGD on 01/23/2017 with clips application/epinephrine injection and APC treatment of tumor, s/p failed embolization attempt large ulcerated mass at GE junction most likely cause of recurrent bleeding. CT of the chest/abdomen/pelvis done for restaging shows questionable perforation at GE junction but pt does not this further investigated or intervened upon. Pt has been started on Azactam and Flagyl. Pt had multiple attempts at embolization unsuccessful 01/24. Continue Palliative Radiation as per Oncology will re start Chemotherapy as outpatient. Has metastatic Esophageal Cancer to the Liver and Lymph node. No signs of infection afebrile, off antibiotics for outpatient. 2. Stage IV Esophageal Cancer. 3. Acute Blood loss anemia Hemoglobin today 10.1 and following. 4. Possible esophageal perforation and GE junction questionable received antibiotics no signs of infection, received Azactam and Flagyl. 5. Respiratory insufficiency on Bronchodilator, Mucolytic incentive spirometry, the patient is DNR but okay with temporary intubation for EGD/procedures if needed 6. Empiric Azactam and Flagyl for possible esophageal perforation discontinued. 7. Left upper extremity Edema as per commissioning specialist not taken any test due to that if we know he has a DVT on the left arm we are not able to give any treatment due to his Hemorrhagic pathology. 8. Electrolyte derangement replaced. PROPH: -Bilateral lower extremity SCDs. Avoid chemical DVT prophylaxis. Protonix every 12 hours. Discussed with Patient and his Mrs. Padilla in the room all questions answered to the best of my abilities Discussed with Doctor Armando Del Angel appreciated input and recommendations for discharge seen in the room in the presence of LIDAR TECHNICIAN Miss Darcy Chatman Discharge Planning Cleared by GI and Oncology for discharge Now. Elliot Gillis MD Feb 01, 2017 08:43
--- NOTE | 2017-02-01 10:23 | PD.ONC.PN ---
Subjective Subjective Remarks Afebrile overnight. Patient wants to know, "can I go home?" He denies pain. No obvious bleeding. Objective Data Date Time Temp Pulse Resp B/P Pulse Ox O2 Delivery O2 Flow Rate FiO2 02/01/17 04:00 97.8 76 18 115/66 97 02/01/17 00:00 97.1 76 17 119/76 97 01/31/17 20:00 96.7 76 18 112/75 98 01/31/17 16:00 97.3 69 20 108/76 99 01/31/17 12:00 97.0 80 20 110/74 99 02/01/17 02/01/17 02/01/17 07:00 15:00 23:00 Intake Total 569 ml Output Total 400 ml Balance 169 ml Result Diagram: 02/01/17 0326 01/31/17 0606 Laboratory Results Laboratory Tests Test 01/31/17 02/01/17 12:30 03:26 Hemoglobin 9.5 GM/DL 9.6 GM/DL Hematocrit 28.6 % 29.0 % White Blood Count 3.2 TH/MM3 Red Blood Count 3.32 MIL/MM3 Mean Corpuscular Volume 87.4 FL Mean Corpuscular Hemoglobin 28.9 PG Mean Corpuscular Hemoglobin 33.0 % Concent Red Cell Distribution Width 16.5 % Platelet Count 214 TH/MM3 Mean Platelet Volume 7.4 FL Neutrophils (%) (Auto) 70.2 % Lymphocytes (%) (Auto) 12.3 % Monocytes (%) (Auto) 15.4 % Eosinophils (%) (Auto) 1.3 % Basophils (%) (Auto) 0.8 % Neutrophils # (Auto) 2.3 TH/MM3 Lymphocytes # (Auto) 0.4 TH/MM3 Monocytes # (Auto) 0.5 TH/MM3 Eosinophils # (Auto) 0.0 TH/MM3 Basophils # (Auto) 0.0 TH/MM3 CBC Comment DIFF FINAL Differential Comment Administered Medications Medications (Trade) Dose Ordered Sig/Andrea Route PRN Reason Start Time Stop Time Status Last Admin Dose Admin Chlorhexidine Gluconate (Chlorhexidine 2% Cloth) Taper DAILY@04 TOP 01/24/17 04:00 01/20/18 03:59 01/29/17 03:08 Sodium Chloride 2 ml 2 ml BID IV FLUSH 01/23/17 21:00 02/01/17 08:21 Aztreonam 2000 mg/ Sodium Chloride 100 ml @ 200 mls/hr Q6H IV 01/24/17 09:00 02/01/17 08:20 Metronidazole (Flagyl 500 Mg Inj) 100 ml @ 100 mls/hr Q8H IV 01/24/17 08:00 02/01/17 08:20 Metoclopramide HCl 10 mg 10 mg Q8H IV 01/24/17 08:00 02/01/17 08:21 Sodium Chloride (1/2 NS 1000 ml Inj) 1,000 ml @ 50 mls/hr Q20H IV 01/24/17 07:15 01/30/17 22:52 Pantoprazole Sodium (Protonix Inj) 40 mg Q12H IV PUSH 01/26/17 18:00 02/01/17 06:02 Prochlorperazine Edisylate (Compazine Inj) 5 mg Q6H PRN IV PUSH nausea vomiting 01/27/17 17:30 02/01/17 09:34 Guaifenesin (Robitussin Liq) 400 mg Q8HR PO 01/29/17 22:00 01/31/17 16:30 Objective Remarks GENERAL: Middle aged male, upright in bed in nad. SKIN: Warm and dry. HEAD: Normocephalic. EYES: No injection or drainage. NECK: Supple, trachea midline. CARDIOVASCULAR: Regular rate and rhythm RESPIRATORY: anterior estrada clear GASTROINTESTINAL: Abdomen soft, non-tender, nondistended. PEG tube in place, receiving tube feeds. EXTREMITIES: No cyanosis NEUROLOGICAL: No obvious focal deficit. Awake, alert, and oriented x3. Assessment/Plan Problem List: (1) GI bleed Status: Acute Plan: --On palliative radiation. Hemoglobin has remained stable. --s/p EGD with cauterization --due to bleeding gastric mass (2) Stage IV esophageal cancer Status: Acute Plan: --XRT started 01/26. may resume chemotherapy outpatient once discharged --metastatic esophageal cancer, metastasis to the liver and lymph node. --was receiving fourth-line chemotherapy with Cyramza and Taxol, the last cycle (third cycle) of chemotherapy was two days prior to admission. History: --initially diagosed with adenocarcinoma involving the GE junction invading into the stomach fundus, he also had liver metastasis and adenopathy in the abdomen. --good response to EOX chemotherapy but poor tolerance--> switched to FOLFOX chemotherapy, developed progression of disease. --was treated with Keytruda with no clear response. switched to FOLFIRI but again developed progression of disease-->recently switched over to Cyramza and Taxol, Assessment 61 y/o male with history of metastatic esophageal cancer admitted for severe anemia with GI bleeding. h/o PEG tube placement. Port placement. Plan 1. monitor H/H 2. follow up in clinic once discharged Attending Statement The exam, history, and the medical decision-making described in the above note were completed with the assistance of the mid-level provider. I reviewed and agree with the findings presented. I attest that I had a [id number] encounter with the patient on the same day, and personally performed and documented my assessment and findings in the medical record. No more GI bleeding. Hgb is stable. No abdominal pain. Tolerating tube feeding. Ambulating around the hallway. Can be d/c today. F/u rad onc to continue XRT. Darcy Chatman Feb 01, 2017 10:23 Armando Del Angel MD Feb 01, 2017 11:32
[2017-02-01] MEDS ORDERED: PROM10SO PO (11:20)
[2017-02-01] MEDS: SODIUM CHLOR 0.45% 1000 ML INJ 1,000 ML IV SCH (11:46)
[2017-02-01 12:00] VITALS: BP 106/71; PULSE 74; RESP 16; TEMP 97.2; O2SAT 98
[2017-02-01] MEDS ORDERED: PROT40TA PO (12:56)
--- NOTE | 2017-02-01 12:57 | HHI.DS ---
Discharge Summary Admission Date Jan 23, 2017 at 06:26 Discharge Date: Feb 01, 2017 Admitting Diagnosis active upper GI bleed with severe anemia (1) Upper GI bleed ICD Code: K92.2 Diagnosis: Principal (2) Bleeding from ulcerating esophageal cancer Diagnosis: Principal (3) Severe anemia requiring transfusion Diagnosis: Principal (4) Stage IV esophageal cancer Diagnosis: Secondary Procedures EGD 11/05/16 showed ulcerating bleeding mass in the distal esophagus, status post epi injection and cauterization. Brief History - From Admission 60-year-old male with history of stage IV metastatic esophageal cancer undergoing chemotherapy with Dr. del angel, history of upper GI bleed from ulcerating esophageal cancer, who presented with vomiting blood and passing black stools. He also complains of of weakness and lightheadedness. He is followed by Dr. Del Angel for his esophageal adenocarcinoma. His hemoglobin on presentation was 3 with a hematocrit of 9.1. Patient was borderline hypotensive and tachycardic 4 units of PRBC had been ordered by Dr. Sharpe. After discussion with Dr. del angel patient had decided to be a DNR, but is okay with the temporary intubation if needed for endoscopy. Patient had similar presentation on November 2016 where he was admitted with upper GI bleed and was seen by GI doctor Sharath. EGD 11/05/16 showed ulcerating bleeding mass in the distal esophagus, status post epi injection and cauterization. I evaluated the patient in the ED. He is in mild to moderate discomfort due to recurrent nausea, and hematemesis. He is receiving his fourth unit of blood. Remains tachycardic but blood pressure has improved. GI consult is pending. I have discussed with Dr. Del Angel CBC/BMP: 02/01/17 0326 01/31/17 0606 Significant Findings Laboratory Tests Test 01/30/17 01/30/17 01/31/17 01/31/17 05:00 09:13 06:06 12:30 White Blood Count 3.6 TH/MM3 (4.0-11.0) Red Blood Count 3.38 MIL/MM3 (4.50-5.90) Hemoglobin 10.1 GM/DL 9.5 GM/DL (13.0-17.0) (13.0-17.0) Hematocrit 29.2 % 28.6 % (39.0-51.0) (39.0-51.0) Neutrophils (%) (Auto) 75.6 % (16.0-70.0) Monocytes (%) (Auto) 11.6 % (0.0-8.0) Lymphocytes # (Auto) 0.4 TH/MM3 (1.0-4.8) Creatinine 0.36 MG/DL 0.36 MG/DL (0.60-1.30) (0.60-1.30) Calcium Level 7.0 MG/DL 7.2 MG/DL (8.5-10.1) (8.5-10.1) Phosphorus Level 1.8 MG/DL (2.5-4.9) Total Protein 3.8 GM/DL 3.8 GM/DL (6.4-8.2) (6.4-8.2) Chloride Level 111 MEQ/L (98-107) Test 02/01/17 03:26 White Blood Count 3.2 TH/MM3 (4.0-11.0) Red Blood Count 3.32 MIL/MM3 (4.50-5.90) Hemoglobin 9.6 GM/DL (13.0-17.0) Hematocrit 29.0 % (39.0-51.0) Neutrophils (%) (Auto) 70.2 % (16.0-70.0) Monocytes (%) (Auto) 15.4 % (0.0-8.0) Lymphocytes # (Auto) 0.4 TH/MM3 (1.0-4.8) Imaging Last Impressions Chest CT 01/23/171638 Signed Impressions: Service Date/Time: Monday, January 23, 2017 17:39 - CONCLUSION: Abnormal esophageal appearance and findings concerning for GI perforation in the GE junction region. Shantanu Maxwell MD Abdomen/Pelvis CT 01/23/175 Signed Impressions: Service Date/Time: Monday, January 23, 2017 17:37 - CONCLUSION: Metastatic disease present throughout the liver. Nonspecific splenic lesions. Small collections of air are near the GE junction with appearance worrisome for a GI perforation in this area. Shantanu Maxwell MD PE at Discharge GENERAL: no acute distress. SKIN: Warm and dry. HEAD: Atraumatic. Normocephalic. EYES: Pupils equal and round. No scleral icterus. Conjunctiva pale ENT: No nasal bleeding or discharge. Mucous membranes dry, oral mucosa has some dry blood NECK: Trachea midline. No JVD. CARDIOVASCULAR: No murmur appreciated. Right upper chest port in place RESPIRATORY: No accessory muscle use. Clear to auscultation. Breath sounds equal bilaterally. PEG tube in place GASTROINTESTINAL: Abdomen soft, non-tender, nondistended. MUSCULOSKELETAL: Left upper extremity edema. NEUROLOGICAL: Awake and alert. No obvious cranial nerve deficits. Motor grossly within normal limits. Normal speech. Transfer Summary 60-year-old male with history of stage IV metastatic esophageal cancer undergoing chemotherapy with Dr. del angel, history of upper GI bleed from ulcerating esophageal cancer, who presented with vomiting blood and passing black stools. He also complains of of weakness and lightheadedness. He is followed by Dr. Del Angel for his esophageal adenocarcinoma. His hemoglobin on presentation was 3 with a hematocrit of 9.1. Patient was borderline hypotensive and tachycardic 4 units of PRBC had been ordered by Dr. Sharpe. After discussion with Dr. del angel patient had decided to be a DNR, but is okay with the temporary intubation if needed for endoscopy. Patient had similar presentation on November 2016 where he was admitted with upper GI bleed and was seen by GI doctor Sharath. EGD 11/05/16 showed ulcerating bleeding mass in the distal esophagus, status post epi injection and cauterization. I evaluated the patient in the ED. He is in mild to moderate discomfort due to recurrent nausea , and hematemesis. He is receiving his fourth unit of blood. Remains tachycardic but blood pressure has improved. SUBJ 01/24/17: s/p EGD with ablation/epi injection and clipping x3 of bleeding esophageal mass by Dr. German on 01/23/17. Continues to have hematemesis. Completing total 4 units of PRBC. Last hemoglobin was 7.9. Sodium has increased to 146 BUN 61 creatinine 1.37. Remains critically ill, borderline hypotensive. CT of the chest abdomen pelvis done for restaging shows questionable perforation at GE junction. Patient does not want possible perforation further investigated or intervened. I have started him on Azactam and Flagyl. Patient is still okay with IR evaluation for possible embolization. 01/25/17: Patient had one episode of hematemesis and melena overnight. Hemoglobin stable at 9. Chemistry pending. Multiple attempts at embolization unsuccessful yesterday. Oncology planning on palliative radiation therapy 01/26/17: No further hematemesis overnight. Continues to have melanotic stools. Hemoglobin 7.8 platelet count 96 today. Getting radiation therapy to starting today 01/27/17: Start on radiation therapy yesterday. Last 24 hours no hematemesis. No coffee-ground material from PEG tube. Hemoglobin stable at 9.5. Discussed with GI about starting PEG tube feeding Hospital Course Critical Care Notes: 60-year-old male with history of stage IV metastatic esophageal cancer undergoing chemotherapy with Dr. del angel, history of upper GI bleed from ulcerating esophageal cancer, who presented with vomiting blood and passing black stools. He also complains of of weakness and lightheadedness. He is followed by Dr. Del Angel for his esophageal adenocarcinoma. His hemoglobin on presentation was 3 with a hematocrit of 9.1. Patient was borderline hypotensive and tachycardic 4 units of PRBC had been ordered by Dr. Sharpe. After discussion with Dr. del angel patient had decided to be a DNR, but is okay with the temporary intubation if needed for endoscopy. Patient had similar presentation on November 2016 where he was admitted with upper GI bleed and was seen by GI doctor Sharath. EGD 11/05/16 showed ulcerating bleeding mass in the distal esophagus, status post epi injection and cauterization. I evaluated the patient in the ED. He is in mild to moderate discomfort due to recurrent nausea, and hematemesis. He is receiving his fourth unit of blood. Remains tachycardic but blood pressure has improved. GI consult is pending. I have discussed with Dr. Del Angel SUBJ 01/24/17: Continues to have hematemesis. Completing total 4 units of PRBC. Last hemoglobin was 7.9. Sodium has increased to 146 BUN 61 creatinine 1.37. Remains critically ill, borderline hypotensive. CT of the chest abdomen pelvis done for restaging shows questionable perforation at GE junction. Patient does not want possible perforation further investigated or intervened. I have started him on Azactam and Flagyl. Patient is still okay with IR evaluation for possible embolization 01/25/17: Patient had one episode of hematemesis and melena overnight. Hemoglobin stable at 9. Chemistry pending. Multiple attempts at embolization unsuccessful yesterday. Oncology planning on palliative radiation therapy 01/26/17: No further hematemesis overnight. Continues to have melanotic stools. Hemoglobin 7.8 platelet count 96 today. Getting radiation therapy to starting today Hospitalist Notes: 01/28/17: Transferred to Hospitalist group and asked me to see the patient today , seen in the room in the presence of nurse Brent Monroe and his he is stable not taking ice chips, but has feeding tubes. no bleeding. 01/29/17: Patient seen in his bedroom in the presence of his Mrs. Padilla appreciated, also discussed with Nurse Miss Bain appreciated, his feeding tube rate is been decreased due to abdominal discomfort. no Vomit or diarrhea but yes Nausea and Dyspepsia. 01/30/17: Seen in his bedroom in the presence of his , Mrs. Padilla no new complaints encourage activity, some lower extremity edema present, No nausea, no vomit or diarrhea, had Radiation therapy. replaced electrolytes today 01/31/17: Seen in his bedroom in the presence of his Daughter, he is asking to go home, I asked the nurse to call me if labor specialist decides to let him go home, at the moment stable No complaint encourage activity. 02/01/17: Patient seen in the room in the presence of her Mrs. Padilla and discussed with labor specialist Doctor Del Angel, seen in the room with labor specialist MELISSA Miss Darcy Chatman and discussed with nurse Mr. Steel okay to discharge and he will need to call in am tomorrow to continue Radiation Oncology in am tomorrow to continue his schedule. Assessment and Plan 1. Upper GI bleed from Esophageal Cancer, status post EGD with ablation/epi injection and clipping x 3 of bleeding esophageal mass by Doctor German 01/23/17, EGD 11/05/16 showed ulcerating bleeding mass in the distal esophagus, status post epi injection and cauterization was consulted to Interventional Radiology unable to embolize on 01/24/17, started on Palliative Radiation 01/26/17, PEG in place, continue Octreotide, Transfuse as needed. the patient refused Diagnostic or therapeutic Interventions performed for possible esophageal perforation Pt s/p EGD on 01/23/2017 with clips application/epinephrine injection and APC treatment of tumor, s/p failed embolization attempt large ulcerated mass at GE junction most likely cause of recurrent bleeding. CT of the chest/abdomen/pelvis done for restaging shows questionable perforation at GE junction but pt does not this further investigated or intervened upon. Pt has been started on Azactam and Flagyl. Pt had multiple attempts at embolization unsuccessful 01/24. Continue Palliative Radiation as per Oncology will re start Chemotherapy as outpatient. Has metastatic Esophageal Cancer to the Liver and Lymph node. No signs of infection afebrile, off antibiotics for outpatient. 2. Stage IV Esophageal Cancer. 3. Acute Blood loss anemia Hemoglobin today 10.1 and following. 4. Possible esophageal perforation and GE junction questionable received antibiotics no signs of infection, received Azactam and Flagyl. 5. Respiratory insufficiency on Bronchodilator, Mucolytic incentive spirometry, the patient is DNR but okay with temporary intubation for EGD/procedures if needed 6. Empiric Azactam and Flagyl for possible esophageal perforation discontinued. 7. Left upper extremity Edema as per talent sourcing specialist not taken any test due to that if we know he has a DVT on the left arm we are not able to give any treatment due to his Hemorrhagic pathology. 8. Electrolyte derangement replaced. PROPH: -Bilateral lower extremity SCDs. Avoid chemical DVT prophylaxis. Protonix every 12 hours. Discussed with Patient and his Mrs. Padilla in the room all questions answered to the best of my abilities Discussed with Doctor Armando Del Angel appreciated input and recommendations for discharge seen in the room in the presence of STUDENT EDUCATION SPECIALIST Miss Darcy Chatman Discharge Planning Cleared by GI and Oncology for discharge Now. Pt Condition on Discharge: Stable Discharge Disposition: Discharge Home Discharge Time: > 30 minutes Discharge Instructions DIET: Follow Instructions for: On Tube Feeding Activities you can perform: Regular-No Restrictions Elliot Gillis MD Feb 01, 2017 12:57
--- NOTE | 2017-02-02 07:40 | RADRPT ---
EXAM DATE/TIME: 01/24/2017 09:44 [facility] COMPARISON: US GUIDED VASCULAR ACCESS, RIGHT, January 24, 2017, 0:00. INDICATIONS : Patient with history of esophageal cancer in need of abdominal angiogram. MEDICAL HISTORY : Stage IV metastatic esophageal cancer, Chemotherapy, GERD, Upper GI bleed SURGICAL HISTORY : EGD, PEG tube placement, Colonoscopy, Right port placement, Hernia repair, Bleeding mass in distal es ophagus post epi injection and cauterization ENCOUNTER: Initial ACUITY: 3 months PAIN SCORE: 0/10 FLUORO TIME: 49.7 minutes IMAGE SERIES: 18 ACCESS SITE: Right Femoral artery SEDATION TIME: 60 minutes CONTRAST: 1.) 150 cc Visipaque (iodixanol) MEDICATION(S): 1.) 2 mg midazolam (Versed) IV 2.) 100 mcg fentanyl (Sublimaze) IV DEVICE(S): 1.) Right common femoral artery 6F Angio-Seal PROCEDURE : 1. Ultrasound-guided puncture of the access site. 2. Angiography of the access site prior to closure device. 3. Conscious sedation with continuous EKG and Oximetry monitoring. 4. Percutaneous closure of the access site. 5. Angiography of the celiac axis and left gastric artery. 6. Angiography of the descending thoracic and upper abdominal aorta. The patient is a 61-year-old with widely metastatic esophageal cancer. The patient had inactive bleed at the GE junction which recently underwent clipping via endoscopy but continues to hemorrhage. The risks, benefits and alternatives to the procedure were explained and verbal and written consent was o btained. The site was prepped in sterile fashion. Full sterile technique was used, including cap, m ask, sterile gloves and gown and a large sterile sheet. Hand hygiene and 2% chlorhexidine and/or bet adine/alcohol prep was utilized per protocol for cutaneous antisepsis. The skin and subcutaneous tis sues were infiltrated with local anesthetic solution. With ultrasound and fluoroscopic guidance the selected artery was punctured and a vascular sheath was placed. Angiography of the common femoral artery was performed for evaluation prior to percutaneous closure device placement. A 0.035 angle Glidewire and a hook catheter were advanced into the celiac axis. Multiple angiographic runs were performed. No active bleeding was identified. As the patient's bleed was noted to be at th e level of the GE junction multiple attempts were made to cannulate the left gastric artery for embol ization. The artery could be easily accessed however, in spite of multiple catheter and wire combinat ions the artery could not be successfully embolized. At Omni Flush catheter was placed in the upper distal thoracic aorta above the level the celiac axis. A flush angiogram was performed several lumbar arteries were identified. The inferior phrenic arteri es were not evident. No active bleeding was identified. Hemostasis was obtained with the prescribed medicated closure device. Conscious sedation was perform ed with the prescribed dosages and duration as above in the presence of an independent trained radiol ogy nurse to assist in the monitoring of the patient. EKG and oximetry remained stable throughout th e procedure. CONCLUSION: 1. No active bleeding identified. Please see above discussion. Nahun Hussein MD on February 02, 2017 at 7:33 Board Certified Radiologist. This report was verified electronically.
== END 2017-02-01 14:29 | disposition home or self-care (01) | DRG 374 ==
LOC: NEPC 04:47 → NEDA 06:26 → HIME 13:30 → HOCA 01-29 22:04
PROVIDERS: ADMIT Internal Medicine; ATTEND Internal Medicine
PROC: 0D548ZZ Destruction of Esophagogastric Junction, Via Natural or Artificial Opening Endoscopic (ICD-10-PCS; 2017-01-23)
PROC: 30233N1 Transfusion of Nonautologous Red Blood Cells into Peripheral Vein, Percutaneous Approach (ICD-10-PCS; 2017-01-23)
PROC: 0W3P8ZZ Control Bleeding in Gastrointestinal Tract, Via Natural or Artificial Opening Endoscopic (ICD-10-PCS; principal; 2017-01-23 12:05)
PROC: B41B1ZZ Fluoroscopy of Other Intra-Abdominal Arteries using Low Osmolar Contrast (ICD-10-PCS; 2017-01-24)
PROC: B31P1ZZ Fluoroscopy of Thoraco-Abdominal Aorta using Low Osmolar Contrast (ICD-10-PCS; 2017-01-24)
PROC: DD0 Radiation Therapy, Gastrointestinal System, Beam Radiation (ICD-10-PCS; 2017-01-26)
DX: C16.0 Malignant neoplasm of cardia (principal); N17.0 Acute kidney failure with tubular necrosis; K92.0 Hematemesis; C77.2 Secondary and unspecified malignant neoplasm of intra-abdominal lymph nodes; I95.9 Hypotension, unspecified; C78.7 Secondary malignant neoplasm of liver and intrahepatic bile duct; D62 Acute posthemorrhagic anemia; K92.1 Melena; E46 Unspecified protein-calorie malnutrition; K44.9 Diaphragmatic hernia without obstruction or gangrene; K21.9 Gastro-esophageal reflux disease without esophagitis; R60.0 Localized edema; R00.0 Tachycardia, unspecified; R06.89 Other abnormalities of breathing; Z93.1 Gastrostomy status; Z87.891 Personal history of nicotine dependence; Z88.0 Allergy status to penicillin
CPT/HCPCS: 36245; 36430; 71260; 74177; 75726; 75774; 76937; 77290; 77295; 77300; 77334; 77336; 77387; 77412; 77427; 80048; 80053; 83735; 84100; 84132; 84155; 85007; 85014; 85018; 85025; 85027; 85610; 85730; 86850; 86900; 86901; 86920; 87641; 94150; 99152; 99153; 99222; 99285; C1760; C1769; C1887; C1894; C9113; J0171; J0780; J1956; J2250; J2354; J2405; J2765; J3010; J3475; J3480; J7030; J7040; J7050; J7070; P9016; Q9967

== ENCOUNTER 2017-04-02 17:19 | Inpatient (IN) | payer BC ==
[2017-04-02] VITALS (20 sets, daily range): BP systolic 84–113; BP diastolic 51–67; PULSE 81–130; RESP 16–28; TEMP 98.2–98.6; O2SAT 95–100
[~2017-04-02] VITALS: Ht 182.9 cm; Wt 83.0 kg
[~2017-04-02 17:19] MED LIST changes: -LEVA750T PO; -PANT40TA3 PO; -PROC10TA PO; +PROM10SO PO; +PROT40TA PO; -ZOFR8TAB PO
[2017-04-02] MEDS ORDERED: SODIUM CHLOR 0.9% 1000 ML INJ 1,000 ML IV ONE ×3 (18:00→19:30)
--- NOTE | 2017-04-02 18:07 | PD ---
HPI Chief Complaint: Syncope/Near-Syncope Time Seen by Provider: 17:42 Travel History International Travel<30 days: No Contact w/Intl Traveler<30days: No Traveled to known affect area: No History of Present Illness HPI Patient is a 61-year-old male who presents to emergency room from home with possible seizure. Patient reports that he has history of esophageal cancer, reports that he is currently being treated by Dr. Del Angel, reports that he does get chemotherapy treatment once per week. Patient reports that he had his last treatment on Thursday. Patient reports that for the past few days, he has not been feeling well. Reports that he has been giving himself feeds through his G- tube as it has been making him feel nauseous. Patient was at home today when he had episode of nausea and vomiting. According to - patient appeared to have a syncopal episode. When EMS arrived on scene, patient appeared cool and diaphoretic, blood pressure was 80/40. Patient was given a bolus of IVF and repeat bp was 84/54. Patient was also given some Zofran on scene. He was at this point reports that he is feeling a little better, reports that he has a he is dehydrated and has not had enough nutrition and has not eaten anything today PFSH Past Medical History Cancer: Yes (ESOPHAGEAL ) Chemotherapy: Yes Diminished Hearing: No Implanted Vascular Access Dvce: Yes Immunizations Current: Yes Past Surgical History Abdominal Surgery: Yes (FEEDING TUBE PLACED SEPTEMBER 2016 ) Other Surgery: Yes (IMPLANTED VAD, BILATERAL INGUINAL HERNIA REPAIR ) Social History Alcohol Use: No Tobacco Use: No Substance Use: No Allergies-Medications (Allergen,Severity, Reaction): Coded Allergies: Penicillin (Verified Allergy, Unknown, 04/02/17) reaction as an infant; unsure of reaction Reported Meds & Prescriptions Reported Meds & Active Scripts Active Protonix (Pantoprazole Sodium) 40 Mg Tab 40 Mg PO DAILY Promethazine Liq (Promethazine HCl) 6.25 Mg/5 Ml Soln 25 Mg PO Q6H PRN Reported Zofran Odt (Ondansetron Odt) 4 Mg Tab 4 Mg SL Q6HR PRN Review of Systems General / Constitutional: No: Fever Eyes: No: Visual changes HENT: No: Headaches Cardiovascular: Positive: Diaphoresis, No: Chest Pain or Discomfort Respiratory: No: Shortness of Breath Gastrointestinal: Positive: Nausea, Vomiting, No: Abdominal Pain Genitourinary: No: Dysuria Musculoskeletal: No: Pain Skin: No Rash Neurologic: Positive: Syncope, No: Weakness Psychiatric: No: Depression Endocrine: No: Polydipsia Hematologic/Lymphatic: No: Easy Bruising Physical Exam Narrative GENERAL: moderate distress SKIN: Focused skin assessment warm/dry. Pale HEAD: Atraumatic. Normocephalic. EYES: Pupils equal and round. No scleral icterus. No injection or drainage. ENT: No nasal bleeding or discharge. Mucous membranes pink and moist. NECK: Trachea midline. No JVD. CARDIOVASCULAR: Regular rate and rhythm. No murmur appreciated. RESPIRATORY: No accessory muscle use. Clear to auscultation. Breath sounds equal bilaterally. GASTROINTESTINAL: Abdomen soft, non-tender, nondistended.G tube in place with blood oozing from Gtube MUSCULOSKELETAL: No obvious deformities. No clubbing. No cyanosis. No edema. NEUROLOGICAL: Awake and alert. No obvious cranial nerve deficits. Motor grossly within normal limits. Normal speech. PSYCHIATRIC: Appropriate mood and affect; insight and judgment normal. Data Data Last Documented VS Vital Signs Date Time Temp Pulse Resp B/P Pulse Ox O2 Delivery O2 Flow Rate FiO2 04/02/17 19:11 97 Nasal Cannula 2 04/02/17 18:53 87 101/62 04/02/17 17:45 98.2 18 Orders Electrocardiogram (04/02/17 17:50) Complete Blood Count With Diff (04/02/17 17:50) Comprehensive Metabolic Panel (04/02/17 17:50) Prothrombin Time / Inr (Pt) (04/02/17 17:50) Act Partial Throm Time (Ptt) (04/02/17 17:50) Lactic Acid Sepsis Protocol (04/02/17 17:50) Magnesium (Mg) (04/02/17 17:50) Lipase (04/02/17 17:50) Urinalysis - C+S If Indicated (04/02/17 17:50) Blood Culture (04/02/17 17:50) Chest, Single Ap (04/02/17 17:50) Blood Glucose (04/02/17 17:50) Ecg Monitoring (04/02/17 17:50) Iv Access Insert/Monitor (04/02/17 17:50) Oximetry (04/02/17 17:50) Oxygen Administration (04/02/17 17:50) Sodium Chlor 0.9% 1000 Ml Inj (Ns 1000 M (04/02/17 18:00) Sodium Chlor 0.9% 1000 Ml Inj (Ns 1000 M (04/02/17 18:00) Type And Screen (04/02/17 18:03) Ondansetron Inj (Zofran Inj) (04/02/17 19:15) MDM Medical Decision Making Medical Screen Exam Complete: Yes Emergency Medical Condition: Yes Interpretation(s) Vital Signs Date Time Temp Pulse Resp B/P Pulse Ox O2 Delivery O2 Flow Rate FiO2 04/02/17 17:53 100 Nasal Cannula 2 04/02/17 17:45 98.2 91 18 84/54 100 Room Air Differential Diagnosis Electrolyte abnormality, dehydration, seizure, ACS, arrhythmia, GI bleed Narrative Course 61-year-old male who presents to emergency room with complaints of syncopal episode. Patient has not been feeling well for the past few days and has been feeling nauseous, as per patient's , patient had an episode of vomiting, reports that shortly thereafter, he had seizure-like activity. Patient does not have history of seizures in the past. Patient appears dehydrated, patient is hypotensive with a blood pressure of 84/54. Plan to hydrate patient with IV fluids. Patient currently is receiving chemotherapy for some esophageal cancer. In cultures, lactic acid obtained, obtain blood work. Plan to monitor patient carefully on a trust accounts supervisor. Patient's at bedside, which the patient has stage IV metastatic esophageal cancer, reports that he has history of upper GI bleeding from the ulcerating esophageal cancer. reports the patient has been vomiting up specks of blood today. Reports that the last time the patient was in the hospital, he was admitted hemoglobin of 3.0. Patient required epi injection as well as cauterization for ulcerating bleeding mass. Reports that every time his hemoglobin drops or when he becomes hypotensive, he has seizure-like activities Patient was typed and screened. patient signed out to Dr. Hartley at change of shift Carmen Cano DO Apr 02, 2017 18:07
--- NOTE | 2017-04-02 18:23 | RADRPT ---
EXAM DATE/TIME: 04/02/2017 18:09 [facility] COMPARISON: CHEST SINGLE AP, December 14, 2016, 21:24. INDICATIONS : Short of breath and vomiting. MEDICAL HISTORY : Carcinoma, esophageal. SURGICAL HISTORY : Port placed. ENCOUNTER: Initial ACUITY: 1 day PAIN SCORE: 0/10 LOCATION: Bilateral chest FINDINGS: A single view of the chest demonstrates left basilar atelectatic changes. Lungs are otherwise clear. Right subclavian [id number] type catheter with the tip projecting over the central venous system. Heart size is normal. Osseous structures are intact. CONCLUSION: 1. Minimal atelectatic changes in the left lingula/lung base. 2. Lungs are otherwise clear with no confluent infiltrate or effusion. 3. Right subclavian [id number] catheter is stable in position. Mendez Guidry MD on April 02, 2017 at 18:11 Board Certified Radiologist. This report was verified electronically.
[2017-04-02] MEDS ORDERED: ZOFR4TAB3 SL (18:53)
[2017-04-02 19:14] LABS: AUTOMATED NEUTROPHIL # 2.8 TH/MM3 (1.8-7.7); BASOPHIL % 0.4 % (0.0-2.0); EOSINOPHIL % 0.8 % (0.0-4.0); LYMPH % 4.8 % (9.0-44.0); LYMPHOCYTE # 0.2 TH/MM3 (1.0-4.8); MEAN CELL VOLUME 82.5 FL (80.0-100.0); MEAN CORPUSCULAR HEMOGLOBIN 26.5 PG (27.0-34.0); MEAN CORPUSCULAR HGB CONC 32.2 % (32.0-36.0); MONO % 6.3 % (0.0-8.0); NEUT % 87.7 % (16.0-70.0); PLATELET COUNT 210 TH/MM3 (150-450); RED BLOOD COUNT 2.42 MIL/MM3 (4.50-5.90); RED CELL DISTRIBUTION WIDTH 18.9 % (11.6-17.2); WHITE BLOOD COUNT 3.2 TH/MM3 (4.0-11.0)
[2017-04-02] MEDS ORDERED: ONDANSETRON HCL 4 MG/2 ML VIAL IV PUSH ONE (19:15)
[2017-04-02 19:23] LABS: HEMO FLAGS DIFF FINAL
[2017-04-02 19:25] LABS: APTT (PATIENT) 23.5 SEC (24.3-30.1); PROTHROMBIN TIME - PATIENT 11.4 SEC (9.8-11.6)
[2017-04-02 19:29] LABS: ANION GAP 9 MEQ/L (5-15); AST (GOT) 25 U/L (15-37); BICARBONATE 26.3 MEQ/L (21.0-32.0); BLOOD UREA NITROGEN 26 MG/DL (7-18); CHLORIDE 105 MEQ/L (98-107); GLOMERULAR FILTRATION RATE 105 ML/MIN (>89); MAGNESIUM 2.2 MG/DL (1.5-2.5); POTASSIUM 4.4 MEQ/L (3.5-5.1); SODIUM (NA) 140 MEQ/L (136-145)
[2017-04-02 19:30] LABS: ALT (GPT) 27 U/L (12-78)
[2017-04-02] MEDS ORDERED: METOCLOPRAMIDE HCL 10 MG/2 ML VIAL IV PUSH ONE (19:30)
[2017-04-02 19:33] LABS: ALKALINE PHOSPHATASE 179 U/L (45-117); TOTAL BILIRUBIN ADULT 0.3 MG/DL (0.2-1.0)
--- NOTE | 2017-04-02 19:37 | PD ---
Physical Exam Date Seen by Provider: Apr 02, 2017 Time Seen by Provider: 19:28 Narrative accepted in transfer of care from Dr Cano GENERAL: Thin pale male in moderate distress; GCS 15 SKIN: Cool and dry. HEAD: Normocephalic. EYES: No scleral icterus. No injection or drainage. Conjunctival pallor. NECK: Supple, trachea midline. No JVD or lymphadenopathy. CARDIOVASCULAR: Regular rate and rhythm without murmurs, gallops, or rubs. RESPIRATORY: Breath sounds equal bilaterally. No accessory muscle use. GASTROINTESTINAL: Abdomen soft, tender left upper quadrant near PEG site with fresh oozing blood, nondistended. MUSCULOSKELETAL: No cyanosis, or edema. BACK: Nontender without obvious deformity. No CVA tenderness. Data Data Last Documented VS Vital Signs Date Time Temp Pulse Resp B/P Pulse Ox O2 Delivery O2 Flow Rate FiO2 04/02/17 19:30 101 91/56 100 Nasal Cannula 2 04/02/17 17:45 98.2 18 Orders Electrocardiogram (04/02/17 17:50) Complete Blood Count With Diff (04/02/17 17:50) Comprehensive Metabolic Panel (04/02/17 17:50) Prothrombin Time / Inr (Pt) (04/02/17 17:50) Act Partial Throm Time (Ptt) (04/02/17 17:50) Lactic Acid Sepsis Protocol (04/02/17 17:50) Magnesium (Mg) (04/02/17 17:50) Lipase (04/02/17 17:50) Urinalysis - C+S If Indicated (04/02/17 17:50) Blood Culture (04/02/17 17:50) Chest, Single Ap (04/02/17 17:50) Blood Glucose (04/02/17 17:50) Ecg Monitoring (04/02/17 17:50) Iv Access Insert/Monitor (04/02/17 17:50) Oximetry (04/02/17 17:50) Oxygen Administration (04/02/17 17:50) Sodium Chlor 0.9% 1000 Ml Inj (Ns 1000 M (04/02/17 18:00) Sodium Chlor 0.9% 1000 Ml Inj (Ns 1000 M (04/02/17 18:00) Type And Screen (04/02/17 18:03) Ondansetron Inj (Zofran Inj) (04/02/17 19:15) Metoclopramide Inj (Reglan Inj) (04/02/17 19:30) Sodium Chlor 0.9% 1000 Ml Inj (Ns 1000 M (04/02/17 19:30) Admit Order (Ed Use Only) (04/02/17 ) ^ Saline Lock (04/02/17 19:37) Resp Oxygen Tavares C Titrat 1-4 L (04/02/17 ) Notify Dr: Other (04/02/17 19:37) Sodium Chloride 0.9% Flush (Ns Flush) (04/02/17 21:00) Sodium Chloride 0.9% Flush (Ns Flush) (04/02/17 19:45) Consult Gastroenterology (04/02/17 ) Red Blood Cells (Rbc) (04/02/17 18:30) Labs Laboratory Tests Test 04/02/17 18:30 White Blood Count 3.2 TH/MM3 Red Blood Count 2.42 MIL/MM3 Hemoglobin 6.4 GM/DL Hematocrit 20.0 % Mean Corpuscular Volume 82.5 FL Mean Corpuscular Hemoglobin 26.5 PG Mean Corpuscular Hemoglobin 32.2 % Concent Red Cell Distribution Width 18.9 % Platelet Count 210 TH/MM3 Mean Platelet Volume 8.7 FL Neutrophils (%) (Auto) 87.7 % Lymphocytes (%) (Auto) 4.8 % Monocytes (%) (Auto) 6.3 % Eosinophils (%) (Auto) 0.8 % Basophils (%) (Auto) 0.4 % Neutrophils # (Auto) 2.8 TH/MM3 Lymphocytes # (Auto) 0.2 TH/MM3 Monocytes # (Auto) 0.2 TH/MM3 Eosinophils # (Auto) 0.0 TH/MM3 Basophils # (Auto) 0.0 TH/MM3 CBC Comment DIFF FINAL Differential Comment Prothrombin Time 11.4 SEC Prothromb Time International 1.0 RATIO Ratio Activated Partial 23.5 SEC Thromboplast Time Sodium Level 140 MEQ/L Potassium Level 4.4 MEQ/L Chloride Level 105 MEQ/L Carbon Dioxide Level 26.3 MEQ/L Anion Gap 9 MEQ/L Blood Urea Nitrogen 26 MG/DL Creatinine 0.75 MG/DL Estimat Glomerular Filtration 105 ML/MIN Rate Random Glucose 134 MG/DL Lactic Acid Level 5.3 mmol/L Calcium Level 7.7 MG/DL Magnesium Level 2.2 MG/DL Total Bilirubin 0.3 MG/DL Aspartate Amino Transf 25 U/L (AST/SGOT) Alanine Aminotransferase 27 U/L (ALT/SGPT) Alkaline Phosphatase 179 U/L Total Protein 5.0 GM/DL Albumin 1.9 GM/DL Lipase 54 U/L Blood Type A POSITIVE Antibody Screen NEGATIVE Crossmatch Leukocyte-Reduced Red Blood Cells Blood Bank Comment MDM Medical Record Reviewed: Yes Supervised Visit with SAUD: No Interpretation(s) Vital Signs Date Time Temp Pulse Resp B/P Pulse Ox O2 Delivery O2 Flow Rate FiO2 04/02/17 19:30 101 91/56 100 Nasal Cannula 2 04/02/17 19:17 97 95/51 100 Nasal Cannula 2 04/02/17 19:11 97 Nasal Cannula 2 04/02/17 19:07 100 92/63 95 Nasal Cannula 2 04/02/17 18:53 87 101/62 100 Nasal Cannula 2 04/02/17 18:37 81 104/62 100 Nasal Cannula 2 04/02/17 18:05 90/60 04/02/17 17:53 100 Nasal Cannula 2 04/02/17 17:45 98.2 91 18 84/54 100 Room Air Last Impressions Chest X-Ray 04/02/17 1750 Signed Impressions: Service Date/Time: April 18:09 - CONCLUSION: 1. Minimal atelectatic changes in the left lingula/lung base. 2. Lungs are otherwise clear with no confluent infiltrate or effusion. 3. Right subclavian Wmfyqv-[id number]-Yrsp catheter is stable in position. Mendez Guidry MD CBC & BMP Diagram 04/02/17 18:30 Differential Diagnosis accepted in transfer of care from Dr Cano; please refer to her dictation Narrative Course Accepted in transfer of care from Dr. Cano; patient is hypotensive and mildly tachycardic with upper GI bleed and prior history of stage IV esophageal adenocarcinoma with distal esophageal mass and previous bleeding requiring epinephrine injection cautery and clipping in November and December of this year for similar episodes by Dr. paul migraine and brought to respectively. Patient continues to vomit up red blood periodically. Patient complains of ongoing nausea after Zofran 2 and received Reglan 10 mg IV times one. Patient is undergoing chemotherapy weekly which increases his risk for recurrent bleeding. Patient is a DNR but has requested and agree to intubation in the past for procedural intervention. 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 Time to perform other separately billable procedures was not included in the critical care time. My time did not include minutes spent treating any other patients simultaneously or on activities that did not directly contribute to the patient's treatment. The services I provided to this patient were to treat and/or prevent clinically significant deterioration that could result in: Hypovolemic/hemorrhagic shock, metabolic derangement, respiratory failure, I provided critical care services requiring my management, as noted below: Chart data review, documentation time, medication orders and management, vital sign assessments/reviewing monitor data, ordering and reviewing lab tests, ordering and interpreting/reviewing x-rays and diagnostic studies, care of the patient and discussion of the patient with the admitting physicians. Procedures Procedure Narrative After the risks and benefits were discussed the following procedure was performed: INTUBATION: The patient was put in optimal position for the procedure. Rapid sequence intubation was initiated by me using 20 milligrams of etomidate IV and 80 milligrams of succinylcholine IV. The patient was intubated with a 8.0 cuffed endotracheal tube. Tube placement was confirmed by visualization of the tube and balloon passing through the cords, capnometry and subsequent chest x- ray. Breath sounds were equal and well aerated bilaterally postintubation. No breath sounds over stomach. Patient tolerated procedure well. Physician Communication Physician Communication 7:28 call placed to GI market research consultant @ 7:[address] Menjivar -- admit ICU to be called upon arrival to ICU aware receiving emegency release blood x 2 units in ED; call to ICU Diagnosis Primary Impression: GI bleed Qualified Code: K92.0 - Gastrointestinal hemorrhage with hematemesis Additional Impressions: Anemia due to blood loss Esophageal cancer Qualified Code: C15.9 - Malignant neoplasm of esophagus, unspecified location Admitting Information Admitting Physician Requests: Admit Lu Hartley MD Apr 02, 2017 19:37
[2017-04-02] MEDS ORDERED: SODIUM CHLORIDE 0.9% FLUSH 10 ML FLUSH IVF PRN (19:45)
[2017-04-02] MEDS ORDERED: SODIUM CHLOR 0.9% 250 ML INJ 250 ML IV ONE ×2 (20:00→21:00)
[2017-04-02] MEDS ORDERED: SUCCINYLCHOLINE CHLORIDE 200 MG/10 ML VIAL IV PUSH ONE (20:00)
[2017-04-02] MEDS ORDERED: ETOMIDATE 20 MG/10 ML VIAL IV PUSH ONE (20:00)
[2017-04-02] MEDS ORDERED: TERBUTALINE INJ 1 MG/ML AMP SQ PRN (20:00)
[2017-04-02] MEDS ORDERED: SUCCINYLCHOLINE CHLORIDE 200 MG/10 ML VIAL ONE (20:01)
[2017-04-02] MEDS ORDERED: ETOMIDATE 20 MG/10 ML VIAL ONE (20:01)
--- NOTE | 2017-04-02 20:13 | HHI.HP ---
HPI Service Critical Care Medicine Primary Care Physician Unknown Admission Diagnosis Upper GI bleed w/ hematemesis w/hypotension;anemia;Esophageal CA Diagnosis: Travel History International Travel<30 Days: No Contact w/Intl Traveler <30 Da: No Traveled to Known Affected Are: No History of Present Illness 61-year-old male who with history of esophageal cancer, reports that he is currently being treated by Dr. Del Angel, reports that he does get chemotherapy treatment once per week. Per medical records he had his last treatment on Thursday. He has not been feeling well for past few days. He has been giving himself feeds through his G-tube as it has been making him feel nauseous. Patient was at home today when he had episode of nausea and vomiting. According to - patient appeared to have a syncopal episode. When EMS arrived on scene, patient appeared cool and diaphoretic, blood pressure was 80/ 40. Patient was given a bolus of IVF and repeat bp was 84/54. He was also given some Zofran on scene. In the emergency department he had some hematemesis and was intubated for an airway protection by ED attending. Review of Systems ROS Unable to obtain patient is sedated and intubated Past Family Social History Allergies: Coded Allergies: Penicillin (Verified Allergy, Unknown, 04/02/17) reaction as an ; unsure of reaction Past Medical History Stage IV esophageal cancer GERD Upper GI bleed status post EGD 11/05/16 showing ulcerating bleeding mass in the distal esophagus, status post epi injection and cauterization Past Surgical History EGD/colonoscopy PEG placement Right chest port placement hernia repair vasectomy Reported Medications Reported Meds & Active Scripts Active Protonix (Pantoprazole Sodium) 40 Mg Tab 40 Mg PO DAILY Promethazine Liq (Promethazine HCl) 6.25 Mg/5 Ml Soln 25 Mg PO Q6H PRN Reported Zofran Odt (Ondansetron Odt) 4 Mg Tab 4 Mg SL Q6HR PRN Active Ordered Medications Current Medications Medications (Trade) Dose Ordered Sig/Andrea Route PRN Reason Start Time Stop Time Status Last Admin Dose Admin Sodium Chloride 250 ml @ 15 mls/hr ONCE ONCE IV 04/02/17 20:00 04/03/17 12:39 04/02/17 20:22 Sodium Chloride (NS 1000 ml Inj) 1,000 ml @ 84 mls/hr [id number] IV 04/02/17 20:09 04/02/17 21:25 Sodium Chloride (NS Flush) 2 ml UNSCH PRN .XX FLUSH AFTER USING IV ACCESS 04/02/17 20:15 Sodium Chloride (NS Flush) 2 ml BID .XX 04/02/17 21:00 Acetaminophen (Tylenol) 650 mg Q6H PRN PO PAIN 1-10 AND/OR FEVER >101F 04/02/17 20:15 Morphine Sulfate (Morphine Inj) 2 mg Q2H PRN IV PAIN SCALE 6 TO 10 04/02/17 20:15 Pantoprazole Sodium (Protonix Inj) 40 mg Q12H IV 04/02/17 22:00 Midazolam HCl (Versed Inj) 2 mg Q1H PRN IV SEDATION 04/02/17 20:15 Miscellaneous Information 1 [id number] XX 04/02/17 20:15 Chlorhexidine Gluconate (Chlorhexidine 2% Cloth) 3 pack Taper DAILY@04 TOP 04/03/17 04:00 03/30/18 03:59 Chlorhexidine Gluconate (Chlorhexidine 2% Cloth) 3 pack UNSCH PRN TOP HYGIENIC CARE 04/02/17 20:15 Senna/Docusate Sodium (Kimberley-Colace) 1 tab BID PO 04/02/17 21:00 Magnesium Hydroxide (Milk Of Magnesia Liq) 30 ml Q12H PRN PO MILD - MODERATE CONSTIPATION 04/02/17 20:15 Sennosides (Senokot) 17.2 mg Q12H PRN PO MODERATE - SEVERE CONSTIPATION 04/02/17 20:15 Bisacodyl (Dulcolax Supp) 10 mg DAILY PRN RECTAL SEVERE CONSITIPATION 04/02/17 20:15 Lactulose 30 ml 30 ml DAILY PRN PO SEVERE CONSITIPATION 04/02/17 20:15 Norepinephrine Bitartrate (Levophed-Dextrose Drip) 250 ml @ 0 mls/hr TITRATE IV 04/02/17 20:00 Terbutaline Sulfate 1 mg 1 mg UNSCH PRN SQ For Extravasation 04/02/17 20:00 Propofol 100 ml @ 0 mls/hr TITRATE IV 04/02/17 20:00 04/02/17 20:29 Sodium Chloride (NS 250 ml Inj) 250 ml @ 15 mls/hr ONCE ONCE IV 04/02/17 21:00 04/03/17 13:39 Family History Noncontributory Social History Unable to obtain patient is sedated and intubated Physical Exam Vital Signs Vital Signs Date Time Temp Pulse Resp B/P Pulse Ox O2 Delivery O2 Flow Rate FiO2 04/02/17 19:59 130 86/51 04/02/17 19:50 100 Nasal Cannula 1.50 04/02/17 19:30 101 91/56 100 Nasal Cannula 2 04/02/17 19:17 97 95/51 100 Nasal Cannula 2 04/02/17 19:11 97 Nasal Cannula 2 04/02/17 19:07 100 92/63 95 Nasal Cannula 2 04/02/17 18:53 87 101/62 100 Nasal Cannula 2 04/02/17 18:37 81 104/62 100 Nasal Cannula 2 04/02/17 18:05 90/60 04/02/17 17:53 100 Nasal Cannula 2 04/02/17 17:45 98.2 91 18 84/54 100 Room Air Physical Exam GENERAL: Pale sedated and intubated patient in no distress SKIN: Warm and dry. HEAD: Normocephalic. EYES: No scleral icterus. No injection or drainage. NECK: Supple, trachea midline. No JVD or lymphadenopathy. CARDIOVASCULAR: Regular rate and rhythm without murmurs, gallops, or rubs. RESPIRATORY: Breath sounds equal bilaterally. No accessory muscle use. GASTROINTESTINAL: Abdomen soft, non-tender, nondistended. MUSCULOSKELETAL: No cyanosis, or edema. BACK: Nontender without obvious deformity. No CVA tenderness. EXTREMITIES: No clubbing cyanosis or edema Laboratory Laboratory Tests Test 04/02/17 18:30 White Blood Count 3.2 Red Blood Count 2.42 Hemoglobin 6.4 Hematocrit 20.0 Mean Corpuscular Volume 82.5 Mean Corpuscular Hemoglobin 26.5 Mean Corpuscular Hemoglobin 32.2 Concent Red Cell Distribution Width 18.9 Platelet Count 210 Mean Platelet Volume 8.7 Neutrophils (%) (Auto) 87.7 Lymphocytes (%) (Auto) 4.8 Monocytes (%) (Auto) 6.3 Eosinophils (%) (Auto) 0.8 Basophils (%) (Auto) 0.4 Neutrophils # (Auto) 2.8 Lymphocytes # (Auto) 0.2 Monocytes # (Auto) 0.2 Eosinophils # (Auto) 0.0 Basophils # (Auto) 0.0 CBC Comment DIFF FINAL Differential Comment Prothrombin Time 11.4 Prothromb Time International 1.0 Ratio Activated Partial 23.5 Thromboplast Time Sodium Level 140 Potassium Level 4.4 Chloride Level 105 Carbon Dioxide Level 26.3 Anion Gap 9 Blood Urea Nitrogen 26 Creatinine 0.75 Estimat Glomerular Filtration 105 Rate Random Glucose 134 Lactic Acid Level 5.3 Calcium Level 7.7 Magnesium Level 2.2 Total Bilirubin 0.3 Aspartate Amino Transf 25 (AST/SGOT) Alanine Aminotransferase 27 (ALT/SGPT) Alkaline Phosphatase 179 Total Protein 5.0 Albumin 1.9 Lipase 54 Blood Type A POSITIVE Antibody Screen NEGATIVE Crossmatch Leukocyte-Reduced Red Blood Cells Blood Bank Comment Date/Time Procedure Status Source Growth 04/02/17 18:40 Aerobic Blood Culture Received Blood Peripheral Pending 04/02/17 18:40 Anaerobic Blood Culture Received Blood Peripheral Pending Result Diagram: 04/02/17 1830 04/02/17 1830 Imaging Last 24 hours Impressions Chest X-Ray 04/02/172037 Signed Impressions: Service Date/Time: April 21:05 - CONCLUSION: Lines and tubes. Stable atelectasis versus scarring within the left lung base. Randy Vazquez Jr., MD Chest X-Ray 04/02/17 1750 Signed Impressions: Service Date/Time: April 18:09 - CONCLUSION: 1. Minimal atelectatic changes in the left lingula/lung base. 2. Lungs are otherwise clear with no confluent infiltrate or effusion. 3. Right subclavian Yiwrdn-i-Uzuk catheter is stable in position. Mendez Guidry MD Assessment and Plan Assessment and Plan Respiratory failure - Today for an airway protection - Vent bundle - SBT when hemodynamically stable - DuoNeb scheduled and when necessary - ABG and CXR a.m. Hematemesis - Stage IV esophageal cancer - IV Protonix - Further management per bench lay out technician Anemia - Blood loss anemia - Transfuse 2 units PRBCs - Monitor H&H series - Transfuse for hemoglobin less than 7 DVT GI prophylaxis - Teds SCDs - IV Protonix - No pharmacological DVT prophylaxis due to acute hematemesis Critical Care: The total critical care time was 35 minutes. Time to perform other separately billable procedures was not included in the critical care time. Arnaldo Alamo MD Apr 02, 2017 20:13
[2017-04-02] MEDS ORDERED: MISCELLANEOUS NURSING INFORMATION XX SCH (20:15)
[2017-04-02] MEDS ORDERED: SODIUM CHLORIDE 0.9% FLUSH 10 ML FLUSH PRN (20:15)
[2017-04-02] MEDS ORDERED: BISACODYL 10 MG SUPP RECTAL PRN (20:15)
[2017-04-02] MEDS ORDERED: CHLORHEXIDINE GLUCONATE 2 % 1 PACK (2 CLOTHS) TOP PRN (20:15)
[2017-04-02] MEDS ORDERED: SENNOSIDES 8.6 MG TAB PO PRN (20:15)
[2017-04-02] MEDS ORDERED: ACETAMINOPHEN 325 MG TAB PO PRN (20:15)
[2017-04-02] MEDS ORDERED: MAGNESIUM HYDROXIDE SUSP 30 ML CUP PO PRN (20:15)
[2017-04-02] MEDS ORDERED: MIDAZOLAM HCL 2 MG/2 ML VIAL IV PRN (20:15)
[2017-04-02] MEDS ORDERED: LACTULOSE SYRUP 20 GM/30 ML CUP PO PRN (20:15)
[2017-04-02] MEDS ORDERED: MORPHINE SULFATE 4 MG/ML INJ IV PRN (20:15)
[2017-04-02] MEDS ORDERED: RESP: ALBUTEROL 2.5 MG/IPRATROPIUM 0.5 MG NEB (PRN) INH (20:15)
[2017-04-02] MEDS: PROPOFOL 1000 MG/100 ML INJ 100 ML IV SCH ×2 (20:29→23:26)
[2017-04-02 20:55] LABS: LACTIC ACID GHOST NOT REPORTABLE
[2017-04-02] MEDS: DOCUSATE SODIUM 50 MG/SENNA 8.6 MG TAB PO SCH (21:00)
[2017-04-02] MEDS ORDERED: SODIUM CHLORIDE 0.9% FLUSH 10 ML FLUSH IV FLUSH SCH (21:00)
[2017-04-02] MEDS: SODIUM CHLORIDE 0.9% FLUSH 10 ML FLUSH SCH (21:00)
[2017-04-02 21:20] LABS: BLOOD GAS BASE EXCESS -15.8 mmol/L (-2-2); BLOOD GAS CARBOXYHEMOGLOBIN 0.7 % (0-4); BLOOD GAS HCO3 11 mmol/L (22-26); BLOOD GAS METHEMOGLOBIN 0.2 % (0-2); BLOOD GAS O2 HGB SATURATION 98 % (90-100); BLOOD GAS OXYGEN CONTENT 9.6 Vol % (12.0-20.0); BLOOD GAS PCO2 29 mmHg (38-42); BLOOD GAS PO2 179 mmHG (61-120); BLOOD GAS TOTAL HGB 6.6 G/DL (12.0-16.0); CRITICAL VALUE YES; OXYGEN DEVICE VENTILATOR; TEMP CORR TO 98.6
[2017-04-02 21:21] LABS: DRAW SITE RT FEMORAL; FIO2 50 %; NUMBER OF ARTERIAL PUNCTURES 1; STAT YES
[2017-04-02] MEDS: SODIUM CHLOR 0.9% 1000 ML INJ 1,000 ML IV SCH ×2 (21:25→23:26)
--- NOTE | 2017-04-02 21:32 | RADRPT ---
EXAM DATE/TIME: 04/02/2017 21:05 [facility] COMPARISON: CHEST SINGLE AP, April 02, 2017, 18:09. INDICATIONS : Post procedure, ET tube MEDICAL HISTORY : Carcinoma, esophageal. SURGICAL HISTORY : None. ENCOUNTER: Subsequent ACUITY: 1 day PAIN SCORE: Non-responsive. LOCATION: Bilateral chest FINDINGS: Single portable frontal view the chest shows the tip of the endotracheal tube 3 cm cephalad of the ca marisol. Tip of the nasogastric tube courses off the inferior margin of the film. Right-sided Port-A-Cat h. Linear atelectasis versus scarring within the base. Right lung is clear. No infiltrates or effusio ns. Heart is normal in size. CONCLUSION: Lines and tubes. Stable atelectasis versus scarring within the left lung base. Randy Vazquez Jr., MD on April 02, 2017 at 21:19 Board Certified Radiologist. This report was verified electronically.
[2017-04-02] MEDS ORDERED: SODIUM BICARBONATE 8.4% INJ 50 MEQ/50 ML SYR IV PUSH ONE (22:00)
[2017-04-02] MEDS ORDERED: LACTATED RINGER'S 1,000 ML BAG IV ONE (22:00)
[2017-04-02] MEDS ORDERED: PROPOFOL 200 MG/20 ML AMP IV ONE (22:00)
[2017-04-02] MEDS ORDERED: PANTOPRAZOLE SODIUM 40 MG VIAL IV SCH (22:00)
[2017-04-02] MEDS ORDERED: EPINEPHrine HCL (1:10,000) 1 MG/10 ML SYRINGE OTHER ONE (22:10)
[2017-04-02 22:33] LABS: BACTERIA, URINE FEW /hpf; BLOOD, URINE NEG (NEG); COMMENT (UR) CATH-CULTURE IND; CULTURE IF INDICATED CATH CULTURE IND; GLUCOSE,URINE NEG (NEG); HYALINE CAST, URINE 8 /lpf (RARE); KETONE, URINE NEG (NEG); MUCUS URINE FEW /lpf (OCC); NITRITE,URINE NEG (NEG); URINE COLOR YELLOW (YELLW/STRAW)
[2017-04-02] MEDS ORDERED: NOREPINEPHRINE 4 MG/4 ML AMP ONE (22:47)
[2017-04-02 23:18] LABS: AUTOMATED NEUTROPHIL # 3.8 TH/MM3 (1.8-7.7); BASOPHIL % 0.3 % (0.0-2.0); EOSINOPHIL % 0.1 % (0.0-4.0); HEMATOCRIT 22.9 % (39.0-51.0); HEMO FLAGS DIFF FINAL; LYMPH % 7.3 % (9.0-44.0); LYMPHOCYTE # 0.3 TH/MM3 (1.0-4.8); MEAN CORPUSCULAR HEMOGLOBIN 26.9 PG (27.0-34.0); MEAN CORPUSCULAR HGB CONC 31.6 % (32.0-36.0); MONO % 6.2 % (0.0-8.0); NEUT % 86.1 % (16.0-70.0); PLATELET COUNT 266 TH/MM3 (150-450); RED BLOOD COUNT 2.69 MIL/MM3 (4.50-5.90); WHITE BLOOD COUNT 4.4 TH/MM3 (4.0-11.0)
[2017-04-02] MEDS: NOREPINEPHRINE-DEXTROSE DRIP 250 ML IV SCH (23:27)
[2017-04-02] MEDS ORDERED: SODIUM BICARBONATE 8.4% INJ 50 ML ONE ×2 (23:33→23:34)
[2017-04-02] MEDS: SODIUM BICARBONATE 8.4% INJ 150 MEQ in SODIUM CHLOR 0.9% 1000 ML INJ 1,000 ML IV SCH (23:35)
[2017-04-02 23:36] LABS: BLOOD GAS BASE EXCESS -7.4 mmol/L (-2-2); BLOOD GAS CARBOXYHEMOGLOBIN 1.2 % (0-4); BLOOD GAS HCO3 20 mmol/L (22-26); BLOOD GAS METHEMOGLOBIN 1.5 % (0-2); BLOOD GAS O2 HGB SATURATION 96 % (90-100); BLOOD GAS PCO2 58 mmHg (38-42); BLOOD GAS PO2 133 mmHg (61-120); BLOOD GAS TOTAL HGB 7.2 G/DL (12.0-16.0); TEMP CORR TO 98.6
[2017-04-02 23:36] LABS: BICARBONATE 22.6 MEQ/L (21.0-32.0); POTASSIUM 4.9 MEQ/L (3.5-5.1)
[2017-04-02 23:37] LABS: CRITICAL VALUE YES; DRAW SITE RT RADIAL; FIO2 40 %; NUMBER OF ARTERIAL PUNCTURES 1; OXYGEN DEVICE VENTILATOR; STAT NO; ULNAR PULSE PRESENT; VENT SETTINGS PRVC/AC
[2017-04-02 23:44] LABS: CALCIUM-PROTEIN CORRECTED 8.4 MG/DL (8.5-10.1); TOTAL BILIRUBIN ADULT 0.7 MG/DL (0.2-1.0)
[2017-04-03] VITALS (16 sets, daily range): BP systolic 72–104; BP diastolic 50–68; PULSE 79–130; RESP 11–30; TEMP 96.6–99.7; O2SAT 92–100
[2017-04-03] MEDS ORDERED: SODIUM BICARBONATE 8.4% INJ 50 MEQ/50 ML SYR IV ONE (02:00)
[2017-04-03 02:09] LABS: BLOOD GAS BASE EXCESS -5.9 mmol/L (-2-2); BLOOD GAS CARBOXYHEMOGLOBIN 1.5 % (0-4); BLOOD GAS HCO3 19 mmol/L (22-26); BLOOD GAS O2 HGB SATURATION 96 % (90-100); BLOOD GAS OXYGEN CONTENT 12.5 Vol % (12.0-20.0); BLOOD GAS PCO2 36 mmHg (38-42); BLOOD GAS PO2 103 mmHg (61-120); BLOOD GAS TOTAL HGB 9.2 G/DL (12.0-16.0); CRITICAL VALUE NO; DRAW SITE ART LINE; FIO2 40 %; OXYGEN DEVICE VENTILATOR; TEMP CORR TO 98.6; VENT SETTINGS PRVC/AC
[2017-04-03 02:10] LABS: STAT NO
[2017-04-03] MEDS: PROPOFOL 1000 MG/100 ML INJ 100 ML IV SCH ×2 (02:57→09:25)
[2017-04-03] MEDS: MIDAZOLAM 100 MG/NS 100 ML DRIP Premix IV SCH ×2 (02:58→05:37)
[2017-04-03] MEDS: SODIUM BICARBONATE 8.4% INJ 150 MEQ in SODIUM CHLOR 0.9% 1000 ML INJ 1,000 ML IV SCH (02:59)
[2017-04-03] MEDS ORDERED: VASOPRESSIN INJ 40 UNITS in DEXTROSE 5% IN WATER 100ML INJ 98 ML IV SCH ×2 (03:00)
[2017-04-03 03:37] LABS: AUTOMATED NEUTROPHIL # 3.2 TH/MM3 (1.8-7.7); BASOPHIL % 0.2 % (0.0-2.0); EOSINOPHIL % 0.1 % (0.0-4.0); HEMATOCRIT 26.1 % (39.0-51.0); LYMPH % 7.7 % (9.0-44.0); LYMPHOCYTE # 0.3 TH/MM3 (1.0-4.8); MEAN CELL VOLUME 82.3 FL (80.0-100.0); MEAN CORPUSCULAR HGB CONC 32.8 % (32.0-36.0); MONO % 4.4 % (0.0-8.0); NEUT % 87.6 % (16.0-70.0); PLATELET COUNT 217 TH/MM3 (150-450); RED BLOOD COUNT 3.17 MIL/MM3 (4.50-5.90); RED CELL DISTRIBUTION WIDTH 16.6 % (11.6-17.2); WHITE BLOOD COUNT 3.6 TH/MM3 (4.0-11.0)
[2017-04-03 03:43] LABS: HEMO FLAGS AUTO DIFF
[2017-04-03 03:44] LABS: INTERNATIONAL NORMALIZED RATIO 1.2 RATIO; PROTHROMBIN TIME - PATIENT 12.9 SEC (9.8-11.6)
[2017-04-03] MEDS ORDERED: DO NOT ADM ANY ANTICOAGULANT DRUGS PRN (03:45)
[2017-04-03 03:56] LABS: BICARBONATE 24.2 MEQ/L (21.0-32.0); MAGNESIUM 2.1 MG/DL (1.5-2.5); POTASSIUM 4.8 MEQ/L (3.5-5.1)
[2017-04-03 03:58] LABS: CALCIUM-PROTEIN CORRECTED 8.4 MG/DL (8.5-10.1); TOTAL BILIRUBIN ADULT 1.1 MG/DL (0.2-1.0)
[2017-04-03] MEDS: NOREPINEPHRINE-DEXTROSE DRIP 250 ML IV SCH ×3 (04:00→09:24)
[2017-04-03] MEDS ORDERED: CHLORHEXIDINE GLUCONATE 2 % 1 PACK (2 CLOTHS) TOP SCH (04:00)
[2017-04-03 04:24] LABS: BANDS 11 % (0-6); CORRECTED NUCLEATED RBC 2 /100 WBC (0-0); NEUTROPHIL # MANUAL DIFF 3.1 TH/MM3 (1.8-7.7); POLYS (SEG NEUTROPHILS) 74 % (16-70); WBC DIFF SAMPLE 100
[2017-04-03 04:25] LABS: OVALOCYTES 2+ (NORMAL); PLATELET ESTIMATE SMEAR NORMAL (NORMAL); PLATELET MORPHOLOGY NORMAL (NORMAL); SCAN/DIFF FINAL DIFF MANUAL
[2017-04-03] MEDS ORDERED: ALBUMIN HUMAN 25% 25 GM/100 ML BAGP IV ONE (07:45)
[2017-04-03 07:47] LABS: HEMATOCRIT 29.5 % (39.0-51.0)
--- NOTE | 2017-04-03 07:52 | HHI.CCPN ---
Subjective Remarks/Hospital Course 61-year-old male who with history of esophageal cancer, reports that he is currently being treated by Dr. Del Angel, reports that he does get chemotherapy treatment once per week. Per medical records he had his last treatment on Thursday. He has not been feeling well for past few days. He has been giving himself feeds through his G-tube as it has been making him feel nauseous. Patient was at home today when he had episode of nausea and vomiting. According to - patient appeared to have a syncopal episode. When EMS arrived on scene, patient appeared cool and diaphoretic, blood pressure was 80/ 40. Patient was given a bolus of IVF and repeat bp was 84/54. He was also given some Zofran on scene. In the emergency department he had some hematemesis and was intubated for an airway protection by ED attending. SUBJ 04/03: Patient is currently on 24 mcg/m of Levophed and vasopressin. So far received 2 units of PRBC and 4 L crystalloids. I have ordered additional 2 L normal saline boluses. Remains on propofol and Versed. EGD done report pending ( apparently EGD showed ulcers which were cauterized, epi injection). Start empiric Zosyn and single dose of vancomycin for probable septic shock Objective Vital Signs Date Time Temp Pulse Resp B/P Pulse Ox O2 Delivery O2 Flow Rate FiO2 04/03/17 06:00 102 04/03/17 04:19 98.0 22 96/56 98 04/03/17 04:09 40 04/03/17 00:00 Mechanical Ventilator 04/02/17 19:55 15 Intake and Output 04/02/17 04/02/17 04/03/17 08:00 16:00 00:00 Intake Total 3600 ml Output Total 200 ml Balance 3400 ml Result Diagram: 04/03/17 0320 04/03/17 0320 Other Results Laboratory Tests Test 04/02/17 04/02/17 04/03/17 20:45 23:14 02:00 Blood Gas Puncture Site RT FEMORAL RT RADIAL ART LINE Blood Gas Patient Temperature 98.6 98.6 98.6 Blood Gas HCO3 11 mmol/L 20 mmol/L 19 mmol/L (22-26) (22-26) (22-26) Blood Gas Base Excess -15.8 mmol/L -7.4 mmol/L -5.9 mmol/L (-2-2) (-2-2) (-2-2) Blood Gas Oxygen Saturation 98 % (90-100) 96 % (90-100) 96 % (90-100) Arterial Blood pH 7.19 7.16 7.34 (7.380-7.420) (7.380-7.420) (7.380-7.420) Arterial Blood Partial 29 mmHg (38-42) 58 mmHg (38-42) 36 mmHg (38-42) Pressure CO2 Arterial Blood Partial 179 mmHG 133 mmHg 103 mmHg Pressure O2 (61-120) (61-120) (61-120) Arterial Blood Oxygen Content 9.6 Vol % 10.0 Vol % 12.5 Vol % (12.0-20.0) (12.0-20.0) (12.0-20.0) Arterial Blood 0.7 % (0-4) 1.2 % (0-4) 1.5 % (0-4) Carboxyhemoglobin Arterial Blood Methemoglobin 0.2 % (0-2) 1.5 % (0-2) 1.0 % (0-2) Blood Gas Hemoglobin 6.6 G/DL 7.2 G/DL 9.2 G/DL (12.0-16.0) (12.0-16.0) (12.0-16.0) Oxygen Delivery Device VENTILATOR VENTILATOR VENTILATOR Blood Gas Ventilator Setting PRVC/AC PRVC/AC Blood Gas Inspired Oxygen 50 % 40 % 40 % Imaging Last 24 hours Impressions Chest X-Ray 04/02/172037 Signed Impressions: Service Date/Time: April 21:05 - CONCLUSION: Lines and tubes. Stable atelectasis versus scarring within the left lung base. Randy Vazquez Jr., MD Chest X-Ray 04/02/17 1750 Signed Impressions: Service Date/Time: April 18:09 - CONCLUSION: 1. Minimal atelectatic changes in the left lingula/lung base. 2. Lungs are otherwise clear with no confluent infiltrate or effusion. 3. Right subclavian Iqbexj-f-[id number] catheter is stable in position. Mendez Guidry MD Objective Remarks GENERAL: Pale sedated and intubated patient on propofol and Versed SKIN: Warm and dry. HEAD: Normocephalic. EYES: No scleral icterus. No injection or drainage. NECK: Supple, trachea midline. No JVD or lymphadenopathy. CARDIOVASCULAR: Regular rate and rhythm without murmurs, gallops, or rubs. On Levothroid and vasopressin RESPIRATORY: Breath sounds equal bilaterally. No accessory muscle use. GASTROINTESTINAL: Abdomen soft, non-tender, nondistended. MUSCULOSKELETAL: No cyanosis, or edema. BACK: Nontender without obvious deformity. No CVA tenderness. EXTREMITIES: No clubbing cyanosis or edema NEURO: Moves all extremities, not following commands A/P Assessment and Plan NEURO: - Sedated with propofol and fentanyl - Hold off sedation vacation due to severe shock and metabolic acidosis - Check Ammonia level RESP: Respiratory failure - Intubated for airway protection - Vent bundle - SBT when hemodynamically stable, does not criteria now - DuoNeb scheduled and when necessary - ABG and CXR a.m. CVS: Shock hypovolemic and ?septic Lactic acidosis - Continue Levophed and vasopressin - Give additional 2 L boluses of normal saline and IV albumin 25 g 1 - And stress dose steroids - Continue bicarbonate infusion at 150 ml per hour GI Hematemesis Stage IV esophageal cancer - IV Protonix gtt - Status post EGD and cauterization of ulcer, epi injection. (Procedure note pending at this time - Further management per mortgage loan officer originator HEME Anemia due to blood loss - Transfuse 2 units PRBCs - Monitor H&H series - Transfuse for hemoglobin less than 8 due to shcok ID: - F/U posadas culture. Add Zosyn and single dose of ABX. DVT GI prophylaxis - Teds SCDs - IV Protonix - No pharmacological DVT prophylaxis due to acute hematemesis Critical Care: The total critical care time was 78 minutes. Time to perform other separately billable procedures was not included in the critical care time. Patient remains acutely critically ill, with high chance of mortality. He is in multiorgan failure with worsening shock requiring multiple pressors Citlali Fournier MD Apr 03, 2017 07:52
[2017-04-03] MEDS ORDERED: SODIUM BICARBONATE 8.4% INJ 150 MEQ in WATER STERILE FOR INJ 850 ML IV SCH (08:00)
[2017-04-03] MEDS ORDERED: PIPERACIL-TAZO 3.375 GM PREMIX 50 ML IV SCH (08:00)
[2017-04-03] MEDS ORDERED: SODIUM BICARBONATE 8.4% INJ 50 MEQ/50 ML SYR IV PUSH ONE (08:00)
[2017-04-03] MEDS ORDERED: SODIUM BICARBONATE 8.4% INJ 100 MEQ in DEXTROSE 5% IN WATE 1000ML INJ 1,000 ML IV SCH ×2 (08:00)
[2017-04-03] MEDS ORDERED: SODIUM BICARBONATE 8.4% SOLN 50 MEQ/50 ML VIAL IV ONE (08:30)
--- NOTE | 2017-04-03 08:41 | MB ---
cc: RICCO PLASCENCIA MD DATE OF CONSULTATION: 04/02/2017 REASON FOR CONSULTATION Massive upper GI bleed. HISTORY OF PRESENT ILLNESS A 61-year-old male patient known to our service from previous hospitalizations. He has a known case of stage IV esophageal CA currently undergoing chemoradiation with Dr. Del Angel. The patient has a history of upper GI bleed in November and December and was treated by our service. On two occasions he had a massive upper GI bleed similar to this attack where he required interventional epinephrine injection, APC treatment and endoclip placement to cauterize the bleeding. The patient has a G-tube in place for nutrition. The patient was doing well until a few days ago when he started to have blood coming out from his G-tube. The patient felt nauseated, had several episodes of nausea and vomiting. The vomiting was described as fresh blood coming out of his mouth and some aspirated and some blood coming out from the PEG tube. The patient had a syncopal attack. By the time EMS arrived on the scene the patient was diaphoretic and cool, blood pressure 80/40. He was given boluses of IV fluid, given Zofran and sent here immediately to the emergency room. In the emergency room the patient continued to be hypotensive. Blood was seen coming out from his PEG tube and was vomiting blood. He was intubated for stabilization. The patient received 2 units of blood and initial labs showed a hemoglobin of 6.4, hematocrit 20.0, otherwise essentially unremarkable. His lactic acid was elevated at 5.4. GI consulted for further treatment and possible endoscopic therapy. PAST MEDICAL HISTORY 1. Stage IV esophageal CA, currently receiving chemoradiation. 2. Gastroesophageal reflux disease. 3. Previous attacks of massive upper GI bleeding in November and December 2016 requiring endoscopic therapy with epinephrine, APC and endoclip. PAST SURGICAL HISTORY 1. Previous endoscopies and colonoscopies. 2. PEG tube placement. 3. Right chest port placement. 4. Hernia repair. 5. Vasectomy. MEDICATIONS Protonix. FAMILY HISTORY Noncontributory. SOCIAL HISTORY The patient never smoked, denies alcohol or drug abuse, as per family. REVIEW OF SYSTEMS Limited at this time secondary to his intubation status but he did complain of the symptoms mentioned in the present illness as per family. PHYSICAL EXAMINATION GENERAL: On examination the patient was found to be intubated and comfortable in the current setting. VITAL SIGNS: Stable with a pulse rate of 110, blood pressure now 100/60, temperature 98.6, oxygen saturation 100%. HEAD AND NECK: Pale. No jaundice. Atraumatic, normocephalic. No thyromegaly. No lymphadenopathy. CHEST: Clear to auscultation with good air entry bilateral on the ventilator. HEART: Regular rate and rhythm with tachycardia but no murmur. ABDOMEN: Soft, nontender. No ascites. No hepatosplenomegaly. No palpable masses. EXTREMITIES: Normal pulses. No edema. NEUROLOGIC: Not assessed while on the ventilator and sedated. SKIN: No rashes. ASSESSMENT AND PLAN A 61-year-old male patient who presented with the following problems: 1. Esophageal cancer, stage IV, receiving chemoradiation and currently under treatment protocol. 2. History of bleeding from the ulcerated esophageal mass requiring endoscopic therapy in November and December with epinephrine, APC and endoclip. 3. Massive upper GI bleeding manifested by hypotension, blood coming out from PEG tube and hematemesis. 4. Endotracheal intubation for airway protection and stabilization. RECOMMENDATIONS 1. Will continue aggressive treatment plan and intensive care unit management at this time. 2. Endoscopic therapy as soon as possible to control the bleeding. 3. Serial hemoglobin and hematocrit. 4. Blood transfusion as needed. 5. Proton pump inhibitors. 6. Supportive care. 7. Type and cross match and prepare 4-6 units of packed RBCs. 8. Further recommendations to follow. Thank you for the consult. Ricco MATAMOROS /10:55 PM /8:21 AM
[2017-04-03 08:51] LABS: BLOOD GAS BASE EXCESS -0.6 mmol/L (-2-2); BLOOD GAS CARBOXYHEMOGLOBIN 1.8 % (0-4); BLOOD GAS HCO3 23 mmol/L (22-26); BLOOD GAS METHEMOGLOBIN 0.9 % (0-2); BLOOD GAS O2 HGB SATURATION 97 % (90-100); BLOOD GAS OXYGEN CONTENT 12.5 Vol % (12.0-20.0); BLOOD GAS PCO2 31 mmHg (38-42); BLOOD GAS PO2 148 mmHg (61-120); CRITICAL VALUE NO; OXYGEN DEVICE VENTILATOR; TEMP CORR TO 98.6
[2017-04-03 08:52] LABS: DRAW SITE ART LINE; FIO2 40 %; STAT NO
[2017-04-03] MEDS ORDERED: PANTOPRAZOLE INJ 80 MG in SODIUM CHLORIDE 0.9% INJ 100 ML IV SCH (09:00)
[2017-04-03] MEDS: HYDROCORTISONE SOD SUCCINATE 100 MG VIAL IV SCH ×2 (09:21→14:00)
[2017-04-03] MEDS: SODIUM CHLORIDE 0.9% FLUSH 10 ML FLUSH SCH ×2 (09:21→20:03)
[2017-04-03] MEDS: DOCUSATE SODIUM 50 MG/SENNA 8.6 MG TAB PO SCH (09:22)
--- NOTE | 2017-04-03 09:47 | GIPROC ---
[facility] [address] [facility]. [facility], [address] EGD PROCEDURE REPORT EXAM DATE: 04/02/2017 PATIENT NAME: Nikhil Crockett MR #: [id number] BIRTHDATE: 1955 ATTENDING: Ricco Menjivar MD ORDER #: [id number] MECHATRONICS ENGINEER: Rey Reid and Toshia Donald STATUS: inpatient INDICATIONS: The patient is a 61 yr old male here for an EGD due to hematemesis PROCEDURE PERFORMED: EGD w/ directed submucosal injection(s), any substance MEDICATIONS: None and Per Anesthesia. TOPICAL ANESTHETIC: none CONSENT: The patient understands the risks and benefits of the procedure and understands that these risks include, but are not limited to: sedation, allergic reaction, infection, perforation and/or bleeding. Alternative means of evaluation and treatment include, among others: physical exam, x-rays, and/or surgical intervention. The patient elects to proceed with this endoscopic procedure. medical equipment was checked for proper function. Hand hygiene and appropriate measures for infection prevention was taken. After the risks, benefits and alternatives of the procedure were thoroughly explained, Informed consent was verified, confirmed and timeout was successfully executed by the treatment team. The patient was anesthetized with topical anesthesia and the Pentax EG-[id number] endoscope was introduced through the mouth and advanced to the second portion of the duodenum. Retroflexed views revealed Blood/Clot covering the entire stomach The gastroscope was then slowly withdrawn and removed. ESOPHAGUS: A single non-bleeding and round ulcer with a red spot was found at the esopho-gastric anastamosis. Submucosal injection of 5ml of epinephrine 1:10,000 was performed around the bleeding site with complete hemostasis achieved. STOMACH: Full of Blood and clotts, limiting the inspection of the stomach. DUODENUM: Blood in the duodenum. ADVERSE EVENTS: There were no complications. IMPRESSIONS: 1. Single ulcer was found at the esopho-gastric anastamosis; Submucosal injection of 5ml of epinephrine 1:10,000 was performed around the bleeding site 2. Full of Blood and clotts, limiting the inspection of the stomach 3. Blood in the duodenum 4. Retroflexed views revealed Blood/Clot covering the entire stomach RECOMMENDATIONS: 1. Continue PPI 2. ICU monitoring PATIENT CONDITION: stable DISPOSITION: Observation REPEAT EXAM: Return as needed for EGD Ricco Menjivar MD eSigned: Ricco Menjivar MD 04/03/2017 9:46 AM cc: PATIENT NAME: Nikhil Crockett MR#: [id number]
[2017-04-03] MEDS ORDERED: VANCOMYCIN INJ 1,250 MG in SODIUM CHLOR 0.9% 250 ML INJ 250 ML IV ONE (10:00)
--- NOTE | 2017-04-03 10:29 | HHI.GIFU ---
Subjective Remarks Stable vitals on pressors and IVF, S/P 2 units of PRBC's Blood out of the NGT, rectal tube and ET tube. Objective Vitals I&O Vital Signs Date Time Temp Pulse Resp B/P Pulse Ox O2 Delivery O2 Flow Rate FiO2 04/03/17 08:07 100 40 04/03/17 06:00 102 04/03/17 04:19 98.0 118 22 96/56 98 04/03/17 04:09 100 40 04/03/17 04:00 110 04/03/17 04:00 40 04/03/17 04:00 98.6 122 30 90/55 96 95/68 04/03/17 02:00 112 04/03/17 01:11 99 40 04/03/17 00:15 100 100 04/03/17 00:00 110 12 112/65 90 Mechanical Ventilator 60 04/02/17 23:45 113 12 109/61 91 Mechanical Ventilator 60 04/02/17 23:30 122 12 82/51 94 Mechanical Ventilator 60 04/02/17 23:16 96 40 04/02/17 23:15 123 12 90/54 93 Mechanical Ventilator 40 04/02/17 23:00 130 12 103/61 97 Mechanical Ventilator 40 04/02/17 22:45 115 12 110/72 100 Mechanical Ventilator 40 04/02/17 22:40 97 40 04/02/17 22:32 96.6 115 12 110/72 100 Mechanical Ventilator 40 04/02/17 21:45 100 100 04/02/17 21:10 98.6 112 16 109/56 100 Ventilator 04/02/17 20:59 100 50 04/02/17 20:50 98.4 109 16 112/67 100 Ventilator 04/02/17 20:20 98.3 114 16 100/55 100 Ventilator 04/02/17 20:10 98.3 101 18 113/59 100 Ventilator 04/02/17 20:10 100 50 04/02/17 19:59 130 86/51 04/02/17 19:55 98.5 118 28 94/52 100 Non-Rebreather 15 04/02/17 19:50 100 Nasal Cannula 1.50 04/02/17 19:45 98.3 122 28 86/51 100 Non-Rebreather 15 04/02/17 19:30 101 91/56 100 Nasal Cannula 2 04/02/17 19:17 97 95/51 100 Nasal Cannula 2 04/02/17 19:11 97 Nasal Cannula 2 04/02/17 19:07 100 92/63 95 Nasal Cannula 2 04/02/17 18:53 87 101/62 100 Nasal Cannula 2 04/02/17 18:37 81 104/62 100 Nasal Cannula 2 04/02/17 18:05 90/60 04/02/17 17:53 100 Nasal Cannula 2 04/02/17 17:45 98.2 91 18 84/54 100 Room Air I/O 04/02/17 04/02/17 04/02/17 04/03/17 04/03/17 04/03/17 07:00 15:00 23:00 07:00 15:00 23:00 Intake Total 3600 ml 3903 ml Output Total 200 ml 585 ml Balance 3400 ml 3318 ml Intake Oral 0 ml IV Total 3000 ml 3103 ml Packed Cells 500 ml 800 ml Other 100 ml Output Urine Total 575 ml Gastric Drainage Total 10 ml Estimated Blood Loss 200 ml Other 0 ml # Bowel Movements 1 Laboratory Laboratory Tests Test 04/02/17 04/02/17 04/02/17 04/02/17 18:30 20:45 21:40 23:03 White Blood Count 3.2 4.4 Red Blood Count 2.42 2.69 Hemoglobin 6.4 7.2 Hematocrit 20.0 22.9 Mean Corpuscular Volume 82.5 85.0 Mean Corpuscular Hemoglobin 26.5 26.9 Mean Corpuscular Hemoglobin 32.2 31.6 Concent Red Cell Distribution Width 18.9 18.0 Platelet Count 210 266 Mean Platelet Volume 8.7 8.4 Neutrophils (%) (Auto) 87.7 86.1 Lymphocytes (%) (Auto) 4.8 7.3 Monocytes (%) (Auto) 6.3 6.2 Eosinophils (%) (Auto) 0.8 0.1 Basophils (%) (Auto) 0.4 0.3 Neutrophils # (Auto) 2.8 3.8 Lymphocytes # (Auto) 0.2 0.3 Monocytes # (Auto) 0.2 0.3 Eosinophils # (Auto) 0.0 0.0 Basophils # (Auto) 0.0 0.0 CBC Comment DIFF FINAL DIFF FINAL Differential Comment Prothrombin Time 11.4 Prothromb Time International 1.0 Ratio Activated Partial 23.5 Thromboplast Time Sodium Level 140 140 Potassium Level 4.4 4.9 Chloride Level 105 108 Carbon Dioxide Level 26.3 22.6 Anion Gap 9 9 Blood Urea Nitrogen 26 30 Creatinine 0.75 1.07 Estimat Glomerular Filtration 105 70 Rate Random Glucose 134 209 Lactic Acid Level 5.3 6.7 Calcium Level 7.7 6.8 Magnesium Level 2.2 Total Bilirubin 0.3 0.7 Aspartate Amino Transf 25 28 (AST/SGOT) Alanine Aminotransferase 27 28 (ALT/SGPT) Alkaline Phosphatase 179 151 Total Protein 5.0 4.2 Albumin 1.9 1.7 Lipase 54 Blood Type A POSITIVE Antibody Screen NEGATIVE Crossmatch Leukocyte-Reduced Red Blood Cells Blood Bank Comment Blood Gas Puncture Site RT FEMORAL Blood Gas Patient Temperature 98.6 Blood Gas HCO3 11 Blood Gas Base Excess -15.8 Blood Gas Oxygen Saturation 98 Arterial Blood pH 7.19 Arterial Blood Partial 29 Pressure CO2 Arterial Blood Partial 179 Pressure O2 Arterial Blood Oxygen Content 9.6 Arterial Blood 0.7 Carboxyhemoglobin Arterial Blood Methemoglobin 0.2 Blood Gas Hemoglobin 6.6 Oxygen Delivery Device VENTILATOR Blood Gas Ventilator Setting Blood Gas Inspired Oxygen 50 Urine Color YELLOW Urine Turbidity HAZY Urine pH 8.0 Urine Specific [facility] 1.015 Urine Protein NEG Urine Glucose (UA) NEG Urine Ketones NEG Urine Occult Blood NEG Urine Nitrite NEG Urine Bilirubin NEG Urine Urobilinogen LESS THAN 2.0 Urine Leukocyte Esterase NEG Urine RBC LESS THAN 1 Urine WBC 2 Urine Amorphous Sediment MANY Urine Bacteria FEW Urine Hyaline Casts 8 Urine Mucus FEW Microscopic Urinalysis Comment CATH-CULTURE IND Protein Corrected Calcium 8.4 Test 04/02/17 04/03/17 04/03/17 04/03/17 23:14 00:45 02:00 03:20 Blood Gas Puncture Site RT RADIAL ART LINE Blood Gas Patient Temperature 98.6 98.6 Blood Gas HCO3 20 19 Blood Gas Base Excess -7.4 -5.9 Blood Gas Oxygen Saturation 96 96 Arterial Blood pH 7.16 7.34 Arterial Blood Partial 58 36 Pressure CO2 Arterial Blood Partial 133 103 Pressure O2 Arterial Blood Oxygen Content 10.0 12.5 Arterial Blood 1.2 1.5 Carboxyhemoglobin Arterial Blood Methemoglobin 1.5 1.0 Blood Gas Hemoglobin 7.2 9.2 Oxygen Delivery Device VENTILATOR VENTILATOR Blood Gas Ventilator Setting PRVC/AC PRVC/AC Blood Gas Inspired Oxygen 40 40 Nasal Screen MRSA (PCR) MRSA NOT DETECTED White Blood Count 3.6 Red Blood Count 3.17 Hemoglobin 8.6 Hematocrit 26.1 Mean Corpuscular Volume 82.3 Mean Corpuscular Hemoglobin 27.0 Mean Corpuscular Hemoglobin 32.8 Concent Red Cell Distribution Width 16.6 Platelet Count 217 Mean Platelet Volume 8.5 Neutrophils (%) (Auto) 87.6 Lymphocytes (%) (Auto) 7.7 Monocytes (%) (Auto) 4.4 Eosinophils (%) (Auto) 0.1 Basophils (%) (Auto) 0.2 Neutrophils # (Auto) 3.2 Lymphocytes # (Auto) 0.3 Monocytes # (Auto) 0.2 Eosinophils # (Auto) 0.0 Basophils # (Auto) 0.0 CBC Comment AUTO DIFF Differential Total Cells 100 Counted Neutrophils % (Manual) 74 Band Neutrophils % 11 Lymphocytes % 11 Monocytes % 4 Neutrophils # (Manual) 3.1 Nucleated Red Blood Cells 2 Differential Comment FINAL DIFF MANUAL Platelet Estimate NORMAL Platelet Morphology Comment NORMAL Ovalocytes 2+ Prothrombin Time 12.9 Prothromb Time International 1.2 Ratio Sodium Level 145 Potassium Level 4.8 Chloride Level 110 Carbon Dioxide Level 24.2 Anion Gap 11 Blood Urea Nitrogen 32 Creatinine 0.99 Estimat Glomerular Filtration 76 Rate Random Glucose 129 Lactic Acid Level 5.5 Calcium Level 6.9 Protein Corrected Calcium 8.4 Phosphorus Level 5.0 Magnesium Level 2.1 Total Bilirubin 1.1 Aspartate Amino Transf 41 (AST/SGOT) Alanine Aminotransferase 31 (ALT/SGPT) Alkaline Phosphatase 143 Total Protein 4.4 Albumin 1.8 Test 04/03/17 04/03/17 04/03/17 06:25 08:40 08:45 Hemoglobin 10.5 Hematocrit 29.5 Ammonia 67 Blood Gas Puncture Site ART LINE Blood Gas Patient Temperature 98.6 Blood Gas HCO3 23 Blood Gas Base Excess -0.6 Blood Gas Oxygen Saturation 97 Arterial Blood pH 7.47 Arterial Blood Partial 31 Pressure CO2 Arterial Blood Partial 148 Pressure O2 Arterial Blood Oxygen Content 12.5 Arterial Blood 1.8 Carboxyhemoglobin Arterial Blood Methemoglobin 0.9 Blood Gas Hemoglobin 9.0 Oxygen Delivery Device VENTILATOR Blood Gas Ventilator Setting PC/AC IP 25,RATE Blood Gas Inspired Oxygen 40 Date/Time Procedure Status Source Growth 04/02/17 21:40 Urine Culture Received Urine Catheterized Urine Pending 04/02/17 18:40 Aerobic Blood Culture Received Blood Peripheral Pending 04/02/17 18:40 Anaerobic Blood Culture Received Blood Peripheral Pending Physical Exam HEENT: Intubated, blood out of ET tube CHEST: Chest is clear to auscultation and percussion. CARDIAC: Regular rate and rhythm with no murmur gallop or rubs. ABDOMEN: PEG with fresh blood, old blood via rectal tube. EXTREMITIES: No clubbing, cyanosis, or edema. Assessment and Plan Plan 1. Esophageal cancer, stage IV, receiving chemoradiation and currently under treatment protocol. 2. History of bleeding from the ulcerated esophageal mass requiring endoscopic therapy in November and December with epinephrine, APC and endoclip. 3. Massive upper GI bleeding manifested by hypotension, blood coming out from PEG tube and hematemesis. 4. Endotracheal intubation for airway protection and stabilization. 5. S/P Epinephrine injection at the base of the tumor. RECOMMENDATIONS - Will continue aggressive treatment plan and intensive care unit management at this time. - Serial hemoglobin and hematocrit. - Blood transfusion as needed. - Proton pump inhibitors. - Supportive care. - Type and cross match and prepare 4-6 units of packed RBCs. - Further recommendations to follow. Ricco Menjivar MD Apr 03, 2017 10:29
[2017-04-03 12:29] LABS: AUTOMATED NEUTROPHIL # 1.9 TH/MM3 (1.8-7.7); BASOPHIL % 0.2 % (0.0-2.0); EOSINOPHIL % 0.5 % (0.0-4.0); LYMPH % 6.7 % (9.0-44.0); LYMPHOCYTE # 0.1 TH/MM3 (1.0-4.8); MEAN CELL VOLUME 83.7 FL (80.0-100.0); MEAN CORPUSCULAR HEMOGLOBIN 27.7 PG (27.0-34.0); MEAN CORPUSCULAR HGB CONC 33.1 % (32.0-36.0); MONO % 8.6 % (0.0-8.0); PLATELET COUNT 166 TH/MM3 (150-450); RED BLOOD COUNT 2.11 MIL/MM3 (4.50-5.90); RED CELL DISTRIBUTION WIDTH 16.4 % (11.6-17.2); WHITE BLOOD COUNT 2.2 TH/MM3 (4.0-11.0)
[2017-04-03 12:34] LABS: HEMATOCRIT 17.7 % (39.0-51.0)
[2017-04-03 12:35] LABS: HEMO FLAGS AUTO DIFF
--- NOTE | 2017-04-03 12:43 | PD.CONS ---
Consult Service Palliative Care Consult Requested By Dr. Fournier Primary Care Physician Unknown Reason for Consultation a. To assist with evaluation and management of symptoms including: dyspnea, pain b. To assist medical decision maker(s) with: better understanding of current medical conditions; weighing benefits/burdens of medical treatment options; making medical treatment decisions. HPI History of Present Illness This 61-year-old patient presents to the ED on 04/02/17, from home with a possible seizure. He reported for the past few days not feeling well. He gives himself feeding through G-tube had been making him nauseous. Patient was in the home day of presentation had episode of nausea and vomiting. According to the he then appeared to have a syncopal episode, possible seizure like activity. When EMS arrived he was noted to be cool and diaphoretic with low blood pressure of 80/40, received IV fluid bolus repeat 84/54. He also received Zofran. At ED presentation he reported feeling a little better, that he was dehydrated and had not eaten anything that day. * Hemoglobin 6.4, receiving IV fluid bolus as well as 2 units RBC in the ED. Reported Still having some emesis of red blood periodically. Patient continued to be unstable hypotensive, tachycardic, tachypneic labored work of breathing. Patient was intubated. GI was consulted, possible OR depending on clinical course. Admitted to the ICU. * Dr. Menjivar GI: Patient noted to have massive upper GI bleeding manifested by hypotension, blood from PEG, hematemesis . Plan for endoscopy as soon as possible in the OR. Type and crossmatch for 4-6 units RBCs. Continue supportive treatments. * 6/2patient remains on mechanical vent. Having blood out of the NG, rectal tube, ET tube. Ongoing transfusions. Status post epinephrine injections at base of tumor as per GI. On Diprivan, Versed for sedation. Also requiring Levophed, vasopressin for hypotension. Was on bicarbonate drip, has been discontinued. Palliative care consulted to assist with clarification goals of treatment, possible family may want to transition to comfort focus. Pt seen in room,family at bedside. is familiar with our service from prior admission. Pt appears comfortable on exam, on versed, diprivan. + dark red from PEG tube, rectal tube. On multiple pressors, nursing cont to increase dose of Levophed due to hypotension. Met w family at length, see fam conf. [He has a known history of stage IV esophageal cancer follows with Dr. leonard outpatient, last chemotherapy occurring Thursday prior to presentation. He has also had history of recurrent upper GI bleeding from ulceration of the cancer.-- this patient is also known to palliative care from prior consultation in December of this year. During that admission he presented with a hemoglobin of 3] 1500 later notified by nursing family requesting withdrawal of life support / transition to comfort focus today. Function/Cognitive Trajectory primarily stays in bed much of the day due to fatigue r/t chemo. Still ambulatory short distances, able to walk up stairs once a day but usually not more than once. Independent w adls w some assist, cognitively sharp/no cognitive deficits. Review of Systems ROS Limitations: Clinical Condition, Intubated, Unresponsive (intubated, sedated, critical condition) Past Family Social History Coded Allergies: Penicillin (Verified Allergy, Unknown, 04/02/17) reaction as an ; unsure of reaction Past Medical History GERD Stage IV esophageal cancer Recent upper GI bleed status post EGD December,-ulcerating bleeding Mastisol soft tissue status post epi injection and cauterization Past Surgical History EGD, colonoscopy PEG placement Right chest port placement Hernia repair Vasectomy . Reported Medications Protonix (Pantoprazole Sodium) 40 Mg Tab 40 Mg PO DAILY Promethazine Liq (Promethazine HCl) 6.25 Mg/5 Ml Soln 25 Mg PO Q6H PRN Zofran Odt (Ondansetron Odt) 4 Mg Tab 4 Mg SL Q6HR PRN . Current Medications Medications (Trade) Dose Ordered Sig/Andrea Route Start Time Stop Time Status Last Admin (NS 250 ml Inj) 250 ml @ 15 mls/hr ONCE ONCE IV 04/02/17 20:00 04/03/17 12:39 04/02/17 20:22 (NS Flush) 2 ml UNSCH PRN .XX 04/02/17 20:15 (NS Flush) 2 ml BID .XX 04/02/17 21:00 04/03/17 09:21 (Tylenol) 650 mg Q6H PRN PO 04/02/17 20:15 (Morphine Inj) 2 mg Q2H PRN IV 04/02/17 20:15 (Versed Inj) 2 mg Q1H PRN IV 04/02/17 20:15 04/03/17 02:56 Miscellaneous Information 1 Q361D XX 04/02/17 20:15 04/02/17 20:15 (Chlorhexidine 2% Cloth) 3 pack Taper DAILY@04 TOP 04/03/17 04:00 03/30/18 03:59 04/03/17 02:38 (Chlorhexidine 2% Cloth) 3 pack UNSCH PRN TOP 04/02/17 20:15 (Kimberley-Colace) 1 tab BID PO 04/02/17 21:00 04/03/17 09:22 (Milk Of Magnevelio Linina) 30 ml Q12H PRN PO 04/02/17 20:15 (Senokot) 17.2 mg Q12H PRN PO 04/02/17 20:15 (Dulcolax Supp) 10 mg DAILY PRN RECTAL 04/02/17 20:15 Lactulose 30 ml 30 ml DAILY PRN PO 04/02/17 20:15 (Levophed-Dextrose Drip) 250 ml @ 0 mls/hr TITRATE IV 04/02/17 20:00 04/03/17 09:24 Terbutaline Sulfate 1 mg 1 mg UNSCH PRN SQ 04/02/17 20:00 Propofol 100 ml @ 0 mls/hr TITRATE IV 04/02/17 20:00 04/03/17 09:25 Sodium Chloride 250 ml @ 15 mls/hr ONCE ONCE IV 04/02/17 21:00 04/03/17 13:39 04/02/17 21:00 Midazolam HCl 100 ml @ 0 mls/hr TITRATE IV 04/03/17 01:45 04/03/17 05:37 (Pitressin Inj/ D5W 100 ml Inj) 100 ml @ 1.5 mls/hr Q24H IV 04/03/17 03:00 04/03/17 02:59 Miscellaneous Information ALL NURSING DEPARTME... UNSCH PRN .XX 04/03/17 03:45 04/04/17 03:44 Piperacillin Sod/ Tazobactam Sod 50 ml @ 100 mls/hr Q6H IV 04/03/17 08:00 04/03/17 08:28 Pantoprazole Sodium 80 mg/ Sodium Chloride 100 ml @ 10 mls/hr Q10H IV 04/03/17 09:00 04/03/17 09:21 (Sodium Bicarbonate 8.4% Inj/Sterile Water For Inj) 1,000 ml @ 150 mls/hr Q6H40M IV 04/03/17 08:00 04/03/17 09:21 (SoluCORTEF INJ) 100 mg Q8HR IV 04/03/17 09:00 04/03/17 09:21 Family History Per EMR:Father had Alzheimer's and at 73 Mother passed at age 96, no known medical problems Substance Use Tobacco: Former tobacco use quit 15 years ago, [id number] history Alcohol: Previously occasional alcohol use Prescription med abuse: None Illicits: None . Psychosocial History Per prior palliative consultation/EMR: . Originally from [place] though has lived in [place] for the past 20+ years. 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 Supported by , brother, 2 adult daughters. Also has a 12yr old pit bull at home. Spiritual/Cultural Factors Has previously requested no design engineer products support Living Will: Completed, but not made available Health Care Surrogate: Completed, but not made available Ethical and Legal Issues Patient due to clinical condition is unable to participate in decision-making. Not clear if he will regain decision-making ability. Has previously indicated has advance directives naming his as legal decision maker. As per [place] statute she would be appropriate legal proxy. Physical Exam Vital Signs Date Time Temp Pulse Resp B/P Pulse Ox O2 Delivery O2 Flow Rate FiO2 04/03/17 11:47 98 35 04/03/17 10:00 107 04/03/17 08:07 100 40 04/03/17 08:00 40 04/03/17 08:00 99.7 130 14 82/60 99 89/60 04/03/17 08:00 102 04/03/17 06:00 102 04/03/17 04:19 98.0 118 22 96/56 98 04/03/17 04:09 100 40 04/03/17 04:00 110 04/03/17 04:00 40 04/03/17 04:00 98.6 122 30 90/55 96 95/68 04/03/17 02:00 112 04/03/17 01:11 99 40 04/03/17 00:15 100 100 04/03/17 00:00 110 12 112/65 90 Mechanical Ventilator 60 04/02/17 23:45 113 12 109/61 91 Mechanical Ventilator 60 04/02/17 23:30 122 12 82/51 94 Mechanical Ventilator 60 04/02/17 23:16 96 40 04/02/17 23:15 123 12 90/54 93 Mechanical Ventilator 40 04/02/17 23:00 130 12 103/61 97 Mechanical Ventilator 40 04/02/17 22:45 115 12 110/72 100 Mechanical Ventilator 40 04/02/17 22:40 97 40 04/02/17 22:32 96.6 115 12 110/72 100 Mechanical Ventilator 40 04/02/17 21:45 100 100 04/02/17 21:10 98.6 112 16 109/56 100 Ventilator 04/02/17 20:59 100 50 04/02/17 20:50 98.4 109 16 112/67 100 Ventilator 04/02/17 20:20 98.3 114 16 100/55 100 Ventilator 04/02/17 20:10 98.3 101 18 113/59 100 Ventilator 04/02/17 20:10 100 50 04/02/17 19:59 130 86/51 04/02/17 19:55 98.5 118 28 94/52 100 Non-Rebreather 15 04/02/17 19:50 100 Nasal Cannula 1.50 04/02/17 19:45 98.3 122 28 86/51 100 Non-Rebreather 15 04/02/17 19:30 101 91/56 100 Nasal Cannula 2 04/02/17 19:17 97 95/51 100 Nasal Cannula 2 04/02/17 19:11 97 Nasal Cannula 2 04/02/17 19:07 100 92/63 95 Nasal Cannula 2 04/02/17 18:53 87 101/62 100 Nasal Cannula 2 04/02/17 18:37 81 104/62 100 Nasal Cannula 2 04/02/17 18:05 90/60 04/02/17 17:53 100 Nasal Cannula 2 04/02/17 17:45 98.2 91 18 84/54 100 Room Air 04/02/17 04/03/17 19:00 07:00 Intake Total 1000 ml 6503 ml Output Total 785 ml Balance 1000 ml 5718 ml Intake Oral 0 ml IV Total 1000 ml 5103 ml Packed Cells 1300 ml Other 100 ml Output Urine Total 575 ml Gastric Drainage Total 10 ml Estimated Blood Loss 200 ml Other 0 ml # Bowel Movements 1 Exam CONSTITUTIONAL/GENERAL: This is a frail, chronically ill appearing pt. on mech vent TUBES/LINES/DRAINS: PIV x3 RUE, radial art line, PEG to sx, ETT, rectal tube, graff catheter SKIN: No jaundice, rashes, or lesions. No wounds seen anteriorly. +dark red dried drainage visible on dressing around peg. Skin is cool distally. HEAD: Atraumatic. Normocephalic. EYES:Eyes closed. No injection or drainage. ENT: Nose without bleeding or purulent drainage. unable to visualize oropharynx due to ETT. + dark red secretions in ett. NECK: Trachea midline. Supple, nontender. CARDIOVASCULAR: Regular rate and rhythm without murmurs. No JVD. Peripheral pulses symmetric-- pedal pulses faint. Feet cool. No mottling. RESPIRATORY/CHEST: Symmetric, unlabored respirations via mech vent. Clear, slightly diminished. Breath sounds equal bilaterally. GASTROINTESTINAL: Abdomen soft, unable to determine tenderness. No palpable masses. Bowel sounds present. + dark red drainage in rectal bag. GENITOURINARY: Without palpable bladder distension. Graff catheter in place dark yellow urine. MUSCULOSKELETAL: Extremities without clubbing, cyanosis, or edema. No joint tenderness or effusion noted. No calf tenderness. No mottling or clubbing. LYMPHATICS: No palpable cervical or supraclavicular adenopathy. NEUROLOGICAL: sedated on mech vent. did not lighten, unable to fully assess neuro. PSYCHIATRIC: No obvious anxiety/depression- sedated on mech vent, limited assess. . Diagnostic Tests Laboratory Laboratory Tests Test 04/02/17 04/02/17 04/02/17 04/02/17 18:30 20:45 21:40 23:03 White Blood Count 3.2 TH/MM3 4.4 TH/MM3 (4.0-11.0) (4.0-11.0) Red Blood Count 2.42 MIL/MM3 2.69 MIL/MM3 (4.50-5.90) (4.50-5.90) Hemoglobin 6.4 GM/DL 7.2 GM/DL (13.0-17.0) (13.0-17.0) Hematocrit 20.0 % 22.9 % (39.0-51.0) (39.0-51.0) Mean Corpuscular Volume 82.5 FL 85.0 FL (80.0-100.0) (80.0-100.0) Mean Corpuscular Hemoglobin 26.5 PG 26.9 PG (27.0-34.0) (27.0-34.0) Mean Corpuscular Hemoglobin 32.2 % 31.6 % Concent (32.0-36.0) (32.0-36.0) Red Cell Distribution Width 18.9 % 18.0 % (11.6-17.2) (11.6-17.2) Platelet Count 210 TH/MM3 266 TH/MM3 (150-450) (150-450) Mean Platelet Volume 8.7 FL 8.4 FL (7.0-11.0) (7.0-11.0) Neutrophils (%) (Auto) 87.7 % 86.1 % (16.0-70.0) (16.0-70.0) Lymphocytes (%) (Auto) 4.8 % 7.3 % (9.0-44.0) (9.0-44.0) Monocytes (%) (Auto) 6.3 % (0.0-8.0) 6.2 % (0.0-8.0) Eosinophils (%) (Auto) 0.8 % (0.0-4.0) 0.1 % (0.0-4.0) Basophils (%) (Auto) 0.4 % (0.0-2.0) 0.3 % (0.0-2.0) Neutrophils # (Auto) 2.8 TH/MM3 3.8 TH/MM3 (1.8-7.7) (1.8-7.7) Lymphocytes # (Auto) 0.2 TH/MM3 0.3 TH/MM3 (1.0-4.8) (1.0-4.8) Monocytes # (Auto) 0.2 TH/MM3 0.3 TH/MM3 (0-0.9) (0-0.9) Eosinophils # (Auto) 0.0 TH/MM3 0.0 TH/MM3 (0-0.4) (0-0.4) Basophils # (Auto) 0.0 TH/MM3 0.0 TH/MM3 (0-0.2) (0-0.2) CBC Comment DIFF FINAL DIFF FINAL Differential Comment Prothrombin Time 11.4 SEC (9.8-11.6) Prothromb Time International 1.0 RATIO Ratio Activated Partial 23.5 SEC Thromboplast Time (24.3-30.1) Sodium Level 140 MEQ/L 140 MEQ/L (136-145) (136-145) Potassium Level 4.4 MEQ/L 4.9 MEQ/L (3.5-5.1) (3.5-5.1) Chloride Level 105 MEQ/L 108 MEQ/L (98-107) (98-107) Carbon Dioxide Level 26.3 MEQ/L 22.6 MEQ/L (21.0-32.0) (21.0-32.0) Anion Gap 9 MEQ/L (5-15) 9 MEQ/L (5-15) Blood Urea Nitrogen 26 MG/DL (7-18) 30 MG/DL (7-18) Creatinine 0.75 MG/DL 1.07 MG/DL (0.60-1.30) (0.60-1.30) Estimat Glomerular Filtration 105 ML/MIN 70 ML/MIN (>89) Rate (>89) Random Glucose 134 MG/DL 209 MG/DL (74-106) (74-106) Lactic Acid Level 5.3 mmol/L 6.7 mmol/L (0.4-2.0) (0.4-2.0) Calcium Level 7.7 MG/DL 6.8 MG/DL (8.5-10.1) (8.5-10.1) Magnesium Level 2.2 MG/DL (1.5-2.5) Total Bilirubin 0.3 MG/DL 0.7 MG/DL (0.2-1.0) (0.2-1.0) Aspartate Amino Transf 25 U/L (15-37) 28 U/L (15-37) (AST/SGOT) Alanine Aminotransferase 27 U/L (12-78) 28 U/L (12-78) (ALT/SGPT) Alkaline Phosphatase 179 U/L 151 U/L (45-117) (45-117) Total Protein 5.0 GM/DL 4.2 GM/DL (6.4-8.2) (6.4-8.2) Albumin 1.9 GM/DL 1.7 GM/DL (3.4-5.0) (3.4-5.0) Lipase 54 U/L (73-393) Blood Type A POSITIVE Antibody Screen NEGATIVE Crossmatch Leukocyte-Reduced Red Blood Cells Blood Bank Comment Blood Gas Puncture Site RT FEMORAL Blood Gas Patient Temperature 98.6 Blood Gas HCO3 11 mmol/L (22-26) Blood Gas Base Excess -15.8 mmol/L (-2-2) Blood Gas Oxygen Saturation 98 % (90-100) Arterial Blood pH 7.19 (7.380-7.420) Arterial Blood Partial 29 mmHg (38-42) Pressure CO2 Arterial Blood Partial 179 mmHG Pressure O2 (61-120) Arterial Blood Oxygen Content 9.6 Vol % (12.0-20.0) Arterial Blood 0.7 % (0-4) Carboxyhemoglobin Arterial Blood Methemoglobin 0.2 % (0-2) Blood Gas Hemoglobin 6.6 G/DL (12.0-16.0) Oxygen Delivery Device VENTILATOR Blood Gas Ventilator Setting Blood Gas Inspired Oxygen 50 % Urine Color YELLOW (YELLW/STRAW) Urine Turbidity HAZY (CLEAR) Urine pH 8.0 (5.0-8.5) Urine Specific [place] 1.015 (1.002-1.035) Urine Protein NEG mg/dL (NEG-TRACE) Urine Glucose (UA) NEG mg/dL (NEG) Urine Ketones NEG mg/dL (NEG) Urine Occult Blood NEG (NEG) Urine Nitrite NEG (NEG) Urine Bilirubin NEG (NEG) Urine Urobilinogen LESS THAN 2.0 MG/DL (LESS THAN 2.0) Urine Leukocyte Esterase NEG (NEG) Urine RBC LESS THAN 1 /hpf (0-3) Urine WBC 2 /hpf (0-5) Urine Amorphous Sediment MANY Urine Bacteria FEW /hpf (NONE) Urine Hyaline Casts 8 /lpf (RARE) Urine Mucus FEW /lpf (OCC) Microscopic Urinalysis Comment CATH-CULTURE IND Protein Corrected Calcium 8.4 MG/DL (8.5-10.1) Test 04/02/17 04/03/17 04/03/17 04/03/17 23:14 00:45 02:00 03:20 Blood Gas Puncture Site RT RADIAL ART LINE Blood Gas Patient Temperature 98.6 98.6 Blood Gas HCO3 20 mmol/L 19 mmol/L (22-26) (22-26) Blood Gas Base Excess -7.4 mmol/L -5.9 mmol/L (-2-2) (-2-2) Blood Gas Oxygen Saturation 96 % (90-100) 96 % (90-100) Arterial Blood pH 7.16 7.34 (7.380-7.420) (7.380-7.420) Arterial Blood Partial 58 mmHg (38-42) 36 mmHg (38-42) Pressure CO2 Arterial Blood Partial 133 mmHg 103 mmHg Pressure O2 (61-120) (61-120) Arterial Blood Oxygen Content 10.0 Vol % 12.5 Vol % (12.0-20.0) (12.0-20.0) Arterial Blood 1.2 % (0-4) 1.5 % (0-4) Carboxyhemoglobin Arterial Blood Methemoglobin 1.5 % (0-2) 1.0 % (0-2) Blood Gas Hemoglobin 7.2 G/DL 9.2 G/DL (12.0-16.0) (12.0-16.0) Oxygen Delivery Device VENTILATOR VENTILATOR Blood Gas Ventilator Setting PRVC/AC PRVC/AC Blood Gas Inspired Oxygen 40 % 40 % Nasal Screen MRSA (PCR) MRSA NOT DETECTED (NOT DETECT) White Blood Count 3.6 TH/MM3 (4.0-11.0) Red Blood Count 3.17 MIL/MM3 (4.50-5.90) Hemoglobin 8.6 GM/DL (13.0-17.0) Hematocrit 26.1 % (39.0-51.0) Mean Corpuscular Volume 82.3 FL (80.0-100.0) Mean Corpuscular Hemoglobin 27.0 PG (27.0-34.0) Mean Corpuscular Hemoglobin 32.8 % Concent (32.0-36.0) Red Cell Distribution Width 16.6 % (11.6-17.2) Platelet Count 217 TH/MM3 (150-450) Mean Platelet Volume 8.5 FL (7.0-11.0) Neutrophils (%) (Auto) 87.6 % (16.0-70.0) Lymphocytes (%) (Auto) 7.7 % (9.0-44.0) Monocytes (%) (Auto) 4.4 % (0.0-8.0) Eosinophils (%) (Auto) 0.1 % (0.0-4.0) Basophils (%) (Auto) 0.2 % (0.0-2.0) Neutrophils # (Auto) 3.2 TH/MM3 (1.8-7.7) Lymphocytes # (Auto) 0.3 TH/MM3 (1.0-4.8) Monocytes # (Auto) 0.2 TH/MM3 (0-0.9) Eosinophils # (Auto) 0.0 TH/MM3 (0-0.4) Basophils # (Auto) 0.0 TH/MM3 (0-0.2) CBC Comment AUTO DIFF Differential Total Cells 100 Counted Neutrophils % (Manual) 74 % (16-70) Band Neutrophils % 11 % (0-6) Lymphocytes % 11 % (9-44) Monocytes % 4 % (0-8) Neutrophils # (Manual) 3.1 TH/MM3 (1.8-7.7) Nucleated Red Blood Cells 2 /100 WBC (0-0) Differential Comment FINAL DIFF MANUAL Platelet Estimate NORMAL (NORMAL) Platelet Morphology Comment NORMAL (NORMAL) Ovalocytes 2+ (NORMAL) Prothrombin Time 12.9 SEC (9.8-11.6) Prothromb Time International 1.2 RATIO Ratio Sodium Level 145 MEQ/L (136-145) Potassium Level 4.8 MEQ/L (3.5-5.1) Chloride Level 110 MEQ/L (98-107) Carbon Dioxide Level 24.2 MEQ/L (21.0-32.0) Anion Gap 11 MEQ/L (5-15) Blood Urea Nitrogen 32 MG/DL (7-18) Creatinine 0.99 MG/DL (0.60-1.30) Estimat Glomerular Filtration 76 ML/MIN (>89) Rate Random Glucose 129 MG/DL (74-106) Lactic Acid Level 5.5 mmol/L (0.4-2.0) Calcium Level 6.9 MG/DL (8.5-10.1) Protein Corrected Calcium 8.4 MG/DL (8.5-10.1) Phosphorus Level 5.0 MG/DL (2.5-4.9) Magnesium Level 2.1 MG/DL (1.5-2.5) Total Bilirubin 1.1 MG/DL (0.2-1.0) Aspartate Amino Transf 41 U/L (15-37) (AST/SGOT) Alanine Aminotransferase 31 U/L (12-78) (ALT/SGPT) Alkaline Phosphatase 143 U/L (45-117) Total Protein 4.4 GM/DL (6.4-8.2) Albumin 1.8 GM/DL (3.4-5.0) Test 04/03/17 04/03/17 04/03/17 06:25 08:40 08:45 Hemoglobin 10.5 GM/DL (13.0-17.0) Hematocrit 29.5 % (39.0-51.0) Ammonia 67 MCMOL/L (11-32) Blood Gas Puncture Site ART LINE Blood Gas Patient Temperature 98.6 Blood Gas HCO3 23 mmol/L (22-26) Blood Gas Base Excess -0.6 mmol/L (-2-2) Blood Gas Oxygen Saturation 97 % (90-100) Arterial Blood pH 7.47 (7.380-7.420) Arterial Blood Partial 31 mmHg (38-42) Pressure CO2 Arterial Blood Partial 148 mmHg Pressure O2 (61-120) Arterial Blood Oxygen Content 12.5 Vol % (12.0-20.0) Arterial Blood 1.8 % (0-4) Carboxyhemoglobin Arterial Blood Methemoglobin 0.9 % (0-2) Blood Gas Hemoglobin 9.0 G/DL (12.0-16.0) Oxygen Delivery Device VENTILATOR Blood Gas Ventilator Setting PC/AC IP 25,RATE Blood Gas Inspired Oxygen 40 % Result Diagram: 04/03/17 0625 04/03/17 0320 Microbiology Microbiology Date/Time Procedure Status Source Growth 04/02/17 18:20 Aerobic Blood Culture - Preliminary Resulted Blood Peripheral NO GROWTH IN 1 DAY 04/02/17 18:20 Anaerobic Blood Culture - Preliminary Resulted Blood Peripheral NO GROWTH IN 1 DAY 04/02/17 18:40 Aerobic Blood Culture - Preliminary Resulted Blood Peripheral NO GROWTH IN 1 DAY 04/02/17 18:40 Anaerobic Blood Culture - Preliminary Resulted Blood Peripheral NO GROWTH IN 1 DAY 04/02/17 21:40 Urine Culture Received Urine Catheterized Urine Pending Imaging Last Impressions Chest X-Ray 04/02/172037 Signed Impressions: Service Date/Time: April 21:05 - CONCLUSION: Lines and tubes. Stable atelectasis versus scarring within the left lung base. Randy Vazquez Jr., MD Patient/Family Conference Present at Family Conference: , 2 daughters Family Conference Time (mins): 30 (minutes) Family Conference Location: Consult Room Issues Discussed: Met with , 2 daughters at length. Discussion included: * Palliative care role, purpose, approach-- remembered this examiner from prior consultation in December * Additional medical, psychosocial, and spiritual history, review of recent hospitalization in December * Patients general health, functional status, in the months leading up to the current hospitalization * Patient/family understanding of the current medical problems * Patient/family understanding of prognosis * Patients goals of care as best understood from advance directives and/or conversations and/or values * CODE STATUS- affirms patient should remain DNR based on his known wishes; she indicates he only agreed to be intubated currently in order to undergo procedure/EGD * Current medical treatment options and benefits/burdens of those options * Review legal decision makers ( legal proxy) * Likely scenarios comparing ongoing aggressive care with a transition to comfort measures only-review of comfort focus, withdrawal of life support anticipatory guidance * Questions answered to the best of my ability * Palliative care contact information provided Met with family at length. They understand condition and prognosis. They indicate that patient would not want to continue prolonged artificial measures. They feel he would not want to on tubes and artificial machines. They would like for him to be able to pass naturally without invasive measures based on his known wishes. They are leaning towards withdrawal of life support however they wish to continue to talk among family to determine when, possibly later today or possibly sometime tomorrow (04/04/17Thursday) Assessment and Plan Disease Oriented Problem List: (1) Upper GI bleed (2) Severe anemia requiring transfusion (3) DONNA (acute kidney injury) (4) Dysphagia due to mass (5) Fatigue (6) Stage IV esophageal cancer (7) Bleeding from ulcerating esophageal cancer Symptom Scale: (1) Dyspnea 0-10 Scale: Unable to quantify (2) Pain 0-10 Scale: Unable to quantify (3) Dysphagia Pertinent Non-Medical Issues Psychosocial:. Originally from [place] though has lived in [place] for the past 20+ years. 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 Supported by , brother, 2 adult daughters. Also has a 12yr old pit bull at home. Spiritual: has previously requested no design engineer products support Legal:Patient due to clinical condition is unable to participate in decision- making. Not clear if he will regain decision-making ability. Has previously indicated has advance directives naming his as legal decision maker. As per [place] statute she would be appropriate legal proxy. Ethical issues impacting care: Important Contacts Chary Crockett [phone] . Prognosis This patient has stage IV esophageal carcinoma. In December of this year started fourth line chemotherapy, with disease progression up until that point, plan for possible fifth line chemotherapy following acute hospitalization in December. Had been receiving chemotherapy ongoing weekly last received Thursday of this week. Has had ongoing complications of recurrent GI bleeding. Currently suffering from massive GI bleeding requiring life support including vasopressors , mechanical vent. GI indicates very large ulceration, will likely cont to bleed. Overall prognosis for survival appears poor given disease progression thus far, and recurrent complications, now in critical condition. Appropriate for hospice-if goals compatible. Code Status: No Code Plan * Legal decision maker:Patient due to clinical condition is unable to participate in decision-making. Not clear if he will regain decision-making ability. Has previously indicated has advance directives naming his as legal decision maker. As per [place] statute she would be appropriate legal proxy. * Goals: Met w , 2 daughters. They are leaning towards transition to comfort focus based on pt known wishes, withdrawal of life support. They are not sure of when possibly later today vs Thursday. Anticipatory guidance has been provided. They will notify nursing or palliative when they decide. Exhibit C has been signed by palliative MD and in chart. 1500 later notified by nursing family requesting withdrawal of life support / transition to comfort focus today. met again w family at bedside, indicates pt would want removal of artificial measures today if they will not help him gain a full recovery. d/w critical care attending. Exhibits b,c signed and in chart. * CODE STATUS: * SYMPTOMS: 1500 comfort orders for prewithdrawal, time of withdrawal, and post withdrawal entered by palliative --pain- per family pt stoic, generally wont complain about pain. Has c/o sciatica like pain to the hips, + reflux like burning pain, which recently would wake him at night at times. (+hx gerd, esophageal CA, +bleeding ulceration on cancer) --dyspnea- emergently intubated for airway protection; + tachypnea prior, hematemesis, hemoptysis . now on mech vent, breathing comfortably , on sedatives -- dysphagia - esophageal mass, s/p peg, limited PO intake. Now on vent. * Palliative care will continue to follow during hospital course as condition evolves, to assist patient/decision-maker with understanding of medical conditions, weighing benefits/burdens of treatment options, for clarification of goals of treatment. Additionally will assist with any symptoms of palliative concern Time Spent >50% Counseling/Coord of Care: Yes (d/w critical care Dr Fournier, GI Dr Menjivar, RN , charge nurse) Thank you for the opportunity to participate in the care of Mr. Crockett. Attestation To help prompt me to consider important information that might be impacting today's encounter and assessment, information from prior notes written by myself or my colleagues may have been "brought forward" into today's note. My signature on this note, however, is an attestation that I personally performed the exam, history, and/or decision-making noted today, and, unless otherwise indicated, the interactions with patient, family, and staff as well as the review of records all occurred today. I also attest that the listed assessment and stated plan reflect my best clinical judgment today based on the combination of historical information, prior notes, and today's exam/ interactions. When time spent is documented, it refers only to time spent today by the signer, or if indicated, combined time spent today by collaborating physician/nurse practitioner. Sabine Al Apr 03, 2017 12:42
[2017-04-03 13:30] LABS: BANDS 23 % (0-6); CORRECTED NUCLEATED RBC 13 /100 WBC (0-0); METAMYELOCYTES 8 % (0-1); POLYS (SEG NEUTROPHILS) 59 % (16-70); WBC DIFF SAMPLE 100
[2017-04-03 13:31] LABS: PLATELET ESTIMATE SMEAR NORMAL (NORMAL); PLATELET MORPHOLOGY NORMAL (NORMAL); SCAN/DIFF FINAL DIFF MANUAL; TOXIC GRANULATION 3+ (NORMAL)
[2017-04-03] MEDS ORDERED: LORazepam 2 MG/ML VIAL IV ONE ×2 (16:00)
[2017-04-03] MEDS ORDERED: HYOSCYAMINE 0.125 MG TAB PO/SL ONE (16:00)
[2017-04-03] MEDS ORDERED: MORPHINE SULFATE 8 MG/ML INJ IV PUSH ONE (16:00)
[2017-04-03] MEDS ORDERED: MORPHINE SULFATE 4 MG/ML INJ IV ONE (16:00)
[2017-04-03] MEDS ORDERED: ACETAMINOPHEN 650 MG SUPP RECTAL PRN (16:15)
[2017-04-03] MEDS ORDERED: LORazepam 2 MG/ML VIAL IVS PRN (17:00)
[2017-04-03] MEDS ORDERED: FUROSEMIDE 20 MG/2 ML VIAL IV PRN (17:00)
[2017-04-03] MEDS: MORPHINE SULFATE 4 MG/ML INJ IV SCH ×3 (20:03→23:36)
[2017-04-03] MEDS: MIDAZOLAM 100 MG/ML INJ 100 ML IV SCH (21:08)
[2017-04-04] VITALS (12 sets, daily range): BP systolic 52–75; BP diastolic 34–48; PULSE 0–109; RESP 15–30; TEMP 97.5–99.9; O2SAT 65–83
[2017-04-04] MEDS: MORPHINE SULFATE 4 MG/ML INJ IV PRN ×10 (00:09→18:36)
[2017-04-04] MEDS: MORPHINE SULFATE 4 MG/ML INJ IV SCH ×4 (03:16→19:52)
[2017-04-04] MEDS: MIDAZOLAM 100 MG/ML INJ 100 ML IV SCH (06:44)
--- NOTE | 2017-04-04 07:09 | HHI.CCPN ---
Subjective Remarks/Hospital Course 61-year-old male who with history of esophageal cancer, reports that he is currently being treated by Dr. Del Angel, reports that he does get chemotherapy treatment once per week. Per medical records he had his last treatment on Thursday. He has not been feeling well for past few days. He has been giving himself feeds through his G-tube as it has been making him feel nauseous. Patient was at home today when he had episode of nausea and vomiting. According to - patient appeared to have a syncopal episode. When EMS arrived on scene, patient appeared cool and diaphoretic, blood pressure was 80/ 40. Patient was given a bolus of IVF and repeat bp was 84/54. He was also given some Zofran on scene. In the emergency department he had some hematemesis and was intubated for an airway protection by ED attending. SUBJ 04/03: Patient is currently on 24 mcg/m of Levophed and vasopressin. So far received 2 units of PRBC and 4 L crystalloids. I have ordered additional 2 L normal saline boluses. Remains on propofol and Versed. EGD done report pending ( apparently EGD showed ulcers which were cauterized, epi injection). Start empiric Zosyn and single dose of vancomycin for probable septic shock 04/04: Life support withdrawn yesterday evening. Sats in high 60s MAP 44. Appears comfortable, not struggling. Family at bedside Objective Vital Signs Date Time Temp Pulse Resp B/P Pulse Ox O2 Delivery O2 Flow Rate FiO2 04/04/17 02:00 109 04/04/17 00:00 97.5 30 75/48 78 04/03/17 16:30 Room Air 21 04/02/17 19:55 15 Intake and Output 04/03/17 04/03/17 04/04/17 08:00 16:00 00:00 Intake Total 3903 ml 3586 ml 53 ml Output Total 585 ml 675 ml 700 ml Balance 3318 ml 2911 ml -647 ml Result Diagram: 04/03/17 1145 04/03/17 0320 Other Results Laboratory Tests Test 04/03/17 08:45 Blood Gas Puncture Site ART LINE Blood Gas Patient Temperature 98.6 Blood Gas HCO3 23 mmol/L (22-26) Blood Gas Base Excess -0.6 mmol/L (-2-2) Blood Gas Oxygen Saturation 97 % (90-100) Arterial Blood pH 7.47 (7.380-7.420) Arterial Blood Partial 31 mmHg (38-42) Pressure CO2 Arterial Blood Partial 148 mmHg Pressure O2 (61-120) Arterial Blood Oxygen Content 12.5 Vol % (12.0-20.0) Arterial Blood 1.8 % (0-4) Carboxyhemoglobin Arterial Blood Methemoglobin 0.9 % (0-2) Blood Gas Hemoglobin 9.0 G/DL (12.0-16.0) Oxygen Delivery Device VENTILATOR Blood Gas Ventilator Setting PC/AC IP 25,RATE Blood Gas Inspired Oxygen 40 % Imaging Last 24 hours Impressions Chest X-Ray 04/02/172037 Signed Impressions: Service Date/Time: April 21:05 - CONCLUSION: Lines and tubes. Stable atelectasis versus scarring within the left lung base. Randy Vazquez Jr., MD Chest X-Ray 04/02/17 1750 Signed Impressions: Service Date/Time: April 18:09 - CONCLUSION: 1. Minimal atelectatic changes in the left lingula/lung base. 2. Lungs are otherwise clear with no confluent infiltrate or effusion. 3. Right subclavian [id number] catheter is stable in position. Mendez Guidry MD Objective Remarks GENERAL: Pale sedated on Versed SKIN: Warm and dry. HEAD: Normocephalic. CARDIOVASCULAR: Regular rate and rhythm. Hypotensive MAP 44 RESPIRATORY: Equal chest rise. No accessory muscle use. GASTROINTESTINAL: Abdomen soft, non-tender, nondistended. MUSCULOSKELETAL: No cyanosis, or edema. EXTREMITIES: No clubbing cyanosis or edema NEURO: Sedated, resting A/P Assessment and Plan NEURO: - Sedated with Versed and PRN Morphine RESP: Respiratory failure - Extubated to terminal wean yesterday. SaO2 in high 60s CVS: Shock hypovolemic and septic Lactic acidosis - No active treatment GI Hematemesis Stage IV esophageal cancer -No active treatment HEME Anemia due to blood loss - s/p multiple PRBCs. - No further transfusion Level 1 Family at the bedside updated. Patient terminally ill, on comfort measures only , expected to pass soon Citlali Fournier MD Apr 04, 2017 07:08
[2017-04-04] MEDS: LORazepam 2 MG/ML VIAL IV PRN ×5 (08:27→19:52)
--- NOTE | 2017-04-04 09:10 | EKG ---
Date Performed: 04/02/2017 Time Performed: 18:01:26 PTAGE: 61 years EKG: SUPRAVENTRICULAR RHYTHM BORDERLINE LEFT AXIS DEVIATION LOW QRS VOLTAGE IN EXTREMITY LEADS A BNORMAL QRS-T ANGLE LOSS OF QRS VOLTAGE PERICARDITIS, PERICARDIAL EFFUSION, HYPOTHYROID, ETC. Clinica l correlation is recommended ABNORMAL ECG PREVIOUS TRACING : 11/04/2016 15.15 DOCTOR: David Sauer Interpretating Date/Time 04/04/2017 09:09:04
[2017-04-04] MEDS ORDERED: MIDAZOLAM 100 MG/ML INJ 100 ML IV SCH (09:45)
--- NOTE | 2017-04-04 09:51 | HHI.HCPN ---
Call from unit as wanted to speak with palliative care. I spoke with Mrs. Crockett via telephone, she was concerned about the possibility of moving her given his declining condition. Per EMR review and discussing with RN, patient Systolic BP in the 50's, remains tachycardic, requiring more frequent use of PRN Morphine for tachypnea and use of accessory muscles to breathe. is in agreement to allow me to make some adjustments to current meds to ensure continued comfort based on recent PRN need increase. Remains on Versed drip at 10, will increase to 12. Encouraged use of PRN Lorazepam if needed. Will increase scheduled Morphine and increase dose range of PRN Morphine for breakthrough in a effort to get him more comfortable. Patient remains PPS 10, appears to be declining, he does not appear stable enough for transport at this time. appreciates call and agrees with plan of care. Palliative care cell number provided, should she have any additional questions or concerns. . CRISS BRANTLEY Apr 04, 2017 09:51
[2017-04-04] MEDS: MORPHINE SULFATE 8 MG/ML INJ IV PUSH PRN ×6 (10:09→13:56)
[2017-04-04] MEDS: SODIUM CHLORIDE 0.9% FLUSH 10 ML FLUSH SCH (11:25)
--- NOTE | 2017-04-04 12:09 | HHI.GIFU ---
Subjective Remarks Life support withdrawn yesterday evening. sleeping peacefully, comfortable, doesn't seem to be in stress. Family at bedside. No signs of active bleeding today. Leaning towards palliative measures rather than invasive (Mary Combs) Objective Vitals I&O Vital Signs Date Time Temp Pulse Resp B/P Pulse Ox O2 Delivery O2 Flow Rate FiO2 04/04/17 10:00 97 04/04/17 08:00 100 04/04/17 08:00 70 Room Air 04/04/17 08:00 99.9 100 30 55/40 04/04/17 06:00 104 04/04/17 04:00 99.9 105 21 61/37 65 04/04/17 04:00 65 Room Air 04/04/17 04:00 105 04/04/17 02:00 109 04/04/17 00:00 97.5 104 30 75/48 78 04/04/17 00:00 104 04/03/17 22:00 89 04/03/17 20:00 96.6 85 24 72/50 92 04/03/17 20:00 85 04/03/17 16:30 100 Room Air 21 04/03/17 14:00 79 04/03/17 12:00 94 04/03/17 12:00 98.8 94 11 100/63 95 104/56 04/03/17 12:00 40 I/O 04/03/17 04/03/17 04/03/17 04/04/17 04/04/17 04/04/17 07:00 15:00 23:00 07:00 15:00 23:00 Intake Total 3903 ml 3586 ml 53 ml 67 ml Output Total 585 ml 675 ml 700 ml 450 ml Balance 3318 ml 2911 ml -647 ml -383 ml Intake Oral 0 ml 0 ml 0 ml IV Total 3103 ml 3336 ml 53 ml 67 ml Packed Cells 800 ml 250 ml Output Urine Total 575 ml 275 ml 500 ml 450 ml Stool Total 300 ml 200 ml 0 ml Gastric Drainage Total 10 ml 100 ml # Bowel Movements 1 Laboratory Laboratory Tests Test 04/03/17 04/03/17 12:48 13:00 Blood Type A POSITIVE A POSITIVE Crossmatch Leukocyte-Reduced Red Blood Cells Blood Bank Comment Antibody Screen NEGATIVE Date/Time Procedure Status Source Growth 04/02/17 21:40 Urine Culture - Preliminary Resulted Urine Catheterized Urine No growth. 04/02/17 18:40 Aerobic Blood Culture - Preliminary Resulted Blood Peripheral NO GROWTH IN 2 DAYS 04/02/17 18:40 Anaerobic Blood Culture - Preliminary Resulted Blood Peripheral NO GROWTH IN 2 DAYS Imaging Last Impressions Chest X-Ray 04/02/172037 Signed Impressions: Service Date/Time: , April 02, 2017 21:05 - CONCLUSION: Lines and tubes. Stable atelectasis versus scarring within the left lung base. Randy Vazquez Jr., MD Physical Exam HEENT: resting in bed comfortably CHEST: Chest is clear to auscultation and percussion. CARDIAC: Regular rate and rhythm with no murmur gallop or rubs. ABDOMEN: soft, non distended, non tender, PEG tube EXTREMITIES: No clubbing, cyanosis, or edema. Neurology: Not waking up (Mary Combs) Assessment and Plan Plan 1. Esophageal cancer, stage IV, receiving chemoradiation and currently under treatment protocol. 2. History of bleeding from the ulcerated esophageal mass requiring endoscopic therapy with epinephrine, APC and Endoclip. EGD on (04/03/17) with epi Currently Life support withdrawn yesterday evening. sleeping peacefully, comfortable, doesn't seem to be in stress. Family at bedside. No signs of active bleeding today. Leaning towards palliative measures rather than invasive, no labs today 3. Massive upper GI bleeding manifested by hypotension, blood coming out from PEG tube and hematemesis. no more 4. Endotracheal intubation for airway protection and stabilization. s/p extubation and life support withdraw 5. Status DNR- Palliative care on the case. RECOMMENDATIONS - Family leaning towards palliative care and don't wish to proceed with invasive procedures - Poor prognosis s/p life support withdraw - Proton pump inhibitors. - Supportive care. - Further recommendations to follow based on clinical course - Patient seen and examined by Dr. Menjivar and myself and this note is written on his behalf. (Mary Combs) Physician Comments Plan as above, will follow up with you periodically . supportive care for now. ( Ricco Menjivar MD) Mary Combs Apr 04, 2017 12:09 Ricco Menjivar MD Apr 04, 2017 17:54
--- NOTE | 2017-04-04 14:20 | HHI.DS ---
Discharge Summary Admission Date Apr 02, 2017 at 19:41 Admitting Diagnosis Upper GI bleed w/ hematemesis w/hypotension;anemia;Esophageal CA (1) Acute respiratory failure ICD Code: J96.00 Diagnosis: Principal (2) Hemorrhagic shock Diagnosis: Principal (3) Lactic acidemia ICD Code: E87.2 Diagnosis: Principal (4) Severe anemia requiring transfusion Diagnosis: Principal (5) Sepsis ICD Code: A41.9 Diagnosis: Principal (6) Bleeding from ulcerating esophageal cancer Diagnosis: Secondary (7) Stage IV esophageal cancer Diagnosis: Secondary (8) DONNA (acute kidney injury) ICD Code: N17.9 Diagnosis: Secondary (9) Upper GI bleed ICD Code: K92.2 Diagnosis: Secondary (10) Malnutrition ICD Code: E46 Diagnosis: Secondary Brief History 61-year-old male who with history of esophageal cancer, reports that he is currently being treated by Dr. Del Angel, reports that he does get chemotherapy treatment once per week. Per medical records he had his last treatment on Thursday. He has not been feeling well for past few days. He has been giving himself feeds through his G-tube as it has been making him feel nauseous. Patient was at home today when he had episode of nausea and vomiting. According to - patient appeared to have a syncopal episode. When EMS arrived on scene, patient appeared cool and diaphoretic, blood pressure was 80/ 40. Patient was given a bolus of IVF and repeat bp was 84/54. He was also given some Zofran on scene. In the emergency department he had some hematemesis and was intubated for an airway protection by ED attending. CBC/BMP: 04/03/17 1145 04/03/17 0320 Significant Findings Laboratory Tests Test 04/02/17 04/02/17 04/02/17 04/02/17 18:30 20:45 21:40 23:03 White Blood Count 3.2 TH/MM3 (4.0-11.0) Red Blood Count 2.42 MIL/MM3 2.69 MIL/MM3 (4.50-5.90) (4.50-5.90) Hemoglobin 6.4 GM/DL 7.2 GM/DL (13.0-17.0) (13.0-17.0) Hematocrit 20.0 % 22.9 % (39.0-51.0) (39.0-51.0) Mean Corpuscular Hemoglobin 26.5 PG 26.9 PG (27.0-34.0) (27.0-34.0) Red Cell Distribution Width 18.9 % 18.0 % (11.6-17.2) (11.6-17.2) Neutrophils (%) (Auto) 87.7 % 86.1 % (16.0-70.0) (16.0-70.0) Lymphocytes (%) (Auto) 4.8 % 7.3 % (9.0-44.0) (9.0-44.0) Lymphocytes # (Auto) 0.2 TH/MM3 0.3 TH/MM3 (1.0-4.8) (1.0-4.8) Activated Partial 23.5 SEC Thromboplast Time (24.3-30.1) Blood Urea Nitrogen 26 MG/DL (7-18) 30 MG/DL (7-18) Random Glucose 134 MG/DL 209 MG/DL (74-106) (74-106) Lactic Acid Level 5.3 mmol/L 6.7 mmol/L (0.4-2.0) (0.4-2.0) Calcium Level 7.7 MG/DL 6.8 MG/DL (8.5-10.1) (8.5-10.1) Alkaline Phosphatase 179 U/L 151 U/L (45-117) (45-117) Total Protein 5.0 GM/DL 4.2 GM/DL (6.4-8.2) (6.4-8.2) Albumin 1.9 GM/DL 1.7 GM/DL (3.4-5.0) (3.4-5.0) Lipase 54 U/L (73-393) Blood Gas HCO3 11 mmol/L (22-26) Blood Gas Base Excess -15.8 mmol/L (-2-2) Arterial Blood pH 7.19 (7.380-7.420) Arterial Blood Partial 29 mmHg (38-42) Pressure CO2 Arterial Blood Partial 179 mmHG Pressure O2 (61-120) Arterial Blood Oxygen Content 9.6 Vol % (12.0-20.0) Blood Gas Hemoglobin 6.6 G/DL (12.0-16.0) Urine Turbidity HAZY (CLEAR) Urine Bacteria FEW /hpf (NONE) Urine Mucus FEW /lpf (OCC) Mean Corpuscular Hemoglobin 31.6 % Concent (32.0-36.0) Chloride Level 108 MEQ/L (98-107) Estimat Glomerular Filtration 70 ML/MIN (>89) Rate Protein Corrected Calcium 8.4 MG/DL (8.5-10.1) Test 04/02/17 04/03/17 04/03/17 04/03/17 23:14 02:00 03:20 06:25 Blood Gas HCO3 20 mmol/L 19 mmol/L (22-26) (22-26) Blood Gas Base Excess -7.4 mmol/L -5.9 mmol/L (-2-2) (-2-2) Arterial Blood pH 7.16 7.34 (7.380-7.420) (7.380-7.420) Arterial Blood Partial 58 mmHg (38-42) 36 mmHg (38-42) Pressure CO2 Arterial Blood Partial 133 mmHg Pressure O2 (61-120) Arterial Blood Oxygen Content 10.0 Vol % (12.0-20.0) Blood Gas Hemoglobin 7.2 G/DL 9.2 G/DL (12.0-16.0) (12.0-16.0) White Blood Count 3.6 TH/MM3 (4.0-11.0) Red Blood Count 3.17 MIL/MM3 (4.50-5.90) Hemoglobin 8.6 GM/DL 10.5 GM/DL (13.0-17.0) (13.0-17.0) Hematocrit 26.1 % 29.5 % (39.0-51.0) (39.0-51.0) Neutrophils (%) (Auto) 87.6 % (16.0-70.0) Lymphocytes (%) (Auto) 7.7 % (9.0-44.0) Lymphocytes # (Auto) 0.3 TH/MM3 (1.0-4.8) Neutrophils % (Manual) 74 % (16-70) Band Neutrophils % 11 % (0-6) Nucleated Red Blood Cells 2 /100 WBC (0-0) Ovalocytes 2+ (NORMAL) Prothrombin Time 12.9 SEC (9.8-11.6) Chloride Level 110 MEQ/L (98-107) Blood Urea Nitrogen 32 MG/DL (7-18) Estimat Glomerular Filtration 76 ML/MIN (>89) Rate Random Glucose 129 MG/DL (74-106) Lactic Acid Level 5.5 mmol/L (0.4-2.0) Calcium Level 6.9 MG/DL (8.5-10.1) Protein Corrected Calcium 8.4 MG/DL (8.5-10.1) Phosphorus Level 5.0 MG/DL (2.5-4.9) Total Bilirubin 1.1 MG/DL (0.2-1.0) Aspartate Amino Transf 41 U/L (15-37) (AST/SGOT) Alkaline Phosphatase 143 U/L (45-117) Total Protein 4.4 GM/DL (6.4-8.2) Albumin 1.8 GM/DL (3.4-5.0) Test 04/03/17 04/03/17 04/03/17 08:40 08:45 11:45 Ammonia 67 MCMOL/L (11-32) Arterial Blood pH 7.47 (7.380-7.420) Arterial Blood Partial 31 mmHg (38-42) Pressure CO2 Arterial Blood Partial 148 mmHg Pressure O2 (61-120) Blood Gas Hemoglobin 9.0 G/DL (12.0-16.0) White Blood Count 2.2 TH/MM3 (4.0-11.0) Red Blood Count 2.11 MIL/MM3 (4.50-5.90) Hemoglobin 5.8 GM/DL (13.0-17.0) Hematocrit 17.7 % (39.0-51.0) Neutrophils (%) (Auto) 84.0 % (16.0-70.0) Lymphocytes (%) (Auto) 6.7 % (9.0-44.0) Monocytes (%) (Auto) 8.6 % (0.0-8.0) Lymphocytes # (Auto) 0.1 TH/MM3 (1.0-4.8) Band Neutrophils % 23 % (0-6) Lymphocytes % 8 % (9-44) Metamyelocytes 8 % (0-1) Nucleated Red Blood Cells 13 /100 WBC (0-0) Toxic Granulation 3+ (NORMAL) Lactic Acid Level 3.5 mmol/L (0.4-2.0) PE at Discharge GENERAL: Pale sedated on Versed and PRN Morphine SKIN: Warm and dry. HEAD: Normocephalic. CARDIOVASCULAR: Regular rate and rhythm. Hypotensive MAP 44 RESPIRATORY: Equal chest rise. No accessory muscle use. GASTROINTESTINAL: Abdomen soft, non-tender, nondistended. MUSCULOSKELETAL: No cyanosis, or edema. EXTREMITIES: No clubbing cyanosis or edema NEURO: Sedated, resting Transfer Summary See hospital course Hospital Course 61-year-old male who with history of esophageal cancer, reports that he is currently being treated by Dr. Del Angel, reports that he does get chemotherapy treatment once per week. Per medical records he had his last treatment on Thursday. He has not been feeling well for past few days. He has been giving himself feeds through his G-tube as it has been making him feel nauseous. Patient was at home today when he had episode of nausea and vomiting. According to - patient appeared to have a syncopal episode. When EMS arrived on scene, patient appeared cool and diaphoretic, blood pressure was 80/ 40. Patient was given a bolus of IVF and repeat bp was 84/54. He was also given some Zofran on scene. In the emergency department he had some hematemesis and was intubated for an airway protection by ED attending. SUBJ 6/: Patient is currently on 24 mcg/m of Levophed and vasopressin. So far received 2 units of PRBC and 4 L crystalloids. I have ordered additional 2 L normal saline boluses. Remains on propofol and Versed. EGD done report pending ( apparently EGD showed ulcers which were cauterized, epi injection). Start empiric Zosyn and single dose of vancomycin for probable septic shock /3: Life support withdrawn yesterday evening. Sats in high 60s MAP 44. Appears comfortable, not struggling. Family at bedside. They have met with hospice and has decided to transfer to inpatient hospice. I'll order patient be transferred to the general medical floor Pt Condition on Discharge: Deteriorating Discharge Disposition: Hospice/Med Facility Discharge Instructions DIET: Follow Instructions for: Nothing By Mouth Activities you can perform: Continue Bedrest Citlali Fournier MD Apr 04, 2017 14:20
[2017-04-04] MEDS ORDERED: HYOSCYAMINE 0.5 MG/ML AMP IV PUSH PRN (15:00)
[2017-04-04] MEDS ORDERED: HYOSCYAMINE 0.125 MG TAB SL PRN ×2 (19:30)
== END 2017-04-04 22:05 | disposition expired | DRG 377 ==
LOC: NEPC 17:19 → NEDA 19:41 → HIMW 04-03 00:15 → HIMN 04-03 14:30
PROVIDERS: ADMIT Internal Medicine Critical Care Medicine; ATTEND Internal Medicine Critical Care Medicine
PROC: 30253N1 (ICD-10-PCS; principal; 2017-04-02 22:00)
DX: K92.0 Hematemesis (principal); J96.00 Acute respiratory failure, unspecified whether with hypoxia or hypercapnia; R65.21 Severe sepsis with septic shock; A41.9 Sepsis, unspecified organism; C15.9 Malignant neoplasm of esophagus, unspecified; N17.9 Acute kidney failure, unspecified; E87.2 Acidosis; R13.19 Other dysphagia; E46 Unspecified protein-calorie malnutrition; E86.0 Dehydration; D50.0 Iron deficiency anemia secondary to blood loss (chronic); K21.9 Gastro-esophageal reflux disease without esophagitis; Z51.5 Encounter for palliative care; Z66 Do not resuscitate; Z87.891 Personal history of nicotine dependence; Z93.1 Gastrostomy status; Z92.21 Personal history of antineoplastic chemotherapy
CPT/HCPCS: 31500; 36430; 36556; 36600; 71010; 76937; 80053; 81001; 82140; 82805; 83605; 83690; 83735; 84100; 85007; 85014; 85018; 85025; 85027; 85610; 85730; 86850; 86900; 86901; 86920; 87040; 87086; 87641; 93005; 94002; 94003; 96361; 96374; C9113; J0171; J0330; J1720; J1940; J2060; J2250; J2270; J2405; J2543; J2765; J3370; J7030; J7050; J7120; P9016; P9047